=== PATIENT | male | born 1950 | race Caucasian/White ===

== ENCOUNTER → 2018-03-30 | Outpatient (CLI) | payer MEDICARE, OTHER ==
--- NOTE | 2018-03-30 11:38 | US ---
EXAMINATION TYPE: US abdomen complete DATE OF EXAM: 03/30/2018 COMPARISON: NONE CLINICAL HISTORY: K70.31 Alcoholic cirrhosis of liver with ascites. EXAM MEASUREMENTS: Liver Length: 17.1 cm Gallbladder Wall: 0.2 cm CBD: obscured by overlying bowel Spleen: 11.7 cm Right Kidney: 11.0 x 4.8 x 5.4 cm Left Kidney: 12.5 x 5.3 x 55. cm Patient of large body habitus with very large abdomen, extensive overlying bowel gas obscuring all mi dline structures. Patient had trouble holding his breath. Technically difficult and limited study. Unable to see hepatic artery to assess flow in portal v and hepatic artery. Pancreas: Obscured by bowel gas Liver: left lobe obscured by bowel gas, hyperechoic focus seen in right lobe measuring 0.7 x 0.6 x 0. 9cm, there is heterogeneous, enlarged Gallbladder: wnl Evidence for sonographic Raymundo's sign: no CBD: Obscured by overlying bowel gas Spleen: wnl Right Kidney: cyst measuring 1.4 x 1.3 x 1.0cm Left Kidney: lobular surface, hyperechoic focus within the cortex of the midpole is indeterminate roby suring only 3 mm Upper IVC: wnl Abd Aorta: Obscured by overlying bowel gas There is no ascites IMPRESSION: Exam is limited technically. Suspect underlying hepatocellular disease. Hepatomegaly. Pro bable calcification within the liver. Additional findings above.
== END | disposition home or self-care (01) ==
LOC: RADUSWWP 08:49 → EEVIPCON 09:00
DX: R16.0 Hepatomegaly, not elsewhere classified (principal); N28.1 Cyst of kidney, acquired
CPT/HCPCS: 76700

== ENCOUNTER 2018-04-26 08:56 | Day surgery (SDC) | payer MEDICARE, OTHER ==
[2018-04-26 09:43] VITALS: BP 123/61; PULSE 108; RESP 18; TEMP 98.1
--- NOTE | 2018-04-26 10:12 | US ---
Therapeutic paracentesis. DATE OF EXAM: 04/26/2018 CLINICAL HISTORY: Ascites Preliminary imaging demonstrated no evidence of ascites. IMPRESSION: Discontinued paracentesis due to lack of ascites.
== END 2018-04-26 09:40 ==
LOC: RADPROMAIN 08:56
DX: Z53.8 Procedure and treatment not carried out for other reasons (principal)
CPT/HCPCS: 76705

== ENCOUNTER → 2019-04-03 | Outpatient (CLI) | payer MEDICARE, OTHER ==
--- NOTE | 2019-04-03 10:22 | US ---
EXAMINATION TYPE: US liver DATE OF EXAM: 04/03/2019 COMPARISON: CLINICAL HISTORY: K70.31 alcoholic cirrhosis of liver with ascites. No pain, no previous surgeries EXAM MEASUREMENTS: Liver Length: 19.0 cm Gallbladder Wall: 0.2 cm CBD: 0.7 cm CHD: 0.7 cm Right Kidney: 10.8 x 5.1 x 5.4 cm Suboptimal visualization due to overlying bowel gas due and patient body habitus Pancreas: Obscured by bowel gas Liver: Appears enlarged and heterogenous. Scanned through ribs due to overlying bowel gas. Left lob e not visualized due to bowel gas. Gallbladder: wnl Evidence for sonographic Raymundo's sign: neg CBD: wnl for patient age CHD: wnl for patient age Right Kidney: Medial cystic appearing lesion - 1.3 x 1.2 x 1.2 cm. This was seen on the prior exam o f 03/30/2018 and measured 1.4 cm at the time in greatest dimension. IMPRESSION: 1. Partial obscuration of the liver due to overlying bowel gas. Within the visualized portions there is a coarsened heterogenous echotexture relating to the patient's known hepatocellular disease. Withi n the visualized portions no focal hepatic lesion is seen. 2. Right renal cyst measuring 1.3 cm is incidentally noted.
== END | disposition home or self-care (01) ==
LOC: RADUSWWP 09:34
DX: K70.31 Alcoholic cirrhosis of liver with ascites (principal); N28.1 Cyst of kidney, acquired
CPT/HCPCS: 76705

== ENCOUNTER → 2020-04-28 | Outpatient (CLI) | payer MEDICARE, OTHER ==
--- NOTE | 2020-04-28 12:33 | US ---
EXAMINATION TYPE: US liver DATE OF EXAM: 04/28/2020 COMPARISON: NONE CLINICAL HISTORY: K70.31 Alchoholic Cirrosis. EXAM MEASUREMENTS: Liver Length: 14.9 cm Gallbladder Wall: 0.3 cm CBD: 0.6 cm Right Kidney: 10.3 x 5.4 x 5.2 cm Patient of large body habitus, limited mobility with extensive overlying bowel gas, technically diffi cult study. Pancreas: Obscured by bowel gas Liver: wnl as seen, limited views Gallbladder: wnl as seen, limited views Evidence for sonographic Raymundo's sign: no CBD: wnl Right Kidney: wnl IMPRESSION: No distinct abnormality seen.
== END | disposition home or self-care (01) ==
LOC: RADUSWWP 10:30
PROVIDERS: ATTEND Internal Medicine Gastroenterology
DX: K70.31 Alcoholic cirrhosis of liver with ascites (principal)
CPT/HCPCS: 76705

== ENCOUNTER 2021-03-10 13:31 | Inpatient (IN) | payer MEDICARE, OTHER ==
[2021-03-10] MEDS ORDERED: SODIUM CHLORIDE 0.9% 1,000 ML IV STA (14:55)
--- NOTE | 2021-03-10 15:00 | ED ---
General Adult HPI - General Chief complaint: Abdominal Pain Stated complaint: Bowel Obstruction Time Seen by Provider: 03/10/21 13:50 Source: patient, RN notes reviewed Mode of arrival: ambulatory Limitations: no limitations - History of Present Illness Initial comments: Patient is a pleasant 71-year-old male presenting to the emergency Department with complaints of abdominal distention. Patient is a poor historian. Patient has had some intermittent constipation over the past few days. Patient did have a small bowel movement today. No nausea vomiting. No change in appetite. Patient states his abdomen feels larger than normal. Patient did have outpatient x-ray with concern for intestinal dilation. - Related Data Home Medications Medication Instructions Recorded Confirmed Acetaminophen Tab [Tylenol Tab] 1,000 mg PO Q8H PRN 04/20/18 03/10/21 Lactulose 20 gm PO TID@0700,1300,1900 04/20/18 03/10/21 Multivitamins, Thera [Multivitamin 1 tab PO HS 04/20/18 03/10/21 (formulary)] Spironolactone 100 mg PO DAILY 04/20/18 03/10/21 Acetaminophen [Tylenol Extra 500 mg PO Q6H PRN 03/10/21 03/10/21 Strength] Furosemide [Lasix] 80 mg PO DAILY 03/10/21 03/10/21 Melatonin 3 mg PO HS 03/10/21 03/10/21 Omeprazole 20 mg PO HS 03/10/21 03/10/21 Phenyleph/Mineral Oil/Petrolat 1 applic RECTAL Q12H PRN 03/10/21 03/10/21 [Preparation H Ointment] Sennosides [Senna] 17.2 mg PO HS 03/10/21 03/10/21 Spironolactone 50 mg PO DAILY 03/10/21 03/10/21 Allergies Allergy/AdvReac Type Severity Reaction Status Date / Time No Known Allergies Allergy Verified 03/10/21 15:16 Review of Systems ROS Statement: Those systems with pertinent positive or pertinent negative responses have been documented in the HPI. ROS Other: All systems not noted in ROS Statement are negative. Constitutional: Denies: fever Eyes: Denies: eye pain ENT: Denies: ear pain Respiratory: Denies: cough Cardiovascular: Denies: chest pain Endocrine: Denies: fatigue Gastrointestinal: Reports: as per HPI Genitourinary: Denies: dysuria Musculoskeletal: Denies: back pain Skin: Denies: rash Neurological: Denies: weakness Past Medical History Past Medical History: Liver Disease Additional Past Medical History / Comment(s): hepatic encephalopathy, dysphasia, anasarca, ascites due to liver cirrhosis History of Any Multi-Drug Resistant Organisms: Unobtainable Past Surgical History: Orthopedic Surgery Additional Past Surgical History / Comment(s): previous paracentesis at [facility] 2017, broken hip with rods placed Past Psychological History: Depression Smoking Status: Current every day smoker Past Alcohol Use History: Occasional Past Drug Use History: None Reported - Past Family History Mother Family Medical History: Dementia General Exam Limitations: no limitations General appearance: alert, in no apparent distress Head exam: Present: normocephalic Eye exam: Present: normal appearance Neck exam: Present: normal inspection Respiratory exam: Present: normal lung sounds bilaterally Cardiovascular Exam: Present: regular rate, normal rhythm Expanded Peripheral pulses: 2+: Dorsalis Pedis (R), Dorsalis Pedis (L) GI/Abdominal exam: Present: soft, distended. Absent: tenderness, guarding, rebound, rigid Extremities exam: Present: normal inspection Neurological exam: Present: alert Psychiatric exam: Present: normal affect, normal mood Skin exam: Present: normal color Course Vital Signs 03/10/21 03/10/21 13:58 16:38 Temperature 98.6 F 97.9 F Pulse Rate 81 80 Respiratory 18 18 Rate Blood Pressure 113/72 119/71 O2 Sat by Pulse 98 98 Oximetry Medical Decision Making - Medical Decision Making Patient reevaluated and updated. Case discussed with Dr. Hester, covering for Dr. Reddy, who will admit. Case also discussed with Dr. Rome who will consult. She agrees with NG tube and recommends nothing by mouth except for ice chips. - Lab Data Result diagrams: 03/10/21 15:01 03/10/21 15:01 Lab Results 03/10/21 03/10/21 03/10/21 Range/Units 15:01 15:01 15:01 WBC 9.2 (3.8-10.6) k/uL RBC 4.73 (4.30-5.90) m/uL Hgb 13.6 (13.0-17.5) gm/dL Hct 41.1 (39.0-53.0) % MCV 87.0 (80.0-100.0) fL MCH 28.8 (25.0-35.0) pg MCHC 33.1 (31.0-37.0) g/dL RDW 14.0 (11.5-15.5) % Plt Count 278 (150-450) k/uL MPV 7.2 Neutrophils % 48 % Lymphocytes % 39 % Monocytes % 7 % Eosinophils % 5 % Basophils % 1 % Neutrophils # 4.4 (1.3-7.7) k/uL Lymphocytes # 3.6 (1.0-4.8) k/uL Monocytes # 0.6 (0-1.0) k/uL Eosinophils # 0.4 (0-0.7) k/uL Basophils # 0.1 (0-0.2) k/uL PT 10.6 (9.0-12.0) sec INR 1.0 (<1.2) APTT 27.0 (22.0-30.0) sec Sodium 137 (137-145) mmol/L Potassium 4.3 (3.5-5.1) mmol/L Chloride 103 (98-107) mmol/L Carbon Dioxide 21 L (22-30) mmol/L Anion Gap 13 mmol/L BUN 18 (9-20) mg/dL Creatinine 0.76 (0.66-1.25) mg/dL Est GFR (CKD-EPI)AfAm >90 (>60 ml/min/1.73 sqM) Est GFR (CKD-EPI)NonAf >90 (>60 ml/min/1.73 sqM) Glucose 73 L (74-99) mg/dL Calcium 9.9 (8.4-10.2) mg/dL Total Bilirubin 0.4 (0.2-1.3) mg/dL AST 36 (17-59) U/L ALT 18 (4-49) U/L Alkaline Phosphatase 91 (38-126) U/L Total Protein 8.1 (6.3-8.2) g/dL Albumin 4.7 (3.5-5.0) g/dL Amylase 66 (30-110) U/L Lipase 137 (23-300) U/L - Radiology Data Radiology results: image reviewed (Computed tomography scan concerning for bowel obstruction with possible sigmoid volvulus.) Disposition Clinical Impression: Bowel obstruction, Sigmoid volvulus Disposition: ADMITTED IP TO THIS [facility] Condition: Serious Is patient prescribed a controlled substance at d/c from ED?: No Referrals: Ed Reddy MD [Primary Care Provider] - 1-2 days Decision Time: 16:46
[2021-03-10 15:15] LABS: Basophils # (A) 0.1 k/uL (0-0.2); Basophils % (A) 1 %; Eosinophils # (A) 0.4 k/uL (0-0.7); Eosinophils % (A) 5 %; HCT 41.1 % (39.0-53.0); HGB 13.6 gm/dL (13.0-17.5); Lymphocytes # (A) 3.6 k/uL (1.0-4.8); Lymphocytes % (A) 39 %; MCH 28.8 pg (25.0-35.0); MCHC 33.1 g/dL (31.0-37.0); Mean Platelet Volume 7.2; Monocytes # (A) 0.6 k/uL (0-1.0); Monocytes % (A) 7 %; Neutrophils # (A) 4.4 k/uL (1.3-7.7); Neutrophils % (A) 48 %; Platelet Count 278 k/uL (150-450); RBC 4.73 m/uL (4.30-5.90); WBC 9.2 k/uL (3.8-10.6)
[2021-03-10 15:18] LABS: ALT 18 U/L (4-49); AST 36 U/L (17-59); African American GFR (CKD) >90 (>60 ml/min/1.73 sqM); Albumin 4.7 g/dL (3.5-5.0); Alkaline Phosphatase 91 U/L (38-126); Amylase 66 U/L (30-110); Anion Gap 13 mmol/L; Blood Urea Nitrogen 18 mg/dL (9-20); Calcium 9.9 mg/dL (8.4-10.2); Carbon Dioxide 21 mmol/L (22-30); Chloride 103 mmol/L (98-107); Glucose 73 mg/dL (74-99); Lipase 137 U/L (23-300); Non-African American GFR(CKD) >90 (>60 ml/min/1.73 sqM); Potassium 4.3 mmol/L (3.5-5.1); Sodium 137 mmol/L (137-145); Total Bilirubin 0.4 mg/dL (0.2-1.3); Total Protein 8.1 g/dL (6.3-8.2)
[2021-03-10 15:41] LABS: Prothrombin Time 10.6 sec (9.0-12.0)
--- NOTE | 2021-03-10 16:25 | CT ---
EXAMINATION TYPE: CT abdomen pelvis w con DATE OF EXAM: 03/10/2021 COMPARISON: None. HISTORY: generalized abdominal pain, bloating CT DLP: 1677.4 mGycm, Automated Exposure Control for Dose Reduction was Utilized. CONTRAST: CT scan of the abdomen and pelvis is performed with oral and with IV Contrast, patient injected with 100 mL of Isovue 300. FINDINGS: LUNG BASES: Mild to moderate bibasilar linear scarring and/or atelectasis.. LIVER/GB: Single 6 mm calcification in the liver axial image 18. Contracted gallbladder. PANCREAS: No significant abnormality is seen. SPLEEN: No significant abnormality is seen. ADRENALS: No significant abnormality is seen. KIDNEYS: No significant abnormality is seen. BOWEL: Local mass effect due to fluid and gas filled prominent and dilated colonic loops. There is ab normal twisting in the sigmoid colon mid to distal aspect where there is transition into nondistended colon having moderate concentric wall thickening. Distal to this there is fluid distended and dilate d rectum. Multiple air-fluid levels identified. Dilated cecum. Dependent density is noted. Terminal i leum is fluid-filled and prominent axial image 43. There are some additional nondistended small bowel loops in the left abdomen. Twisting mesenteric vessels right lower quadrant seen best on coronal tawanda ges 67 through 95. No definitive free air. No definitive air within bowel wall loops. No mesenteric a ir clearly seen. Prominent and dilated bowel loops have significant mass effect occupying majority of peritoneal cavity on other structures in the abdomen and pelvis. Nondistended stomach and duodenal s weep noted. PROSTATE/SEMINAL VESICLES: Central calcifications normal size prostate. Adjacent anterior pelvic phle boliths. LYMPH NODES: No greater than 1cm abdominal or pelvic lymph nodes are appreciated. OSSEOUS STRUCTURES: Surgical change right acetabulum noted. There is marked deformity to the right pr oximal femur. Moderate to advanced narrowing and spurring in the left hip joint. S-shaped scoliosis i n the spine. Spine is straightened on sagittal images. Moderate disc space narrowing L2-L3 and L4-L5 levels. Moderate disc space with vacuum disc phenomenon L5-S1 level. OTHER: [id number] calcified plaque of the aorta extends into branch vessels. IMPRESSION: Abnormal bowel findings as detailed above with Whirl sign consistent with sigmoid volvul us causing distal bowel obstruction. Case discussed with ordering ER physician via telephone at time of dictation.
[2021-03-10] MEDS ORDERED: NALOXONE 0.4 MG/ML 1 ML VIAL IV PRN (16:48)
[2021-03-10] MEDS ORDERED: LORazepam 2 MG/ML INJ IV PRN (16:49)
[2021-03-10 18:06] LABS: Appearance,Urine Clear (Clear); Bilirubin,Urine Negative (Negative); Blood,Urine Negative (Negative); Color,Urine Light Yellow; Glucose,Urine (UA) Negative (Negative); Ketones,Urine Negative (Negative); Leukocyte Esterase,Urine Small (Negative); Mucus,Urine Rare /hpf; Nitrite,Urine Negative (Negative); Protein,Urine Negative (Negative); RBC,Urine 1 /hpf (0-5); Specific Gravity,Urine 1.023 (1.001-1.035); Urobilinogen,Urine <2.0 mg/dL (<2.0); WBC,Urine 7 /hpf (0-5)
[2021-03-10] MEDS: HYDROmorphone 1 MG/ML 1 ML SYRINGE IVP PRN (20:17)
--- NOTE | 2021-03-10 22:17 | P.HPIM ---
History of Present Illness H&P Date: 03/10/21 Chief Complaint: Abdominal distention. Patient is a 71-year-old female with a known history of liver cirrhosis, alcohol abuse, frequent ascites and paracentesis and history of hepatic encephalopathy currently living at [facility] was brought to the hospital due to abdominal d istention. Patient did have intermittent constipation over the past few days. He did have a bowel movement today. Staff noticed that patient's abdominal is distended than his normal girth. He was sent to ER for evaluation. Arrival patient does not have any nausea vomiting. Mild abdominal discomfort. CT abdomen pelvis was done which showed abnormal bowel findings with the vital sign consistent with sigmoid volvulus causing distal bowel obstruction. Lab data showed WBC 9.2 hemoglobin 13.6 and platelets 278 Sodium 137 potassium 4.3 bicarb is 21 BUN 18 and creatinine 0.76 blood sugar is 73 Liver enzymes are not elevated amylase lipase within normal limits. UA negative for infection. COVID-19 PCR not detected. Review of Systems Complete review of systems could not be obtained from the patient Past Medical History Past Medical History: Liver Disease Additional Past Medical History / Comment(s): hepatic encephalopathy, dysphasia, anasarca, ascites due to liver cirrhosis History of Any Multi-Drug Resistant Organisms: Unobtainable Past Surgical History: Orthopedic Surgery Additional Past Surgical History / Comment(s): previous paracentesis at [facility] 2016, broken hip with rods placed Past Psychological History: Depression Additional Psychological History / Comment(s): Mentioned to daughter at [facility] Smoking Status: Unknown if ever smoked Past Alcohol Use History: Occasional Additional Past Alcohol Use History / Comment(s): currently at [facility] smokes 4 cigarettes per day, currently does not drink Past Drug Use History: None Reported - Past Family History Mother Family Medical History: Dementia Medications and Allergies Home Medications Medication Instructions Recorded Confirmed Type Acetaminophen Tab [Tylenol Tab] 1,000 mg PO Q8H PRN 04/20/18 03/10/21 History Lactulose 20 gm PO TID@0700,1300,1900 04/20/18 03/10/21 History Multivitamins, Thera [Multivitamin 1 tab PO HS 04/20/18 03/10/21 History (formulary)] Spironolactone 100 mg PO DAILY 04/20/18 03/10/21 History Acetaminophen [Tylenol Extra 500 mg PO Q6H PRN 03/10/21 03/10/21 History Strength] Furosemide [Lasix] 80 mg PO DAILY 03/10/21 03/10/21 History Melatonin 3 mg PO HS 03/10/21 03/10/21 History Omeprazole 20 mg PO HS 03/10/21 03/10/21 History Phenyleph/Mineral Oil/Petrolat 1 applic RECTAL Q12H PRN 03/10/21 03/10/21 History [Preparation H Ointment] Sennosides [Senna] 17.2 mg PO HS 03/10/21 03/10/21 History Spironolactone 50 mg PO DAILY 03/10/21 03/10/21 History Allergies Allergy/AdvReac Type Severity Reaction Status Date / Time No Known Allergies Allergy Verified 03/10/21 15:16 Physical Exam Vitals: Vital Signs Temp Pulse Pulse Resp BP BP Pulse Ox 03/10/21 19:53 97.4 F L 88 18 125/76 98 03/10/21 19:18 98.0 F 78 18 134/90 97 03/10/21 16:38 97.9 F 80 18 119/71 98 03/10/21 13:58 98.6 F 81 18 113/72 98 Intake and Output 03/10/21 03/10/21 03/10/21 06:59 14:59 22:59 Other: Weight 115.666 kg 115.666 kg PHYSICAL EXAMINATION: Patient is lying in the bed comfortably, no acute distress, awake alert and oriented.. HEENT: Normocephalic. Neck is supple. Pupils reactive. Nostrils clear. Oral cavity is moist. Neck reveals no JVD, carotid bruits, or thyromegaly. CHEST EXAMINATION: Trachea is central. Symmetrical expansion. Bibasilar diminished sounds.Lung aguilera clear to auscultation and percussion. CARDIAC: Normal S1, S2 with no gallops. No murmurs ABDOMEN: Soft. Patient does have significant abdominal distention with hyperactive bowel sounds. No abdominal bruits. Extremities: trace edema. No clubbing or cyanosis Neurologically awake, alert, oriented x1-2 with well-coordinated movements. No focal deficits noted Skin: No rash or skin lesions. Psychiatric: Coperative. Nonsuicidal Musculoskeletal: No joint swelling or deformity. Normal range of motion. Results CBC & Chem 7: 03/10/21 15:01 03/10/21 15:01 Labs: Abnormal Lab Results - Last 24 Hours (Table) 03/10/21 03/10/21 Range/Units 15:01 17:35 Carbon Dioxide 21 L (22-30) mmol/L Glucose 73 L (74-99) mg/dL Ur Leukocyte Esterase Small H (Negative) Urine WBC 7 H (0-5) /hpf Urine Mucus Rare H (None) /hpf Thrombosis Risk Factor Assmnt - DVT/VTE Prophylaxis DVT/VTE Prophylaxis: Pharmacologic Prophylaxis ordered Assessment and Plan Assessment: Significant abdominal distention due to sigmoid volvulus with a distal bowel obstruction Alcoholic liver cirrhosis with frequent paracentesis History of alcohol use Cognitive impairment and mild dementia DVT prophylaxis with heparin subcu Plan: Patient will be continued on IV hydration and nothing by mouth. Continue with pain management and general surgery was consulted for possible surgical intervention. Continue with conservative management at this time. T. Monitor electrolytes and follow-up closely.
[2021-03-10] MEDS: SODIUM CHLORIDE 0.9% 1,000 ML IV SCH (23:21)
[2021-03-11] MEDS: HYDROmorphone 1 MG/ML 1 ML SYRINGE IVP PRN (02:56)
[2021-03-11] MEDS: PANTOPRAZOLE 40 MG/10 ML VIAL IV SCH (06:59)
[2021-03-11] MEDS: HEPARIN SODIUM,PORCINE/PF 5,000 UNIT/0.5 ML SYRINGE SQ SCH ×2 (07:01→21:21)
--- NOTE | 2021-03-11 12:13 | P.HPADDEND ---
H&P Addendum H&P Addendum Date: 03/11/21 Options were described including surgery versus attempted colon decompression for sigmoid volvulus. Patient selected colon decompression. Surgical intervention may be of benefit should colonoscopic decompression fail.
[2021-03-11] MEDS ORDERED: IV FLUID CONTINUATION 1,000 ML IV ONE (12:14)
--- NOTE | 2021-03-11 12:31 | P.PCN ---
Date of Procedure: 03/11/21 Description of Procedure: PREOPERATIVE DIAGNOSIS: Sigmoid volvulus for large bowel obstruction Chronic constipation Liver cirrhosis History of hepatic encephalopathy Morbid obesity due to excess calories, BMI 35.6 Hypertensive heart disease with congestive heart failure POSTOPERATIVE DIAGNOSIS: Sigmoid volvulus for large bowel obstruction Chronic constipation Liver cirrhosis History of hepatic encephalopathy Morbid obesity due to excess calories, BMI 35.6 Hypertensive heart disease with congestive heart failure OPERATION: Colonoscopy to the cecum for colonic decompression SURGEON: Holly Toro MD. ANESTHESIA: MAC. INDICATIONS: The patient is a 71-year-old male who presents with sigmoid volvulus large bowel obstruction. Lower endoscopy was offered for diagnostic and therapeutic approach. Benefits and risks were described and informed consent was obtained. DESCRIPTION OF PROCEDURE: The bowel was unprepped. The patient had been brought into the operating room and laid in the left lateral decubitus position. After adequate intravenous sedation, the rectum was examined with 2% lidocaine jelly. External hemorrhoids were encountered. The rectal tone was within normal limits. No lesions were palpated in the rectal vault. An Olympus colonoscope was gently advanced with minimal insufflation advanced until the cecum was viewed. The entire colon was decompressed with the abdomen left soft. The mucosa of the colon was viable without ischemia. No large colonic polyps were found. The colon was desufflated. The patient had tolerated the procedure well. Withdrawal time was over 6 minutes. FINDINGS: Aronchick preparation quality scale 3 (1-5) Internal hemorrhoids, grade 3 External prolapsed hemorrhoids, grade 3 No arteriovenous malformations. No adenomatous polyps. No focal colitis. Successful decompression of sigmoid volvulus and large bowel No evidence of bowel ischemia RECOMMENDATIONS: 1. May resume heart healthy diet 2. Will need cardiac risk assessment 3. Recommend colectomy for symptomatic sigmoid volvulus in the future
--- NOTE | 2021-03-11 14:15 | P.CRDCN ---
History of Present Illness Consult date: 03/11/21 History of present illness: HISTORY OF PRESENT ILLNESS: This is a 71-year-old male with a past medical history significant for alcohol abuse, liver cirrhosis, ascites with previous paracentesis, and nicotine dependence. 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 We have been asked to see the patient in consultation for cardiac clearance. Patient presented to the hospital from [facility] secondary to increasing abdominal distention. Patient was found to have a sigmoid volvulus. He underwent decompressive colonoscopy today with Dr. Toro. Recommendations from general surgery are for colectomy in the future. Patient examined at the bedside. She appears mildly confused during evaluation. He denies chest pain or pressure. He denies shortness of breath. Patient states he is able to lay flat in bed without any dyspnea. He denies dizziness or lightheadedness. Denies nausea or vomiting. Patient denies any previous history of cardiac disease. He denies history of congestive heart failure. He denies history of hypertension. He denies history of myocardial infarction or stenting. Laboratory data: WBC 9.2. Hemoglobin 13.6. Platelet count 278. Sodium 137. Potassium 4.3. BUN 18. Creatinine 0.76. Current home cardiac medications include Lasix 80 mg daily and spironolactone 150 mg daily REVIEW OF SYSTEMS: At the time of my exam: CONSTITUTIONAL: Denies fever or chills. HEENT: Denies blurred vision, vision changes, or eye pain. Denies hemoptysis CARDIOVASCULAR: Denies chest pain. Denies orthopnea. Denies PND. Denies palpitations RESPIRATORY: Denies shortness of breath. GASTROINTESTINAL: Denies abdominal pain. Denies nausea or vomiting. HEMATOLOGIC: Denies bleeding disorders. GENITOURINARY: Denies any blood in urine. SKIN: Denies pruitis. Denies rash. PHYSICAL EXAM: VITAL SIGNS: Reviewed. GENERAL: Well-developed in no acute distress. HEENT: Head is normocephalic. Pupils are equal, round. Sclerae anicteric. Mucous membranes of the mouth are moist. Neck supple. No JVD or thyromegaly LUNGS: Respirations even and unlabored. Lungs diminished bilaterally. HEART: Regular rate and rhythm. S1 and S2 heard. ABDOMEN: Soft. Distended. EXTREMITIES: Normal range of motion. No clubbing or cyanosis. Peripheral pulses intact. No lower extremity edema NEUROLOGIC: Awake and alert. Oriented x 2. ASSESSMENT: Sigmoid volvulus, status post decompressive colonoscopy History of alcohol abuse Liver cirrhosis Ascites, secondary to above Nicotine dependence PLAN: Obtain EKG Obtain 2D echo to assess cardiac structure and function Patient is prescribed diuretics on an outpatient basis secondary to ascites and liver cirrhosis, not secondary to congestive heart failure The patient is currently without symptoms of angina and there are no signs of acute CHF If surgical intervention is recommend, there are no absolute contraindications to undergo surgery from a cardiac standpoint Nurse practitioner note has been reviewed by physician. Signing provider agrees with the documented findings, assessment, and plan of care. Past Medical History Past Medical History: Liver Disease Additional Past Medical History / Comment(s): hepatic encephalopathy, dysphasia, anasarca, ascites due to liver cirrhosis History of Any Multi-Drug Resistant Organisms: Unobtainable Past Surgical History: Orthopedic Surgery Additional Past Surgical History / Comment(s): previous paracentesis at [facility] 2016, broken hip with rods placed Past Psychological History: Depression Additional Psychological History / Comment(s): Mentioned to daughter at [facility] Smoking Status: Unknown if ever smoked Past Alcohol Use History: Occasional Additional Past Alcohol Use History / Comment(s): currently at [facility] smokes 4 cigarettes per day, currently does not drink Past Drug Use History: None Reported - Past Family History Mother Family Medical History: Dementia Medications and Allergies Home Medications Medication Instructions Recorded Confirmed Type Acetaminophen Tab [Tylenol Tab] 1,000 mg PO Q8H PRN 04/20/18 03/10/21 History Lactulose 20 gm PO TID@0700,1300,1900 04/20/18 03/10/21 History Multivitamins, Thera [Multivitamin 1 tab PO HS 04/20/18 03/10/21 History (formulary)] Spironolactone 100 mg PO DAILY 04/20/18 03/10/21 History Acetaminophen [Tylenol Extra 500 mg PO Q6H PRN 03/10/21 03/10/21 History Strength] Furosemide [Lasix] 80 mg PO DAILY 03/10/21 03/10/21 History Melatonin 3 mg PO HS 03/10/21 03/10/21 History Omeprazole 20 mg PO HS 03/10/21 03/10/21 History Phenyleph/Mineral Oil/Petrolat 1 applic RECTAL Q12H PRN 03/10/21 03/10/21 History [Preparation H Ointment] Sennosides [Senna] 17.2 mg PO HS 03/10/21 03/10/21 History Spironolactone 50 mg PO DAILY 03/10/21 03/10/21 History Allergies Allergy/AdvReac Type Severity Reaction Status Date / Time No Known Allergies Allergy Verified 03/10/21 15:16 Physical Exam Vitals: Vital Signs Temp Pulse Pulse Resp BP BP Pulse Ox 03/11/21 12:45 97.7 F 90 16 115/68 97 03/11/21 07:31 97.7 F 76 18 116/67 93 L 03/11/21 07:00 18 03/11/21 01:54 97.8 F 75 22 104/66 97 03/10/21 19:53 97.4 F L 88 18 125/76 98 03/10/21 19:18 98.0 F 78 18 134/90 97 03/10/21 16:38 97.9 F 80 18 119/71 98 03/10/21 13:58 98.6 F 81 18 113/72 98 Intake and Output 03/10/21 03/11/21 03/11/21 22:59 06:59 14:59 Intake Total 300 Balance 300 Intake: IV 300 Other: Weight 115.666 kg Results 03/10/21 15:01 03/10/21 15:01 Cardiac Enzymes 03/10/21 Range/Units 15:01 AST 36 (17-59) U/L Coagulation 03/10/21 Range/Units 15:01 PT 10.6 (9.0-12.0) sec APTT 27.0 (22.0-30.0) sec CBC 03/10/21 Range/Units 15:01 WBC 9.2 (3.8-10.6) k/uL RBC 4.73 (4.30-5.90) m/uL Hgb 13.6 (13.0-17.5) gm/dL Hct 41.1 (39.0-53.0) % Plt Count 278 (150-450) k/uL Comprehensive Metabolic Panel 03/10/21 Range/Units 15:01 Sodium 137 (137-145) mmol/L Potassium 4.3 (3.5-5.1) mmol/L Chloride 103 (98-107) mmol/L Carbon Dioxide 21 L (22-30) mmol/L BUN 18 (9-20) mg/dL Creatinine 0.76 (0.66-1.25) mg/dL Glucose 73 L (74-99) mg/dL Calcium 9.9 (8.4-10.2) mg/dL AST 36 (17-59) U/L ALT 18 (4-49) U/L Alkaline Phosphatase 91 (38-126) U/L Total Protein 8.1 (6.3-8.2) g/dL Albumin 4.7 (3.5-5.0) g/dL Current Medications Generic Name Dose Route Start Last Admin Trade Name Freq PRN Reason Stop Dose Admin Heparin Sodium (Porcine) 5,000 unit 03/11/21 09:00 03/11/21 07:01 Heparin Sodium,Porcine/Pf 5,000 Unit/0.5 Ml Syringe SQ Not Given Q12HR XOCHITL Hydromorphone HCl 1 mg 03/10/21 16:49 03/11/21 02:56 Hydromorphone 1 Mg/Ml 1 Ml Syringe IVP 1 mg Q3HR PRN Administration Severe Pain Hydromorphone HCl 0.5 mg 03/10/21 16:49 Hydromorphone 0.5 Mg/0.5 Ml Syringe IVP Q3HR PRN Moderate Pain Sodium Chloride 1,000 mls @ 50 mls/hr 03/10/21 22:15 03/10/21 23:21 Saline 0.9% IV Not Given .Q20H XOCHITL Lorazepam 0.5 mg 03/10/21 16:49 Lorazepam 2 Mg/Ml Inj IV Q6HR PRN Anxiety Naloxone HCl 0.2 mg 03/10/21 16:48 Naloxone 0.4 Mg/Ml 1 Ml Vial IV Q2M PRN Opioid Reversal Pantoprazole Sodium 40 mg 03/11/21 09:00 03/11/21 06:59 Pantoprazole 40 Mg/10 Ml Vial IV 40 mg DAILY XOCHITL Administration Intake and Output 03/10/21 03/11/21 03/11/21 22:59 06:59 14:59 Intake Total 300 Balance 300 Intake: IV 300 Other: Weight 115.666 kg 03/10/21 15:01 03/10/21 15:01
[2021-03-11] MEDS: SODIUM CHLORIDE 0.9% 1,000 ML IV SCH (16:57)
--- NOTE | 2021-03-11 18:21 | ECHOF ---
Referral Reason:Congestive heart failure MEASUREMENTS -------- HEIGHT: 162.6 cm WEIGHT: 115.7 kg BP: RVIDd: 3.1 cm (< 3.3) IVSd: 1.2 cm (0.6 - 1.1) LVIDd: 3.0 cm (3.9 - 5.3) LVPWd: 1.2 cm (0.6 - 1.1) IVSs: 1.8 cm LVIDs: 2.8 cm LVPWs: 1.1 cm LA Diam: 3.4 cm (2.7 - 3.8) Ao Diam: 3.7 cm (2.0 - 3.7) AV Cusp: 2.7 cm (1.5 - 2.6) MV EXCURSION: 19.523 mm (> 18.000) MV EF SLOPE: 78 mm/s (70 - 150) EPSS: 0.8 cm MV E Nba: 0.60 m/s MV DecT: 239 ms MV A Nba: 0.76 m/s MV E/A Ratio: 0.79 RAP: 5.00 mmHg RVSP: 14.84 mmHg FINDINGS -------- Sinus rhythm. This was a technically adequate study. The left ventricular size is normal. There is borderline concentric left ventricular hypertrophy. Overall left ventricular systolic function is normal with, an EF between 55 - 60 %. The right ventricle is normal in size. The left atrial size is normal. The right atrial size is normal. The aortic valve is trileaflet, and appears structurally normal. No aortic stenosis or regurgitation. The mitral valve is normal. Mild mitral regurgitation is present. The tricuspid valve appears structurally normal. Mild tricuspid regurgitation present. Right vent ricular systolic pressure is normal at < 35 mmHg. The pulmonic valve was not well visualized. The aortic root size is normal. Echo free space represents a pericardial fat pad. CONCLUSIONS -------- 1. There is borderline concentric left ventricular hypertrophy. 2. Overall left ventricular systolic function is normal with, an EF between 55 - 60 %. 3. The left atrial size is normal. 4. The aortic valve is trileaflet, and appears structurally normal. No aortic stenosis or regurgitati on. 5. Mild mitral regurgitation is present. 6. Mild tricuspid regurgitation present. 7. Echo free space represents a pericardial fat pad. BOLTER HELPER: Karina Tucker RDCS
[2021-03-12] MEDS: HEPARIN SODIUM,PORCINE/PF 5,000 UNIT/0.5 ML SYRINGE SQ SCH ×2 (07:04→21:04)
[2021-03-12] MEDS: PANTOPRAZOLE 40 MG/10 ML VIAL IV SCH (07:04)
--- NOTE | 2021-03-12 09:50 | P.PN ---
Progress Note - Text Progress Note Date: 03/12/21 Patient seen and evaluated following colonoscopy. Denies abdominal pain. He is passing flatus and had moderate bowel movements. He does report mild abdominal distention. Failure of decompression May require surgical intervention. Recommend cardiac risk assessment prior to surgery.
--- NOTE | 2021-03-12 11:32 | P.PN ---
Subjective Progress Note Date: 03/12/21 HISTORY OF PRESENT ILLNESS: This is a 71-year-old male with a past medical history significant for alcohol abuse, liver cirrhosis, ascites with previous paracentesis, and nicotine de pendence. 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 We have been asked to see the patient in consultation for cardiac clearance. Patient presented to the hospital from [facility] secondary to increasing abdominal distention. Patient was found to have a sigmoid volvulus. He underwent decompressive colonoscopy today with Dr. Toro. Recommendations from general surgery are for colectomy in the future. Patient examined at the bedside. She appears mildly confused during evaluation. He denies chest pain or pressure. He denies shortness of breath. Patient states he is able to lay flat in bed without any dyspnea. He denies dizziness or lightheadedness. Denies nausea or vomiting. Patient denies any previous history of cardiac disease. He denies history of congestive heart failure. He denies history of hypertension. He denies history of myocardial infarction or stenting. Laboratory data: WBC 9.2. Hemoglobin 13.6. Platelet count 278. Sodium 137. Potassium 4.3. BUN 18. Creatinine 0.76. Current home cardiac medications include Lasix 80 mg daily and spironolactone 150 mg daily 03/12/2021 Patient examined at the bedside. Patient denies chest pain or pressure. Denies shortness of breath. Echocardiogram completed revealed ejection fraction 55- 60%, mild mitral regurgitation, and mild tricuspid regurgitation PHYSICAL EXAM: VITAL SIGNS: Reviewed. GENERAL: Well-developed in no acute distress. HEENT: Head is normocephalic. Pupils are equal, round. Sclerae anicteric. Mucous membranes of the mouth are moist. Neck supple. No JVD or thyromegaly LUNGS: Respirations even and unlabored. Lungs diminished bilaterally. HEART: Regular rate and rhythm. S1 and S2 heard. ABDOMEN: Soft. Distended. EXTREMITIES: Normal range of motion. No clubbing or cyanosis. Peripheral pulses intact. No lower extremity edema NEUROLOGIC: Awake and alert. Oriented x 2. ASSESSMENT: Sigmoid volvulus, status post decompressive colonoscopy History of alcohol abuse Liver cirrhosis Ascites, secondary to above Nicotine dependence PLAN: Patient is prescribed diuretics on an outpatient basis secondary to ascites and liver cirrhosis, not secondary to congestive heart failure The patient is currently without symptoms of angina and there are no signs of acute CHF If surgical intervention is recommend, there are no absolute contraindications to undergo surgery from a cardiac standpoint We will sign off. Please reconsult if needed. Nurse practitioner note has been reviewed by physician. Signing provider agrees with the documented findings, assessment, and plan of care. Objective - Vital Signs Vital signs: Vital Signs Temp 98.3 F 03/12/21 07:30 Pulse 77 03/12/21 07:30 Resp 20 03/12/21 07:30 BP 115/68 03/12/21 07:30 Pulse Ox 96 03/12/21 07:30 Intake & Output 03/11/21 03/12/21 03/12/21 18:59 06:59 18:59 Intake Total 300 200 Output Total 150 Balance 300 -150 200 Intake: IV 300 Oral 200 Output: Urine 150 Other: # Voids 2 2 # Bowel Movements 1 - Labs CBC & Chem 7: 03/10/21 15:01 03/10/21 15:01
--- NOTE | 2021-03-12 13:17 | P.PN ---
Subjective Progress Note Date: 03/12/21 CHIEF COMPLAINT: Sigmoid volvulus HISTORY OF PRESENT ILLNESS: The patient is a 71-year-old male admitted for abdominal distention. He has history of chronic constipation. He reports passing flatus and had bowel movements. He had colonoscopy yesterday for acute decompression. Patient denies abdominal pain. He is passing flatus. Tolerating diet. He reports having bowel movements. ROS: No reports of nausea and vomiting. No fevers or chills. No new chest pain. PHYSICAL EXAM: VITAL SIGNS: Reviewed CONSTITUTIONAL: Well developed and in no acute distress. EYES: Conjuctivae without sclera icterus. Extraocular movements grossly intact. HEAD, EARS, NOSE, THROAT: Moist buccal mucosa. Head is atraumatic, normocephalic. Hears conversational speech. No nasal drainage. NECK: Supple. No thyroidomegaly. RESPIRATORY: Non-labored respirations and equal bilateral excursions. CARDIOVASCULAR: Palpable 2+ radial pulses. ABDOMEN: No peritonitis. Present abdominal distention, mild MUSCULOSKELETAL: No gross deformity of the lower extremities noted. No clubbing. No cyanosis. SKIN: Good skin turgor. Well perfused. NEUROLOGIC: Cranial nerves II through XII grossly intact. No focal or lateralizing signs. PSYCH: Appropriate affect. CLINICAL LABS: White blood cell count normal 9.2 admission ASSESSMENT: 1. Sigmoid volvulus PLAN: 1. Surgical options including sigmoid colectomy described. 2. At this time pending cardiac clearance. Objective - Vital Signs Vital signs: Vital Signs Temp 98.3 F 03/12/21 07:30 Pulse 77 03/12/21 07:30 Resp 20 03/12/21 07:30 BP 115/68 03/12/21 07:30 Pulse Ox 96 03/12/21 07:30 Intake & Output 03/11/21 03/12/21 03/12/21 18:59 06:59 18:59 Intake Total 300 200 Output Total 150 Balance 300 -150 200 Intake: IV 300 Oral 200 Output: Urine 150 Other: # Voids 2 2 # Bowel Movements 1 - Labs CBC & Chem 7: 03/10/21 15:01 03/10/21 15:01 Assessment and Plan (1) Chronic constipation Current Visit: Yes Status: Acute Code(s): K59.09 - OTHER CONSTIPATION SNOMED Code(s): 876619229 (2) Bowel obstruction Current Visit: Yes Status: Acute Code(s): K56.609 - UNSP INTESTNL OBST, UNSP TO PARTIAL VERSUS COMPLETE OBST SNOMED Code(s): 88911692 (3) Sigmoid volvulus Current Visit: Yes Status: Acute Code(s): K56.2 - VOLVULUS SNOMED Code(s): 766410909
[2021-03-12] MEDS: SODIUM CHLORIDE 0.9% 1,000 ML IV SCH (14:53)
--- NOTE | 2021-03-13 00:57 | P.PN ---
Subjective Progress Note Date: 03/11/21 Principal diagnosis: Sigmoid volvulus. Patient is a 71-year-old female with a known history of liver cirrhosis, alcohol abuse, frequent ascites and paracentesis and history of hepatic encephalopathy currently living at [facility] was brought to the hospital due to abdominal distention. Patient did have intermittent constipation over the past few days. He did have a bowel movement today. Staff noticed that patient's abdominal is distended than his normal girth. He was sent to ER for evaluation. Arrival patient does not have any nausea vomiting. Mild abdominal discomfort. CT abdomen pelvis was done which showed abnormal bowel findings with the vital sign consistent with sigmoid volvulus causing distal bowel obstruction. Lab data showed WBC 9.2 hemoglobin 13.6 and platelets 278 Sodium 137 potassium 4.3 bicarb is 21 BUN 18 and creatinine 0.76 blood sugar is 73 Liver enzymes are not elevated amylase lipase within normal limits. UA negative for infection. COVID-19 PCR not detected. 03/11/2021 Patient is still having significant distended abdomen. No complaints of any abdominal pain. No nausea vomiting or diarrhea. Patient was seen by general surgery and is planning for colonoscopy for decompression. Patient may need sigmoid colectomy if volvulus recurs. Cardiology was consulted for risk stratification and clearance. No absolute contraindication for surgery at this time. Patient denies any fever or chills. No chest pain or shortness of. No cough or sputum production. Current medications reviewed. Objective - Vital Signs Vital signs: Vital Signs Temp 98.0 F 03/11/21 19:24 Pulse 83 03/11/21 19:24 Resp 18 03/11/21 19:24 BP 123/68 03/11/21 19:24 Pulse Ox 98 03/11/21 19:24 Intake & Output 03/11/21 03/11/21 03/12/21 06:59 18:59 06:59 Intake Total 300 Balance 300 Weight 115.666 kg Intake: IV 300 Other: # Voids 2 - Exam PHYSICAL EXAMINATION: Patient is lying in the bed comfortably, no acute distress, awake alert and oriented.. HEENT: Normocephalic. Neck is supple. Pupils reactive. Nostrils clear. Oral cavity is moist. Neck reveals no JVD, carotid bruits, or thyromegaly. CHEST EXAMINATION: Trachea is central. Symmetrical expansion. Bibasilar diminish ed sounds.Lung aguilera clear to auscultation and percussion. CARDIAC: Normal S1, S2 with no gallops. No murmurs ABDOMEN: Soft. Patient does have significant abdominal distention with hyperactive bowel sounds. No abdominal bruits. Extremities: trace edema. No clubbing or cyanosis Neurologically awake, alert, oriented x2-3 with well-coordinated movements. No focal deficits noted Skin: No rash or skin lesions. Psychiatric: Coperative. Nonsuicidal Musculoskeletal: No joint swelling or deformity. Normal range of motion. - Labs CBC & Chem 7: 03/10/21 15:01 03/10/21 15:01 Assessment and Plan Assessment: Significant abdominal distention due to sigmoid volvulus with a distal bowel obstruction. Alcoholic liver cirrhosis with frequent paracentesis History of alcohol use Cognitive impairment and mild dementia DVT prophylaxis with heparin subcu Plan: Patient will be continued on IV hydration and nothing by mouth. General surgery is planning for colonoscopy and decompression. Continue with pain management and general surgery was consulted for possible surgical intervention. Continue with conservative management at this time. T. Monitor electrolytes and follow-up closely.
--- NOTE | 2021-03-13 01:01 | P.PN ---
Subjective Progress Note Date: 03/12/21 Principal diagnosis: Sigmoid volvulus. Patient is a 71-year-old female with a known history of liver cirrhosis, alcohol abuse, frequent ascites and paracentesis and history of hepatic encephalopathy currently living at [facility] was brought to the hospital due to abdominal distention. Patient did have intermittent constipation over the past few days. He did have a bowel movement today. Staff noticed that patient's abdominal is distended than his normal girth. He was sent to ER for evaluation. Arrival patient does not have any nausea vomiting. Mild abdominal discomfort. CT abdomen pelvis was done which showed abnormal bowel findings with the vital sign consistent with sigmoid volvulus causing distal bowel obstruction. Lab data showed WBC 9.2 hemoglobin 13.6 and platelets 278 Sodium 137 potassium 4.3 bicarb is 21 BUN 18 and creatinine 0.76 blood sugar is 73 Liver enzymes are not elevated amylase lipase within normal limits. UA negative for infection. COVID-19 PCR not detected. 03/11/2021 Patient is still having significant distended abdomen. No complaints of any abdominal pain. No nausea vomiting or diarrhea. Patient was seen by general surgery and is planning for colonoscopy for decompression. Patient may need sigmoid colectomy if volvulus recurs. Cardiology was consulted for risk stratification and clearance. No absolute contraindication for surgery at this time. Patient denies any fever or chills. No chest pain or shortness of. No cough or sputum production. 03/12/2021 Patient is currently sitting on the side of the bed comfortably. Able to tolerate diet. Abdominal pain. No nausea vomiting or diarrhea. Patient on had colonoscopy to the cecum for chronic decompression. General surgery recommends colectomy for symptomatic sigmoid polyps. Cardiology has seen the patient for risk stratification.. Patient does not have absolute contraindications at this time. Final recommendations as per general surgery. Patient is on heart healthy diet currently. Current medications reviewed. Objective - Vital Signs Vital signs: Vital Signs Temp 97.8 F 03/12/21 18:59 Pulse 82 03/12/21 18:59 Resp 15 03/12/21 18:59 BP 98/61 03/12/21 18:59 Pulse Ox 95 03/12/21 18:59 Intake & Output 03/12/21 03/12/21 03/13/21 06:59 18:59 06:59 Intake Total 440 Output Total 150 400 Balance -150 40 Intake: Oral 440 Output: Urine 150 400 Other: # Voids 2 500 # Bowel Movements 1 - Exam PHYSICAL EXAMINATION: Patient is lying in the bed comfortably, no acute distress, awake alert and oriented.. HEENT: Normocephalic. Neck is supple. Pupils reactive. Nostrils clear. Oral cavity is moist. Neck reveals no JVD, carotid bruits, or thyromegaly. CHEST EXAMINATION: Trachea is central. Symmetrical expansion. Bibasilar diminished sounds.Lung aguilera clear to auscultation and percussion. CARDIAC: Normal S1, S2 with no gallops. No murmurs ABDOMEN: Soft. improved abdominal distention with hyperactive bowel sounds. No abdominal bruits. Extremities: trace edema. No clubbing or cyanosis Neurologically awake, alert, oriented x2-3 with well-coordinated movements. No focal deficits noted Skin: No rash or skin lesions. Psychiatric: Coperative. Nonsuicidal Musculoskeletal: No joint swelling or deformity. Normal range of motion. - Labs CBC & Chem 7: 03/10/21 15:01 03/10/21 15:01 Assessment and Plan Assessment: Significant abdominal distention due to sigmoid volvulus with a distal bowel obstruction. Alcoholic liver cirrhosis with frequent paracentesis History of alcohol use Cognitive impairment and mild dementia DVT prophylaxis with heparin subcu Plan: Patient will be continued on IV hydration and nothing by mouth. s/p colonoscopy and decompression.General surgery is planning for colectomy due to symptomatic Volvulus. Continue with pain management . Continue with conservative management at this time. Monitor electrolytes and follow-up closely.
[2021-03-13] MEDS: PANTOPRAZOLE 40 MG/10 ML VIAL IV SCH (07:28)
[2021-03-13] MEDS: HEPARIN SODIUM,PORCINE/PF 5,000 UNIT/0.5 ML SYRINGE SQ SCH ×2 (07:28→20:51)
[2021-03-13 12:14] LABS: Basophils # (A) 0.04 X 10*3/uL (0.00-0.10); Basophils % (A) 0.6 %; Eosinophils # (A) 0.27 X 10*3/uL (0.04-0.35); HCT 38.9 % (39.6-50.0); HGB 12.1 g/dL (13.0-17.0); Lymphocytes # (A) 2.63 X 10*3/uL (0.90-5.00); MCH 28.1 pg (27.0-32.0); MCHC 31.1 g/dL (32.0-37.0); MCV 90.3 fL (80.0-97.0); Mean Platelet Volume 9.6 fL (9.5-12.2); Monocytes # (A) 0.41 X 10*3/uL (0.20-1.00); Monocytes % (A) 6.1 %; Neutrophils # (A) 3.37 X 10*3/uL (1.80-7.70); Neutrophils % (A) 49.9 %; Platelet Count 283 X 10*3/uL (140-440); RBC 4.31 X 10*6/uL (4.40-5.60); RDW 14.7 % (11.5-14.5); WBC 6.75 X 10*3/uL (4.50-10.00)
[2021-03-13] MEDS: SODIUM CHLORIDE 0.9% 1,000 ML IV SCH (12:55)
[2021-03-13 13:15] LABS: African American GFR (CKD) 103.4 (60.0-200.0); Anion Gap 8.5 mmol/L (4.00-12.00); BUN/Creat Ratio 13.75 Ratio (12.00-20.00); Calcium 8.7 mg/dL (8.7-10.3); Carbon Dioxide 20.5 mmol/L (21.6-31.8); Non-African American GFR(CKD) 89.2 (60.0-200.0); Potassium 3.5 mmol/L (3.5-5.5)
--- NOTE | 2021-03-13 13:57 | P.PN ---
Subjective Progress Note Date: 03/13/21 CHIEF COMPLAINT: Sigmoid volvulus HISTORY OF PRESENT ILLNESS: The patient is a 71-year-old male admitted for abdominal distention and sigmoid volvulus. He reports feeling much better. He is passing moderate flatus and having bowel movements. He reports decreased abdominal distention. He is tolerating diet. ROS: No reports of nausea and vomiting. No fevers or chills. No new chest pain. PHYSICAL EXAM: VITAL SIGNS: Reviewed CONSTITUTIONAL: Well developed and in no acute distress. EYES: Conjuctivae without sclera icterus. Extraocular movements grossly intact. HEAD, EARS, NOSE, THROAT: Moist buccal mucosa. Head is atraumatic, normocephalic. Hears conversational speech. No nasal drainage. NECK: Supple. No thyroidomegaly. RESPIRATORY: Non-labored respirations and equal bilateral excursions. CARDIOVASCULAR: Palpable 2+ radial pulses. ABDOMEN: Less distention than yesterday. Non-tender. MUSCULOSKELETAL: No gross deformity of the lower extremities noted. No clubbing. No cyanosis. SKIN: Good skin turgor. Well perfused. NEUROLOGIC: Cranial nerves II through XII grossly intact. No focal or lateralizing signs. PSYCH: Appropriate affect. CLINICAL LABS: White blood cell count normal 9.2 admission ECHO: Report reviewed demonstrating ejection fraction over 55%. No global hypokinesis. ASSESSMENT: 1. Sigmoid volvulus PLAN: 1. Diet as tolerated. 2. He is clinically improving and may discharge home when medically stable. 3. Spoke to oliver Avendano. Objective - Vital Signs Vital signs: Vital Signs Temp 97.6 F 03/13/21 07:29 Pulse 84 03/13/21 07:29 Resp 20 03/13/21 07:29 BP 95/61 03/13/21 07:29 Pulse Ox 97 03/13/21 07:29 Intake & Output 03/12/21 03/13/21 03/13/21 18:59 06:59 18:59 Intake Total 440 200 Output Total 400 900 Balance 40 -900 200 Intake: Oral 440 200 Output: Urine 400 900 Other: Voiding Method Toilet # Voids 500 - Labs CBC & Chem 7: 03/13/21 07:27 03/13/21 07:27 Assessment and Plan (1) Chronic constipation Current Visit: Yes Status: Acute Code(s): K59.09 - OTHER CONSTIPATION SNOMED Code(s): 946029446 (2) Bowel obstruction Current Visit: Yes Status: Acute Code(s): K56.609 - UNSP INTESTNL OBST, UNSP TO PARTIAL VERSUS COMPLETE OBST SNOMED Code(s): 60797252 (3) Sigmoid volvulus Current Visit: Yes Status: Acute Code(s): K56.2 - VOLVULUS SNOMED Code(s): 407183780
[2021-03-13] MEDS: HYDROmorphone 0.5 MG/0.5 ML SYRINGE IVP PRN (20:57)
--- NOTE | 2021-03-14 03:42 | PN ---
PROGRESS NOTE DATE OF SERVICE: 03/13/2021 This 71-year-old gentleman who was admitted with abdominal distention, sigmoid volvulus with distal small-bowel obstruction is scheduled to have surgery. The patient is clinically improving at this time. No chest pain. No palpitations. No fever. EXAM: The patient's sensorium is unchanged. Pulse is 84, blood pressure 103/50, respiration 16, temperature 98.2, pulse ox 94% on room air. HEENT: Conjunctivae normal. Oral mucosa moist. NECK: No jugular venous distention. No lymph node enlargement. CARDIOVASCULAR: S1, S2, muffled. No S3, no S4, RESPIRATORY: Diminished breath sounds at the bases. No rhonchi, no crackles. ABDOMEN: Soft, distended, nontender. LEGS: No edema, no swelling. NERVOUS SYSTEM: No focal deficits. LABS: Hemoglobin 12.1. UA noted. ASSESSMENT: 1. Acute sigmoid volvulus and distal small-bowel obstructions and abdominal distention, present on admission. 2. Alcoholic liver cirrhosis. 3. History of alcohol abuse. 4. Cognitive impairment with possible dementia. 5. Anemia, normocytic anemia of chronic disease. 6. Acute urinary tract infection, present on admission. RECOMMENDATION: In this 71-year-old gentleman who presented with multiple complex medical issues, we will monitor the patient closely, continue the current management, continue symptomatic treatment. I recommend repeat labs. Closely follow with Surgery. Seems like Surgery is adopting a conservative line of management at this time. Further recommendations to follow. Prognosis guarded. MMODL / IJN: [id number] /
[2021-03-14] MEDS: PANTOPRAZOLE 40 MG/10 ML VIAL IV SCH (07:46)
[2021-03-14] MEDS: HEPARIN SODIUM,PORCINE/PF 5,000 UNIT/0.5 ML SYRINGE SQ SCH ×2 (07:47→13:16)
[2021-03-14] MEDS: SODIUM CHLORIDE 0.9% 1,000 ML IV SCH (07:52)
[2021-03-14 11:28] LABS: Basophils # (A) 0.05 X 10*3/uL (0.00-0.10); Basophils % (A) 0.9 %; Eosinophils % (A) 5.2 %; HCT 35.2 % (39.6-50.0); HGB 11.3 g/dL (13.0-17.0); Lymphocytes # (A) 2.23 X 10*3/uL (0.90-5.00); Lymphocytes % (A) 38.9 %; MCH 28.5 pg (27.0-32.0); MCHC 32.1 g/dL (32.0-37.0); MCV 88.9 fL (80.0-97.0); Mean Platelet Volume 9.9 fL (9.5-12.2); Monocytes # (A) 0.37 X 10*3/uL (0.20-1.00); Monocytes % (A) 6.4 %; Neutrophils # (A) 2.77 X 10*3/uL (1.80-7.70); Neutrophils % (A) 48.3 %; Platelet Count 225 X 10*3/uL (140-440); RBC 3.96 X 10*6/uL (4.40-5.60); RDW 14.7 % (11.5-14.5); WBC 5.74 X 10*3/uL (4.50-10.00)
[2021-03-14 11:46] LABS: African American GFR (CKD) 109.3 (60.0-200.0); Albumin 3.6 g/dL (3.80-4.90); Albumin/Globulin Ratio 1.44 (1.60-3.17); BUN/Creat Ratio 15.71 Ratio (12.00-20.00); Calcium 8.2 mg/dL (8.7-10.3); Globulin 2.5 g/dL (1.6-3.3); Non-African American GFR(CKD) 94.3 (60.0-200.0); Potassium 3.5 mmol/L (3.5-5.5); Total Bilirubin 0.3 mg/dL (0.2-1.2); Total Protein 6.1 g/dL (6.2-8.2)
--- NOTE | 2021-03-14 12:13 | P.PN ---
Subjective Progress Note Date: 03/14/21 CHIEF COMPLAINT: Sigmoid volvulus HISTORY OF PRESENT ILLNESS: The patient is a 71-year-old male admitted for abdominal distention and sigmoid volvulus. He had emergent decompression colonoscopy. Now he has recurrence. He has not passed flatus or had bowel movements today. No moderate abdominal pain. No nausea or vomiting. No signs of bleeding. ROS: No reports of nausea and vomiting. No fevers or chills. No new chest pain. PHYSICAL EXAM: VITAL SIGNS: Reviewed CONSTITUTIONAL: Well developed and in no acute distress. EYES: Conjuctivae without sclera icterus. Extraocular movements grossly intact. HEAD, EARS, NOSE, THROAT: Moist buccal mucosa. Head is atraumatic, normocephalic. Hears conversational speech. No nasal drainage. NECK: Supple. No thyroidomegaly. RESPIRATORY: Non-labored respirations and equal bilateral excursions. CARDIOVASCULAR: Palpable 2+ radial pulses. ABDOMEN: Tense distention. No peritonitis. MUSCULOSKELETAL: No gross deformity of the lower extremities noted. No clubbing. No cyanosis. SKIN: Good skin turgor. Well perfused. NEUROLOGIC: Cranial nerves II through XII grossly intact. No focal or lateralizing signs. PSYCH: Appropriate affect. CLINICAL LABS: White blood cell count normal at 5.6. Hemoglobin decreased from 12.1 to 11.5 today. ASSESSMENT: 1. Sigmoid volvulus 2. Anemia PLAN: 1. Emergent decompression described. 2. Spoke to his daughter, Romana power of collections attorney regarding will proceed with surgery, possible colostomy and urgent colonoscopy decompression. 3. NPO after midnight 4. Popsicles and ice chips for diet. 5. Consent reviewed with nursing staff and daughter including patient. 6. Type and screen 7. Patient elevated risk for complications. Objective - Vital Signs Vital signs: Vital Signs Temp 98.1 F 03/14/21 07:25 Pulse 80 03/14/21 07:25 Resp 18 03/14/21 07:25 BP 112/68 03/14/21 07:25 Pulse Ox 98 03/14/21 07:25 Intake & Output 03/13/21 03/14/21 03/14/21 18:59 06:59 18:59 Intake Total 600 Output Total 950 Balance 600 -950 Intake: Oral 600 Output: Urine 950 Other: Voiding Method Toilet Toilet Urinal # Voids 3 - Labs CBC & Chem 7: 03/14/21 07:14 03/14/21 07:14 Labs: Abnormal Lab Results - Last 24 Hours (Table) 03/13/21 03/13/21 03/14/21 Range/Units 07:27 07:27 07:14 RBC 4.31 L (4.40-5.60) X 10*6/uL Hgb 12.1 L (13.0-17.0) g/dL Hct 38.9 L (39.6-50.0) % MCHC 31.1 L (32.0-37.0) g/dL RDW 14.7 H (11.5-14.5) % Chloride 111 H 113 H (96-109) mmol/L Carbon Dioxide 20.5 L (21.6-31.8) mmol/L Anion Gap 3.00 L (4.00-12.00) mmol/L Calcium 8.2 L (8.7-10.3) mg/dL Total Protein 6.1 L (6.2-8.2) g/dL Albumin 3.60 L (3.80-4.90) g/dL Albumin/Globulin Ratio 1.44 L (1.60-3.17) g/dL 03/14/21 Range/Units 07:14 RBC 3.96 L (4.40-5.60) X 10*6/uL Hgb 11.3 L (13.0-17.0) g/dL Hct 35.2 L (39.6-50.0) % MCHC (32.0-37.0) g/dL RDW 14.7 H (11.5-14.5) % Chloride (96-109) mmol/L Carbon Dioxide (21.6-31.8) mmol/L Anion Gap (4.00-12.00) mmol/L Calcium (8.7-10.3) mg/dL Total Protein (6.2-8.2) g/dL Albumin (3.80-4.90) g/dL Albumin/Globulin Ratio (1.60-3.17) g/dL Assessment and Plan (1) Chronic constipation Current Visit: Yes Status: Acute Code(s): K59.09 - OTHER CONSTIPATION SNOMED Code(s): 937042731 (2) Bowel obstruction Current Visit: Yes Status: Acute Code(s): K56.609 - UNSP INTESTNL OBST, UNSP TO PARTIAL VERSUS COMPLETE OBST SNOMED Code(s): 35119616 (3) Sigmoid volvulus Current Visit: Yes Status: Acute Code(s): K56.2 - VOLVULUS SNOMED Code(s): 384860842
[2021-03-14] MEDS ORDERED: SODIUM CHLORIDE 0.9% 500 ML 500 ML IV ONE (13:41)
[2021-03-14] MEDS ORDERED: PROPOFOL 10 MG/ML 20 ML VIAL IV ONE (13:41)
--- NOTE | 2021-03-14 14:10 | P.PCN ---
Date of Procedure: 03/14/21 Description of Procedure: PREOPERATIVE DIAGNOSIS: Sigmoid volvulus for large bowel obstruction, recurrent Chronic constipation Liver cirrhosis History of hepatic encephalopathy Morbid obesity due to excess calories, BMI 35.6 Hypertensive heart disease with congestive heart failure POSTOPERATIVE DIAGNOSIS: Sigmoid volvulus for large bowel obstruction, recurrent Chronic constipation Liver cirrhosis History of hepatic encephalopathy Morbid obesity due to excess calories, BMI 35.6 Hypertensive heart disease with congestive heart failure OPERATION: Colonoscopy to the cecum for colonic decompression SURGEON: Holly Toro MD. ANESTHESIA: MAC. INDICATIONS: The patient is a 71-year-old male who presents with recurrent sigmoid volvulus for large bowel obstruction. Lower endoscopy was offered for therapeutic approach. Benefits and risks were described and informed consent was obtained. DESCRIPTION OF PROCEDURE: The bowel was unprepped. The patient had been brought into the operating room and laid in the left lateral decubitus position. After adequate intravenous sedation, the rectum was examined with 2% lidocaine jelly. External hemorrhoids were encountered. The rectal tone was within normal limits. No lesions were palpated in the rectal vault. An Olympus colonoscope was gently advanced with minimal insufflation advanced until the cecum was viewed. The colon was decompressed and the abdomen was soft. The mucosa of the colon was viable without ischemia. No large colonic polyps were found. The colon was desufflated. The patient had tolerated the procedure well. Withdrawal time was over 6 minutes. FINDINGS: Aronchick preparation quality scale 3 (1-5) Internal hemorrhoids, grade 3 External prolapsed hemorrhoids, grade 3 No arteriovenous malformations. No adenomatous polyps. No focal colitis. Decompression of sigmoid volvulus and colon completed No evidence of bowel ischemia RECOMMENDATIONS: 1. He had recurrence will proceed with sigmoid colectomy, possible ostomy 2. May have ice chips and popsicles
[2021-03-14] MEDS ORDERED: SIMETHICONE 40 MG/0.6 ML DROPS 2,000 MG/30 ML BOTTLE PO SCH (15:47)
[2021-03-14 17:02] LABS: % Iron Saturation 6.74 (15.00-50.00)
[2021-03-14 17:08] LABS: Ferritin 29.8 ng/mL (22.0-322.0)
[2021-03-14] MEDS: SODIUM FERRIC GLUCONAT-SUCROSE 125 MG in SODIUM CHLORIDE 0.9% 100 ML IVPB SCH (17:53)
--- NOTE | 2021-03-14 19:28 | PN ---
PROGRESS NOTE DATE OF SERVICE: 03/14/2021 This 71-year-old gentleman with sigmoid volvulus had increasing abdominal distention. Patient underwent colonoscopy to the cecum for colonic decompression. The patient recommended sigmoid colectomy and possible ostomy. No chest pain. No palpitations. No fever. PHYSICAL EXAMINATION: Alert and oriented x2. Pulse 77, blood pressure 108/62, respirations 16, temperature 97.2, pulse ox 98% on room air. HEENT: Conjunctivae normal. Oral mucosa moist. NECK: No jugular venous distention. No lymph node enlargement. CARDIOVASCULAR: S1, S2, muffled. No S3, no S4, RESPIRATORY: Diminished breath sounds at the bases. A few scattered rhonchi. ABDOMEN: Soft. Mild diffuse distention noted. Nontender. No mass palpable. LEGS: No edema, no swelling. NERVOUS SYSTEM: No focal deficits. LABS: WBC 5.2, hemoglobin 7.3. Other labs are noted. ASSESSMENT: 1. Acute sigmoid volvulus and distal small-bowel obstruction with abdominal distention present on admission, status post colonoscopy. 2. Alcoholic liver cirrhosis. 3. History of alcohol abuse. 4. Cognitive impairment with possible dementia. 5. Anemia, normocytic anemia of chronic disease. 6. Acute urinary tract infection present on admission. RECOMMENDATIONS AND DISCUSSION: I recommend to continue current management and symptomatic treatment. Closely follow with Surgery. Otherwise, empiric antibiotics for the possible UTI. Cultures are negative so far. Guarded prognosis. Further recommendations to follow. MMODL / IJN: [id number] /
[2021-03-14] MEDS: SIMETHICONE 40 MG/0.6 ML DROPS 2,000 MG/30 ML BOTTLE PO SCH (21:09)
[2021-03-15] MEDS: SODIUM CHLORIDE 0.9% 1,000 ML IV SCH ×2 (06:02→20:32)
[2021-03-15] MEDS: HEPARIN SODIUM,PORCINE/PF 5,000 UNIT/0.5 ML SYRINGE SQ SCH ×2 (06:48→20:31)
[2021-03-15] MEDS ORDERED: ceFAZolin 3 GM in SODIUM CHLORIDE 0.9% 100 ML IVPB PRN (07:00)
[2021-03-15] MEDS ORDERED: metroNIDAZOLE-NS PMX 500 MG in SALINE 100 100ML.BAG IVPB PRN (07:00)
[2021-03-15] MEDS: SIMETHICONE 40 MG/0.6 ML DROPS 2,000 MG/30 ML BOTTLE PO SCH ×4 (07:03→20:34)
[2021-03-15] MEDS: PANTOPRAZOLE 40 MG/10 ML VIAL IV SCH (07:04)
[2021-03-15] MEDS: SODIUM FERRIC GLUCONAT-SUCROSE 125 MG in SODIUM CHLORIDE 0.9% 100 ML IVPB SCH (08:24)
--- NOTE | 2021-03-15 15:31 | P.PN ---
Subjective Progress Note Date: 03/15/21 This is a 71-year-old male recently admitted with abdominal distention, sigmoid volvulus with distal small bowel obstruction and being scheduled for sigmoid colectomy with Dr. Toro this afternoon. Patient continues to have abdominal distention noted and no reports of gas or bowel movements at this time. Patient is nothing by mouth and per nursing will have the procedure sometime after 3 PM. Patient is afebrile. Patient denies any chest pain or palpitations. No reports of shortness of breath noted. Review of systems: Constitutional: No reports of fatigue, fever, or chills Cardiovascular: No reports of chest pain or palpitations Respiratory: No reports of shortness of breath or cough GI: No reports of nausea, vomiting, or diarrhea, reports continued abdominal distention : No reports of dysuria or retention Neurovascular: No reports of weakness or numbness All medications have been reviewed Objective - Vital Signs Vital signs: Vital Signs Temp 97.6 F 03/15/21 13:35 Pulse 74 03/15/21 13:35 Resp 16 03/15/21 13:35 BP 113/59 03/15/21 13:35 Pulse Ox 97 03/15/21 13:35 Intake & Output 03/14/21 03/15/21 03/15/21 18:59 06:59 18:59 Intake Total 200 Output Total 500 Balance 200 -500 Intake: IV 200 Output: Urine 500 Other: Voiding Method Toilet Toilet Urinal Urinal # Voids 6 - Exam Gen: This is a 71-year-old male awake, alert and oriented 2, well-developed, well-nourished, obese. Temp is 97.5F, pulse is 76, respirations are 18, blood pressures 101/66, oxygen saturation is 95% on room air. HEENT: Head is atraumatic, normocephalic. Pupils equal, round. Sclerae is anicteric. NECK: Supple. No JVD. No lymphadenopathy. No thyromegaly. LUNGS: Diminished breath sounds bilaterally with no wheezing or rhonchi noted. No intercostal retractions. HEART: S1, S2 are muffled ABDOMEN: Soft. Obese. Distended. Absent bowel sounds noted. No masses. No tenderness. EXTREMITIES: No pedal edema. No calf tenderness. NEUROLOGICAL: Patient is awake, alert and oriented x3. Cranial nerves 2 through 12 are grossly intact. - Labs CBC & Chem 7: 03/14/21 07:14 03/14/21 07:14 Labs: Abnormal Lab Results - Last 24 Hours (Table) 03/14/21 Range/Units 12:24 Iron 23 L (65-175) ug/dL % Saturation 6.74 L (15.00-50.00) Assessment and Plan Assessment: Acute sigmoid volvulus and distal small bowel obstruction and abdominal distention, present on admission Alcoholic liver cirrhosis History of alcohol abuse Cognitive impairment with possible dementia Anemia, normocytic anemia of chronic disease Acute urinary tract infection, present on admission Recommendations and discussion: Recommend continue with current medications and current management. Surgery is following with attempts of conservative treatment although patient will be scheduled for surgery today for sigmoid colectomy with Dr. Caruso this afternoon. Patient continues to be nothing by mouth and we'll continue to monitor closely. Patient continues on IV ceftriaxone and will continue at this time. Will await surgical report. Will repeat a.m. labs and continue to monitor closely. Guarded prognosis.
[2021-03-15] MEDS ORDERED: IV FLUID CONTINUATION 1,000 ML IV ONE ×2 (15:55→18:13)
[2021-03-15] MEDS ORDERED: ONDANSETRON 4 MG/2 ML VIAL ONE (16:12)
[2021-03-15] MEDS ORDERED: ONDANSETRON 4 MG/2 ML VIAL IVP ONE (16:18)
[2021-03-15] MEDS ORDERED: DEXAMETHASONE SOD PHOSPHATE 4 MG/ML 1 ML VIAL IVP ONE (16:18)
[2021-03-15] MEDS ORDERED: MIDAZOLAM 2 MG/2 ML VIAL IVP ONE (16:41)
--- NOTE | 2021-03-15 17:38 | P.PN ---
Progress Note - Text Progress Note Date: 03/15/21 Patient's power of finance attorney, Romana at bedside. Due to late start of the case after 6 PM, case reduced to likely exploratory laparotomy colostomy creation. Surgical options including decompression with deferred robotic colectomy described. Patient's extremely high risk of wound infections with open surgery including colostomy. Patient and family agreed with colonoscopy decompression today. Robotic colectomy rescheduled.
[2021-03-15] MEDS ORDERED: PROPOFOL 10 MG/ML 20 ML VIAL IV ONE (18:09)
[2021-03-15] MEDS ORDERED: LIDOCAINE 1% INJ 10MG/ML (20 ML MDV) ONE (18:09)
--- NOTE | 2021-03-15 18:38 | P.PCN ---
Date of Procedure: 03/15/21 Description of Procedure: PREOPERATIVE DIAGNOSIS: Sigmoid volvulus for large bowel obstruction, recurrent Chronic constipation Liver cirrhosis History of hepatic encephalopathy Morbid obesity due to excess calories, BMI 35.6 Hypertensive heart disease with congestive heart failure POSTOPERATIVE DIAGNOSIS: Sigmoid volvulus for large bowel obstruction, recurrent Chronic constipation Liver cirrhosis History of hepatic encephalopathy Morbid obesity due to excess calories, BMI 35.6 Hypertensive heart disease with congestive heart failure OPERATION: Colonoscopy to the cecum for colonic decompression SURGEON: Holly Toro MD. ANESTHESIA: MAC. INDICATIONS: The patient is a 71-year-old male who presents with recurrent sigmoid volvulus for large bowel obstruction. Lower endoscopy was offered for therapeutic approach. Benefits and risks were described and informed consent was obtained. DESCRIPTION OF PROCEDURE: The bowel was unprepped. The patient had been brought into the operating room and laid in the left lateral decubitus position. After adequate intravenous sedation, the rectum was examined with 2% lidocaine jelly. External hemorrhoids were encountered. The rectal tone was within normal limits. No lesions were palpated in the rectal vault. An Olympus colonoscope was gently advanced with minimal insufflation advanced to the ascending colon. The colon was decompressed and the abdomen was soft. The mucosa of the colon was viable without ischemia. No large colonic polyps were found. The colon was desufflated. The patient had tolerated the procedure well. Withdrawal time was over 6 minutes. FINDINGS: Aronchick preparation quality scale 3 (1-5) Internal hemorrhoids, grade 3 External prolapsed hemorrhoids, grade 3 No arteriovenous malformations. No adenomatous polyps. No focal colitis. Decompression of sigmoid volvulus and colon completed No evidence of bowel ischemia RECOMMENDATIONS: 1. Colectomy while inpatient.
[2021-03-16 06:52] LABS: Basophils % (A) 0 %; Eosinophils % (A) 0 %; HCT 36.6 % (39.0-53.0); HGB 11.7 gm/dL (13.0-17.5); Hypochromasia Slight; Lymphocytes # (A) 1.9 k/uL (1.0-4.8); Lymphocytes % (A) 32 %; MCH 29.1 pg (25.0-35.0); MCHC 32.1 g/dL (31.0-37.0); MCV 90.6 fL (80.0-100.0); Mean Platelet Volume 6.9; Monocytes # (A) 0.3 k/uL (0-1.0); Monocytes % (A) 4 %; Neutrophils # (A) 3.6 k/uL (1.3-7.7); Neutrophils % (A) 61 %; Platelet Count 255 k/uL (150-450); RBC 4.04 m/uL (4.30-5.90); RDW 14.5 % (11.5-15.5); WBC 5.9 k/uL (3.8-10.6)
[2021-03-16 07:00] LABS: African American GFR (CKD) >90 (>60 ml/min/1.73 sqM); Anion Gap 8 mmol/L; Blood Urea Nitrogen 13 mg/dL (9-20); Calcium 8.6 mg/dL (8.4-10.2); Carbon Dioxide 16 mmol/L (22-30); Chloride 115 mmol/L (98-107); Glucose 99 mg/dL (74-99); Non-African American GFR(CKD) >90 (>60 ml/min/1.73 sqM); Potassium 4.5 mmol/L (3.5-5.1); Sodium 139 mmol/L (137-145)
[2021-03-16] MEDS: PANTOPRAZOLE 40 MG/10 ML VIAL IV SCH (08:37)
[2021-03-16] MEDS: SIMETHICONE 40 MG/0.6 ML DROPS 2,000 MG/30 ML BOTTLE PO SCH ×4 (08:37→21:42)
[2021-03-16] MEDS: HEPARIN SODIUM,PORCINE/PF 5,000 UNIT/0.5 ML SYRINGE SQ SCH ×2 (08:38→23:31)
[2021-03-16] MEDS: SODIUM FERRIC GLUCONAT-SUCROSE 125 MG in SODIUM CHLORIDE 0.9% 100 ML IVPB SCH (09:19)
--- NOTE | 2021-03-16 10:38 | P.PN ---
Subjective Progress Note Date: 03/16/21 This is a 71-year-old male recently admitted with abdominal distention, sigmoid volvulus with distal small bowel obstruction and being scheduled for sigmoid colectomy with Dr. Toro this afternoon. Patient continues to have abdominal distention noted and no reports of gas or bowel movements at this time. Patient is nothing by mouth and per nursing will have the procedure sometime after 3 PM. Patient is afebrile. Patient denies any chest pain or palpitations. No reports of shortness of breath noted. 03/16/2021 Patient is seen and evaluated this morning and follow-up and apparently underwe nt colonoscopy with decompression and is scheduled for colectomy tomorrow Dr. Toro. Patient has been started on diet and tolerating with no reports of abdominal discomfort. Denies any passing gas or bowel movements. Positive bowel sounds noted on exam. Blood count remains stable at 5.9 with a hemoglobin of 11.7. Sodium is 139 with a potassium of 4.5 and current creatinine is 0.63. Iron on the low side and receiving IV iron transfusions. Patient remains afebrile. Denies shortness of breath or chest pain at this time. Review of systems: Constitutional: No reports of fatigue, fever, or chills Cardiovascular: No reports of chest pain or palpitations Respiratory: No reports of shortness of breath or cough GI: No reports of nausea, vomiting, or diarrhea, reports continued abdominal distention but denies pain or discomfort of the abdomen : No reports of dysuria or retention Neurovascular: No reports of weakness or numbness All medications have been reviewed Objective - Vital Signs Vital signs: Vital Signs Temp 97.8 F 03/16/21 07:54 Pulse 65 03/16/21 07:54 Resp 16 03/16/21 07:54 BP 97/57 03/16/21 07:54 Pulse Ox 98 03/16/21 07:54 Intake & Output 03/15/21 03/16/21 03/16/21 18:59 06:59 18:59 Intake Total 200 600 Output Total 850 Balance 200 -250 Intake: IV 200 Intake, IV Titration 600 Amount Sodium Chloride 0.9% 1, 600 000 ml @ 50 mls/hr IV . Q20H [facility] Rx#:[id number] Output: Urine 850 Other: Voiding Method Toilet Urinal - Exam Gen: This is a 71-year-old male awake, alert and oriented 2, well-developed, well-nourished, obese. Temp is 97.8F, pulse is 65, respirations are 16, blood pressures 97/57, oxygen saturation is 98% on room air. HEENT: Head is atraumatic, normocephalic. Pupils equal, round. Sclerae is anicteric. NECK: Supple. No JVD. No lymphadenopathy. No thyromegaly. LUNGS: Diminished breath sounds bilaterally with no wheezing or rhonchi noted. No intercostal retractions. HEART: S1, S2 are muffled ABDOMEN: Soft. Obese. Distended. Positive bowel sounds noted on exam. No masses. No tenderness. EXTREMITIES: No pedal edema. No calf tenderness. NEUROLOGICAL: Patient is awake, alert and oriented x3. Cranial nerves 2 through 12 are grossly intact. - Labs CBC & Chem 7: 03/16/21 06:23 03/16/21 06:23 Labs: Abnormal Lab Results - Last 24 Hours (Table) 03/16/21 03/16/21 Range/Units 06:23 06:23 RBC 4.04 L (4.30-5.90) m/uL Hgb 11.7 L (13.0-17.5) gm/dL Hct 36.6 L (39.0-53.0) % Chloride 115 H (98-107) mmol/L Carbon Dioxide 16 L (22-30) mmol/L Creatinine 0.63 L (0.66-1.25) mg/dL Assessment and Plan Assessment: Acute sigmoid volvulus and distal small bowel obstruction and abdominal distention, present on admission Alcoholic liver cirrhosis History of alcohol abuse Cognitive impairment with possible dementia Anemia, normocytic anemia of chronic disease Acute urinary tract infection, present on admission Recommendations and discussion: Recommend continue with current medications and current management. Surgery is following and patient underwent is colonoscopy decompression and plans are for surgery tomorrow for sigmoid colectomy with Dr. Caruso. Patient was started on diet and tolerating with no reports of abdominal pain noted and will be nothing by mouth at midnight. Patient continues on IV ceftriaxone and will continue at this time. Repeat labs within normal limits this morning and will repeat in the a.m. and continue to monitor closely. Guarded prognosis.
--- NOTE | 2021-03-16 15:15 | P.PN ---
Subjective Progress Note Date: 03/16/21 CHIEF COMPLAINT: Abdominal distention HISTORY OF PRESENT ILLNESS: The patient is a 71-year-old male who presents with recurrent sigmoid volvulus for large bowel obstruction. Patient status post colonoscopy to cecum with colonic decompression. Patient's abdomen does remain distended. He denies any abdominal pain. He is tolerating diet. He denies any bowel movements. Afebrile . WBC 5.9 hemoglobin 11.7 creatinine 0.63 PHYSICAL EXAM: VITAL SIGNS: Reviewed GENERAL: Well-developed in no acute distress. HEENT: No sclera icterus. Extraocular movements grossly intact. Moist buccal mucosa. Head is atraumatic, normocephalic. Hears conversational speech. No nasal drainage. NECK: Supple without lymphadenopathy. CHEST: Non-labored respirations and equal bilateral excursions. CARDIOVASCULAR: Palpable 2+ radial pulses. ABDOMEN: Soft. Distended nontender MUSCULOSKELETAL: No clubbing or cyanosis. NEUROLOGIC: No focal or lateralizing signs. Cranial nerves II through XII grossly intact. PSYCH: Appropriate affect. Alert and oriented to person, place and time. SKIN: Well perfused. Good skin turgor. ASSESSMENT: Sigmoid volvulus for large bowel obstruction, recurrent Chronic constipation Liver cirrhosis History of hepatic encephalopathy Morbid obesity due to excess calories, BMI 35.6 Hypertensive heart disease with congestive heart failure PLAN: -Patient scheduled for robotic sigmoid colectomy, possible open for tomorrow 03/17/[address] Toro -Keep patient nothing by mouth after midnight Physician Machine [employer] Intern note has been reviewed by physician. Signing provider agrees with the documented findings, assessment, and plan of care. Objective - Vital Signs Vital signs: Vital Signs Temp 97.8 F 03/16/21 07:54 Pulse 65 03/16/21 08:00 Resp 16 03/16/21 08:00 BP 97/57 03/16/21 07:54 Pulse Ox 98 03/16/21 07:54 Intake & Output 03/15/21 03/16/21 03/16/21 18:59 06:59 18:59 Intake Total 200 600 Output Total 850 Balance 200 -250 Intake: IV 200 Intake, IV Titration 600 Amount Sodium Chloride 0.9% 1, 600 000 ml @ 50 mls/hr IV . Q20H [facility] Rx#:[id number] Output: Urine 850 Other: Voiding Method Toilet Toilet Urinal Urinal - Labs CBC & Chem 7: 03/16/21 06:23 03/16/21 06:23 Labs: Abnormal Lab Results - Last 24 Hours (Table) 03/16/21 03/16/21 Range/Units 06:23 06:23 RBC 4.04 L (4.30-5.90) m/uL Hgb 11.7 L (13.0-17.5) gm/dL Hct 36.6 L (39.0-53.0) % Chloride 115 H (98-107) mmol/L Carbon Dioxide 16 L (22-30) mmol/L Creatinine 0.63 L (0.66-1.25) mg/dL
[2021-03-16] MEDS: SODIUM CHLORIDE 0.9% 1,000 ML IV SCH (17:44)
[2021-03-17] MEDS: HEPARIN SODIUM,PORCINE/PF 5,000 UNIT/0.5 ML SYRINGE SQ SCH ×2 (06:36→20:57)
[2021-03-17] MEDS: SIMETHICONE 40 MG/0.6 ML DROPS 2,000 MG/30 ML BOTTLE PO SCH ×4 (06:55→20:58)
[2021-03-17] MEDS: PANTOPRAZOLE 40 MG/10 ML VIAL IV SCH (06:55)
[2021-03-17 06:59] LABS: Basophils # (A) 0.1 k/uL (0-0.2); Basophils % (A) 1 %; Eosinophils # (A) 0.2 k/uL (0-0.7); Eosinophils % (A) 4 %; HCT 34.9 % (39.0-53.0); Lymphocytes # (A) 2.6 k/uL (1.0-4.8); Lymphocytes % (A) 44 %; MCH 28.3 pg (25.0-35.0); MCHC 31.6 g/dL (31.0-37.0); MCV 89.3 fL (80.0-100.0); Mean Platelet Volume 6.8; Monocytes # (A) 0.3 k/uL (0-1.0); Monocytes % (A) 5 %; Neutrophils # (A) 2.6 k/uL (1.3-7.7); Neutrophils % (A) 44 %; Platelet Count 232 k/uL (150-450); RDW 15.1 % (11.5-15.5); WBC 5.8 k/uL (3.8-10.6)
[2021-03-17 07:09] LABS: African American GFR (CKD) >90 (>60 ml/min/1.73 sqM); Anion Gap 5 mmol/L; Blood Urea Nitrogen 13 mg/dL (9-20); Calcium 8.3 mg/dL (8.4-10.2); Carbon Dioxide 23 mmol/L (22-30); Chloride 112 mmol/L (98-107); Glucose 87 mg/dL (74-99); Non-African American GFR(CKD) >90 (>60 ml/min/1.73 sqM); Potassium 3.9 mmol/L (3.5-5.1); Sodium 140 mmol/L (137-145)
[2021-03-17] MEDS ORDERED: IV FLUID CONTINUATION 1,000 ML IV ONE (11:09)
[2021-03-17] MEDS ORDERED: ONDANSETRON 4 MG/2 ML VIAL ONE (11:11)
[2021-03-17] MEDS ORDERED: DEXAMETHASONE SOD PHOSPHATE 4 MG/ML 1 ML VIAL IVP ONE (11:17)
[2021-03-17] MEDS ORDERED: ONDANSETRON 4 MG/2 ML VIAL IVP ONE (11:17)
[2021-03-17] MEDS ORDERED: MIDAZOLAM 2 MG/2 ML VIAL ONE (11:35)
[2021-03-17] MEDS ORDERED: SUCCINYLCHOLINE CHLORIDE 100 MG/5 ML SYR IV ONE (11:35)
[2021-03-17] MEDS ORDERED: GLYCOPYRROLATE 0.2 MG/ML 2 ML VIAL ONE (11:35)
[2021-03-17] MEDS ORDERED: LIDOCAINE 1% INJ 10MG/ML (20 ML MDV) ONE (11:35)
[2021-03-17] MEDS ORDERED: PHENYLEPHRINE-0.9% NACL SYG 1,000 MCG/10 ML SYRINGE ONE (11:35)
[2021-03-17] MEDS ORDERED: PROPOFOL 10 MG/ML 20 ML VIAL IV ONE (11:35)
[2021-03-17] MEDS ORDERED: HYDROmorphone (PF) 1 MG/ML ONE (11:35)
[2021-03-17] MEDS ORDERED: fentaNYL (PF) 50 MCG/ML 2 ML AMP ONE (11:35)
[2021-03-17] MEDS ORDERED: ROCURONIUM 10 MG/ML (5 ML VIAL) IV ONE (11:35)
[2021-03-17] MEDS ORDERED: NEOSTIGMINE 1 MG/ML 10 ML VIAL ONE (11:35)
[2021-03-17] MEDS ORDERED: SODIUM CHLORIDE 0.9% 100 ML with ceFAZolin 2,000 MG IV ONE ×2 (12:43)
[2021-03-17] MEDS ORDERED: LIDOCAINE 1%-EPI 1:100,000 20 ML VIAL SQ ONE (13:21)
[2021-03-17] MEDS: metroNIDAZOLE-NS PMX 500 MG in SALINE 1 100ML.BAG IVPB STA ×2 (13:22→13:23)
--- NOTE | 2021-03-17 14:58 | P.PN ---
Subjective Progress Note Date: 03/17/21 This is a 71-year-old male recently admitted with abdominal distention, sigmoid volvulus with distal small bowel obstruction and being scheduled for sigmoid colectomy with Dr. Toro this afternoon. Patient continues to have abdominal distention noted and no reports of gas or bowel movements at this time. Patient is nothing by mouth and per nursing will have the procedure sometime after 3 PM. Patient is afebrile. Patient denies any chest pain or palpitations. No reports of shortness of breath noted. 03/16/2021 Patient is seen and evaluated this morning and follow-up and apparently underwe nt colonoscopy with decompression and is scheduled for colectomy tomorrow Dr. Toro. Patient has been started on diet and tolerating with no reports of abdominal discomfort. Denies any passing gas or bowel movements. Positive bowel sounds noted on exam. Blood count remains stable at 5.9 with a hemoglobin of 11.7. Sodium is 139 with a potassium of 4.5 and current creatinine is 0.63. Iron on the low side and receiving IV iron transfusions. Patient remains afebrile. Denies shortness of breath or chest pain at this time. 03/17/2021 Patient is seen in follow-up this morning with no acute overnight issues. Patient is now nothing by mouth and scheduled for sigmoid colectomy today and will await surgical report. White blood count normal at 5.8 with a hemoglobin of 11.0. Sodium is 140 with a potassium of 3.9 current creatinine is 0.66. Vital signs are stable and patient is afebrile. Patient continues to have bowel sounds noted on exam with abdominal distention although reports no gas and no bowel movements. Review of systems: Constitutional: No reports of fatigue, fever, or chills Cardiovascular: No reports of chest pain or palpitations Respiratory: No reports of shortness of breath or cough GI: No reports of nausea, vomiting, or diarrhea, reports continued abdominal distention but denies pain or discomfort of the abdomen : No reports of dysuria or retention Neurovascular: No reports of weakness or numbness All medications have been reviewed Objective - Vital Signs Vital signs: Vital Signs Temp 97.7 F 03/17/21 07:44 Pulse 68 03/17/21 07:44 Resp 16 03/17/21 07:44 BP 114/69 03/17/21 07:44 Pulse Ox 98 03/17/21 07:44 Intake & Output 03/16/21 03/17/21 03/17/21 18:59 06:59 18:59 Output Total 600 1950 Balance -600 -1950 Output: Urine 600 1950 Other: Voiding Method Toilet Toilet Urinal Urinal - Exam Gen: This is a 71-year-old male awake, alert and oriented 2, well-developed, well-nourished, obese. HEENT: Head is atraumatic, normocephalic. Pupils equal, round. Sclerae is anicteric. NECK: Supple. No JVD. No lymphadenopathy. No thyromegaly. LUNGS: Diminished breath sounds bilaterally with no wheezing or rhonchi noted. No intercostal retractions. HEART: S1, S2 are muffled ABDOMEN: Soft. Obese. Distended. Positive bowel sounds noted on exam. No masses. No tenderness. EXTREMITIES: No pedal edema. No calf tenderness. NEUROLOGICAL: Patient is awake, alert and oriented x3. Cranial nerves 2 through 12 are grossly intact. - Labs CBC & Chem 7: 03/17/21 06:33 03/17/21 06:33 Labs: Abnormal Lab Results - Last 24 Hours (Table) 03/17/21 03/17/21 Range/Units 06:33 06:33 RBC 3.90 L (4.30-5.90) m/uL Hgb 11.0 L (13.0-17.5) gm/dL Hct 34.9 L (39.0-53.0) % Chloride 112 H (98-107) mmol/L Calcium 8.3 L (8.4-10.2) mg/dL Assessment and Plan Assessment: Acute sigmoid volvulus and distal small bowel obstruction and abdominal distention, present on admission Alcoholic liver cirrhosis History of alcohol abuse Cognitive impairment with possible dementia Anemia, normocytic anemia of chronic disease Acute urinary tract infection, present on admission Full code Recommendations and discussion: Recommend continue with current medications and current management. Surgery is following and patient scheduled to undergo sigmoid colectomy with Dr. Caruso today. Urology is nothing by mouth and labs today within normal limits and will repeat labs and await surgical report. Patient continues on IV ceftriaxone and will continue at this time.
[2021-03-17 15:31] VITALS: BMI 35.5
[2021-03-17] MEDS ORDERED: LACTATED RINGERS 1,000 ML IV ONE ×4 (15:46→17:14)
[2021-03-17] MEDS ORDERED: HYDROmorphone 0.5 MG/0.5 ML SYRINGE IVP ONE (17:51)
--- NOTE | 2021-03-17 17:53 | P.OP ---
Date of Procedure: 03/17/21 Preoperative Diagnosis: Sigmoid volvulus with large bowel obstruction Postoperative Diagnosis: Sigmoid volvulus Procedure(s) Performed: Robotic low anterior resection, sigmoid colectomy, colotomy for decompression, reduction of sigmoid volvulus Anesthesia: GETA, local Surgeon: Holly Toro Estimated Blood Loss (ml): 10 Pathology: other (Sigmoid colon volvulus over 3.5 feet resected) Condition: stable Disposition: floor Operative Findings: 1. Moderate to severe redundancy of sigmoid colon causing chronic volvulus with over 3.5 feet sigmoid colon resection with low anterior resection 2. Colotomy for decompression performed along the sigmoid colon to allow for colectomy 3. Stapled anastomosis EEA 29 mm Ethicon echelon powered stapler performed 4. Negative leak test upon completion of procedure 5. No evidence of ascites 6. Extremely thin subcutaneous tissue
[2021-03-17] MEDS ORDERED: ONDANSETRON 4 MG/2 ML VIAL IVP PRN (18:07)
[2021-03-17] MEDS ORDERED: BENZOCAINE 20% HEMORRHOIDAL OINT 28GM RECTAL PRN (18:09)
[2021-03-17] MEDS: SODIUM CHLORIDE 0.9% 1,000 ML IV SCH ×2 (18:22→21:21)
[2021-03-17] MEDS: MELATONIN 3 MG TABLET PO SCH (20:57)
[2021-03-17] MEDS: MULTIVITAMINS, THERA 1 EACH TAB PO SCH (20:57)
[2021-03-17] MEDS ORDERED: NON FORMULARY DRUG (Omeprazole [Omeprazole] 20 MG Capsule.Dr) PO SCH (21:00)
[2021-03-18] MEDS: ACETAMINOPHEN IV (For NPO) 1,000 MG in EMPTY BAG 1 BAG IVPB SCH ×4 (01:39→17:13)
[2021-03-18] MEDS: metroNIDAZOLE-NS PMX 500 MG in SALINE 1 100ML.BAG IVPB SCH ×5 (01:52→22:03)
[2021-03-18] MEDS: SODIUM CHLORIDE 0.9% 1,000 ML IV SCH ×3 (01:52→17:17)
[2021-03-18] MEDS ORDERED: SODIUM CHLORIDE 0.9% 500 ML 500 ML IV ONE (06:17)
[2021-03-18] MEDS: ALVIMOPAN 12 MG CAPSULE PO SCH ×2 (07:55→22:03)
[2021-03-18] MEDS: HEPARIN SODIUM,PORCINE/PF 5,000 UNIT/0.5 ML SYRINGE SQ SCH ×2 (07:55→22:02)
[2021-03-18] MEDS: PANTOPRAZOLE 40 MG/10 ML VIAL IV SCH (07:55)
[2021-03-18] MEDS: SIMETHICONE 40 MG/0.6 ML DROPS 2,000 MG/30 ML BOTTLE PO SCH ×4 (07:56→22:04)
[2021-03-18] MEDS: FUROSEMIDE 80 MG TAB PO SCH (07:56)
[2021-03-18] MEDS: SPIRONOLACTONE 25 MG TAB PO SCH (07:56)
[2021-03-18] MEDS ORDERED: SPIRONOLACTONE 25 MG TAB PO SCH (09:00)
[2021-03-18] MEDS: HYDROmorphone 0.5 MG/0.5 ML SYRINGE IVP PRN (09:24)
[2021-03-18 09:44] LABS: African American GFR (CKD) 109.3 (60.0-200.0); Anion Gap 7.3 mmol/L (4.00-12.00); BUN/Creat Ratio 11.43 Ratio (12.00-20.00); Calcium 7.8 mg/dL (8.7-10.3); Carbon Dioxide 21.7 mmol/L (21.6-31.8); Non-African American GFR(CKD) 94.3 (60.0-200.0); Potassium 4.9 mmol/L (3.5-5.5)
[2021-03-18 11:50] LABS: Basophils # (A) 0.02 X 10*3/uL (0.00-0.10); Basophils % (A) 0.3 %; Eosinophils # (A) 0.01 X 10*3/uL (0.04-0.35); Eosinophils % (A) 0.2 %; HCT 34.2 % (39.6-50.0); HGB 10.9 g/dL (13.0-17.0); Lymphocytes % (A) 27.2 %; MCH 28.4 pg (27.0-32.0); MCHC 31.9 g/dL (32.0-37.0); MCV 89.1 fL (80.0-97.0); Mean Platelet Volume 9.9 fL (9.5-12.2); Monocytes # (A) 0.27 X 10*3/uL (0.20-1.00); Monocytes % (A) 4.3 %; Neutrophils # (A) 4.22 X 10*3/uL (1.80-7.70); Neutrophils % (A) 67.7 %; Platelet Count 221 X 10*3/uL (140-440); RBC 3.84 X 10*6/uL (4.40-5.60); RDW 15.5 % (11.5-14.5); WBC 6.24 X 10*3/uL (4.50-10.00)
--- NOTE | 2021-03-18 13:35 | P.PN ---
Subjective Progress Note Date: 03/18/21 CHIEF COMPLAINT: Abdominal distention HISTORY OF PRESENT ILLNESS: The patient is a 71-year-old male who presents with recurrent sigmoid volvulus for large bowel obstruction. Patient status post colonoscopy to cecum with colonic decompression on 03/14/21 and is status post robotic lower anterior resection, sigmoid colectomy and colotomy for decompression, reduction of sigmoid volvulus. Patient sitting up in bed. He is complaining of some abdominal pain. Denies any nausea or vomiting. No flatus or BM. He is on antibiotics. Afebrile. Chronically liquid diet. WBC is 6.2 for hemoglobin 10.9 platelets 221 creatinine is 0.7 PHYSICAL EXAM: VITAL SIGNS: Reviewed GENERAL: Well-developed in no acute distress. HEENT: No sclera icterus. Extraocular movements grossly intact. Moist buccal mucosa. Head is atraumatic, normocephalic. Hears conversational speech. No nasal drainage. NECK: Supple without lymphadenopathy. CHEST: Non-labored respirations and equal bilateral excursions. CARDIOVASCULAR: Palpable 2+ radial pulses. ABDOMEN: Soft. Less Distended nontender MUSCULOSKELETAL: No clubbing or cyanosis. NEUROLOGIC: No focal or lateralizing signs. Cranial nerves II through XII grossly intact. PSYCH: Appropriate affect. Alert and oriented to person, place and time. SKIN: Well perfused. Good skin turgor. ASSESSMENT: Sigmoid volvulus for large bowel obstruction, recurrent. Status post robotic lower anterior resection, sigmoid colectomy, colostomy for decompression, reduction of sigmoid volvulus. Postop day #1 Chronic constipation Liver cirrhosis History of hepatic encephalopathy Morbid obesity due to excess calories, BMI 35.6 Hypertensive heart disease with congestive heart failure PLAN: -Continue clear liquid diet -Continue pain medication as needed -Continue antibiotics -Encouraged patient ambulates -Encouraged patient to use incentive spirometer -DVT prophylaxis subcu heparin and GI prophylaxis Protonix Physician Barrel Polisher note has been reviewed by physician. Signing provider agrees with the documented findings, assessment, and plan of care. Objective - Vital Signs Vital signs: Vital Signs Temp 98.3 F 03/18/21 08:19 Pulse 84 03/18/21 08:19 Resp 15 03/18/21 08:19 BP 92/52 03/18/21 08:19 Pulse Ox 98 03/18/21 08:19 Intake & Output 03/17/21 03/18/21 03/18/21 18:59 06:59 18:59 Intake Total 3800 Output Total 410 1775 Balance 3390 -1775 Weight 115.666 kg Intake: IV 3800 Output: Urine 400 1775 Estimated Blood Loss 10 Other: Voiding Method Toilet Toilet Urinal Urinal - Labs CBC & Chem 7: 03/18/21 05:57 03/18/21 05:57 Labs: Abnormal Lab Results - Last 24 Hours (Table) 03/18/21 03/18/21 Range/Units 05:57 05:57 RBC 3.84 L (4.40-5.60) X 10*6/uL Hgb 10.9 L (13.0-17.0) g/dL Hct 34.2 L (39.6-50.0) % MCHC 31.9 L (32.0-37.0) g/dL RDW 15.5 H (11.5-14.5) % Eosinophils # 0.01 L (0.04-0.35) X 10*3/uL Chloride 110 H (96-109) mmol/L BUN 8.0 L (9.0-27.0) mg/dL BUN/Creatinine Ratio 11.43 L (12.00-20.00) Ratio Calcium 7.8 L (8.7-10.3) mg/dL
--- NOTE | 2021-03-18 14:56 | P.PN ---
Subjective Progress Note Date: 03/18/21 This is a 71-year-old male recently admitted with abdominal distention, sigmoid volvulus with distal small bowel obstruction and being scheduled for sigmoid colectomy with Dr. Toro this afternoon. Patient continues to have abdominal distention noted and no reports of gas or bowel movements at this time. Patient is nothing by mouth and per nursing will have the procedure sometime after 3 PM. Patient is afebrile. Patient denies any chest pain or palpitations. No reports of shortness of breath noted. 03/16/2021 Patient is seen and evaluated this morning and follow-up and apparently underwe nt colonoscopy with decompression and is scheduled for colectomy tomorrow Dr. Toro. Patient has been started on diet and tolerating with no reports of abdominal discomfort. Denies any passing gas or bowel movements. Positive bowel sounds noted on exam. Blood count remains stable at 5.9 with a hemoglobin of 11.7. Sodium is 139 with a potassium of 4.5 and current creatinine is 0.63. Iron on the low side and receiving IV iron transfusions. Patient remains afebrile. Denies shortness of breath or chest pain at this time. 03/17/2021 Patient is seen in follow-up this morning with no acute overnight issues. Patient is now nothing by mouth and scheduled for sigmoid colectomy today and will await surgical report. White blood count normal at 5.8 with a hemoglobin of 11.0. Sodium is 140 with a potassium of 3.9 current creatinine is 0.66. Vital signs are stable and patient is afebrile. Patient continues to have bowel sounds noted on exam with abdominal distention although reports no gas and no bowel movements. 03/18/2021 Patient is seen and evaluated in follow-up this morning with no acute overnight issues. Patient is status post lower anterior resection and sigmoid colectomy and colotomy with decompression and is being closely monitored. Patient continues on a liquid diet and tolerating. Bowel sounds although sluggish noted on exam with some slight improvement in distention with no reports of gas or bowel movements as of yet. Patient this morning had some lower blood pressure readings and was given a 500 bolus of normal saline and will continue on gentle IV hydration. White blood count today is 6.24 with a hemoglobin of 10.9, sodium is 139 with a potassium of 4.9 and current creatinine is 0.7. Patient is afebrile. Patient continues on 3 L of oxygen via nasal cannula status post surgery although denies shortness of breath. Discussed with nursing staff about weaning FiO2 as tolerated and instructed the patient to continue with incentive spirometer at least 10 times every hour while awake. Review of systems: Constitutional: No reports of fatigue, fever, or chills Cardiovascular: No reports of chest pain or palpitations Respiratory: No reports of shortness of breath or cough GI: No reports of nausea, vomiting, or diarrhea, reports some mild abdominal discomfort at the surgical sites with dressings that are dry and intact on exam : No reports of dysuria or retention Neurovascular: No reports of weakness or numbness All medications have been reviewed Objective - Vital Signs Vital signs: Vital Signs Temp 98.3 F 03/18/21 08:19 Pulse 84 03/18/21 08:19 Resp 15 03/18/21 08:19 BP 92/52 03/18/21 08:19 Pulse Ox 98 03/18/21 08:19 Intake & Output 03/17/21 03/18/21 03/18/21 18:59 06:59 18:59 Intake Total 3800 Output Total 410 1775 Balance 3390 -1775 Weight 115.666 kg Intake: IV 3800 Output: Urine 400 1775 Estimated Blood Loss 10 Other: Voiding Method Toilet Toilet Urinal Urinal - Exam Gen: This is a 71-year-old male awake, alert and oriented 2, well-developed, well-nourished, obese. HEENT: Head is atraumatic, normocephalic. Pupils equal, round. Sclerae is anicteric. NECK: Supple. No JVD. No lymphadenopathy. No thyromegaly. LUNGS: Diminished breath sounds bilaterally with no wheezing or rhonchi noted. No intercostal retractions. HEART: S1, S2 are muffled ABDOMEN: Soft. Obese. Distended. sluggish bowel sounds noted on exam. No masses. Mild tenderness at the surgical sites. Dressings are dry and intact EXTREMITIES: No pedal edema. No calf tenderness. NEUROLOGICAL: Patient is awake, alert and oriented x3. Cranial nerves 2 through 12 are grossly intact. - Labs CBC & Chem 7: 03/18/21 05:57 03/18/21 05:57 Assessment and Plan Assessment: Acute sigmoid volvulus and distal small bowel obstruction and abdominal distention, present on admission Status post lower anterior resection, sigmoid colectomy, colotomy for decompression, and reduction of sigmoid volvulus postop day #1 Acute post-op hypotension an expected surgical outcome, gave a 500 mL bolus of normal saline and will continue with gentle IV hydration and monitor closely Alcoholic liver cirrhosis History of alcohol abuse Cognitive impairment with possible dementia Anemia, normocytic anemia of chronic disease Acute urinary tract infection, present on admission Full code Recommendations and discussion: Recommend continue with current medications and current management. Surgery is following and patient underwent sigmoid colectomy with anterior resection. Patient has been resumed on clear liquids and tolerating with no reports of gas or bowel movement as of yet. Patient did have some postop hypotension and was given a 500 mL bolus and will continue with normal saline at 130 mL's per hour and closely monitor. Labs within normal limits today and will repeat a.m. labs. Instructed the patient to continue to use incentive spirometer at least 10 times every hour while awake. Patient is on 2-3 L of oxygen via nasal cannula status post surgery and discussed with nursing staff about weaning FiO2 as tolerated. Patient continues on IV ceftriaxone and will continue at this time.
[2021-03-18] MEDS: MELATONIN 3 MG TABLET PO SCH (22:03)
[2021-03-18] MEDS: MULTIVITAMINS, THERA 1 EACH TAB PO SCH (22:03)
--- NOTE | 2021-03-19 00:27 | XR ---
EXAMINATION TYPE: XR Hip Complete RT DATE OF EXAM: 03/18/2021 COMPARISON: NONE HISTORY: Hip pain TECHNIQUE: 2 views FINDINGS: There is significant deformity at the right hip joint. There is a plate fixing the acetabul um. There is significant destruction of the femoral head and acetabular deformity. 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 I see no acute fracture. The sacroiliac dariela int is intact. Intertrochanteric femur appears intact. 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 No acute fracture seen.
[2021-03-19] MEDS: HYDROmorphone 0.5 MG/0.5 ML SYRINGE IVP PRN ×2 (00:33→10:43)
[2021-03-19] MEDS: SODIUM CHLORIDE 0.9% 1,000 ML IV SCH ×2 (03:41→04:46)
[2021-03-19] MEDS: metroNIDAZOLE-NS PMX 500 MG in SALINE 1 100ML.BAG IVPB SCH ×3 (04:48→17:22)
[2021-03-19] MEDS: FUROSEMIDE 80 MG TAB PO SCH (08:05)
[2021-03-19] MEDS: SPIRONOLACTONE 25 MG TAB PO SCH (08:06)
[2021-03-19] MEDS: PANTOPRAZOLE 40 MG/10 ML VIAL IV SCH (08:15)
[2021-03-19] MEDS: ALVIMOPAN 12 MG CAPSULE PO SCH ×2 (08:15→20:21)
[2021-03-19] MEDS: HEPARIN SODIUM,PORCINE/PF 5,000 UNIT/0.5 ML SYRINGE SQ SCH ×2 (08:16→20:21)
[2021-03-19] MEDS: SIMETHICONE 40 MG/0.6 ML DROPS 2,000 MG/30 ML BOTTLE PO SCH ×4 (08:16→20:21)
[2021-03-19 09:27] LABS: Basophils % (A) 0 %; Eosinophils # (A) 0.1 k/uL (0-0.7); Eosinophils % (A) 1 %; HCT 32.8 % (39.0-53.0); HGB 10.8 gm/dL (13.0-17.5); Lymphocytes # (A) 1.1 k/uL (1.0-4.8); Lymphocytes % (A) 15 %; MCH 29.4 pg (25.0-35.0); MCHC 32.9 g/dL (31.0-37.0); MCV 89.2 fL (80.0-100.0); Mean Platelet Volume 7.6; Monocytes # (A) 0.3 k/uL (0-1.0); Monocytes % (A) 4 %; Neutrophils # (A) 5.7 k/uL (1.3-7.7); Neutrophils % (A) 79 %; Platelet Count 184 k/uL (150-450); RBC 3.68 m/uL (4.30-5.90); RDW 15.2 % (11.5-15.5); WBC 7.2 k/uL (3.8-10.6)
[2021-03-19 09:34] LABS: African American GFR (CKD) >90 (>60 ml/min/1.73 sqM); Anion Gap 4 mmol/L; Blood Urea Nitrogen 8 mg/dL (9-20); Calcium 8.2 mg/dL (8.4-10.2); Carbon Dioxide 26 mmol/L (22-30); Chloride 107 mmol/L (98-107); Glucose 124 mg/dL (74-99); Non-African American GFR(CKD) >90 (>60 ml/min/1.73 sqM); Potassium 3.3 mmol/L (3.5-5.1); Sodium 137 mmol/L (137-145)
[2021-03-19] MEDS ORDERED: POTASSIUM CHLORIDE ER 20 MEQ TAB.ER PO STA (11:49)
--- NOTE | 2021-03-19 12:46 | XR ---
EXAMINATION TYPE: XR chest 1V portable DATE OF EXAM: 03/19/2021 COMPARISON: NONE HISTORY: Shortness of breath TECHNIQUE: Single frontal view of the chest is obtained. FINDINGS: Patchy bibasilar density is noted. Heart size may be increased although the exam is expira tory and rotated. No evident pneumothorax. Aorta is dense. IMPRESSION: Expiratory rotated exam. Probable basilar atelectasis.
--- NOTE | 2021-03-19 13:45 | P.PN ---
Subjective Progress Note Date: 03/19/21 Principal diagnosis: Patient sitting up at bedside. He denies any moderate abdominal pain. No fevers or chills. He has not ambulated. His history of previous right hip fracture. Orthopedic surgery has seen the patient with recommendation for right hip replacement. Abdomen is distended however moderately improved from prior to surgery. Recommend physical therapy per recommendations per orthopedic due to pre- existing right hip pain Abdominal binder for comfort Correction of electrolyte dyscrasias CBC reviewed Objective - Vital Signs Vital signs: Vital Signs Temp 98.8 F 03/19/21 07:38 Pulse 90 03/19/21 07:38 Resp 16 03/19/21 07:38 BP 100/62 03/19/21 07:38 Pulse Ox 96 03/19/21 07:38 Intake & Output 03/18/21 03/19/21 03/19/21 18:59 06:59 18:59 Intake Total 320 Output Total 400 400 Balance -400 -400 320 Intake: Oral 320 Output: Urine 400 400 Other: Voiding Method Toilet Urinal - Labs CBC & Chem 7: 03/19/21 09:08 03/19/21 09:08 Labs: Abnormal Lab Results - Last 24 Hours (Table) 03/19/21 03/19/21 Range/Units 09:08 09:08 RBC 3.68 L (4.30-5.90) m/uL Hgb 10.8 L (13.0-17.5) gm/dL Hct 32.8 L (39.0-53.0) % Potassium 3.3 L (3.5-5.1) mmol/L BUN 8 L (9-20) mg/dL Creatinine 0.61 L (0.66-1.25) mg/dL Glucose 124 H (74-99) mg/dL Calcium 8.2 L (8.4-10.2) mg/dL Assessment and Plan (1) Chronic constipation Current Visit: Yes Status: Acute Code(s): K59.09 - OTHER CONSTIPATION SNOMED Code(s): 469841278 (2) Bowel obstruction Current Visit: Yes Status: Acute Code(s): K56.609 - UNSP INTESTNL OBST, UNSP TO PARTIAL VERSUS COMPLETE OBST SNOMED Code(s): 28132970 (3) Sigmoid volvulus Current Visit: Yes Status: Acute Code(s): K56.2 - VOLVULUS SNOMED Code(s): 250358436
[2021-03-19] MEDS: 0.9% NACL WITH KCL 20 MEQ/L 1,000 ML IV SCH (15:18)
--- NOTE | 2021-03-19 15:26 | P.PN ---
Subjective Progress Note Date: 03/19/21 This is a 71-year-old male recently admitted with abdominal distention, sigmoid volvulus with distal small bowel obstruction and being scheduled for sigmoid colectomy with Dr. Toro this afternoon. Patient continues to have abdominal distention noted and no reports of gas or bowel movements at this time. Patient is nothing by mouth and per nursing will have the procedure sometime after 3 PM. Patient is afebrile. Patient denies any chest pain or palpitations. No reports of shortness of breath noted. 03/16/2021 Patient is seen and evaluated this morning and follow-up and apparently underwe nt colonoscopy with decompression and is scheduled for colectomy tomorrow Dr. Toro. Patient has been started on diet and tolerating with no reports of abdominal discomfort. Denies any passing gas or bowel movements. Positive bowel sounds noted on exam. Blood count remains stable at 5.9 with a hemoglobin of 11.7. Sodium is 139 with a potassium of 4.5 and current creatinine is 0.63. Iron on the low side and receiving IV iron transfusions. Patient remains afebrile. Denies shortness of breath or chest pain at this time. 03/17/2021 Patient is seen in follow-up this morning with no acute overnight issues. Patient is now nothing by mouth and scheduled for sigmoid colectomy today and will await surgical report. White blood count normal at 5.8 with a hemoglobin of 11.0. Sodium is 140 with a potassium of 3.9 current creatinine is 0.66. Vital signs are stable and patient is afebrile. Patient continues to have bowel sounds noted on exam with abdominal distention although reports no gas and no bowel movements. 03/18/2021 Patient is seen and evaluated in follow-up this morning with no acute overnight issues. Patient is status post lower anterior resection and sigmoid colectomy and colotomy with decompression and is being closely monitored. Patient continues on a liquid diet and tolerating. Bowel sounds although sluggish noted on exam with some slight improvement in distention with no reports of gas or bowel movements as of yet. Patient this morning had some lower blood pressure readings and was given a 500 bolus of normal saline and will continue on gentle IV hydration. White blood count today is 6.24 with a hemoglobin of 10.9, sodium is 139 with a potassium of 4.9 and current creatinine is 0.7. Patient is afebrile. Patient continues on 3 L of oxygen via nasal cannula status post surgery although denies shortness of breath. Discussed with nursing staff about weaning FiO2 as tolerated and instructed the patient to continue with incentive spirometer at least 10 times every hour while awake. 03/19/2021 Patient is seen in follow-up this morning having some right hip pain and x-ray was done with no acute fractures noted. Patient was continued on 2 L of oxygen via nasal cannula with no reports of shortness of breath and chest x-ray shows no acute process with probable basilar atelectasis. patient has not been walking and doesn't appear to have been walking at baseline for quite some time as he is extremely weak and needs continued PT/OT therapy. PT/OT is following. Patient again encouraged and instructed to continue with incentive spirometer at least 10 times every hour while awake. Patient needs strong encouragement given his possible underlying dementia and forgetfulness. This was discussed with nursing staff. Patient needs increased activity as tolerated and also to get the bowels functioning and moving. Denies any gas is and denies any bowel activity at this time. Is tolerating diet with no nausea or vomiting noted. Patient continues with abdominal discomfort and abdominal binder applied. Review of systems: Constitutional: No reports of fatigue, fever, or chills Cardiovascular: No reports of chest pain or palpitations Respiratory: No reports of shortness of breath or cough GI: No reports of nausea, vomiting, or diarrhea, reports some mild abdominal discomfort at the surgical sites with dressings that are dry and intact on exam : No reports of dysuria or retention Neurovascular: Reports generalized weakness right hip discomfort All medications have been reviewed Objective - Vital Signs Vital signs: Vital Signs Temp 98.2 F 03/19/21 14:58 Pulse 74 03/19/21 14:58 Resp 16 03/19/21 14:58 BP 112/63 03/19/21 14:58 Pulse Ox 98 03/19/21 14:58 Intake & Output 03/18/21 03/19/21 03/19/21 18:59 06:59 18:59 Intake Total 640 Output Total 400 400 Balance -400 -400 640 Weight 115.666 kg Intake: Oral 640 Output: Urine 400 400 Other: Voiding Method Toilet Urinal - Exam Gen: This is a 71-year-old male awake, alert and oriented 2, well-developed, well-nourished, obese. HEENT: Head is atraumatic, normocephalic. Pupils equal, round. Sclerae is anicteric. NECK: Supple. No JVD. No lymphadenopathy. No thyromegaly. LUNGS: Diminished breath sounds bilaterally with with some scattered rhonchi noted. No intercostal retractions. HEART: S1, S2 are muffled ABDOMEN: Soft. Obese. Distended. sluggish bowel sounds noted on exam. No m asses. Mild tenderness at the surgical sites. Dressings are dry and intact, abdominal binder noted EXTREMITIES: No pedal edema. No calf tenderness. NEUROLOGICAL: Patient is awake, alert and oriented x3. Cranial nerves 2 through 12 are grossly intact. Diffusely weak - Labs CBC & Chem 7: 03/19/21 09:08 03/19/21 09:08 Labs: Abnormal Lab Results - Last 24 Hours (Table) 03/19/21 03/19/21 Range/Units 09:08 09:08 RBC 3.68 L (4.30-5.90) m/uL Hgb 10.8 L (13.0-17.5) gm/dL Hct 32.8 L (39.0-53.0) % Potassium 3.3 L (3.5-5.1) mmol/L BUN 8 L (9-20) mg/dL Creatinine 0.61 L (0.66-1.25) mg/dL Glucose 124 H (74-99) mg/dL Calcium 8.2 L (8.4-10.2) mg/dL Assessment and Plan Assessment: Acute sigmoid volvulus and distal small bowel obstruction and abdominal distention, present on admission Status post lower anterior resection, sigmoid colectomy, colotomy for decompression, and reduction of sigmoid volvulus postop day #2 Acute post-op hypotension an expected surgical outcome, gave a 500 mL bolus of normal saline and will continue with gentle IV hydration and monitor closely Alcoholic liver cirrhosis History of alcohol abuse Chronic right hip pain status post surgical intervention Gait dysfunction Cognitive impairment with possible dementia Anemia, normocytic anemia of chronic disease Acute urinary tract infection, present on admission Full code Recommendations and discussion: Recommend continue with current medications and current management. Surgery is following and patient underwent sigmoid colectomy with anterior resection. Patient has been resumed on clear liquids and tolerating with no reports of gas or bowel movement as of yet. Patient did have some postop hypotension and was given a 500 mL bolus and will continue with normal saline at 100 mL's per hour and closely monitor. Labs within normal limits today and will repeat a.m. labs. Instructed the patient to continue to use incentive spirometer at least 10 times every hour while awake. Patient is on 2-3 L of oxygen via nasal cannula status post surgery and discussed with nursing staff about weaning FiO2 as tolerated. Chest x-ray shows probable atelectasis and needs continued encouragement of incentive spirometer use. Patient was on IV ceftriaxone and treated adequately for an acute urinary tract infection and will discontinue. Patient continues on IV Flagyl per surgery recommendations. Will need to discuss with surgery about continuing ceftriaxone as well possibly.
--- NOTE | 2021-03-19 18:59 | P.PN ---
Progress Note - Text Progress Note Date: 03/19/21 He denies any moderate abdominal pain. Discussion with nursing that he has new bowel sounds. Otherwise, he reports his abdomen is better from prior to surgery with regards to distention.
[2021-03-19] MEDS: MULTIVITAMINS, THERA 1 EACH TAB PO SCH (20:21)
[2021-03-19] MEDS: MELATONIN 3 MG TABLET PO SCH (20:21)
[2021-03-20] MEDS: metroNIDAZOLE-NS PMX 500 MG in SALINE 1 100ML.BAG IVPB SCH ×4 (00:27→17:40)
[2021-03-20] MEDS: 0.9% NACL WITH KCL 20 MEQ/L 1,000 ML IV SCH ×3 (00:27→19:40)
[2021-03-20 06:46] LABS: Basophils % (A) 0 %; Eosinophils # (A) 0.2 k/uL (0-0.7); Eosinophils % (A) 3 %; HGB 10.6 gm/dL (13.0-17.5); Lymphocytes # (A) 1.4 k/uL (1.0-4.8); Lymphocytes % (A) 21 %; MCH 29.4 pg (25.0-35.0); MCHC 33.2 g/dL (31.0-37.0); MCV 88.6 fL (80.0-100.0); Mean Platelet Volume 7.4; Monocytes # (A) 0.2 k/uL (0-1.0); Monocytes % (A) 3 %; Neutrophils # (A) 4.8 k/uL (1.3-7.7); Neutrophils % (A) 71 %; Platelet Count 192 k/uL (150-450); RBC 3.61 m/uL (4.30-5.90); RDW 15.2 % (11.5-15.5); WBC 6.8 k/uL (3.8-10.6)
[2021-03-20 07:07] LABS: African American GFR (CKD) >90 (>60 ml/min/1.73 sqM); Anion Gap 8 mmol/L; Blood Urea Nitrogen 7 mg/dL (9-20); Carbon Dioxide 18 mmol/L (22-30); Chloride 112 mmol/L (98-107); Glucose 96 mg/dL (74-99); Magnesium 1.9 mg/dL (1.6-2.3); Non-African American GFR(CKD) >90 (>60 ml/min/1.73 sqM); Potassium 2.8 mmol/L (3.5-5.1); Sodium 138 mmol/L (137-145)
[2021-03-20] MEDS: ALVIMOPAN 12 MG CAPSULE PO SCH ×2 (07:53→19:40)
[2021-03-20] MEDS: SIMETHICONE 40 MG/0.6 ML DROPS 2,000 MG/30 ML BOTTLE PO SCH ×4 (07:53→19:47)
[2021-03-20] MEDS: PANTOPRAZOLE 40 MG/10 ML VIAL IV SCH (07:53)
[2021-03-20] MEDS: HEPARIN SODIUM,PORCINE/PF 5,000 UNIT/0.5 ML SYRINGE SQ SCH ×2 (07:53→19:46)
[2021-03-20] MEDS ORDERED: Potassium Replacement Protocol 1 EACH MISC MISCELLANE PRN ×2 (10:39)
[2021-03-20] MEDS: POTASSIUM CHLORIDE ER 20 MEQ TAB.ER PO SCH ×2 (10:51→12:46)
[2021-03-20] MEDS ORDERED: POTASSIUM CHLORIDE ER 20 MEQ TAB.ER PO SCH (11:00)
--- NOTE | 2021-03-20 12:12 | P.CNOR ---
History of Present Illness - [facility] Consult date: 03/19/21 Requesting physician: Loida Van Consult reason: other (right hip pain, history of right hip fracture) History of present illness: Patient was seen 03/19/2021 at bedside lying in semirecumbent position. Patient has been in hospital for several days doing with ongoing issues related to GI. Patient has been complaining of abdominal pain. Patient has confirmed lorenza have sigmoid volvulus and has been scheduled for sigmoid colectomy. I have been consuled for right hip pain with previous history of right hip arthroplasty. The patient does mention he has some right hip pain and he has limited mobility in the right hip due to the pain. Due to the patient's mental status, he is not able to give me much information about whether he has had a right hip arthroplasty in the past. Patient seemed to think he has never had any surgery on his right hip before. Patient denies any numbness/tingling down the legs. Patient denies any back pain. Patient denies chest pain, fever, shortness breath, nausea, vomiting, change in vision, sella seizure, loss of bowel/bladder control. Past Medical History Past Medical History: Liver Disease Additional Past Medical History / Comment(s): hepatic encephalopathy, dysphasia, anasarca, ascites due to liver cirrhosis History of Any Multi-Drug Resistant Organisms: Unobtainable Past Surgical History: Orthopedic Surgery Additional Past Surgical History / Comment(s): previous paracentesis at [facility] 2016, broken hip with rods placed Past Psychological History: Depression Additional Psychological History / Comment(s): Mentioned to daughter at [facility] Smoking Status: Unknown if ever smoked Past Alcohol Use History: Occasional Additional Past Alcohol Use History / Comment(s): currently at [facility] smokes 4 cigarettes per day, currently does not drink Past Drug Use History: None Reported - Past Family History Mother Family Medical History: Dementia Medications and Allergies Home Medications Medication Instructions Recorded Confirmed Type Acetaminophen Tab [Tylenol Tab] 1,000 mg PO Q8H PRN 04/20/18 03/10/21 History Lactulose 20 gm PO TID@0700,1300,1900 04/20/18 03/10/21 History Multivitamins, Thera [Multivitamin 1 tab PO HS 04/20/18 03/10/21 History (formulary)] Spironolactone 100 mg PO DAILY 04/20/18 03/10/21 History Acetaminophen [Tylenol Extra 500 mg PO Q6H PRN 03/10/21 03/10/21 History Strength] Furosemide [Lasix] 80 mg PO DAILY 03/10/21 03/10/21 History Melatonin 3 mg PO HS 03/10/21 03/10/21 History Omeprazole 20 mg PO HS 03/10/21 03/10/21 History Phenyleph/Mineral Oil/Petrolat 1 applic RECTAL Q12H PRN 03/10/21 03/10/21 History [Preparation H Ointment] Sennosides [Senna] 17.2 mg PO HS 03/10/21 03/10/21 History Spironolactone 50 mg PO DAILY 03/10/21 03/10/21 History Allergies Allergy/AdvReac Type Severity Reaction Status Date / Time No Known Allergies Allergy Verified 03/15/21 16:00 Physical Examination Inspection: scar along the anterior aspect of the upper right leg, consistent with previous history of right hip surgery. Negative for any ecchymosis. No evidence of open fractures. Negative for any significant discoloration other than as noted. Negative for nodules, erythema. Sensation: Sensation is intact in bilateral upper extremities symmetric, equal in distribution. Sensation is intact in bilateral lower extremities symmetric, equal in distribution Palpation: mild tenderness to palpation over the proximal right femur. Nontender to palpation throughout rest of exam Range of motion: Limited range of motion in the right leg due to patient pain status. Bilateral upper extremities full range of motion in elbow extension/flexion as well as shoulder internal and external rotation abduction and forward elevation. Left lower extremity full range of motion and knee flexion extension and hip flexion extension. Plantar and dorsiflexion full range of motion bilaterally Motor: Strength 5 out of 5 in upper extremities as well as senior information systems architect strength. Left lower extremity 5/5 in resisted flexion extension and hip flexion extension. Right leg exam limited due to patient being in pain Neurovascular status/tensioning signs: Refill under 3 seconds bilaterally in lower and upper extremities. Skin mildly warm to touch in hands bilaterally as well as bilaterally in the lower extremities. Dorsalis pedis pulses intact, 2+ bilaterally. Radial pulses intact, 2+ bilaterally. Negative Homans bilaterally. Negative Smiley's bilaterally. Negative clonus upon dorsiflexing feet bilaterally. Results - Labs Labs: Abnormal Lab Results - Last 24 Hours (Table) 03/19/21 03/19/21 Range/Units 09:08 09:08 RBC 3.68 L (4.30-5.90) m/uL Hgb 10.8 L (13.0-17.5) gm/dL Hct 32.8 L (39.0-53.0) % Potassium 3.3 L (3.5-5.1) mmol/L BUN 8 L (9-20) mg/dL Creatinine 0.61 L (0.66-1.25) mg/dL Glucose 124 H (74-99) mg/dL Calcium 8.2 L (8.4-10.2) mg/dL H & H 03/10/21 03/13/21 03/14/21 Range/Units 15:01 07:27 07:14 Hgb 13.6 12.1 L 11.3 L (13.0-17.5) gm/dL Hct 41.1 38.9 L 35.2 L (39.0-53.0) % 03/16/21 03/17/21 03/18/21 Range/Units 06:23 06:33 05:57 Hgb 11.7 L 11.0 L 10.9 L (13.0-17.5) gm/dL Hct 36.6 L 34.9 L 34.2 L (39.0-53.0) % 03/19/21 Range/Units 09:08 Hgb 10.8 L (13.0-17.5) gm/dL Hct 32.8 L (39.0-53.0) % Coagulation 03/10/21 Range/Units 15:01 INR 1.0 (<1.2) Result Diagrams: 03/20/21 06:17 03/20/21 06:17 Assessment and Plan Assessment: 1. Right hip pain Plan: 1. Right hip pain - x-rays have been ordered on the right hip and have been reviewed. 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 Negative for any evident fractures in the right hip. We will continue to follow patient while in the hospital. Patient can follow-up in the outpatient setting for further discussion about potential intervention for worsening right hip pain. 2. Appreciate medical management 3. Pain management - stable at this time 4. Appreciate consult Time with Patient: Less than 30
--- NOTE | 2021-03-20 12:16 | P.PN ---
Subjective Progress Note Date: 03/20/21 Principal diagnosis: Right hip pain Patient was seen at bedside this morning sitting up in bed playing solitaire on his own and drinking soda. When asked about right hip pain, the patient says he does not have much right hip pain at the moment. Patient seems comfortable this morning patient denies chest pain, fever, nausea, vomiting, shortness breath, loss of bowel/bladder control, saddle anesthesia, change in vision. Objective - Vital Signs Vital signs: Vital Signs Temp 98.3 F 03/20/21 08:00 Pulse 74 03/20/21 08:00 Resp 16 03/20/21 08:00 BP 110/67 03/20/21 08:00 Pulse Ox 92 L 03/20/21 08:00 Intake & Output 03/19/21 03/20/21 03/20/21 18:59 06:59 18:59 Intake Total 960 Output Total 800 700 Balance 160 -700 Weight 115.666 kg Intake: Oral 960 Output: Urine 800 700 Other: Voiding Method Indwelling Catheter Indwelling Catheter # Bowel Movements 0 - Exam Inspection: scar along the anterior aspect of the upper right leg, consistent with previous history of right hip surgery. Negative for any ecchymosis. No evidence of open fractures. Negative for any significant discoloration other than as noted. Negative for nodules, erythema. Sensation: Sensation is intact in bilateral upper extremities symmetric, equal in distribution. Sensation is intact in bilateral lower extremities symmetric, equal in distribution Palpation: mild tenderness to palpation over the proximal right femur. Nontender to palpation throughout rest of exam Range of motion: Limited range of motion in the right leg due to patient pain status. Bilateral upper extremities full range of motion in elbow extension/flexion as well as shoulder internal and external rotation abduction and forward elevation. Left lower extremity full range of motion and knee flexion extension and hip flexion extension. Plantar and dorsiflexion full range of motion bilaterally Motor: Strength 5 out of 5 in upper extremities as well as compensation manager strength. Left lower extremity 5/5 in resisted flexion extension and hip flexion extension. Right leg exam limited due to patient being in pain Neurovascular status/tensioning signs: Refill under 3 seconds bilaterally in lower and upper extremities. Skin mildly warm to touch in hands bilaterally as well as bilaterally in the lower extremities. Dorsalis pedis pulses intact, 2+ bilaterally. Radial pulses intact, 2+ bilaterally. Negative Homans bilaterally. Negative Smiley's bilaterally. Negative clonus upon dorsiflexing feet bilaterally. - Labs CBC & Chem 7: 03/20/21 06:17 03/20/21 06:17 Labs: Abnormal Lab Results - Last 24 Hours (Table) 03/20/21 03/20/21 Range/Units 06:17 06:17 RBC 3.61 L (4.30-5.90) m/uL Hgb 10.6 L (13.0-17.5) gm/dL Hct 32.0 L (39.0-53.0) % Potassium 2.8 L (3.5-5.1) mmol/L Chloride 112 H (98-107) mmol/L Carbon Dioxide 18 L (22-30) mmol/L BUN 7 L (9-20) mg/dL Creatinine 0.53 L (0.66-1.25) mg/dL Calcium 8.0 L (8.4-10.2) mg/dL Assessment and Plan Assessment: 1. Right hip pain Plan: 1. Right hip pain - x-rays have been ordered on the right hip and have been re viewed. 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 Negative for any evident fractures in the right hip. We will continue to follow patient while in the hospital. Patient can follow-up in the outpatient setting for further discussion about potential intervention for worsening right hip pain. Patient is stable orthopedically. Patient does not need any urgent surgical intervention at this moment orthopedically. Patient is orthopedically stable for discharge. Please feel free to contact us about any changes. 2. Appreciate medical management 3. Pain management - stable at this time 4. Appreciate consult Time with Patient: Less than 30
--- NOTE | 2021-03-20 15:33 | P.PN ---
Subjective Progress Note Date: 03/20/21 Principal diagnosis: He is not moving around. No flatus. Still has ramirez. Abdomen is distended but soft. Recommend entereg. Discontinue ramirez. Has ileus with hypokalemia. Objective - Vital Signs Vital signs: Vital Signs Temp 98.5 F 03/20/21 14:00 Pulse 67 03/20/21 14:00 Resp 16 03/20/21 14:00 BP 106/62 03/20/21 14:00 Pulse Ox 94 L 03/20/21 14:00 Intake & Output 03/19/21 03/20/21 03/20/21 18:59 06:59 18:59 Intake Total 960 Output Total 800 700 Balance 160 -700 Weight 115.666 kg Intake: Oral 960 Output: Urine 800 700 Other: Voiding Method Indwelling Catheter Indwelling Catheter # Bowel Movements 0 - Labs CBC & Chem 7: 03/20/21 06:17 03/20/21 06:17 Labs: Abnormal Lab Results - Last 24 Hours (Table) 03/20/21 03/20/21 Range/Units 06:17 06:17 RBC 3.61 L (4.30-5.90) m/uL Hgb 10.6 L (13.0-17.5) gm/dL Hct 32.0 L (39.0-53.0) % Potassium 2.8 L (3.5-5.1) mmol/L Chloride 112 H (98-107) mmol/L Carbon Dioxide 18 L (22-30) mmol/L BUN 7 L (9-20) mg/dL Creatinine 0.53 L (0.66-1.25) mg/dL Calcium 8.0 L (8.4-10.2) mg/dL Assessment and Plan (1) Chronic constipation Current Visit: Yes Status: Acute Code(s): K59.09 - OTHER CONSTIPATION SNOMED Code(s): 839996755 (2) Bowel obstruction Current Visit: Yes Status: Acute Code(s): K56.609 - UNSP INTESTNL OBST, UNSP TO PARTIAL VERSUS COMPLETE OBST SNOMED Code(s): 27904652 (3) Sigmoid volvulus Current Visit: Yes Status: Acute Code(s): K56.2 - VOLVULUS SNOMED Code(s): 294482124
[2021-03-20] MEDS: MULTIVITAMINS, THERA 1 EACH TAB PO SCH (19:46)
[2021-03-20] MEDS: MELATONIN 3 MG TABLET PO SCH (19:46)
[2021-03-20] MEDS: POTASSIUM CHLORIDE 10 MEQ in WATER FOR INJECTION 1 100ML.BAG IVPB SCH ×3 (19:46→22:27)
[2021-03-21] MEDS: POTASSIUM CHLORIDE 10 MEQ in WATER FOR INJECTION 1 100ML.BAG IVPB SCH ×3 (00:03→05:05)
[2021-03-21] MEDS: metroNIDAZOLE-NS PMX 500 MG in SALINE 1 100ML.BAG IVPB SCH ×5 (01:21→23:44)
[2021-03-21] MEDS: 0.9% NACL WITH KCL 20 MEQ/L 1,000 ML IV SCH ×3 (02:43→23:44)
[2021-03-21] MEDS: HEPARIN SODIUM,PORCINE/PF 5,000 UNIT/0.5 ML SYRINGE SQ SCH ×2 (07:20→19:51)
[2021-03-21] MEDS: ALVIMOPAN 12 MG CAPSULE PO SCH ×3 (07:20→23:44)
[2021-03-21] MEDS: SIMETHICONE 40 MG/0.6 ML DROPS 2,000 MG/30 ML BOTTLE PO SCH ×4 (07:20→19:51)
[2021-03-21] MEDS: PANTOPRAZOLE 40 MG/10 ML VIAL IV SCH (07:20)
[2021-03-21] MEDS: POTASSIUM CHLORIDE ER 20 MEQ TAB.ER PO SCH ×2 (08:37→11:25)
--- NOTE | 2021-03-21 12:11 | P.PN ---
Subjective Progress Note Date: 03/20/21 Principal diagnosis: Acute sigmoid volvulus and distal small bowel obstruction Status post lower anterior resection, sigmoid colectomy, colotomy for decompression, and reduction of sigmoid volvulus 71-year-old male recently admitted with abdominal distention, sigmoid volvulus with distal small bowel obstruction and being scheduled for sigmoid colectomy with Dr. Toro this afternoon. Patient continues to have abdominal distention noted and no reports of gas or bowel movements at this time. Patient is nothing by mouth and per nursing will have the procedure sometime after 3 PM. Patient is afebrile. Patient denies any chest pain or palpitations. No reports of shortness of breath noted. Objective - Vital Signs Vital signs: Vital Signs Temp 98.3 F 03/20/21 08:00 Pulse 74 03/20/21 08:00 Resp 16 03/20/21 08:00 BP 110/67 03/20/21 08:00 Pulse Ox 92 L 03/20/21 08:00 Intake & Output 03/19/21 03/20/21 03/20/21 18:59 06:59 18:59 Intake Total 960 Output Total 800 700 Balance 160 -700 Weight 115.666 kg Intake: Oral 960 Output: Urine 800 700 Other: Voiding Method Indwelling Catheter Indwelling Catheter # Bowel Movements 0 - Exam Gen: This is a 71-year-old male awake, alert and oriented 2, well-developed, well-nourished, obese. HEENT: Head is atraumatic, normocephalic. Pupils equal, round. Sclerae is anicteric. NECK: Supple. No JVD. No lymphadenopathy. No thyromegaly. LUNGS: Diminished breath sounds bilaterally with with some scattered rhonchi noted. No intercostal retractions. HEART: S1, S2 are muffled ABDOMEN: Soft. Obese. Distended. sluggish bowel sounds noted on exam. No masses. Mild tenderness at the surgical sites. Dressings are dry and intact, abdominal binder noted EXTREMITIES: No pedal edema. No calf tenderness. NEUROLOGICAL: Patient is awake, alert and oriented x3. Cranial nerves 2 through 12 are grossly intact. Diffusely weak - Labs CBC & Chem 7: 03/20/21 06:17 03/21/21 10:46 Labs: Abnormal Lab Results - Last 24 Hours (Table) 03/20/21 03/20/21 Range/Units 06:17 06:17 RBC 3.61 L (4.30-5.90) m/uL Hgb 10.6 L (13.0-17.5) gm/dL Hct 32.0 L (39.0-53.0) % Potassium 2.8 L (3.5-5.1) mmol/L Chloride 112 H (98-107) mmol/L Carbon Dioxide 18 L (22-30) mmol/L BUN 7 L (9-20) mg/dL Creatinine 0.53 L (0.66-1.25) mg/dL Calcium 8.0 L (8.4-10.2) mg/dL Assessment and Plan Assessment: 1. Acute sigmoid volvulus and distal small bowel obstruction and abdominal distention, present on admission - Status post lower anterior resection, sigmoid colectomy, colotomy for decompression, and reduction of sigmoid volvulus postop day #2; remains on IV Flagyl per surgery recommendations 2. Acute post-op hypotension an expected surgical outcome, gave a 500 mL bolus of normal saline and will continue with gentle IV hydration and monitor closely; resolved 3. Alcoholic liver cirrhosis - History of alcohol abuse; we will monitor liver enzymes periodically 4. Chronic right hip pain status post surgical intervention - Gait dysfunction; at baseline; may consider PT/OT evaluation pending clinical course 5. Cognitive impairment with possible dementia 6. Anemia, normocytic anemia of chronic disease; at baseline 7. Acute urinary tract infection, present on admission; patient has been treated adequately with IV Rocephin DVT prophylaxis; subcu heparin CODE STATUS; full code
[2021-03-21] MEDS: MAGNESIUM SULFATE-D5W PMX 1 GM in DEXTROSE/WATER 1 100ML.BAG IVPB SCH ×2 (13:27→14:37)
--- NOTE | 2021-03-21 15:00 | P.PN ---
Subjective Progress Note Date: 03/21/21 Principal diagnosis: Patient resting comfortably. Per discussion with nurse, he is passing flatus and having diarrhea for the last 2 days. He refuses to walk. Will need physical therapy. Correction of hypokalemia. Potassium replacement protocol Magnesium replacement for refractory hypokalemia. Objective - Vital Signs Vital signs: Vital Signs Temp 97.9 F 03/21/21 13:37 Pulse 95 03/21/21 13:37 Resp 16 03/21/21 13:37 BP 145/77 03/21/21 13:37 Pulse Ox 96 03/21/21 13:37 Intake & Output 03/20/21 03/21/21 03/21/21 18:59 06:59 18:59 Intake Total 1080 Output Total 900 875 Balance 180 -875 Intake: Oral 1080 Output: Urine 900 875 Other: Voiding Method Indwelling Catheter - Labs CBC & Chem 7: 03/20/21 06:17 03/21/21 12:23 Labs: Abnormal Lab Results - Last 24 Hours (Table) 03/20/21 03/21/21 03/21/21 Range/Units 16:12 05:21 10:46 Potassium 3.1 L 3.1 L 3.3 L (3.5-5.1) mmol/L 03/21/21 Range/Units 12:23 Potassium 3.3 L (3.5-5.1) mmol/L Assessment and Plan (1) Chronic constipation Current Visit: Yes Status: Acute Code(s): K59.09 - OTHER CONSTIPATION SNOMED Code(s): 992210761 (2) Bowel obstruction Current Visit: Yes Status: Acute Code(s): K56.609 - UNSP INTESTNL OBST, UNSP TO PARTIAL VERSUS COMPLETE OBST SNOMED Code(s): 04506936 (3) Sigmoid volvulus Current Visit: Yes Status: Acute Code(s): K56.2 - VOLVULUS SNOMED Code(s): 531667602
--- NOTE | 2021-03-21 18:49 | P.PN ---
Subjective Progress Note Date: 03/21/21 Principal diagnosis: Acute sigmoid volvulus and distal small bowel obstruction Status post lower anterior resection, sigmoid colectomy, colotomy for decompression, and reduction of sigmoid volvulus 71-year-old male recently admitted with abdominal distention, sigmoid volvulus with distal small bowel obstruction and being scheduled for sigmoid colectomy with Dr. Toro this afternoon. Patient continues to have abdominal distention noted and no reports of gas or bowel movements at this time. Patient is nothing by mouth and per nursing will have the procedure sometime after 3 PM. Patient is afebrile. Patient denies any chest pain or palpitations. No reports of shortness of breath noted. 03/21/2021 Patient is seen and evaluated resting in bed; per nursing staff patient is having diarrhea and is passing flatus; denies any chest pain or shortness of breath Vital signs are reviewed and stable with a temperature of 97.9, pulse 75, wrist patient 16 and blood pressure of 145/77 Lab review reveals low potassium level which is supplemented with potassium replacement protocol; magnesium levels checked and replaced Surgery on board and encouraging patient to increase activity; patient continues to refuse to walk; PT and OT consulted Objective - Vital Signs Vital signs: Vital Signs Temp 97.9 F 03/21/21 13:37 Pulse 95 03/21/21 13:37 Resp 16 03/21/21 13:37 BP 145/77 03/21/21 13:37 Pulse Ox 96 03/21/21 13:37 Intake & Output 03/20/21 03/21/21 03/21/21 18:59 06:59 18:59 Intake Total 1080 Output Total 900 875 Balance 180 -875 Intake: Oral 1080 Output: Urine 900 875 Other: Voiding Method Indwelling Catheter - Exam Gen: This is a 71-year-old male awake, alert and oriented 2, well-developed, well-nourished, obese. HEENT: Head is atraumatic, normocephalic. Pupils equal, round. Sclerae is anicteric. NECK: Supple. No JVD. No lymphadenopathy. No thyromegaly. LUNGS: Diminished breath sounds bilaterally with with some scattered rhonchi noted. No intercostal retractions. HEART: S1, S2 are muffled ABDOMEN: Soft. Obese. Distended. sluggish bowel sounds noted on exam. No masses. Mild tenderness at the surgical sites. Dressings are dry and intact, abdominal binder noted EXTREMITIES: No pedal edema. No calf tenderness. NEUROLOGICAL: Patient is awake, alert and oriented x3. Cranial nerves 2 through 12 are grossly intact. Diffusely weak - Labs CBC & Chem 7: 03/20/21 06:17 03/21/21 12:23 Labs: Abnormal Lab Results - Last 24 Hours (Table) 03/21/21 03/21/21 03/21/21 Range/Units 05:21 10:46 12:23 Potassium 3.1 L 3.3 L 3.3 L (3.5-5.1) mmol/L Assessment and Plan Assessment: 1. Acute sigmoid volvulus and distal small bowel obstruction and abdominal distention, present on admission - Status post lower anterior resection, sigmoid colectomy, colotomy for decompression, and reduction of sigmoid volvulus postop day #2; remains on IV Flagyl per surgery recommendations 2. Acute post-op hypotension an expected surgical outcome, gave a 500 mL bolus of normal saline and will continue with gentle IV hydration and monitor closely; resolved 3. Alcoholic liver cirrhosis - History of alcohol abuse; we will monitor liver enzymes periodically 4. Chronic right hip pain status post surgical intervention - Gait dysfunction; at baseline; may consider PT/OT evaluation pending clinical course 5. Cognitive impairment with possible dementia 6. Anemia, normocytic anemia of chronic disease; at baseline 7. Acute urinary tract infection, present on admission; patient has been treated adequately with IV Rocephin DVT prophylaxis; subcu heparin CODE STATUS; full code
[2021-03-21] MEDS: MULTIVITAMINS, THERA 1 EACH TAB PO SCH (19:51)
[2021-03-21] MEDS: MELATONIN 3 MG TABLET PO SCH (19:51)
[2021-03-22] MEDS: metroNIDAZOLE-NS PMX 500 MG in SALINE 1 100ML.BAG IVPB SCH ×4 (05:36→23:41)
[2021-03-22 06:29] LABS: Basophils % (A) 1 %; Eosinophils # (A) 0.3 k/uL (0-0.7); Eosinophils % (A) 5 %; HCT 34.4 % (39.0-53.0); HGB 11.2 gm/dL (13.0-17.5); Lymphocytes # (A) 1.5 k/uL (1.0-4.8); Lymphocytes % (A) 28 %; MCH 28.7 pg (25.0-35.0); MCHC 32.6 g/dL (31.0-37.0); MCV 88.1 fL (80.0-100.0); Mean Platelet Volume 7.3; Monocytes # (A) 0.3 k/uL (0-1.0); Monocytes % (A) 5 %; Neutrophils # (A) 3.2 k/uL (1.3-7.7); Neutrophils % (A) 60 %; Platelet Count 292 k/uL (150-450); RDW 15.2 % (11.5-15.5); WBC 5.4 k/uL (3.8-10.6)
[2021-03-22 06:36] LABS: African American GFR (CKD) >90 (>60 ml/min/1.73 sqM); Anion Gap 8 mmol/L; Blood Urea Nitrogen 6 mg/dL (9-20); Carbon Dioxide 17 mmol/L (22-30); Chloride 114 mmol/L (98-107); Glucose 107 mg/dL (74-99); Non-African American GFR(CKD) >90 (>60 ml/min/1.73 sqM); Potassium 3.3 mmol/L (3.5-5.1); Sodium 139 mmol/L (137-145)
[2021-03-22 06:39] LABS: Glucose,Whole Blood 109 mg/dL (75-99)
[2021-03-22] MEDS: PANTOPRAZOLE 40 MG/10 ML VIAL IV SCH (07:47)
[2021-03-22] MEDS: HEPARIN SODIUM,PORCINE/PF 5,000 UNIT/0.5 ML SYRINGE SQ SCH ×2 (07:47→21:30)
[2021-03-22] MEDS: SIMETHICONE 40 MG/0.6 ML DROPS 2,000 MG/30 ML BOTTLE PO SCH ×4 (07:48→21:30)
[2021-03-22] MEDS ORDERED: POTASSIUM CHLORIDE ER 20 MEQ TAB.ER PO STA (08:20)
--- NOTE | 2021-03-22 11:29 | P.PN ---
Subjective Progress Note Date: 03/22/21 CHIEF COMPLAINT: Abdominal distention HISTORY OF PRESENT ILLNESS: The patient is a 71-year-old male who presents with recurrent sigmoid volvulus for large bowel obstruction. Patient status post colonoscopy to cecum with colonic decompression on 03/14/21 and is status post robotic lower anterior resection, sigmoid colectomy and colotomy for decompression, reduction of sigmoid volvulus on 03/17/21. Patient sitting up at edge of bed. He denies any abdominal pain. Denies any nausea or vomiting. He is having bowel movements. He is tolerating diet. Afebrile. WBC 5.4 hemoglobin 11.2 calcium is 3.3 PHYSICAL EXAM: VITAL SIGNS: Reviewed GENERAL: Well-developed in no acute distress. HEENT: No sclera icterus. Extraocular movements grossly intact. Moist buccal mucosa. Head is atraumatic, normocephalic. Hears conversational speech. No nasal drainage. NECK: Supple without lymphadenopathy. CHEST: Non-labored respirations and equal bilateral excursions. CARDIOVASCULAR: Palpable 2+ radial pulses. ABDOMEN: Soft. Less Distended mild tenderness incisional dressing clean dry and intact MUSCULOSKELETAL: No clubbing or cyanosis. NEUROLOGIC: No focal or lateralizing signs. Cranial nerves II through XII grossly intact. PSYCH: Appropriate affect. Alert and oriented to person, place and time. SKIN: Well perfused. Good skin turgor. ASSESSMENT: Sigmoid volvulus for large bowel obstruction, recurrent. Status post robotic lower anterior resection, sigmoid colectomy, colostomy for decompression, reduction of sigmoid volvulus. Chronic constipation Liver cirrhosis History of hepatic encephalopathy Morbid obesity due to excess calories, BMI 35.6 Hypertensive heart disease with congestive heart failure PLAN: -Advance diet to regular -Continue pain medication as needed -Continue antibiotics -Encouraged patient ambulate -Encouraged patient to use incentive spirometer -DVT prophylaxis subcu heparin and GI prophylaxis Protonix Physician Field Hauler note has been reviewed by physician. Signing provider agrees with the documented findings, assessment, and plan of care. Objective - Vital Signs Vital signs: Vital Signs Temp 98.0 F 03/22/21 07:43 Pulse 76 03/22/21 07:43 Resp 18 03/22/21 07:43 BP 146/81 03/22/21 07:43 Pulse Ox 97 03/22/21 07:43 Intake & Output 03/21/21 03/22/21 03/22/21 18:59 06:59 18:59 Output Total 700 Balance -700 Output: Urine 700 Other: Voiding Method Urinal # Bowel Movements 1 - Labs CBC & Chem 7: 03/22/21 06:00 03/22/21 06:00 Labs: Abnormal Lab Results - Last 24 Hours (Table) 03/21/21 03/22/21 03/22/21 Range/Units 12:23 06:00 06:00 RBC 3.90 L (4.30-5.90) m/uL Hgb 11.2 L (13.0-17.5) gm/dL Hct 34.4 L (39.0-53.0) % Potassium 3.3 L 3.3 L (3.5-5.1) mmol/L Chloride 114 H (98-107) mmol/L Carbon Dioxide 17 L (22-30) mmol/L BUN 6 L (9-20) mg/dL Creatinine 0.55 L (0.66-1.25) mg/dL Glucose 107 H (74-99) mg/dL POC Glucose (mg/dL) (75-99) mg/dL Calcium 8.0 L (8.4-10.2) mg/dL 03/22/21 Range/Units 06:38 RBC (4.30-5.90) m/uL Hgb (13.0-17.5) gm/dL Hct (39.0-53.0) % Potassium (3.5-5.1) mmol/L Chloride (98-107) mmol/L Carbon Dioxide (22-30) mmol/L BUN (9-20) mg/dL Creatinine (0.66-1.25) mg/dL Glucose (74-99) mg/dL POC Glucose (mg/dL) 109 H (75-99) mg/dL Calcium (8.4-10.2) mg/dL
[2021-03-22] MEDS: 0.9% NACL WITH KCL 20 MEQ/L 1,000 ML IV SCH ×2 (12:12→23:41)
[2021-03-22] MEDS: HYDROmorphone 0.5 MG/0.5 ML SYRINGE IVP PRN (21:30)
[2021-03-22] MEDS: MELATONIN 3 MG TABLET PO SCH (21:30)
[2021-03-22] MEDS: MULTIVITAMINS, THERA 1 EACH TAB PO SCH (21:30)
[2021-03-23] MEDS: metroNIDAZOLE-NS PMX 500 MG in SALINE 1 100ML.BAG IVPB SCH ×4 (05:37→23:18)
[2021-03-23] MEDS: 0.9% NACL WITH KCL 20 MEQ/L 1,000 ML IV SCH ×3 (05:49→23:17)
[2021-03-23] MEDS: PANTOPRAZOLE 40 MG/10 ML VIAL IV SCH (08:07)
[2021-03-23] MEDS: HEPARIN SODIUM,PORCINE/PF 5,000 UNIT/0.5 ML SYRINGE SQ SCH ×2 (08:07→19:31)
[2021-03-23] MEDS: SIMETHICONE 40 MG/0.6 ML DROPS 2,000 MG/30 ML BOTTLE PO SCH ×5 (08:07→20:01)
[2021-03-23] MEDS: HYDROmorphone 0.5 MG/0.5 ML SYRINGE IVP PRN (08:15)
[2021-03-23 09:42] LABS: African American GFR (CKD) >90 (>60 ml/min/1.73 sqM); Anion Gap 9 mmol/L; Blood Urea Nitrogen 5 mg/dL (9-20); Calcium 8.5 mg/dL (8.4-10.2); Carbon Dioxide 17 mmol/L (22-30); Chloride 116 mmol/L (98-107); Glucose 131 mg/dL (74-99); Non-African American GFR(CKD) >90 (>60 ml/min/1.73 sqM); Sodium 142 mmol/L (137-145)
[2021-03-23 10:01] LABS: Potassium 3.4 mmol/L (3.5-5.1)
--- NOTE | 2021-03-23 10:21 | P.PN ---
Subjective Progress Note Date: 03/22/21 This is a 71-year-old male recently admitted with abdominal distention, sigmoid volvulus with distal small bowel obstruction and being scheduled for sigmoid colectomy with Dr. Toro this afternoon. Patient continues to have abdominal distention noted and no reports of gas or bowel movements at this time. Patient is nothing by mouth and per nursing will have the procedure sometime after 3 PM. Patient is afebrile. Patient denies any chest pain or palpitations. No reports of shortness of breath noted. 03/16/2021 Patient is seen and evaluated this morning and follow-up and apparently underwe nt colonoscopy with decompression and is scheduled for colectomy tomorrow Dr. Toro. Patient has been started on diet and tolerating with no reports of abdominal discomfort. Denies any passing gas or bowel movements. Positive bowel sounds noted on exam. Blood count remains stable at 5.9 with a hemoglobin of 11.7. Sodium is 139 with a potassium of 4.5 and current creatinine is 0.63. Iron on the low side and receiving IV iron transfusions. Patient remains afebrile. Denies shortness of breath or chest pain at this time. 03/17/2021 Patient is seen in follow-up this morning with no acute overnight issues. Patient is now nothing by mouth and scheduled for sigmoid colectomy today and will await surgical report. White blood count normal at 5.8 with a hemoglobin of 11.0. Sodium is 140 with a potassium of 3.9 current creatinine is 0.66. Vital signs are stable and patient is afebrile. Patient continues to have bowel sounds noted on exam with abdominal distention although reports no gas and no bowel movements. 03/18/2021 Patient is seen and evaluated in follow-up this morning with no acute overnight issues. Patient is status post lower anterior resection and sigmoid colectomy and colotomy with decompression and is being closely monitored. Patient continues on a liquid diet and tolerating. Bowel sounds although sluggish noted on exam with some slight improvement in distention with no reports of gas or bowel movements as of yet. Patient this morning had some lower blood pressure readings and was given a 500 bolus of normal saline and will continue on gentle IV hydration. White blood count today is 6.24 with a hemoglobin of 10.9, sodium is 139 with a potassium of 4.9 and current creatinine is 0.7. Patient is afebrile. Patient continues on 3 L of oxygen via nasal cannula status post surgery although denies shortness of breath. Discussed with nursing staff about weaning FiO2 as tolerated and instructed the patient to continue with incentive spirometer at least 10 times every hour while awake. 03/19/2021 Patient is seen in follow-up this morning having some right hip pain and x-ray was done with no acute fractures noted. Patient was continued on 2 L of oxygen via nasal cannula with no reports of shortness of breath and chest x-ray shows no acute process with probable basilar atelectasis. patient has not been walking and doesn't appear to have been walking at baseline for quite some time as he is extremely weak and needs continued PT/OT therapy. PT/OT is following. Patient again encouraged and instructed to continue with incentive spirometer at least 10 times every hour while awake. Patient needs strong encouragement given his possible underlying dementia and forgetfulness. This was discussed with nursing staff. Patient needs increased activity as tolerated and also to get the bowels functioning and moving. Denies any gas is and denies any bowel activity at this time. Is tolerating diet with no nausea or vomiting noted. Patient continues with abdominal discomfort and abdominal binder applied. 03/21/2021 Patient is seen and evaluated resting in bed; per nursing staff patient is having diarrhea and is passing flatus; denies any chest pain or shortness of breath Vital signs are reviewed and stable with a temperature of 97.9, pulse 75, wrist patient 16 and blood pressure of 145/77 Lab review reveals low potassium level which is supplemented with potassium replacement protocol; magnesium levels checked and replaced Surgery on board and encouraging patient to increase activity; patient continues to refuse to walk; PT and OT consulted 03/22/2021 Patient is seen this morning currently in bed has been having stools that are loose and passing gas. Patient continues to be weak with PT/OT following. Patient is a long-time resident at [facility] and will be returning there on discharge. Surgery following closely. Patient continues on clear liquids and diet is being advanced per surgery recommendations. White blood count currently 5.4 with a hemoglobin of 11.2, sodium is 139 with a potassium of 3.3, and curre nt creatinine is 0.55. Potassium being replaced per protocol and will repeat labs. Encourage the patient increase activity as tolerated and continue with the use of incentive spirometer and needs continued encouragement to do so. Review of systems: Constitutional: No reports of fatigue, fever, or chills Cardiovascular: No reports of chest pain or palpitations Respiratory: No reports of shortness of breath or cough GI: No reports of nausea, vomiting, or diarrhea, abdominal binder noted : No reports of dysuria or retention Neurovascular: Reports generalized weakness right hip discomfort All medications have been reviewed Objective - Vital Signs Vital signs: Vital Signs Temp 98.0 F 03/23/21 07:15 Pulse 79 03/23/21 07:15 Resp 16 03/23/21 07:15 BP 117/70 03/23/21 07:15 Pulse Ox 96 03/23/21 09:32 Intake & Output 03/22/21 03/23/21 03/23/21 18:59 06:59 18:59 Output Total 700 Balance -700 Weight 115.666 kg Output: Urine 700 Other: Voiding Method Urinal - Exam Gen: This is a 71-year-old male awake, alert and oriented 2, well-developed, well-nourished, obese. HEENT: Head is atraumatic, normocephalic. Pupils equal, round. Sclerae is anicteric. NECK: Supple. No JVD. No lymphadenopathy. No thyromegaly. LUNGS: Diminished breath sounds bilaterally with with some scattered rhonchi noted. No intercostal retractions. HEART: S1, S2 are muffled ABDOMEN: Soft. Obese. Distended. bowel sounds noted on exam. No masses. Mild tenderness at the surgical sites. Dressings are dry and intact, abdominal binder noted EXTREMITIES: No pedal edema. No calf tenderness. NEUROLOGICAL: Patient is awake, alert and oriented x3. Cranial nerves 2 through 12 are grossly intact. Diffusely weak - Labs CBC & Chem 7: 03/22/21 06:00 03/23/21 08:39 Labs: Abnormal Lab Results - Last 24 Hours (Table) 03/23/21 Range/Units 08:39 Potassium 3.4 L (3.5-5.1) mmol/L Chloride 116 H (98-107) mmol/L Carbon Dioxide 17 L (22-30) mmol/L BUN 5 L (9-20) mg/dL Creatinine 0.58 L (0.66-1.25) mg/dL Glucose 131 H (74-99) mg/dL Assessment and Plan Assessment: Acute sigmoid volvulus and distal small bowel obstruction and abdominal distention, present on admission Status post lower anterior resection, sigmoid colectomy, colotomy for decompression, and reduction of sigmoid volvulus Acute post-op hypotension an expected surgical outcome, gave a 500 mL bolus of normal saline and will continue with gentle IV hydration and monitor closely Alcoholic liver cirrhosis History of alcohol abuse Chronic right hip pain status post surgical intervention Gait dysfunction Cognitive impairment with possible dementia Anemia, normocytic anemia of chronic disease Acute urinary tract infection, present on admission Full code Recommendations and discussion: Recommend continue with current medications and current management. Surgery is following and patient underwent sigmoid colectomy with anterior resection. Patient has been resumed on clear liquids and tolerating with loose stool and passing gas and diet is being advanced per surgery recommendations. Instructed the patient to continue to use incentive spirometer at least 10 times every hour while awake. Patient continues on IV antibiotics in the form of Flagyl per surgery recommendations. Potassium on the lower side and will replace per protocol and repeat a.m. labs.
--- NOTE | 2021-03-23 13:59 | P.PN ---
Subjective Progress Note Date: 03/23/21 CHIEF COMPLAINT: Abdominal distention HISTORY OF PRESENT ILLNESS: The patient is a 71-year-old male who presents with recurrent sigmoid volvulus for large bowel obstruction. Patient status post colonoscopy to cecum with colonic decompression on 03/14/21 and is status post robotic lower anterior resection, sigmoid colectomy and colotomy for decompression, reduction of sigmoid volvulus on 03/17/21. Patient sitting up at edge of bed. He denies any abdominal pain. Denies any nausea or vomiting. He is having bowel movements. He is tolerating diet. Afebrile. Sodium 142 potassium 3.4 creatinine 0.58 PHYSICAL EXAM: VITAL SIGNS: Reviewed GENERAL: Well-developed in no acute distress. HEENT: No sclera icterus. Extraocular movements grossly intact. Moist buccal mucosa. Head is atraumatic, normocephalic. Hears conversational speech. No nasal drainage. NECK: Supple without lymphadenopathy. CHEST: Non-labored respirations and equal bilateral excursions. CARDIOVASCULAR: Palpable 2+ radial pulses. ABDOMEN: Soft. Less Distended mild tenderness incisional dressing clean dry and intact MUSCULOSKELETAL: No clubbing or cyanosis. NEUROLOGIC: No focal or lateralizing signs. Cranial nerves II through XII grossly intact. PSYCH: Appropriate affect. Alert and oriented to person, place and time. SKIN: Well perfused. Good skin turgor. ASSESSMENT: Sigmoid volvulus for large bowel obstruction, recurrent. Status post robotic lower anterior resection, sigmoid colectomy, colostomy for decompression, reduction of sigmoid volvulus. Chronic constipation Liver cirrhosis History of hepatic encephalopathy Morbid obesity due to excess calories, BMI 35.6 Hypertensive heart disease with congestive heart failure Hypokalemia PLAN: -Patient can be discharged from surgical standpoint -Continue regular -Continue Tylenol as needed for pain -Encouraged patient ambulate -Encouraged patient to use incentive spirometer -DVT prophylaxis subcu heparin and GI prophylaxis Protonix Physician Saxophone Assembler note has been reviewed by physician. Signing provider agrees with the documented findings, assessment, and plan of care. Objective - Vital Signs Vital signs: Vital Signs Temp 97.5 F L 03/23/21 13:34 Pulse 90 03/23/21 13:34 Resp 18 03/23/21 13:34 BP 94/64 03/23/21 13:34 Pulse Ox 96 03/23/21 13:34 Intake & Output 03/22/21 03/23/21 03/23/21 18:59 06:59 18:59 Output Total 700 Balance -700 Weight 115.666 kg Output: Urine 700 Other: Voiding Method Urinal - Labs CBC & Chem 7: 03/22/21 06:00 03/23/21 08:39 Labs: Abnormal Lab Results - Last 24 Hours (Table) 03/23/21 Range/Units 08:39 Potassium 3.4 L (3.5-5.1) mmol/L Chloride 116 H (98-107) mmol/L Carbon Dioxide 17 L (22-30) mmol/L BUN 5 L (9-20) mg/dL Creatinine 0.58 L (0.66-1.25) mg/dL Glucose 131 H (74-99) mg/dL
[2021-03-23] MEDS: POTASSIUM CHLORIDE ER 20 MEQ TAB.ER PO SCH ×2 (17:52→19:32)
[2021-03-23] MEDS: MULTIVITAMINS, THERA 1 EACH TAB PO SCH (19:32)
[2021-03-23] MEDS: MELATONIN 3 MG TABLET PO SCH (19:32)
--- NOTE | 2021-03-24 02:45 | P.PN ---
Subjective Progress Note Date: 03/23/21 This is a 71-year-old male recently admitted with abdominal distention, sigmoid volvulus with distal small bowel obstruction and being scheduled for sigmoid colectomy with Dr. Toro this afternoon. Patient continues to have abdominal distention noted and no reports of gas or bowel movements at this time. Patient is nothing by mouth and per nursing will have the procedure sometime after 3 PM. Patient is afebrile. Patient denies any chest pain or palpitations. No reports of shortness of breath noted. 03/16/2021 Patient is seen and evaluated this morning and follow-up and apparently underwe nt colonoscopy with decompression and is scheduled for colectomy tomorrow Dr. Toro. Patient has been started on diet and tolerating with no reports of abdominal discomfort. Denies any passing gas or bowel movements. Positive bowel sounds noted on exam. Blood count remains stable at 5.9 with a hemoglobin of 11.7. Sodium is 139 with a potassium of 4.5 and current creatinine is 0.63. Iron on the low side and receiving IV iron transfusions. Patient remains afebrile. Denies shortness of breath or chest pain at this time. 03/17/2021 Patient is seen in follow-up this morning with no acute overnight issues. Patient is now nothing by mouth and scheduled for sigmoid colectomy today and will await surgical report. White blood count normal at 5.8 with a hemoglobin of 11.0. Sodium is 140 with a potassium of 3.9 current creatinine is 0.66. Vital signs are stable and patient is afebrile. Patient continues to have bowel sounds noted on exam with abdominal distention although reports no gas and no bowel movements. 03/18/2021 Patient is seen and evaluated in follow-up this morning with no acute overnight issues. Patient is status post lower anterior resection and sigmoid colectomy and colotomy with decompression and is being closely monitored. Patient continues on a liquid diet and tolerating. Bowel sounds although sluggish noted on exam with some slight improvement in distention with no reports of gas or bowel movements as of yet. Patient this morning had some lower blood pressure readings and was given a 500 bolus of normal saline and will continue on gentle IV hydration. White blood count today is 6.24 with a hemoglobin of 10.9, sodium is 139 with a potassium of 4.9 and current creatinine is 0.7. Patient is afebrile. Patient continues on 3 L of oxygen via nasal cannula status post surgery although denies shortness of breath. Discussed with nursing staff about weaning FiO2 as tolerated and instructed the patient to continue with incentive spirometer at least 10 times every hour while awake. 03/19/2021 Patient is seen in follow-up this morning having some right hip pain and x-ray was done with no acute fractures noted. Patient was continued on 2 L of oxygen via nasal cannula with no reports of shortness of breath and chest x-ray shows no acute process with probable basilar atelectasis. patient has not been walking and doesn't appear to have been walking at baseline for quite some time as he is extremely weak and needs continued PT/OT therapy. PT/OT is following. Patient again encouraged and instructed to continue with incentive spirometer at least 10 times every hour while awake. Patient needs strong encouragement given his possible underlying dementia and forgetfulness. This was discussed with nursing staff. Patient needs increased activity as tolerated and also to get the bowels functioning and moving. Denies any gas is and denies any bowel activity at this time. Is tolerating diet with no nausea or vomiting noted. Patient continues with abdominal discomfort and abdominal binder applied. 03/21/2021 Patient is seen and evaluated resting in bed; per nursing staff patient is having diarrhea and is passing flatus; denies any chest pain or shortness of breath Vital signs are reviewed and stable with a temperature of 97.9, pulse 75, wrist patient 16 and blood pressure of 145/77 Lab review reveals low potassium level which is supplemented with potassium replacement protocol; magnesium levels checked and replaced Surgery on board and encouraging patient to increase activity; patient continues to refuse to walk; PT and OT consulted 03/22/2021 Patient is seen this morning currently in bed has been having stools that are loose and passing gas. Patient continues to be weak with PT/OT following. Patient is a long-time resident at [facility] and will be returning there on discharge. Surgery following closely. Patient continues on clear liquids and diet is being advanced per surgery recommendations. White blood count currently 5.4 with a hemoglobin of 11.2, sodium is 139 with a potassium of 3.3, and curre nt creatinine is 0.55. Potassium being replaced per protocol and will repeat labs. Encourage the patient increase activity as tolerated and continue with the use of incentive spirometer and needs continued encouragement to do so. 03/23/2021 Patient is seen in follow up today with no acute overnight issues. Patient potassium found to be 3.4 and will replace and monitor closely. Patient tolerating diet and being advanced as tolerated. Anticipate discharge to [facility]CF in 24 hours. Review of systems: Constitutional: No reports of fatigue, fever, or chills Cardiovascular: No reports of chest pain or palpitations Respiratory: No reports of shortness of breath or cough GI: No reports of nausea, vomiting, or diarrhea, abdominal binder noted : No reports of dysuria or retention Neurovascular: Reports generalized weakness right hip discomfort which is chronic All medications have been reviewed Objective - Vital Signs Vital signs: Vital Signs Temp 98.0 F 03/23/21 07:15 Pulse 79 03/23/21 07:15 Resp 16 03/23/21 07:15 BP 117/70 03/23/21 07:15 Pulse Ox 96 03/23/21 09:32 Intake & Output 03/22/21 03/23/21 03/23/21 18:59 06:59 18:59 Output Total 700 Balance -700 Weight 115.666 kg Output: Urine 700 Other: Voiding Method Urinal - Exam Gen: This is a 71-year-old male awake, alert and oriented 2, well-developed, well-nourished, obese. HEENT: Head is atraumatic, normocephalic. Pupils equal, round. Sclerae is anicteric. NECK: Supple. No JVD. No lymphadenopathy. No thyromegaly. LUNGS: Diminished breath sounds bilaterally with with some scattered rhonchi noted. No intercostal retractions. HEART: S1, S2 are muffled ABDOMEN: Soft. Obese. less Distended. bowel sounds noted on exam. No masses. non tender. Dressings are dry and intact, abdominal binder noted EXTREMITIES: No pedal edema. No calf tenderness. NEUROLOGICAL: Patient is awake, alert and oriented x3. Cranial nerves 2 through 12 are grossly intact. Diffusely weak - Labs CBC & Chem 7: 03/22/21 06:00 03/23/21 08:39 Labs: Abnormal Lab Results - Last 24 Hours (Table) 03/23/21 Range/Units 08:39 Potassium 3.4 L (3.5-5.1) mmol/L Chloride 116 H (98-107) mmol/L Carbon Dioxide 17 L (22-30) mmol/L BUN 5 L (9-20) mg/dL Creatinine 0.58 L (0.66-1.25) mg/dL Glucose 131 H (74-99) mg/dL Assessment and Plan Assessment: Acute sigmoid volvulus and distal small bowel obstruction and abdominal distention, present on admission Status post lower anterior resection, sigmoid colectomy, colotomy for decompression, and reduction of sigmoid volvulus Acute post-op hypotension an expected surgical outcome, resolved Alcoholic liver cirrhosis History of alcohol abuse Chronic right hip pain status post surgical intervention Gait dysfunction Cognitive impairment with possible dementia Anemia, normocytic anemia of chronic disease Acute urinary tract infection, present on admission Full code Recommendations and discussion: Recommend continue with current medications and current management. Surgery is following and patient underwent sigmoid colectomy with anterior resection. Patient diet advanced to regular per surgery recommendations. Instructed the patient to continue to use incentive spirometer at least 10 times every hour while awake. Patient continues on IV antibiotics in the form of Flagyl per surgery recommendations. Potassium 3.4 will replace per protocol and repeat a.m. labs. Anticipate discharge in 24 hours.
[2021-03-24] MEDS: metroNIDAZOLE-NS PMX 500 MG in SALINE 1 100ML.BAG IVPB SCH ×2 (05:13→13:17)
[2021-03-24 07:50] VITALS: BP 129/75; PULSE 72; RESP 18; TEMP 97.9
[2021-03-24] MEDS: HEPARIN SODIUM,PORCINE/PF 5,000 UNIT/0.5 ML SYRINGE SQ SCH (08:11)
[2021-03-24] MEDS: PANTOPRAZOLE 40 MG/10 ML VIAL IV SCH (08:11)
[2021-03-24] MEDS: SIMETHICONE 40 MG/0.6 ML DROPS 2,000 MG/30 ML BOTTLE PO SCH (08:12)
--- NOTE | 2021-03-24 10:12 | P.DS ---
Providers Date of admission: 03/10/21 16:48 Expected date of discharge: 03/24/21 Attending physician: Tavares Hester Consults: 03/10/21 16:48 Consult Physician Stat Consulting Provider: Holly Toro Consult Reason/Comments: Bowel obstruction with sigmoid volvulus Do you want consulting provider notified?: Already Contacted 03/14/21 12:16 Consult Physician Routine Consulting Provider: [facility] Consult Reason/Comments: Regional block, epidural Do you want consulting provider notified?: Yes 03/18/21 15:22 Consult Physician Routine Consulting Provider: [facility] Consult Reason/Comments: right hip pain, history of right hip fracture Do you want consulting provider notified?: Yes Primary care physician: Ed Reddy Hospital Course: Final diagnosis Acute sigmoid volvulus and distal small bowel obstruction and abdominal distention, present on admission Status post lower anterior resection, sigmoid colectomy, colotomy for decompression, and reduction of sigmoid volvulus Acute post-op hypotension an expected surgical outcome, resolved Alcoholic liver cirrhosis Mild hypokalemia History of alcohol abuse Chronic right hip pain status post surgical intervention Gait dysfunction Cognitive impairment with possible dementia Anemia, normocytic anemia of chronic disease Acute urinary tract infection, present on admission Full code Discharge disposition Patient is being discharged in a stable condition with guarded prognosis to [facility] as he is a resident there. Patient will follow-up with Dr. Reddy in the outpatient setting upon discharge. Patient is to continue with oral antibiotics in the form of Flagyl 3 times daily for the next 7 days and then may discontinue. Patient will need outpatient follow-up with surgery in one week. Total time taken is greater than 35 minutes. Hospital course This is a 71-year-old male who was recently admitted abdominal distention found to have sigmoid volvulus with distal small bowel obstruction and underwent sigmoid colectomy with lower anterior resection and was being closely monitored. Surgery following closely and patient's diet was advanced as tolerated and currently at regular diet. Recommend repeat labs in 2-3 days to monitor electrolytes as patient was having episodes of low potassium with most recent potassium being 3.4 and replaced. Patient is tolerating diet with no reports of nausea or vomiting noted. Patient continues to be weak and recommend physical therapy outpatient and outpatient follow-up with orthopedics regarding right hip pain which is chronic. Continue with abdominal binder while out of bed. Patient strongly encouraged to continue with incentive spirometer at least 10 times every hour while awake and needs encouragement to do so. Currently no reports of chest pain, shortness of breath, or palpitations. Patient is afebrile. No reports of nausea or vomiting and patient is tolerating diet. Patient will be going to [facility] today. On exam vital signs are stable. Cardio S1, S2 are muffled. Respiratory system shows diminished breath sounds at the bases with no wheezing or rhonchi noted. Abdomen is soft and obese, and nontender. Nervous system shows diffuse weakness. Please refer to medication reconciliation sheet for a list of medications. Patient Condition at Discharge: Stable Plan - Discharge Summary Discharge Rx Participant: Yes New Discharge Prescriptions: New metroNIDAZOLE [Flagyl] 500 mg PO TID 7 Days #21 tab Simethicone 40 mg/0.6 ml Drops [Mylicon Drops] 80 mg PO [facility] ml Pantoprazole Sodium [Protonix] 40 mg PO DAILY #30 tablet.dr Continue Spironolactone 100 mg PO DAILY Acetaminophen Tab [Tylenol] 1,000 mg PO Q8H PRN PRN Reason: Pain Multivitamins, Thera [Multivitamin (formulary)] 1 tab PO HS Phenyleph/Mineral Oil/Petrolat [Preparation H Ointment] 1 applic RECTAL Q12H PRN PRN Reason: Hemorrhoids Acetaminophen [Tylenol Extra Strength] 500 mg PO Q6H PRN PRN Reason: Pain Spironolactone 50 mg PO DAILY Melatonin 3 mg PO HS Furosemide [Lasix] 80 mg PO DAILY Sennosides [Senna] 17.2 mg PO HS Omeprazole 20 mg PO HS Discontinued Lactulose 20 gm PO TID@0700,1300,1900 Discharge Medication List Acetaminophen Tab [Tylenol] 1,000 mg PO Q8H PRN 04/20/18 [History] Multivitamins, Thera [Multivitamin (formulary)] 1 tab PO HS 04/20/18 [History] Spironolactone 100 mg PO DAILY 04/20/18 [History] Acetaminophen [Tylenol Extra Strength] 500 mg PO Q6H PRN 03/10/21 [History] Furosemide [Lasix] 80 mg PO DAILY 03/10/21 [History] Melatonin 3 mg PO HS 03/10/21 [History] Omeprazole 20 mg PO HS 03/10/21 [History] Phenyleph/Mineral Oil/Petrolat [Preparation H Ointment] 1 applic RECTAL Q12H PRN 03/10/21 [History] Sennosides [Senna] 17.2 mg PO HS 03/10/21 [History] Spironolactone 50 mg PO DAILY 03/10/21 [History] Pantoprazole Sodium [Protonix] 40 mg PO DAILY #30 tablet.dr 03/24/21 [Rx] Simethicone 40 mg/0.6 ml Drops [Mylicon Drops] 80 mg PO P[facility]S ml 03/24/21 [Rx] metroNIDAZOLE [Flagyl] 500 mg PO TID 7 Days #21 tab 03/24/21 [Rx] Follow up Appointment(s)/Referral(s): Ed Reddy MD [Primary Care Provider] - 1-2 days Holly Toro MD [STAFF PHYSICIAN] - 04/06/21 Ambulatory/Diagnostic Orders: Complete Blood Count w/diff [LAB.AMB] Time Frame: 3 Days, Location: None Selected Activity/Diet/Wound Care/Special Instructions: Patient is going to [facility] Activity as tolerated Continue regular diet Follow-up with surgery outpatient Follow-up primary care provider upon discharge Continue with incentive spirometer use at least 10 times every hour while awake Continue with abdominal binder while out of bed Discharge Disposition: TRANSFER TO SNF/ECF
--- NOTE | 2021-03-24 11:20 | P.PN ---
Subjective Progress Note Date: 03/24/21 CHIEF COMPLAINT: Abdominal distention HISTORY OF PRESENT ILLNESS: The patient is a 71-year-old male who presents with recurrent sigmoid volvulus for large bowel obstruction. Patient status post colonoscopy to cecum with colonic decompression on 03/14/21 and is status post robotic lower anterior resection, sigmoid colectomy and colotomy for decompression, reduction of sigmoid volvulus on 03/17/21. Patient's abdominal pain is controlled. Denies any nausea or vomiting. He is tolerating diet. He is having bowel movements. He did ambulate with physical therapy. He is scheduled to be discharged back to [facility] today. Afebrile. PHYSICAL EXAM: VITAL SIGNS: Reviewed GENERAL: Well-developed in no acute distress. HEENT: No sclera icterus. Extraocular movements grossly intact. Moist buccal mucosa. Head is atraumatic, normocephalic. Hears conversational speech. No nasal drainage. NECK: Supple without lymphadenopathy. CHEST: Non-labored respirations and equal bilateral excursions. CARDIOVASCULAR: Palpable 2+ radial pulses. ABDOMEN: Soft. Less Distended mild tenderness incisional dressing clean dry and intact MUSCULOSKELETAL: No clubbing or cyanosis. NEUROLOGIC: No focal or lateralizing signs. Cranial nerves II through XII grossly intact. PSYCH: Appropriate affect. Alert and oriented to person, place and time. SKIN: Well perfused. Good skin turgor. ASSESSMENT: Sigmoid volvulus for large bowel obstruction, recurrent. Status post robotic lower anterior resection, sigmoid colectomy, colostomy for decompression, reduction of sigmoid volvulus. Chronic constipation Liver cirrhosis History of hepatic encephalopathy Morbid obesity due to excess calories, BMI 35.6 Hypertensive heart disease with congestive heart failure Hypokalemia PLAN: -Patient can be discharged from surgical standpoint -Continue regular -Continue Tylenol as needed for pain -Encouraged patient ambulate -Encouraged patient to use incentive spirometer -DVT prophylaxis subcu heparin and GI prophylaxis Protonix Physician Medical Office Technician note has been reviewed by physician. Signing provider agrees with the documented findings, assessment, and plan of care. Objective - Vital Signs Vital signs: Vital Signs Temp 97.9 F 03/24/21 07:00 Pulse 72 03/24/21 08:11 Resp 18 03/24/21 08:11 BP 129/75 03/24/21 07:00 Pulse Ox 97 03/24/21 09:16 Intake & Output 03/23/21 03/24/21 03/24/21 18:59 06:59 18:59 Output Total 250 Balance -250 Output: Urine 250 Other: Voiding Method Urinal - Labs CBC & Chem 7: 03/22/21 06:00 03/23/21 08:39
[2021-03-24 11:41] LABS: Basophils # (A) 0.06 X 10*3/uL (0.00-0.10); Basophils % (A) 1.1 %; Eosinophils # (A) 0.31 X 10*3/uL (0.04-0.35); Eosinophils % (A) 5.6 %; HCT 35.4 % (39.6-50.0); Lymphocytes # (A) 1.78 X 10*3/uL (0.90-5.00); Lymphocytes % (A) 32.2 %; MCH 28.1 pg (27.0-32.0); MCHC 31.1 g/dL (32.0-37.0); MCV 90.5 fL (80.0-97.0); Mean Platelet Volume 10.1 fL (9.5-12.2); Monocytes # (A) 0.41 X 10*3/uL (0.20-1.00); Monocytes % (A) 7.4 %; Neutrophils # (A) 2.87 X 10*3/uL (1.80-7.70); Neutrophils % (A) 51.9 %; Platelet Count 314 X 10*3/uL (140-440); RBC 3.91 X 10*6/uL (4.40-5.60); RDW 16.9 % (11.5-14.5); WBC 5.53 X 10*3/uL (4.50-10.00)
[2021-03-24 13:28] LABS: African American GFR (CKD) 125.5 (60.0-200.0); Anion Gap 7.7 mmol/L (4.00-12.00); Calcium 7.7 mg/dL (8.7-10.3); Carbon Dioxide 17.3 mmol/L (21.6-31.8); Non-African American GFR(CKD) 108.3 (60.0-200.0); Potassium 3.3 mmol/L (3.5-5.5)
[2021-04-13] MEDS ORDERED: PROPOFOL 10 MG/ML 20 ML VIAL IV ONE (13:41)
[2021-04-14] MEDS ORDERED: PROPOFOL 10 MG/ML 20 ML VIAL IV ONE (18:09)
[2021-04-14] MEDS ORDERED: LIDOCAINE 1% INJ 10MG/ML (20 ML MDV) ONE (18:09)
== END 2021-03-24 14:00 | DRG 330 ==
LOC: EC 13:31 → 4SSUR 16:48
PROVIDERS: ADMIT Internal Medicine; ATTEND Internal Medicine
PROC: 0D9E8ZZ Drainage of Large Intestine, Via Natural or Artificial Opening Endoscopic (ICD-10-PCS; 2021-03-11)
PROC: 0D9E8ZZ Drainage of Large Intestine, Via Natural or Artificial Opening Endoscopic (ICD-10-PCS; 2021-03-14)
PROC: 0D9E8ZZ Drainage of Large Intestine, Via Natural or Artificial Opening Endoscopic (ICD-10-PCS; 2021-03-15)
PROC: 0DBN4ZZ Excision of Sigmoid Colon, Percutaneous Endoscopic Approach (ICD-10-PCS; principal; 2021-03-17 14:15)
PROC: 8E0W4CZ Robotic Assisted Procedure of Trunk Region, Percutaneous Endoscopic Approach (ICD-10-PCS; principal; 2021-03-17 14:15)
DX: K56.2 Volvulus (principal); J98.11 Atelectasis; N39.0 Urinary tract infection, site not specified; I95.89 Other hypotension; I11.0 Hypertensive heart disease with heart failure; D63.8 Anemia in other chronic diseases classified elsewhere; E66.01 Morbid (severe) obesity due to excess calories; E87.6 Hypokalemia; F03.90 Unspecified dementia, unspecified severity, without behavioral disturbance, psychotic disturbance, mood disturbance, and anxiety; F17.210 Nicotine dependence, cigarettes, uncomplicated; F32.9 Major depressive disorder, single episode, unspecified; G89.29 Other chronic pain; M25.551 Pain in right hip; I50.9 Heart failure, unspecified; K56.7 Ileus, unspecified; K64.2 Third degree hemorrhoids; Z68.35 Body mass index [BMI] 35.0-35.9, adult; Z20.822 Contact with and (suspected) exposure to COVID-19; F10.11 Alcohol abuse, in remission; K56.609 Unspecified intestinal obstruction, unspecified as to partial versus complete obstruction; Z79.899 Other long term (current) drug therapy; Z96.641 Presence of right artificial hip joint; Z82.0 Family history of epilepsy and other diseases of the nervous system
CPT/HCPCS: 36415; 45378; 45380; 45393; 71045; 73502; 74177; 80048; 80053; 81001; 82150; 82728; 83540; 83550; 83690; 83735; 84132; 85025; 85610; 85730; 86850; 86900; 86901; 87635; 88307; 93005; 93306; 94760; 99285

== ENCOUNTER 2021-06-22 13:26 | Inpatient (IN) | payer MEDICARE, OTHER ==
[2021-06-22] MEDS ORDERED: SODIUM CHLORIDE 0.9% 500 ML 500 ML IV STA (13:45)
--- NOTE | 2021-06-22 13:54 | ED ---
General Adult HPI - General Source: patient, EMS, RN notes reviewed, old records reviewed Mode of arrival: EMS Limitations: altered mental status <Vernell Clark - Last Filed: 06/22/21 17:00> <Christy Boyle - Last Filed: 06/30/21 08:28> - General Chief complaint: Recheck/Abnormal Lab/Rx Stated complaint: Abd distention Time Seen by Provider: 06/22/21 13:42 - History of Present Illness Initial comments: Patient is a 71-year-old male with history of dementia, liver cirrhosis with ascites, history of bowel obstruction, presenting to the emergency Department from [facility] for abdominal distention, pain and dark colored urine. EMS was concerned that he is slightly hypotensive as well. According to the patient he does believe his abdomen is more distended than usual, he denies any pain at this time, no chest pain or shortness of breath, no fevers or chills. He does have a history of dementia though. He has had history of paracentesis according to his medical chart. Patient denies any nausea or vomiting, he has had soft stools, he states he goes daily. His last stool was yesterday. Gina angela denies any other complaints at this time. Upon arrival to the ER, his vital signs are stable, blood pressure 90/63. He did receive 450 mL of saline bolus and EMS prior to arrival. (Vernell Clark) - Related Data Home Medications Medication Instructions Recorded Confirmed Acetaminophen Tab [Tylenol] 1,000 mg PO Q8H PRN 04/20/18 06/22/21 Spironolactone 100 mg PO DAILY 04/20/18 06/22/21 Acetaminophen [Tylenol Extra 500 mg PO Q6H PRN 03/10/21 06/22/21 Strength] Furosemide [Lasix] 80 mg PO DAILY 03/10/21 06/22/21 Melatonin 3 mg PO HS 03/10/21 06/22/21 Phenyleph/Mineral Oil/Petrolat 1 applic RECTAL Q12H PRN 03/10/21 06/22/21 [Preparation H Ointment] Sennosides [Senna] 17.2 mg PO HS 03/10/21 06/22/21 Spironolactone 50 mg PO DAILY 03/10/21 06/22/21 Lactulose 10 gm PO TID@0700,1300,1900 06/22/21 06/22/21 Magnesium Hydroxide [Milk of 2,400 mg PO ONCE 06/22/21 06/22/21 Magnesia] Multivit-Min/FA/Lycopen/Lutein 1 tab PO HS 06/22/21 06/22/21 [Centrum Silver Tablet] Previous Rx's Medication Instructions Recorded Pantoprazole Sodium [Protonix] 40 mg PO DAILY #30 tablet. 03/24/21 Allergies Allergy/AdvReac Type Severity Reaction Status Date / Time naproxen Allergy Unknown Verified 06/22/21 13:46 tramadol [From Ultram] Allergy Unknown Verified 06/22/21 13:46 Review of Systems ROS Other: All systems not noted in ROS Statement are negative. <Vernell Clark - Last Filed: 06/22/21 17:00> ROS Other: All systems not noted in ROS Statement are negative. <Christy Boyle - Last Filed: 06/30/21 08:28> ROS Statement: Those systems with pertinent positive or pertinent negative responses have been documented in the HPI. Past Medical History Past Medical History: Liver Disease Additional Past Medical History / Comment(s): hepatic encephalopathy, dysphasia, anasarca, ascites due to liver cirrhosis History of Any Multi-Drug Resistant Organisms: Unobtainable Past Surgical History: Orthopedic Surgery Additional Past Surgical History / Comment(s): previous paracentesis at [facility] 2016, broken hip with rods placed, abdominal surgery in 03/15 Past Psychological History: Depression Smoking Status: Current every day smoker Past Alcohol Use History: Occasional Past Drug Use History: None Reported - Past Family History Mother Family Medical History: Dementia <Vernell lCark - Last Filed: 06/22/21 17:00> General Exam Limitations: altered mental status <Vernell Clark - Last Filed: 06/22/21 17:00> - General Exam Comments Initial Comments: GENERAL: Patient is well-developed and well-nourished. Patient is nontoxic and in no acute distress. HEAD: Atraumatic, normocephalic. EYES: Pupils equal round and reactive to light, extraocular movements intact, sclera anicteric, conjunctiva are normal. Eyelids were unremarkable. ENT: Nares patent, oropharynx clear without exudates. Moist mucous membranes. NECK: Normal range of motion, supple without lymphadenopathy or JVD. LUNGS: Unlabored respirations. Breath sounds clear to auscultation bilaterally and equal. No wheezes rales or rhonchi. HEART: Regular rate and rhythm without murmurs, rubs or gallops. ABDOMEN: Patient's abdomen is distended, hard, hypoactive bowel sounds. No guarding, no rebound. No masses appreciated. : Deferred MUSCULOSKELETAL: Normal extremities with adequate strength and normal range of motion, no pitting or edema. No clubbing or cyanosis. NEUROLOGICAL: Patient is alert and oriented x 2, at baseline with history of dementia. Motor and sensory are also intact. Cranial nerves II through XII grossly intact. Symmetrical smile. Normal speech, normal gait. PSYCH: Normal mood, normal affect. SKIN: Warm, Dry, normal turgor, no rashes or lesions noted. (Vernell Clark) Course Vital Signs 06/22/21 06/22/21 06/22/21 13:31 15:37 16:33 Temperature 97.6 F Pulse Rate 98 97 95 Pulse Rate [ Pulse Oximetery ] Respiratory 16 18 18 Rate Blood Pressure 98/63 107/72 112/70 Blood Pressure [Left Arm Sitting] O2 Sat by Pulse 96 96 94 L Oximetry 06/22/21 06/23/21 06/23/21 18:55 00:21 05:43 Temperature Pulse Rate 82 87 Pulse Rate [ Pulse Oximetery ] Respiratory 18 19 18 Rate Blood Pressure 105/66 100/57 90/51 Blood Pressure [Left Arm Sitting] O2 Sat by Pulse 94 L 97 94 L Oximetry 06/23/21 07:00 Temperature 97.6 F Pulse Rate Pulse Rate [ 105 H Pulse Oximetery ] Respiratory 15 Rate Blood Pressure Blood Pressure 101/64 [Left Arm Sitting] O2 Sat by Pulse 97 Oximetry EKG Findings - EKG Comments: EKG Findings:: Sinus rhythm with premature atrial complexes, low-voltage QRS, nonspecific T-wave abnormality is, no signs of acute ST segment elevation. This is similar to his previous on 03/11/2021. Ventricular rate 90, NC interval 156, QT 324. <Vernell Clark - Last Filed: 06/22/21 17:00> Medical Decision Making - Lab Data Result diagrams: 06/22/21 14:18 09/28/21 14:18 <Vernell Clark - Last Filed: 06/22/21 17:00> - Lab Data Result diagrams: 06/29/21 05:16 06/30/21 06:28 <MontanaChristy Tray - Last Filed: 06/30/21 08:28> - Medical Decision Making Patient is a 71-year-old male with history of dementia, liver cirrhosis with ascites, bowel obstructions, presenting from [facility] from [place] for abdominal distention, pain, low appetite and strong urine odor. No fevers, he was slightly hypotensive upon arrival, 98/63. Patient denies any pain upon arrival, his abdomen is very distended. He had recent history of volvulus, obstruction in February of this year. Labs show a normal white count, stable hemoglobin, sodium potassium is slightly low at 133, 3.3. Creatinine is elevated at baseline from 0.5 in February to 1.33 today. BUN is 40, GFR is 53. Lactic acid is 3.1. Patient given fluids here in the ER. CT of abdomen and pelvis revealed large amount of stool in the rectosigmoid colon which may be his fecal impaction, there is a lot of dilation of small bowel and large bowel without transition zone noted. Patient's vital signs remained stable, he is comparable here in the ER. Patient will be admitted for abdominal distention, possible obstruction, RICHARD. Patient accepted by Dr. Spence, with consult to Dr. Toro. Case discussed with Dr. Boyle. (Vernell Clark) - Lab Data Lab Results 06/22/21 06/22/21 06/22/21 Range/Units 14:18 14:18 14:18 WBC 8.8 (3.8-10.6) k/uL RBC 4.96 (4.30-5.90) m/uL Hgb 14.8 (13.0-17.5) gm/dL Hct 43.3 (39.0-53.0) % MCV 87.3 (80.0-100.0) fL MCH 29.8 (25.0-35.0) pg MCHC 34.2 (31.0-37.0) g/dL RDW 15.1 (11.5-15.5) % Plt Count 339 (150-450) k/uL MPV 7.0 Neutrophils % (Manual) 69 % Band Neuts % (Manual) 12 % Lymphocytes % 16 % Lymphocytes % (Manual) 17 % Monocytes % 4 % Monocytes % (Manual) 2 % Eosinophils % 0 % Basophils % 0 % Neutrophils # 6.9 (1.3-7.7) k/uL Lymphocytes # 1.4 (1.0-4.8) k/uL Monocytes # 0.3 (0-1.0) k/uL Eosinophils # 0.0 (0-0.7) k/uL Basophils # 0.0 (0-0.2) k/uL Nucleated RBCs 0 (0-0) /100 WBC Polychromasia Present PT 11.7 (9.0-12.0) sec INR 1.1 (<1.2) APTT 22.8 (22.0-30.0) sec Sodium 133 L (137-145) mmol/L Potassium 3.3 L (3.5-5.1) mmol/L Chloride 99 (98-107) mmol/L Carbon Dioxide 18 L (22-30) mmol/L Anion Gap 16 mmol/L BUN 40 H (9-20) mg/dL Creatinine 1.33 H (0.66-1.25) mg/dL Est GFR (CKD-EPI)AfAm 62 (>60 ml/min/1.73 sqM) Est GFR (CKD-EPI)NonAf 53 (>60 ml/min/1.73 sqM) Glucose 123 H (74-99) mg/dL Lactic Ac Sepsis Rflx Plasma Lactic Acid Jose (0.7-2.0) mmol/L Calcium 10.4 H (8.4-10.2) mg/dL Magnesium (1.6-2.3) mg/dL Total Bilirubin 0.7 (0.2-1.3) mg/dL AST 35 (17-59) U/L ALT 22 (4-49) U/L Alkaline Phosphatase 111 (38-126) U/L Creatine Kinase 44 L (55-170) U/L Total Protein 7.2 (6.3-8.2) g/dL Albumin 4.0 (3.5-5.0) g/dL Amylase 50 (30-110) U/L Lipase 44 (23-300) U/L Urine Color Urine Appearance (Clear) Urine pH (5.0-8.0) Ur Specific [place] (1.001-1.035) Urine Protein (Negative) Urine Glucose (UA) (Negative) Urine Ketones (Negative) Urine Blood (Negative) Urine Nitrite (Negative) Urine Bilirubin (Negative) Urine Urobilinogen (<2.0) mg/dL Ur Leukocyte Esterase (Negative) Urine RBC (0-5) /hpf Urine WBC (0-5) /hpf Ur Squamous Epith Cells (0-4) /hpf Hyaline Casts (0-2) /lpf Urine Mucus (None) /hpf Coronavirus (PCR) (Not Detectd) 06/22/21 06/22/21 06/22/21 Range/Units 14:18 14:50 16:40 WBC (3.8-10.6) k/uL RBC (4.30-5.90) m/uL Hgb (13.0-17.5) gm/dL Hct (39.0-53.0) % MCV (80.0-100.0) fL MCH (25.0-35.0) pg MCHC (31.0-37.0) g/dL RDW (11.5-15.5) % Plt Count (150-450) k/uL MPV Neutrophils % (Manual) % Band Neuts % (Manual) % Lymphocytes % % Lymphocytes % (Manual) % Monocytes % % Monocytes % (Manual) % Eosinophils % % Basophils % % Neutrophils # (1.3-7.7) k/uL Lymphocytes # (1.0-4.8) k/uL Monocytes # (0-1.0) k/uL Eosinophils # (0-0.7) k/uL Basophils # (0-0.2) k/uL Nucleated RBCs (0-0) /100 WBC Polychromasia PT (9.0-12.0) sec INR (<1.2) APTT (22.0-30.0) sec Sodium (137-145) mmol/L Potassium (3.5-5.1) mmol/L Chloride (98-107) mmol/L Carbon Dioxide (22-30) mmol/L Anion Gap mmol/L BUN (9-20) mg/dL Creatinine (0.66-1.25) mg/dL Est GFR (CKD-EPI)AfAm (>60 ml/min/1.73 sqM) Est GFR (CKD-EPI)NonAf (>60 ml/min/1.73 sqM) Glucose (74-99) mg/dL Lactic Ac Sepsis Rflx Y Plasma Lactic Acid Jose 3.1 H* (0.7-2.0) mmol/L Calcium (8.4-10.2) mg/dL Magnesium (1.6-2.3) mg/dL Total Bilirubin (0.2-1.3) mg/dL AST (17-59) U/L ALT (4-49) U/L Alkaline Phosphatase (38-126) U/L Creatine Kinase (55-170) U/L Total Protein (6.3-8.2) g/dL Albumin (3.5-5.0) g/dL Amylase (30-110) U/L Lipase (23-300) U/L Urine Color Yellow Urine Appearance Clear (Clear) Urine pH 5.0 (5.0-8.0) Ur Specific [place] 1.019 (1.001-1.035) Urine Protein Negative (Negative) Urine Glucose (UA) Negative (Negative) Urine Ketones Negative (Negative) Urine Blood Negative (Negative) Urine Nitrite Negative (Negative) Urine Bilirubin Negative (Negative) Urine Urobilinogen <2.0 (<2.0) mg/dL Ur Leukocyte Esterase Moderate H (Negative) Urine RBC 2 (0-5) /hpf Urine WBC 10 H (0-5) /hpf Ur Squamous Epith Cells <1 (0-4) /hpf Hyaline Casts 36 H (0-2) /lpf Urine Mucus Rare H (None) /hpf Coronavirus (PCR) (Not Detectd) 06/22/21 06/22/21 06/22/21 Range/Units 17:53 18:27 19:00 WBC (3.8-10.6) k/uL RBC (4.30-5.90) m/uL Hgb (13.0-17.5) gm/dL Hct (39.0-53.0) % MCV (80.0-100.0) fL MCH (25.0-35.0) pg MCHC (31.0-37.0) g/dL RDW (11.5-15.5) % Plt Count (150-450) k/uL MPV Neutrophils % (Manual) % Band Neuts % (Manual) % Lymphocytes % % Lymphocytes % (Manual) % Monocytes % % Monocytes % (Manual) % Eosinophils % % Basophils % % Neutrophils # (1.3-7.7) k/uL Lymphocytes # (1.0-4.8) k/uL Monocytes # (0-1.0) k/uL Eosinophils # (0-0.7) k/uL Basophils # (0-0.2) k/uL Nucleated RBCs (0-0) /100 WBC Polychromasia PT (9.0-12.0) sec INR (<1.2) APTT (22.0-30.0) sec Sodium (137-145) mmol/L Potassium (3.5-5.1) mmol/L Chloride (98-107) mmol/L Carbon Dioxide (22-30) mmol/L Anion Gap mmol/L BUN (9-20) mg/dL Creatinine (0.66-1.25) mg/dL Est GFR (CKD-EPI)AfAm (>60 ml/min/1.73 sqM) Est GFR (CKD-EPI)NonAf (>60 ml/min/1.73 sqM) Glucose (74-99) mg/dL Lactic Ac Sepsis Rflx Y Plasma Lactic Acid Jose 3.1 H* (0.7-2.0) mmol/L Calcium (8.4-10.2) mg/dL Magnesium (1.6-2.3) mg/dL Total Bilirubin (0.2-1.3) mg/dL AST (17-59) U/L ALT (4-49) U/L Alkaline Phosphatase (38-126) U/L Creatine Kinase (55-170) U/L Total Protein (6.3-8.2) g/dL Albumin (3.5-5.0) g/dL Amylase (30-110) U/L Lipase (23-300) U/L Urine Color Urine Appearance (Clear) Urine pH (5.0-8.0) Ur Specific [place] (1.001-1.035) Urine Protein (Negative) Urine Glucose (UA) (Negative) Urine Ketones (Negative) Urine Blood (Negative) Urine Nitrite (Negative) Urine Bilirubin (Negative) Urine Urobilinogen (<2.0) mg/dL Ur Leukocyte Esterase (Negative) Urine RBC (0-5) /hpf Urine WBC (0-5) /hpf Ur Squamous Epith Cells (0-4) /hpf Hyaline Casts (0-2) /lpf Urine Mucus (None) /hpf Coronavirus (PCR) Not Detected (Not Detectd) 06/22/21 06/22/21 06/23/21 Range/Units 21:18 21:48 02:59 WBC (3.8-10.6) k/uL RBC (4.30-5.90) m/uL Hgb (13.0-17.5) gm/dL Hct (39.0-53.0) % MCV (80.0-100.0) fL MCH (25.0-35.0) pg MCHC (31.0-37.0) g/dL RDW (11.5-15.5) % Plt Count (150-450) k/uL MPV Neutrophils % (Manual) % Band Neuts % (Manual) % Lymphocytes % % Lymphocytes % (Manual) % Monocytes % % Monocytes % (Manual) % Eosinophils % % Basophils % % Neutrophils # (1.3-7.7) k/uL Lymphocytes # (1.0-4.8) k/uL Monocytes # (0-1.0) k/uL Eosinophils # (0-0.7) k/uL Basophils # (0-0.2) k/uL Nucleated RBCs (0-0) /100 WBC Polychromasia PT (9.0-12.0) sec INR (<1.2) APTT (22.0-30.0) sec Sodium 137 (137-145) mmol/L Potassium 2.8 L (3.5-5.1) mmol/L Chloride 106 (98-107) mmol/L Carbon Dioxide 19 L (22-30) mmol/L Anion Gap 12 mmol/L BUN 39 H (9-20) mg/dL Creatinine 1.00 (0.66-1.25) mg/dL Est GFR (CKD-EPI)AfAm 87 (>60 ml/min/1.73 sqM) Est GFR (CKD-EPI)NonAf 75 (>60 ml/min/1.73 sqM) Glucose 104 H (74-99) mg/dL Lactic Ac Sepsis Rflx Y Plasma Lactic Acid Jose 3.3 H* (0.7-2.0) mmol/L Calcium 9.0 (8.4-10.2) mg/dL Magnesium 2.1 (1.6-2.3) mg/dL Total Bilirubin (0.2-1.3) mg/dL AST (17-59) U/L ALT (4-49) U/L Alkaline Phosphatase (38-126) U/L Creatine Kinase (55-170) U/L Total Protein (6.3-8.2) g/dL Albumin (3.5-5.0) g/dL Amylase (30-110) U/L Lipase (23-300) U/L Urine Color Urine Appearance (Clear) Urine pH (5.0-8.0) Ur Specific [place] (1.001-1.035) Urine Protein (Negative) Urine Glucose (UA) (Negative) Urine Ketones (Negative) Urine Blood (Negative) Urine Nitrite (Negative) Urine Bilirubin (Negative) Urine Urobilinogen (<2.0) mg/dL Ur Leukocyte Esterase (Negative) Urine RBC (0-5) /hpf Urine WBC (0-5) /hpf Ur Squamous Epith Cells (0-4) /hpf Hyaline Casts (0-2) /lpf Urine Mucus (None) /hpf Coronavirus (PCR) (Not Detectd) 06/23/21 Range/Units 05:42 WBC (3.8-10.6) k/uL RBC (4.30-5.90) m/uL Hgb (13.0-17.5) gm/dL Hct (39.0-53.0) % MCV (80.0-100.0) fL MCH (25.0-35.0) pg MCHC (31.0-37.0) g/dL RDW (11.5-15.5) % Plt Count (150-450) k/uL MPV Neutrophils % (Manual) % Band Neuts % (Manual) % Lymphocytes % % Lymphocytes % (Manual) % Monocytes % % Monocytes % (Manual) % Eosinophils % % Basophils % % Neutrophils # (1.3-7.7) k/uL Lymphocytes # (1.0-4.8) k/uL Monocytes # (0-1.0) k/uL Eosinophils # (0-0.7) k/uL Basophils # (0-0.2) k/uL Nucleated RBCs (0-0) /100 WBC Polychromasia PT (9.0-12.0) sec INR (<1.2) APTT (22.0-30.0) sec Sodium (137-145) mmol/L Potassium (3.5-5.1) mmol/L Chloride (98-107) mmol/L Carbon Dioxide (22-30) mmol/L Anion Gap mmol/L BUN (9-20) mg/dL Creatinine (0.66-1.25) mg/dL Est GFR (CKD-EPI)AfAm (>60 ml/min/1.73 sqM) Est GFR (CKD-EPI)NonAf (>60 ml/min/1.73 sqM) Glucose (74-99) mg/dL Lactic Ac Sepsis Rflx Plasma Lactic Acid Jose 0.6 L (0.7-2.0) mmol/L Calcium (8.4-10.2) mg/dL Magnesium (1.6-2.3) mg/dL Total Bilirubin (0.2-1.3) mg/dL AST (17-59) U/L ALT (4-49) U/L Alkaline Phosphatase (38-126) U/L Creatine Kinase (55-170) U/L Total Protein (6.3-8.2) g/dL Albumin (3.5-5.0) g/dL Amylase (30-110) U/L Lipase (23-300) U/L Urine Color Urine Appearance (Clear) Urine pH (5.0-8.0) Ur Specific [place] (1.001-1.035) Urine Protein (Negative) Urine Glucose (UA) (Negative) Urine Ketones (Negative) Urine Blood (Negative) Urine Nitrite (Negative) Urine Bilirubin (Negative) Urine Urobilinogen (<2.0) mg/dL Ur Leukocyte Esterase (Negative) Urine RBC (0-5) /hpf Urine WBC (0-5) /hpf Ur Squamous Epith Cells (0-4) /hpf Hyaline Casts (0-2) /lpf Urine Mucus (None) /hpf Coronavirus (PCR) (Not Detectd) Disposition Decision Date: 06/22/21 Decision Time: 17:03 <Vernell Clark - Last Filed: 06/22/21 17:00> <Christy Boyle - Last Filed: 06/30/21 08:28> Clinical Impression: Abdominal distention, RICHARD (acute kidney injury) Disposition: ADMITTED IP TO THIS HOSP Condition: Stable
[2021-06-22 14:45] LABS: INR 1.1 (<1.2); Partial Thromboplastin Time 22.8 sec (22.0-30.0); Prothrombin Time 11.7 sec (9.0-12.0)
[2021-06-22 14:46] LABS: Calcium 10.4 mg/dL (8.4-10.2); Potassium 3.3 mmol/L (3.5-5.1); Total Bilirubin 0.7 mg/dL (0.2-1.3); Total Protein 7.2 g/dL (6.3-8.2)
[2021-06-22 14:50] LABS: Basophils % (A) 0 %; Eosinophils % (A) 0 %; HCT 43.3 % (39.0-53.0); HGB 14.8 gm/dL (13.0-17.5); Lymphocytes # (A) 1.4 k/uL (1.0-4.8); Lymphocytes % (A) 16 %; MCH 29.8 pg (25.0-35.0); MCHC 34.2 g/dL (31.0-37.0); MCV 87.3 fL (80.0-100.0); Monocytes # (A) 0.3 k/uL (0-1.0); Monocytes % (A) 4 %; Neutrophils # (A) 6.9 k/uL (1.3-7.7); Platelet Count 339 k/uL (150-450); RBC 4.96 m/uL (4.30-5.90); RDW 15.1 % (11.5-15.5); WBC 8.8 k/uL (3.8-10.6)
[2021-06-22 15:26] LABS: Band Neutrophils % 12 %; Neutrophils % (M) 69 %; Nucleated Red Blood Cells 0 /100 WBC (0-0); Polychromasia Present; Total Cells Counted 100
--- NOTE | 2021-06-22 16:34 | CT ---
EXAMINATION TYPE: CT abdomen pelvis w con DATE OF EXAM: 06/22/2021 COMPARISON: 03/10/2021 HISTORY: abdominal distention CT DLP: 1353.8 mGycm CONTRAST: CT scan of the abdomen and pelvis is performed without Oral Contrast and with IV Contrast, patient in jected with 100 mL of Isovue 300. FINDINGS: LUNG BASES-: No visible nodule. Right basilar atelectasis and/or infiltrate. LIVER/GB: No calcified gallstones. No space occupying hepatic lesion. Biliary tree is of normal ca liber. PANCREAS: No inflammation. No distinct mass. SPLEEN: No splenic enlargement. No lesion seen. ADRENALS: No nodule. No thickening. KIDNEYS/BLADDER: No hydronephrosis. Nonobstructing nephrolithiasis noted. No distinct renal mass. U rinary bladder grossly unremarkable. BOWEL: There appears to have been interval surgery about the sigmoid colon as prior examination demon strated volvulus. There is now a large amount of fecal debris within the sigmoid colon extending into the rectum. There is persistent dilatation of small and large bowel without transition zone. GENITAL ORGANS: No gross abnormality. LYMPH NODES: No greater than 1cm abdominal or pelvic lymph nodes are appreciated. AORTA: No significant abnormality. OSSEOUS STRUCTURES: No significant abnormality is seen. OTHER: No significant additional abnormality is seen. IMPRESSION: 1. Large amount of stool rectosigmoid colon which may be resulting in fecal impaction. There is dilat ation of small and large bowel without transition zone. 2. Right basilar atelectasis or infiltrate.
[2021-06-22 16:57] LABS: Appearance,Urine Clear (Clear); Bilirubin,Urine Negative (Negative); Blood,Urine Negative (Negative); Color,Urine Yellow; Glucose,Urine (UA) Negative (Negative); Hyaline Casts,Urine 36 /lpf (0-2); Ketones,Urine Negative (Negative); Leukocyte Esterase,Urine Moderate (Negative); Mucus,Urine Rare /hpf; Nitrite,Urine Negative (Negative); Protein,Urine Negative (Negative); RBC,Urine 2 /hpf (0-5); Specific Gravity,Urine 1.019 (1.001-1.035); Squamous Epithelial Cell,Urine <1 /hpf (0-4); Urobilinogen,Urine <2.0 mg/dL (<2.0); WBC,Urine 10 /hpf (0-5)
[2021-06-22] MEDS ORDERED: NALOXONE 0.4 MG/ML 1 ML VIAL IV PRN (16:58)
[2021-06-22] MEDS ORDERED: ONDANSETRON 4 MG/2 ML VIAL IVP PRN (16:58)
[2021-06-22] MEDS ORDERED: KETOROLAC 15 MG/ML 1 ML VIAL IVP PRN (16:58)
[2021-06-22] MEDS: SODIUM CHLORIDE 0.9% 1,000 ML IV SCH (19:06)
--- NOTE | 2021-06-22 20:13 | P.HPIM ---
History of Present Illness This is a pleasant 71 years old male from [facility]ent[facility] with past medical history of hepatic encephalopathy, dysphasia, anasarca, ascites due to liver cirrhosis Patient is fully awake and oriented and appropriate. He knows he is in the hospital but he thought it is a [place]. He thought his 2020 and could not remember the name of the president. His abdomen is significantly distended. No abdominal pain or tenderness. No nausea vomiting. Bowel movement was yesterday 10:00 AM. Did not pass bowel movement or gas since then. Vitals are stable. Blood pressure borderline 98/63, repeated 170/72 CBC is unremarkable, INR is 1.1. Sodium 133, potassium 3.3, creatinine 1.3. Lactic acid is elevated at 3.1. Liver enzymes are normal with AST 35 and ALT 22 and total bilirubin 0.7 CT of the abdomen and pelvis with contrast showing large amount of stool in the rectosigmoid colon which may be resulting in fecal impaction. Rotation of the small and large bowel without transition zone. Right basilar atelectasis or infiltrate Review of Systems CONSTITUTIONAL: No fever, no malaise, no fatigue. HEENT: No recent visual problems or hearing problems. Denied any sore throat. CARDIOVASCULAR: No orthopnea, PND, no palpitations, no syncope. PULMONARY: No shortness of breath, no cough, no hemoptysis. GASTROINTESTINAL: No diarrhea, no nausea, no vomiting, no abdominal pain. Normoactive bowel sounds. NEUROLOGICAL: No headaches, no weakness, no numbness. HEMATOLOGICAL: Denies any bleeding or petechiae. GENITOURINARY: Denies any burning micturition, frequency, or urgency. MUSCULOSKELETAL/RHEUMATOLOGICAL: Denies any joint pain, swelling, or any muscle pain. ENDOCRINE: Denies any polyuria or polydipsia. Past Medical History Past Medical History: Liver Disease Additional Past Medical History / Comment(s): hepatic encephalopathy, dysphasia, anasarca, ascites due to liver cirrhosis History of Any Multi-Drug Resistant Organisms: Unobtainable Past Surgical History: Orthopedic Surgery Additional Past Surgical History / Comment(s): previous paracentesis at [facility] 2016, broken hip with rods placed, abdominal surgery in 03/15 Past Psychological History: Depression Smoking Status: Current every day smoker Past Alcohol Use History: Occasional Past Drug Use History: None Reported - Past Family History Mother Family Medical History: Dementia Medications and Allergies Home Medications Medication Instructions Recorded Confirmed Type Acetaminophen Tab [Tylenol] 1,000 mg PO Q8H PRN 04/20/18 06/22/21 History Spironolactone 100 mg PO DAILY 04/20/18 06/22/21 History Acetaminophen [Tylenol Extra 500 mg PO Q6H PRN 03/10/21 06/22/21 History Strength] Furosemide [Lasix] 80 mg PO DAILY 03/10/21 06/22/21 History Melatonin 3 mg PO HS 03/10/21 06/22/21 History Phenyleph/Mineral Oil/Petrolat 1 applic RECTAL Q12H PRN 03/10/21 06/22/21 History [Preparation H Ointment] Sennosides [Senna] 17.2 mg PO HS 03/10/21 06/22/21 History Spironolactone 50 mg PO DAILY 03/10/21 06/22/21 History Pantoprazole Sodium [Protonix] 40 mg PO DAILY #30 tablet. 03/24/21 06/22/21 Rx Lactulose 10 gm PO TID@0700,1300,1900 06/22/21 06/22/21 History Magnesium Hydroxide [Milk of 2,400 mg PO ONCE 06/22/21 06/22/21 History Magnesia] Multivit-Min/FA/Lycopen/Lutein 1 tab PO HS 06/22/21 06/22/21 History [Centrum Silver Tablet] Allergies Allergy/AdvReac Type Severity Reaction Status Date / Time naproxen Allergy Unknown Verified 06/22/21 13:46 tramadol [From Ultram] Allergy Unknown Verified 06/22/21 13:46 Physical Exam Vitals: Vital Signs Pulse Resp BP Pulse Ox 06/22/21 15:37 97 18 107/72 96 06/22/21 13:31 98 16 98/63 96 Intake and Output 06/22/21 06/22/21 06/22/21 06:59 14:59 22:59 Other: Weight 88.5 kg GENERAL: The patient is alert and oriented x3, not in any acute distress. Well developed, well nourished. HEENT: Pupils are round and equally reacting to light. EOMI. No scleral icterus. No conjunctival pallor. Normocephalic, atraumatic. No pharyngeal erythema. No thyromegaly. CARDIOVASCULAR: S1 and S2 present. No murmurs, rubs, or gallops. PULMONARY: Chest is clear to auscultation, no wheezing or crackles. -ABDOMEN: Soft, nontender, distended, normoactive bowel sounds. No palpable organomegaly. MUSCULOSKELETAL: No joint swelling or deformity. EXTREMITIES: No cyanosis, clubbing, or pedal edema. NEUROLOGICAL: Gross neurological examination did not reveal any focal deficits. SKIN: No rashes. No petechiae Results CBC & Chem 7: 06/22/21 14:18 06/22/21 14:18 Labs: Abnormal Lab Results - Last 24 Hours (Table) 06/22/21 06/22/21 Range/Units 14:18 14:18 Sodium 133 L (137-145) mmol/L Potassium 3.3 L (3.5-5.1) mmol/L Carbon Dioxide 18 L (22-30) mmol/L BUN 40 H (9-20) mg/dL Creatinine 1.33 H (0.66-1.25) mg/dL Glucose 123 H (74-99) mg/dL Plasma Lactic Acid Jose 3.1 H* (0.7-2.0) mmol/L Calcium 10.4 H (8.4-10.2) mg/dL Creatine Kinase 44 L (55-170) U/L Assessment and Plan Assessment: Abdominal distention suspicious for bowel obstruction secondary to fecal impaction. With previous history of sigmoid volvulus Acute kidney injury History of alcoholic liver cirrhosis with frequent paracentesis History of hepatic encephalopathy History of anasarca and ascites History of alcohol use Cognitive impairment and mild dementia Plan: This is a pleasant 71 years old male who presents with abdominal distention suspicious for bowel obstruction Keep The patient nothing by mouth, with IV fluids and pain management Surgical team consult. We will hold on laxative till Cleared by surgical team for entry indication using such medication Consider NG tube for decompression OR if patient started vomiting Labs and medication were reviewed.. Continue same treatment. Continue with symptomatic treatment. Resume home medication. Monitor lytes and vitals. DVT and GI prophylaxis. Further recommendations depends on the clinical course of the patient DVT prophylaxis: Subcutaneous heparin GI Prophylaxis: Pepcid PT/OT: Pending Prognosis is guarded
[2021-06-22] MEDS ORDERED: SODIUM CHLORIDE 0.9% 500 ML 500 ML IV ONE (23:50)
[2021-06-23 03:40] LABS: African American GFR (CKD) 87 (>60 ml/min/1.73 sqM); Anion Gap 12 mmol/L; Blood Urea Nitrogen 39 mg/dL (9-20); Carbon Dioxide 19 mmol/L (22-30); Chloride 106 mmol/L (98-107); Glucose 104 mg/dL (74-99); Magnesium 2.1 mg/dL (1.6-2.3); Non-African American GFR(CKD) 75 (>60 ml/min/1.73 sqM); Potassium 2.8 mmol/L (3.5-5.1); Sodium 137 mmol/L (137-145)
[2021-06-23] MEDS ORDERED: Magnesium Replacement Protocol 1 EACH MISC MISCELLANE PRN (08:02)
[2021-06-23] MEDS ORDERED: Potassium Replacement Protocol 1 EACH MISC MISCELLANE PRN ×2 (08:02→08:16)
[2021-06-23] MEDS: POTASSIUM CHLORIDE 20 MEQ in WATER FOR INJECTION 1 100ML.BAG IVPB SCH ×3 (11:04→15:57)
[2021-06-23] MEDS: POTASSIUM CHLORIDE ER 20 MEQ TAB.ER PO SCH ×2 (11:05→11:10)
[2021-06-23] MEDS: FAMOTIDINE 20 MG/2 ML VIAL IV SCH ×2 (11:05→20:02)
[2021-06-23] MEDS: HEPARIN SODIUM,PORCINE/PF 5,000 UNIT/0.5 ML SYRINGE SQ SCH ×2 (11:06→20:03)
--- NOTE | 2021-06-23 11:35 | P.PN ---
Subjective This is a pleasant 71 years old male from care home/rehab with past medical history of hepatic encephalopathy, dysphasia, anasarca, ascites due to liver cirrhosis Patient is fully awake and oriented and appropriate. He knows he is in the hospital but he thought it is a [place]. He thought his 2020 and could not rememb er the name of the president. His abdomen is significantly distended. No abdominal pain or tenderness. No nausea vomiting. Bowel movement was yesterday 10:00 AM. Did not pass bowel movement or gas since then. Vitals are stable. Blood pressure borderline 98/63, repeated 170/72 CBC is unremarkable, INR is 1.1. Sodium 133, potassium 3.3, creatinine 1.3. Lactic acid is elevated at 3.1. Liver enzymes are normal with AST 35 and ALT 22 and total bilirubin 0.7 CT of the abdomen and pelvis with contrast showing large amount of stool in the rectosigmoid colon which may be resulting in fecal impaction. Rotation of the small and large bowel without transition zone. Right basilar atelectasis or infiltrate 06/23/2021 Patient with no abdominal pain. He had one episode of small amount of loose stool yesterday and 3 episodes prior to hospitalization NG tube was placed today, Follow-up chest x-ray is pending His creatinine improved to 1.0 and lactic acid down to normal at 0.6. Low potassium of 2.8 but replaced per protocol and will change to D5 normal saline with potassium at 50 mL per hour Objective - Vital Signs Vital signs: Vital Signs Temp 97.6 F 06/23/21 07:00 Pulse 105 H 06/23/21 07:00 Resp 15 06/23/21 07:00 BP 101/64 06/23/21 07:00 Pulse Ox 97 06/23/21 07:00 Intake & Output 06/22/21 06/23/21 06/23/21 18:59 06:59 18:59 Weight 88.5 kg Other: # Voids 0 - Exam GENERAL: The patient is alert and oriented x3, not in any acute distress. Well developed, well nourished. HEENT: Pupils are round and equally reacting to light. EOMI. No scleral icterus. No conjunctival pallor. Normocephalic, atraumatic. No pharyngeal erythema. No thyromegaly. CARDIOVASCULAR: S1 and S2 present. No murmurs, rubs, or gallops. PULMONARY: Chest is clear to auscultation, no wheezing or crackles. -ABDOMEN: Soft, nontender, distended, normoactive bowel sounds. No palpable organomegaly. NG tube is placed MUSCULOSKELETAL: No joint swelling or deformity. EXTREMITIES: No cyanosis, clubbing, or pedal edema. NEUROLOGICAL: Gross neurological examination did not reveal any focal deficits. SKIN: No rashes. no petechiae. - Labs CBC & Chem 7: 06/22/21 14:18 06/23/21 02:59 Labs: Abnormal Lab Results - Last 24 Hours (Table) 06/22/21 06/22/21 06/22/21 Range/Units 14:18 14:18 16:40 Sodium 133 L (137-145) mmol/L Potassium 3.3 L (3.5-5.1) mmol/L Carbon Dioxide 18 L (22-30) mmol/L BUN 40 H (9-20) mg/dL Creatinine 1.33 H (0.66-1.25) mg/dL Glucose 123 H (74-99) mg/dL Plasma Lactic Acid Jose 3.1 H* (0.7-2.0) mmol/L Calcium 10.4 H (8.4-10.2) mg/dL Creatine Kinase 44 L (55-170) U/L Ur Leukocyte Esterase Moderate H (Negative) Urine WBC 10 H (0-5) /hpf Hyaline Casts 36 H (0-2) /lpf Urine Mucus Rare H (None) /hpf 06/22/21 06/22/21 06/23/21 Range/Units 17:53 21:18 02:59 Sodium (137-145) mmol/L Potassium 2.8 L (3.5-5.1) mmol/L Carbon Dioxide 19 L (22-30) mmol/L BUN 39 H (9-20) mg/dL Creatinine (0.66-1.25) mg/dL Glucose 104 H (74-99) mg/dL Plasma Lactic Acid Jose 3.1 H* 3.3 H* (0.7-2.0) mmol/L Calcium (8.4-10.2) mg/dL Creatine Kinase (55-170) U/L Ur Leukocyte Esterase (Negative) Urine WBC (0-5) /hpf Hyaline Casts (0-2) /lpf Urine Mucus (None) /hpf 06/23/21 Range/Units 05:42 Sodium (137-145) mmol/L Potassium (3.5-5.1) mmol/L Carbon Dioxide (22-30) mmol/L BUN (9-20) mg/dL Creatinine (0.66-1.25) mg/dL Glucose (74-99) mg/dL Plasma Lactic Acid Jose 0.6 L (0.7-2.0) mmol/L Calcium (8.4-10.2) mg/dL Creatine Kinase (55-170) U/L Ur Leukocyte Esterase (Negative) Urine WBC (0-5) /hpf Hyaline Casts (0-2) /lpf Urine Mucus (None) /hpf Assessment and Plan Assessment: Abdominal distention suspicious for bowel obstruction secondary to fecal impaction. With previous history of sigmoid volvulus Hypokalemia Acute kidney injury, improved History of alcoholic liver cirrhosis with frequent paracentesis History of hepatic encephalopathy History of anasarca and ascites History of alcohol use Cognitive impairment and mild dementia Plan: This is a pleasant 71 years old male who presents with abdominal distention suspicious for bowel obstruction Keep The patient nothing by mouth, with IV fluids and pain management Surgical team consult. We will hold on laxative till Cleared by surgical team for entry indication using such medication Continue with NG tube Labs and medication were reviewed.. Continue same treatment. Continue with symptomatic treatment. Resume home medication. Monitor lytes and vitals. DVT and GI prophylaxis. Further recommendations depends on the clinical course of the patient DVT prophylaxis: Subcutaneous heparin GI Prophylaxis: Pepcid Prognosis is guarded
--- NOTE | 2021-06-23 12:25 | XR ---
EXAMINATION TYPE: XR chest 1V confirm line [facility] DATE OF EXAM: 06/23/2021 COMPARISON: Chest x-ray dated 03/19/2021 HISTORY: NG tube placement TECHNIQUE: Single frontal view of the chest is obtained. FINDINGS: Technique is somewhat apical lordotic. There is an NG tube present along the midline, dista l tip is present in the left upper quadrant, side port distal to be in close proximity to the GE junc tion level. Distended loops of bowel are present within the abdomen. Strand-like densities are presen t at the lung bases. No evident pneumothorax or pleural effusion. Cardiac mediastinal silhouette is s table, and aortic stents. There is a spinal curvature, bone mineralization is reduced. IMPRESSION: NG tube as described, basilar atelectasis
--- NOTE | 2021-06-23 12:46 | P.GSCN ---
<Loida Van - Last Filed: 06/23/21 12:36> History of Present Illness Consult date: 06/23/21 History of present illness: CHIEF COMPLAINT: Abdominal distention HISTORY OF PRESENT ILLNESS: This is a 71-year-old male with prior history of sigmoid volvulus with large bowel obstruction and status post robotic-assisted laparoscopic sigmoid colectomy and lower anterior resection and reduction of sigmoid volvulus with colotomy for decompression in 03/17/[address] Rome. Patient presents back to the hospital with increasing abdominal distention. He had a computed tomography scan of the abdomen and pelvis showing large amount of stool in the rectosigmoid sigmoid colon which may be resulting in fecal impaction. There is dilation of small and large bowel without transition zone. Patient does report having a small bowel movement. He denies any abdominal pain. Denies any nausea or vomiting. PAST MEDICAL HISTORY: Dementia, alcohol liver cirrhosis with prior paracentesis PAST SURGICAL HISTORY: See list. MEDICATIONS: See list. ALLERGIES: See list. SOCIAL HISTORY: No illicit drug use. REVIEW OF SYSTEMS: CONSTITUTIONAL: Denies fever or chills. HEENT: Denies blurred vision, vision changes, or eye pain. Denies hemoptysis ENDOCRINE: Denies heat or cold intolerance. CARDIOVASCULAR: Denies chest pain or pressure. RESPIRATORY: No shortness of breath. GASTROINTESTINAL: Denies abdominal pain. Denies nausea or vomiting. NEURO: Denies history of seizures. PSYCH: No depression or suicidal ideation HEMATOLOGIC: Denies bleeding disorders. LYMPHATIC: The patient denies any lumps and bumps around the neck. GENITOURINARY: Denies any blood in urine or increased urinary frequency. MUSCULOSKELETAL: Denies myalgias. Denies joint swelling. Denies decreased range of motion beyond patients baseline. SKIN: Denies pruitis. Denies rash. PHYSICAL EXAM: VITAL SIGNS: Reviewed GENERAL: Well-developed in no acute distress. HEENT: No sclera icterus. Extraocular movements grossly intact. Moist buccal mucosa. Head is atraumatic, normocephalic. Hears conversational speech. No nasal drainage. NECK: Supple without lymphadenopathy. CHEST: Non-labored respirations and equal bilateral excursions. CARDIOVASCULAR: Palpable 2+ radial pulses. ABDOMEN: Soft. Distended nontender MUSCULOSKELETAL: No clubbing or cyanosis. NEUROLOGIC: No focal or lateralizing signs. Cranial nerves II through XII grossly intact. PSYCH: Appropriate affect. Confused SKIN: Well perfused. Good skin turgor. LABORATORY DATA: WBC is 8.8 hemoglobin is 14.8 platelets 339 INR 1.1 sodium 137 potassium 2.8 creatinine down from 1.33-1.00 Lactic acid 3.3 down to 0.6 LFTs normal Lipase normal Urinalysis with moderate leukocyte Estrace, 10 WBCs COVID-19 not detected IMAGING: Computed tomography scan findings as stated above ASSESSMENT: 1. Ileus likely secondary to hypokalemia 2. Hypokalemia 3. history of sigmoid volvulus with large bowel obstruction and status post robotic-assisted laparoscopic sigmoid colectomy and lower anterior resection and reduction of sigmoid volvulus with colotomy for decompression in 03/17/2021 4. Acute kidney injury 5. Dementia 6. History of alcohol liver cirrhosis PLAN: -Patient is scheduled for colonoscopy decompression with Dr. Toro tomorrow, 06/24/2021 -Keep patient nothing by mouth except for ice chips and popsicles -Continue NG tube for decompression -Continue to replace potassium Thank you for this consultation Physician American Sign Language Interpreter note has been reviewed by physician. Signing provider agrees with the documented findings, assessment, and plan of care. Past Medical History Past Medical History: Liver Disease Additional Past Medical History / Comment(s): hepatic encephalopathy, dysphasia, anasarca, ascites due to liver cirrhosis History of Any Multi-Drug Resistant Organisms: Unobtainable Past Surgical History: Orthopedic Surgery Additional Past Surgical History / Comment(s): previous paracentesis at [facility] 2016, broken hip with rods placed, abdominal surgery in 03/15 Past Psychological History: Depression Smoking Status: Current every day smoker Past Alcohol Use History: Occasional Past Drug Use History: None Reported - Past Family History Mother Family Medical History: Dementia Medications and Allergies Home Medications Medication Instructions Recorded Confirmed Type Acetaminophen Tab [Tylenol] 1,000 mg PO Q8H PRN 04/20/18 06/22/21 History Spironolactone 100 mg PO DAILY 04/20/18 06/22/21 History Acetaminophen [Tylenol Extra 500 mg PO Q6H PRN 03/10/21 06/22/21 History Strength] Furosemide [Lasix] 80 mg PO DAILY 03/10/21 06/22/21 History Melatonin 3 mg PO HS 03/10/21 06/22/21 History Phenyleph/Mineral Oil/Petrolat 1 applic RECTAL Q12H PRN 03/10/21 06/22/21 History [Preparation H Ointment] Sennosides [Senna] 17.2 mg PO HS 03/10/21 06/22/21 History Spironolactone 50 mg PO DAILY 03/10/21 06/22/21 History Pantoprazole Sodium [Protonix] 40 mg PO DAILY #30 tablet. 03/24/21 06/22/21 Rx Lactulose 10 gm PO TID@0700,1300,1900 06/22/21 06/22/21 History Magnesium Hydroxide [Milk of 2,400 mg PO ONCE 06/22/21 06/22/21 History Magnesia] Multivit-Min/FA/Lycopen/Lutein 1 tab PO HS 06/22/21 06/22/21 History [Centrum Silver Tablet] Allergies Allergy/AdvReac Type Severity Reaction Status Date / Time naproxen Allergy Unknown Verified 06/22/21 13:46 tramadol [From Ultram] Allergy Unknown Verified 06/22/21 13:46 Surgical - Exam Vital Signs Pulse Resp BP Pulse Ox 98 16 98/63 96 06/22/21 13:31 06/22/21 13:31 06/22/21 13:31 06/22/21 13:31 Results - Labs 06/22/21 14:18 06/23/21 02:59 Abnormal Lab Results - Last 24 Hours (Table) 06/22/21 06/22/21 06/22/21 Range/Units 14:18 14:18 16:40 Sodium 133 L (137-145) mmol/L Potassium 3.3 L (3.5-5.1) mmol/L Carbon Dioxide 18 L (22-30) mmol/L BUN 40 H (9-20) mg/dL Creatinine 1.33 H (0.66-1.25) mg/dL Glucose 123 H (74-99) mg/dL Plasma Lactic Acid Jose 3.1 H* (0.7-2.0) mmol/L Calcium 10.4 H (8.4-10.2) mg/dL Creatine Kinase 44 L (55-170) U/L Ur Leukocyte Esterase Moderate H (Negative) Urine WBC 10 H (0-5) /hpf Hyaline Casts 36 H (0-2) /lpf Urine Mucus Rare H (None) /hpf 06/22/21 06/22/21 06/23/21 Range/Units 17:53 21:18 02:59 Sodium (137-145) mmol/L Potassium 2.8 L (3.5-5.1) mmol/L Carbon Dioxide 19 L (22-30) mmol/L BUN 39 H (9-20) mg/dL Creatinine (0.66-1.25) mg/dL Glucose 104 H (74-99) mg/dL Plasma Lactic Acid Jose 3.1 H* 3.3 H* (0.7-2.0) mmol/L Calcium (8.4-10.2) mg/dL Creatine Kinase (55-170) U/L Ur Leukocyte Esterase (Negative) Urine WBC (0-5) /hpf Hyaline Casts (0-2) /lpf Urine Mucus (None) /hpf 06/23/21 Range/Units 05:42 Sodium (137-145) mmol/L Potassium (3.5-5.1) mmol/L Carbon Dioxide (22-30) mmol/L BUN (9-20) mg/dL Creatinine (0.66-1.25) mg/dL Glucose (74-99) mg/dL Plasma Lactic Acid Jose 0.6 L (0.7-2.0) mmol/L Calcium (8.4-10.2) mg/dL Creatine Kinase (55-170) U/L Ur Leukocyte Esterase (Negative) Urine WBC (0-5) /hpf Hyaline Casts (0-2) /lpf Urine Mucus (None) /hpf Diabetes panel 06/22/21 06/23/21 Range/Units 14:18 02:59 Sodium 133 L 137 (137-145) mmol/L Potassium 3.3 L 2.8 L (3.5-5.1) mmol/L Chloride 99 106 (98-107) mmol/L Carbon Dioxide 18 L 19 L (22-30) mmol/L BUN 40 H 39 H (9-20) mg/dL Creatinine 1.33 H 1.00 (0.66-1.25) mg/dL Glucose 123 H 104 H (74-99) mg/dL Calcium 10.4 H 9.0 (8.4-10.2) mg/dL AST 35 (17-59) U/L ALT 22 (4-49) U/L Alkaline Phosphatase 111 (38-126) U/L Total Protein 7.2 (6.3-8.2) g/dL Albumin 4.0 (3.5-5.0) g/dL Calcium panel 06/22/21 06/23/21 Range/Units 14:18 02:59 Calcium 10.4 H 9.0 (8.4-10.2) mg/dL Albumin 4.0 (3.5-5.0) g/dL Pituitary panel 06/22/21 06/23/21 Range/Units 14:18 02:59 Sodium 133 L 137 (137-145) mmol/L Potassium 3.3 L 2.8 L (3.5-5.1) mmol/L Chloride 99 106 (98-107) mmol/L Carbon Dioxide 18 L 19 L (22-30) mmol/L BUN 40 H 39 H (9-20) mg/dL Creatinine 1.33 H 1.00 (0.66-1.25) mg/dL Glucose 123 H 104 H (74-99) mg/dL Calcium 10.4 H 9.0 (8.4-10.2) mg/dL Adrenal panel 06/22/21 06/23/21 Range/Units 14:18 02:59 Sodium 133 L 137 (137-145) mmol/L Potassium 3.3 L 2.8 L (3.5-5.1) mmol/L Chloride 99 106 (98-107) mmol/L Carbon Dioxide 18 L 19 L (22-30) mmol/L BUN 40 H 39 H (9-20) mg/dL Creatinine 1.33 H 1.00 (0.66-1.25) mg/dL Glucose 123 H 104 H (74-99) mg/dL Calcium 10.4 H 9.0 (8.4-10.2) mg/dL Total Bilirubin 0.7 (0.2-1.3) mg/dL AST 35 (17-59) U/L ALT 22 (4-49) U/L Alkaline Phosphatase 111 (38-126) U/L Total Protein 7.2 (6.3-8.2) g/dL Albumin 4.0 (3.5-5.0) g/dL <Holly Toro N - Last Filed: 10/02/21 20:12> History of Present Illness History of present illness: CHIEF COMPLAINT: Abdominal distention HISTORY OF PRESENT ILLNESS: The patient is a 71 year old male who comes in with abdominal distention for more than 2 days. Patient has past history of abdominal distention 3 months ago requiring colonoscopy decompression including colectomy due to sigmoid volvulus. Patient reports that his abdominal distention acutely occurred in the past week. He presented with severe hyp okalemia, potassium less than 3.0. Denies any moderate abdominal pain. No recent bowel movements. No fevers or chills. General surgery is consulted for management of ileus. PAST MEDICAL HISTORY: See list and reviewed PAST SURGICAL HISTORY: See list and reviewed MEDICATIONS: See list and reviewed ALLERGIES: See list and reviewed SOCIAL HISTORY: See list and reviewed FAMILY HISTORY: See list and reviewed REVIEW OF ORGAN SYSTEMS: CONSTITUTIONAL: No fevers or chills. EYES: Denies any trouble with vision. Wears glasses. HEENT: No difficulties with hearing. No nosebleeds. No difficulty swallowing. RESPIRATORY: Denies pneumonia. Denies any troubles with breathing or dyspnea on exertion. CARDIOVASCULAR: Hypertensive heart disease with congestive heart failure. GASTROINTESTINAL: Has change in bowel habits and gas bloat. Has history of sigmoid colectomy with sigmoid volvulus. GENITOURINARY: Denies any blood in urine or increased urinary frequency. NEUROLOGICAL: Denies any numbness or tingling along the distal extremities. No seizure disorders or headaches. MUSCULOSKELETAL: Has right hip fracture. SKIN: No current skin cancer. No rash. PSYCHIATRIC: Has dementia. ENDOCRINE: Denies current thyroid disorders. Denies any blood sugar glucose intolerance. HEME/LYMPHATIC: Denies any lumps and bumps around the neck. No recent deep venous thrombosis. ALLERGY/IMMUNOLOGY: No immunoglobulin therapy. No immune deficiencies. BREAST: Denies current breast lumps, pain or nipple discharge. PHYSICAL EXAM: VITALS: Reviewed CONSTITUTIONAL: Well developed and in no acute distress. EYES: Conjuctivae without sclera icterus. Extraocular movements grossly intact. HEAD, EARS, NOSE, THROAT: Moist buccal mucosa. Head is atraumatic, normocephalic. Hears conversational speech. No nasal drainage. NECK: Supple. No JV distention. No thyroidomegaly. RESPIRATORY: Non-labored respirations and equal bilateral excursions. No gross wheezes. CARDIOVASCULAR: Regular rate and rhythm. Palpable 2+ radial pulses. ABDOMEN: No peritonitis. Has moderate abdominal distention. LYMPH: No neck lymphadenopathy. MUSCULOSKELETAL: Nail and fingers with good capillary refill. SKIN: Warm and well perfused with good skin turgor. NEUROLOGIC: Cranial nerves II through XII grossly intact. No focal or lateralizing signs. PSYCH: Appropriate affect. Alert and oriented to person, place and time. Displays appropriate insight. CLINCAL LABS: Reviewed. WBC normal over 8,000. Potassium low at 2.8. IMAGING: Independently reviewed CT of the abdomen pelvis with diffuse ileus and distention of the stomach, small bowel and colon. No signs of obstruction. This is my independent interpretation. RADIOLOGY: Report reviewed. CT of the abdomen and pelvis with stool into sigmoid junction. EKG: Nonspecific ST and T-wave changes. Premature atrial complexes present. ASSESSMENT: 1. Abdominal distention with ileus 2. Hypokalemia PLAN: 1. Recommend placement of NG tube for small bowel large bowel distention and moderate ileus. 2. Correction of hypokalemia. 3. May need colonic decompression pending clinical response Surgical - Exam Vital Signs Pulse Resp BP Pulse Ox 98 16 98/63 96 06/22/21 13:31 06/22/21 13:31 06/22/21 13:31 06/22/21 13:31 Results - Labs 06/22/21 14:18 06/25/21 21:45 Microbiology - Last 24 Hours (Table) 06/26/21 13:05 Urine Culture - Preliminary Urine,Voided Diabetes panel 06/25/21 Range/Units 21:45 Potassium 3.6 (3.5-5.1) mmol/L Pituitary panel 06/25/21 Range/Units 21:45 Potassium 3.6 (3.5-5.1) mmol/L Adrenal panel 06/25/21 Range/Units 21:45 Potassium 3.6 (3.5-5.1) mmol/L Assessment and Plan (1) Ileus Current Visit: Yes Status: Acute Code(s): K56.7 - ILEUS, UNSPECIFIED SNOMED Code(s): 598392903 (2) Dementia Current Visit: Yes Status: Acute Code(s): F03.90 - UNSPECIFIED DEMENTIA WITHOUT BEHAVIORAL DISTURBANCE SNOMED Code(s): 38130046 (3) Closed right hip fracture Current Visit: Yes Status: Acute Code(s): S72.001A - FRACTURE OF UNSP PART OF NECK OF RIGHT FEMUR, INIT SNOMED Code(s): 321961245 (4) Abdominal distention Current Visit: Yes Status: Acute Code(s): R14.0 - ABDOMINAL DISTENSION (GASEOUS) SNOMED Code(s): 64437796 (5) Chronic constipation Current Visit: No Status: Acute Code(s): K59.09 - OTHER CONSTIPATION SNOMED Code(s): 887754494
[2021-06-23] MEDS: SODIUM CHLORIDE 0.9% 1,000 ML IV SCH ×4 (13:47→20:42)
[2021-06-23] MEDS: D5-0.9% NACL WITH KCL 40 MEQ/L 1,000 ML IV SCH (18:31)
[2021-06-24 05:30] LABS: African American GFR (CKD) >90 (>60 ml/min/1.73 sqM); Anion Gap 10 mmol/L; Blood Urea Nitrogen 26 mg/dL (9-20); Calcium 9.4 mg/dL (8.4-10.2); Carbon Dioxide 19 mmol/L (22-30); Chloride 109 mmol/L (98-107); Glucose 90 mg/dL (74-99); Magnesium 2.4 mg/dL (1.6-2.3); Non-African American GFR(CKD) 87 (>60 ml/min/1.73 sqM); Potassium 3.3 mmol/L (3.5-5.1); Sodium 138 mmol/L (137-145)
[2021-06-24] MEDS ORDERED: POTASSIUM CHLORIDE 20 MEQ in WATER FOR INJECTION 1 100ML.BAG IVPB STA (06:00)
[2021-06-24] MEDS: FAMOTIDINE 20 MG/2 ML VIAL IV SCH ×2 (07:07→20:51)
[2021-06-24] MEDS: HEPARIN SODIUM,PORCINE/PF 5,000 UNIT/0.5 ML SYRINGE SQ SCH ×2 (07:08→20:52)
[2021-06-24] MEDS: D5-0.9% NACL WITH KCL 40 MEQ/L 1,000 ML IV SCH (08:40)
[2021-06-24] MEDS ORDERED: SODIUM CHLORIDE 0.9% 500 ML 500 ML IV ONE (08:56)
[2021-06-24] MEDS ORDERED: PROPOFOL 10 MG/ML 20 ML VIAL IV ONE (08:56)
[2021-06-24] MEDS ORDERED: IV FLUID CONTINUATION 1,000 ML IV ONE (08:56)
[2021-06-24] MEDS ORDERED: POTASSIUM CHLORIDE 10 MEQ in WATER FOR INJECTION 1 100ML.BAG IVPB SCH (09:00)
--- NOTE | 2021-06-24 09:11 | P.PN ---
Subjective Progress Note Date: 06/24/21 CHIEF COMPLAINT: Ileus HISTORY OF PRESENT ILLNESS: The patient is a 71-year-old male comes in with severe ileus including severe colonic and small bowel distention. He had severe hyperkalemia and is been treated. Reports his abdominal distention is still present. ROS: No reports of nausea and vomiting. No bowel movements. No fevers or chills. No new chest pain. PHYSICAL EXAM: VITAL SIGNS: Reviewed CONSTITUTIONAL: Well developed and in no acute distress. EYES: Conjuctivae without sclera icterus. Extraocular movements grossly intact. HEAD, EARS, NOSE, THROAT: Moist buccal mucosa. Head is atraumatic, normocephalic. Hears conversational speech. No nasal drainage. NECK: No gross thyroidomegaly. No jugular venous distention. RESPIRATORY: Non-labored respirations and equal bilateral excursions. CARDIOVASCULAR: Palpable 2+ radial pulses. Regular rate. Regular rhythm. ABDOMEN: Tympanic, moderate to severe abdominal distention. MUSCULOSKELETAL: No clubbing. No cyanosis. SKIN: Good skin turgor. Well perfused. NEUROLOGIC: Cranial nerves II through XII grossly intact. No focal or lateralizing signs. PSYCH: Appropriate affect. Alert and oriented to person, place and time. CLINICAL LABS: Reviewed. White blood cell count normal. ASSESSMENT: 1. Severe ileus with severe colonic small bowel distention PLAN: 1. We'll proceed with colonic decompression 2. Patient is elevated risk due to multiple comorbidities Objective - Vital Signs Vital signs: Vital Signs Temp 98 F 06/24/21 07:00 Pulse 70 06/24/21 07:00 Resp 18 06/24/21 07:00 BP 107/59 06/24/21 07:00 Pulse Ox 96 06/24/21 07:00 Intake & Output 06/23/21 06/24/21 06/24/21 18:59 06:59 18:59 Output Total 500 1375 Balance -500 -1375 Output: Gastric Drainage 75 Urine 500 1300 Other: Voiding Method Urinal Urinal Incontinent Incontinent # Voids 1 3 - Labs CBC & Chem 7: 06/22/21 14:18 06/24/21 04:34 Labs: Abnormal Lab Results - Last 24 Hours (Table) 06/23/21 06/24/21 Range/Units 20:32 04:34 Potassium 2.8 L 3.3 L (3.5-5.1) mmol/L Chloride 109 H (98-107) mmol/L Carbon Dioxide 19 L (22-30) mmol/L BUN 26 H (9-20) mg/dL Magnesium 2.4 H (1.6-2.3) mg/dL
--- NOTE | 2021-06-24 09:33 | P.PCN ---
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 ANESTHESIA: MAC. INDICATIONS: The patient is a 71-year-old male who came with severe hypokalemia and clearance of her colonic ileus and distention. Colonoscopy is offered for decompression. Consent was obtained by his legal guardian. Benefits and risks were described and informed consent was obtained. DESCRIPTION OF PROCEDURE: The patient had been brought into the operating room and laid in the left lateral decubitus position. After adequate intravenous sedation, the rectum was examined with 2% lidocaine jelly. External hemorrhoids were encountered. The rectal tone was within normal limits. No lesions were palpated in the rectal vault. An Olympus colonoscope was advanced into an unprepped bowel where colonic decompression over 1000 mL of stool and air was removed from the colon. The colon was desufflated. The patient had tolerated the procedure well. Withdrawal time was over 6 minutes. FINDINGS: Aronchick preparation quality scale 4 (1-5) Internal hemorrhoids, grade 4 External prolapsed hemorrhoids, grade 4 No arteriovenous malformations. No adenomatous polyps. No focal colitis. Colonic decompression over 1000 mL stool and air Abdomen was soft after at the end of the procedure. RECOMMENDATIONS: 1. Continue nasogastric tube for small bowel distention and ileus 2. Findings immediately notified to his legal guardian Romana 3. Correction of hypokalemia for ileus
[2021-06-24] MEDS: POTASSIUM CHLORIDE 10 MEQ in WATER FOR INJECTION 1 100ML.BAG IVPB SCH ×2 (10:20→11:17)
--- NOTE | 2021-06-24 12:58 | P.PN ---
Subjective This is a pleasant 71 years old male from snf/rehab with past medical history of hepatic encephalopathy, dysphasia, anasarca, ascites due to liver cirrhosis Patient is fully awake and oriented and appropriate. He knows he is in the hospital but he thought it is a [place]. He thought his 2020 and could not rememb er the name of the president. His abdomen is significantly distended. No abdominal pain or tenderness. No nausea vomiting. Bowel movement was yesterday 10:00 AM. Did not pass bowel movement or gas since then. Vitals are stable. Blood pressure borderline 98/63, repeated 170/72 CBC is unremarkable, INR is 1.1. Sodium 133, potassium 3.3, creatinine 1.3. Lactic acid is elevated at 3.1. Liver enzymes are normal with AST 35 and ALT 22 and total bilirubin 0.7 CT of the abdomen and pelvis with contrast showing large amount of stool in the rectosigmoid colon which may be resulting in fecal impaction. Rotation of the small and large bowel without transition zone. Right basilar atelectasis or infiltrate 06/23/2021 Patient with no abdominal pain. He had one episode of small amount of loose stool yesterday and 3 episodes prior to hospitalization NG tube was placed today, Follow-up chest x-ray is pending His creatinine improved to 1.0 and lactic acid down to normal at 0.6. Low potassium of 2.8 but replaced per protocol and will change to D5 normal saline with potassium at 50 mL per hour 06/24/2021 Patient abdomen is less distended today but NG tube still in place although there is only a few discharge about 200 mL of pinkish fluid. No abdominal pain but has mild periumbilical tenderness states since admission. Yesterday he underwent decompression colonoscopy with about 1000 L of gas and stool were evacuated. His abdomen is significantly less distended today. His low potassium corrected today up to 3.3, we we are going to recheck it again and replace it. Objective - Vital Signs Vital signs: Vital Signs Temp 98 F 06/24/21 07:00 Pulse 82 06/24/21 10:38 Resp 16 06/24/21 09:38 BP 109/64 06/24/21 10:38 Pulse Ox 95 06/24/21 09:38 Intake & Output 09/29/21 09/30/21 09/30/21 18:59 06:59 18:59 Intake Total 400 Output Total 500 1375 Balance -500 -1375 400 Intake: IV 400 Oral 0 Output: Gastric Drainage 75 Urine 500 1300 Other: Voiding Method Urinal Urinal Incontinent Incontinent # Voids 1 3 - Exam GENERAL: The patient is alert and oriented x3, not in any acute distress. Well developed, well nourished. HEENT: Pupils are round and equally reacting to light. EOMI. No scleral icterus. No conjunctival pallor. Normocephalic, atraumatic. No pharyngeal erythema. No thyromegaly. CARDIOVASCULAR: S1 and S2 present. No murmurs, rubs, or gallops. PULMONARY: Chest is clear to auscultation, no wheezing or crackles. -ABDOMEN: Soft, nontender, distended, normoactive bowel sounds. No palpable organomegaly. NG tube is placed MUSCULOSKELETAL: No joint swelling or deformity. EXTREMITIES: No cyanosis, clubbing, or pedal edema. NEUROLOGICAL: Gross neurological examination did not reveal any focal deficits. SKIN: No rashes. no petechiae. - Labs CBC & Chem 7: 06/22/21 14:18 06/24/21 04:34 Labs: Abnormal Lab Results - Last 24 Hours (Table) 06/23/21 06/24/21 Range/Units 20:32 04:34 Potassium 2.8 L 3.3 L (3.5-5.1) mmol/L Chloride 109 H (98-107) mmol/L Carbon Dioxide 19 L (22-30) mmol/L BUN 26 H (9-20) mg/dL Magnesium 2.4 H (1.6-2.3) mg/dL Assessment and Plan Assessment: Abdominal distention suspicious for bowel obstruction secondary to fecal impaction. Status post decompression colonoscopy on 06/24 Hypokalemia Acute kidney injury, improved History of alcoholic liver cirrhosis with frequent paracentesis History of hepatic encephalopathy History of anasarca and ascites History of alcohol use Cognitive impairment and mild dementia Plan: This is a pleasant 71 years old male who presents with abdominal distention suspicious for bowel obstruction Keep The patient nothing by mouth, with IV fluids and pain management. NG tube still in a Place per surgical team. Surgical team consult R following the patient closely Replaced potassium and monitor potassium and magnesium Per protocol Labs and medication were reviewed.. Continue same treatment. Continue with symptomatic treatment. Resume home medication. Monitor lytes and vitals. DVT and GI prophylaxis. Further recommendations depends on the clinical course of the patient DVT prophylaxis: Subcutaneous heparin GI Prophylaxis: Pepcid Prognosis is guarded
[2021-06-24 14:56] LABS: Appearance,Urine Clear (Clear); Bilirubin,Urine Negative (Negative); Blood,Urine Trace (Negative); Color,Urine Yellow; Glucose,Urine (UA) Negative (Negative); Ketones,Urine Negative (Negative); Leukocyte Esterase,Urine Large (Negative); Mucus,Urine Rare /hpf; Nitrite,Urine Positive (Negative); Protein,Urine Trace (Negative); RBC,Urine 27 /hpf (0-5); Specific Gravity,Urine 1.017 (1.001-1.035); Urobilinogen,Urine <2.0 mg/dL (<2.0); WBC,Urine 26 /hpf (0-5)
[2021-06-24 15:04] LABS: Magnesium 2.5 mg/dL (1.6-2.3); Potassium 3.3 mmol/L (3.5-5.1)
[2021-06-25] MEDS: D5-0.9% NACL WITH KCL 40 MEQ/L 1,000 ML IV SCH (05:22)
[2021-06-25] MEDS: HEPARIN SODIUM,PORCINE/PF 5,000 UNIT/0.5 ML SYRINGE SQ SCH ×2 (09:02→20:13)
[2021-06-25] MEDS: FAMOTIDINE 20 MG/2 ML VIAL IV SCH (09:02)
[2021-06-25 09:59] LABS: African American GFR (CKD) >90 (>60 ml/min/1.73 sqM); Anion Gap 7 mmol/L; Blood Urea Nitrogen 16 mg/dL (9-20); Calcium 9.4 mg/dL (8.4-10.2); Carbon Dioxide 19 mmol/L (22-30); Chloride 116 mmol/L (98-107); Glucose 91 mg/dL (74-99); Non-African American GFR(CKD) 84 (>60 ml/min/1.73 sqM); Potassium 3.1 mmol/L (3.5-5.1); Sodium 142 mmol/L (137-145)
[2021-06-25] MEDS: POTASSIUM CHLORIDE ER 20 MEQ TAB.ER PO SCH ×2 (10:38→12:25)
--- NOTE | 2021-06-25 11:24 | P.PN ---
<EfrenLoida verdin - Last Filed: 06/25/21 11:20> Subjective Progress Note Date: 06/25/21 CHIEF COMPLAINT: Abdominal distention HISTORY OF PRESENT ILLNESS: Surgical service following for colonic ileus and severe distention. He is status post colonoscopy for decompression. Patient denies any abdominal pain. He is still having abdominal distention. Denies any nausea or vomiting. Denies any flatus or BM. Afebrile. Sodium is 142 potassium 3.1 creatinine 0.91 urinalysis positive for UTI. PHYSICAL EXAM: VITAL SIGNS: Reviewed GENERAL: Well-developed in no acute distress. HEENT: No sclera icterus. Extraocular movements grossly intact. Moist buccal mucosa. Head is atraumatic, normocephalic. Hears conversational speech. No nasal drainage. NECK: Supple without lymphadenopathy. CHEST: Non-labored respirations and equal bilateral excursions. CARDIOVASCULAR: Palpable 2+ radial pulses. ABDOMEN: Soft. Distended Nontender. MUSCULOSKELETAL: No clubbing or cyanosis. NEUROLOGIC: No focal or lateralizing signs. Cranial nerves II through XII grossly intact. PSYCH: Appropriate affect. Alert and oriented to person, place and time. SKIN: Well perfused. Good skin turgor. ASSESSMENT: 1. Colonic ileus and severe distention status post colonoscopy for decompression. 2. Lupillo syndrome 3. 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 Signing provider agrees with the documented findings, assessment, and plan of care. Objective - Vital Signs Vital signs: Vital Signs Temp 97.9 F 06/25/21 07:00 Pulse 85 06/25/21 07:00 Resp 18 06/25/21 08:00 BP 107/58 06/25/21 07:00 Pulse Ox 98 06/25/21 07:00 Intake & Output 06/24/21 06/25/21 06/25/21 18:59 06:59 18:59 Intake Total 400 Output Total 201 1200 Balance 199 -1200 Intake: IV 400 Oral 0 Output: Gastric Drainage 950 Urine 100 250 Post Void Residual 100 Stool 1 Other: Voiding Method Urinal Urinal Urinal Incontinent Incontinent Incontinent # Voids 1 2 - Labs CBC & Chem 7: 06/22/21 14:18 06/25/21 08:50 Labs: Abnormal Lab Results - Last 24 Hours (Table) 06/24/21 06/24/21 06/25/21 Range/Units 00:25 12:00 08:50 Potassium 3.3 L 3.1 L (3.5-5.1) mmol/L Chloride 116 H (98-107) mmol/L Carbon Dioxide 19 L (22-30) mmol/L Magnesium 2.5 H (1.6-2.3) mg/dL Urine Protein Trace H (Negative) Urine Blood Trace H (Negative) Ur Leukocyte Esterase Large H (Negative) Urine RBC 27 H (0-5) /hpf Urine WBC 26 H (0-5) /hpf Urine Mucus Rare H (None) /hpf <Holly Toro - Last Filed: 06/26/21 20:16> Subjective CHIEF COMPLAINT: Abdominal distention HISTORY OF PRESENT ILLNESS: The patient is a 71 year old male status post colonic decompression for severe colonic and small bowel ileus. Reports abdomen is less distended. He is passing some flatus. He is having minimal bowel movements. REVIEW OF ORGAN SYSTEMS: No fevers or chills. No nausea and vomiting. PHYSICAL EXAM: VITALS: Reviewed CONSTITUTIONAL: Well developed and in no acute distress. EYES: Conjuctivae without sclera icterus. Extraocular movements grossly intact. HEAD, EARS, NOSE, THROAT: Moist buccal mucosa. Head is atraumatic, normocephalic. RESPIRATORY: Non-labored respirations and equal bilateral excursions. No gross wheezes. CARDIOVASCULAR: Regular rate and rhythm. Palpable 2+ radial pulses. ABDOMEN: No peritonitis. Decreased abdominal distention. MUSCULOSKELETAL: No clubbing cyanosis or edema. SKIN: Warm and well perfused with good skin turgor. NEUROLOGIC: Cranial nerves II through XII grossly intact. No focal or lateralizing signs. PSYCH: Appropriate affect. CLINCAL LABS: Reviewed. Potassium low at 3.1. ASSESSMENT: 1. Abdominal distention with ileus 2. Hypokalemia PLAN: 1. Patient still has chronic hypokalemia aggravating colonic ileus 2. May have clear liquid diet. 3. Discontinue NG tube Objective - Vital Signs Vital signs: Vital Signs Temp 98.3 F 06/26/21 19:52 Pulse 87 06/26/21 19:52 Resp 16 06/26/21 19:52 BP 98/60 06/26/21 19:52 Pulse Ox 96 06/26/21 19:52 Intake & Output 06/26/21 06/26/21 06/27/21 06:59 18:59 06:59 Intake Total 602 Output Total 1300 Balance -1300 602 Intake: Oral 602 Output: Urine 1300 Other: Voiding Method Urinal Incontinent - Labs CBC & Chem 7: 06/22/21 14:18 06/25/21 21:45 Labs: Microbiology - Last 24 Hours (Table) 06/26/21 13:05 Urine Culture - Preliminary Urine,Voided Assessment and Plan (1) Ileus Current Visit: Yes Status: Acute Code(s): K56.7 - ILEUS, UNSPECIFIED SNOMED Code(s): 815227332 (2) Dementia Current Visit: Yes Status: Acute Code(s): F03.90 - UNSPECIFIED DEMENTIA WITHOUT BEHAVIORAL DISTURBANCE SNOMED Code(s): 38696902 (3) Closed right hip fracture Current Visit: Yes Status: Acute Code(s): S72.001A - FRACTURE OF UNSP PART OF NECK OF RIGHT FEMUR, INIT SNOMED Code(s): 361705521 (4) Abdominal distention Current Visit: Yes Status: Acute Code(s): R14.0 - ABDOMINAL DISTENSION (GASEOUS) SNOMED Code(s): 44622036 (5) Chronic constipation Current Visit: No Status: Acute Code(s): K59.09 - OTHER CONSTIPATION SNOMED Code(s): 622266349
[2021-06-25] MEDS: ALVIMOPAN 12 MG CAPSULE PO SCH ×2 (12:25→20:13)
[2021-06-25 13:38] VITALS: BMI 27.2
[2021-06-25] MEDS: POTASSIUM CHLORIDE 10 MEQ in WATER FOR INJECTION 1 100ML.BAG IVPB SCH ×4 (15:49→20:14)
[2021-06-25] MEDS: FAMOTIDINE 20 MG TAB PO SCH (20:14)
[2021-06-26] MEDS: D5-0.9% NACL WITH KCL 40 MEQ/L 1,000 ML IV SCH ×2 (03:05→19:42)
[2021-06-26] MEDS: ALVIMOPAN 12 MG CAPSULE PO SCH (11:23)
[2021-06-26] MEDS: FAMOTIDINE 20 MG TAB PO SCH ×2 (11:23→19:42)
[2021-06-26] MEDS: HEPARIN SODIUM,PORCINE/PF 5,000 UNIT/0.5 ML SYRINGE SQ SCH ×2 (11:23→19:42)
--- NOTE | 2021-06-26 12:11 | P.PN ---
Subjective Progress Note Date: 06/25/21 71 years old male from [facility] with past medical history of hepatic encephalopathy, dysphasia, anasarca, ascites due to liver cirrhosis Patient is fully awake and oriented and appropriate. He knows he is in the hospital but he thought it is a [place]. He thought his 2020 and could not remember the name of the president. His abdomen is significantly distended. No abdominal pain or tenderness. No nausea vomiting. Bowel movement was yesterday 10:00 AM. Did not pass bowel movement or gas since then. Vitals are stable. Blood pressure borderline 98/63, repeated 170/72 CBC is unremarkable, INR is 1.1. Sodium 133, potassium 3.3, creatinine 1.3. Lactic acid is elevated at 3.1. Liver enzymes are normal with AST 35 and ALT 22 and total bilirubin 0.7 CT of the abdomen and pelvis with contrast showing large amount of stool in the rectosigmoid colon which may be resulting in fecal impaction. Rotation of the small and large bowel without transition zone. Right basilar atelectasis or infiltrate Objective - Vital Signs Vital signs: Vital Signs Temp 97.9 F 06/25/21 07:00 Pulse 85 06/25/21 07:00 Resp 18 06/25/21 08:00 BP 107/58 06/25/21 07:00 Pulse Ox 98 06/25/21 07:00 Intake & Output 06/24/21 06/25/21 06/25/21 18:59 06:59 18:59 Intake Total 400 Output Total 201 1200 Balance 199 -1200 Intake: IV 400 Oral 0 Output: Gastric Drainage 950 Urine 100 250 Post Void Residual 100 Stool 1 Other: Voiding Method Urinal Urinal Urinal Incontinent Incontinent Incontinent # Voids 1 2 - Exam GENERAL: The patient is alert and oriented x3, not in any acute distress. Well developed, well nourished. HEENT: Pupils are round and equally reacting to light. EOMI. No scleral icterus. No conjunctival pallor. Normocephalic, atraumatic. No pharyngeal erythema. No thyromegaly. CARDIOVASCULAR: S1 and S2 present. No murmurs, rubs, or gallops. PULMONARY: Chest is clear to auscultation, no wheezing or crackles. -ABDOMEN: Soft, nontender, distended, normoactive bowel sounds. No palpable organomegaly. NG tube is placed MUSCULOSKELETAL: No joint swelling or deformity. EXTREMITIES: No cyanosis, clubbing, or pedal edema. NEUROLOGICAL: Gross neurological examination did not reveal any focal deficits. SKIN: No rashes. no petechiae. - Labs CBC & Chem 7: 06/22/21 14:18 06/25/21 21:45 Labs: Abnormal Lab Results - Last 24 Hours (Table) 06/24/21 06/24/21 06/25/21 Range/Units 00:25 12:00 08:50 Potassium 3.3 L 3.1 L (3.5-5.1) mmol/L Chloride 116 H (98-107) mmol/L Carbon Dioxide 19 L (22-30) mmol/L Magnesium 2.5 H (1.6-2.3) mg/dL Urine Protein Trace H (Negative) Urine Blood Trace H (Negative) Ur Leukocyte Esterase Large H (Negative) Urine RBC 27 H (0-5) /hpf Urine WBC 26 H (0-5) /hpf Urine Mucus Rare H (None) /hpf Assessment and Plan Assessment: Abdominal distention suspicious for bowel obstruction secondary to fecal impaction. Status post decompression colonoscopy on 06/24 Hypokalemia Acute kidney injury, improved History of alcoholic liver cirrhosis with frequent paracentesis History of hepatic encephalopathy History of anasarca and ascites History of alcohol use Cognitive impairment and mild dementia Plan: Keep The patient nothing by mouth, with IV fluids and pain management. NG tube still in a Place per surgical team. Surgical team consult R following the patient closely Replaced potassium and monitor potassium and magnesium Per protocol Labs and medication were reviewed.. Continue same treatment. Continue with symptomatic treatment. Resume home medication. Monitor lytes and vitals. DVT and GI prophylaxis. Further recommendations depends on the clinical course of the patient DVT prophylaxis: Subcutaneous heparin GI Prophylaxis: Pepcid
--- NOTE | 2021-06-26 12:47 | P.PN ---
Progress Note - Text Progress Note Date: 06/26/21 Patient resting comfortably. He denies abdominal pain. He looks grossly distended. On exam vitals are stable. Abdomen is soft distended. Ileus. Patient will be observed closely. If he gets further distended he may need decompressive colonoscopy
[2021-06-26] MEDS ORDERED: ALVIMOPAN 12 MG CAPSULE ONE (23:59)
[2021-06-26] MEDS ORDERED: FAMOTIDINE 20 MG TAB ONE (23:59)
[2021-06-26] MEDS ORDERED: HEPARIN SODIUM,PORCINE/PF 5,000 UNIT/0.5 ML SYRINGE SQ ONE (23:59)
[2021-06-26] MEDS ORDERED: SODIUM CHLORIDE 0.9% 50 ML BAG ONE (23:59)
[2021-06-26] MEDS ORDERED: cefTRIAXone 1 GM VIAL ONE (23:59)
[2021-06-27] MEDS: HEPARIN SODIUM,PORCINE/PF 5,000 UNIT/0.5 ML SYRINGE SQ SCH ×3 (08:31→20:35)
[2021-06-27] MEDS: FAMOTIDINE 20 MG TAB PO SCH ×2 (08:31→20:35)
--- NOTE | 2021-06-27 12:31 | P.PN ---
Progress Note - Text Progress Note Date: 06/27/21 Patient had a large liquid bowel movement this morning and last night. On exam vital signs are stable. Abdomen soft. Abdomen still quite distended. Resolving ileus. Patient will continue receive supportive care.
[2021-06-27 12:56] LABS: African American GFR (CKD) >90 (>60 ml/min/1.73 sqM); Anion Gap 10 mmol/L; Blood Urea Nitrogen 4 mg/dL (9-20); Calcium 8.8 mg/dL (8.4-10.2); Carbon Dioxide 15 mmol/L (22-30); Chloride 115 mmol/L (98-107); Glucose 99 mg/dL (74-99); Non-African American GFR(CKD) >90 (>60 ml/min/1.73 sqM); Potassium 3.3 mmol/L (3.5-5.1); Sodium 140 mmol/L (137-145)
[2021-06-27] MEDS: POTASSIUM CHLORIDE ER 20 MEQ TAB.ER PO SCH ×2 (13:48→14:49)
[2021-06-27] MEDS: D5-0.9% NACL WITH KCL 40 MEQ/L 1,000 ML IV SCH (14:49)
--- NOTE | 2021-06-27 15:13 | P.PN ---
Subjective Progress Note Date: 06/26/21 71 years old male from group home/rehab with past medical history of hepatic encephalopathy, dysphasia, anasarca, ascites due to liver cirrhosis Patient is fully awake and oriented and appropriate. He knows he is in the hospital but he thought it is a [place]. He thought his 2020 and could not remember the name of the president. His abdomen is significantly distended. No abdominal pain or tenderness. No nausea vomiting. Bowel movement was yesterday 10:00 AM. Did not pass bowel movement or gas since then. Vitals are stable. Blood pressure borderline 98/63, repeated 170/72 CBC is unremarkable, INR is 1.1. Sodium 133, potassium 3.3, creatinine 1.3. Lactic acid is elevated at 3.1. Liver enzymes are normal with AST 35 and ALT 22 and total bilirubin 0.7 CT of the abdomen and pelvis with contrast showing large amount of stool in the rectosigmoid colon which may be resulting in fecal impaction. Rotation of the small and large bowel without transition zone. Right basilar atelectasis or infiltrate Objective - Vital Signs Vital signs: Vital Signs Temp 97.7 F 06/26/21 07:48 Pulse 89 06/26/21 07:48 Resp 14 06/26/21 07:48 BP 104/68 06/26/21 07:48 Pulse Ox 97 06/26/21 07:48 Intake & Output 06/25/21 06/26/21 06/26/21 18:59 06:59 18:59 Intake Total 1316 602 Output Total 200 1300 Balance 1116 -1300 602 Weight 88.5 kg Intake: Oral 1316 602 Output: Urine 200 1300 Other: Voiding Method Urinal Urinal Incontinent Incontinent # Voids 1 # Bowel Movements 1 - Exam GENERAL: The patient is alert and oriented x3, not in any acute distress. Well developed, well nourished. HEENT: Pupils are round and equally reacting to light. EOMI. No scleral icterus. No conjunctival pallor. Normocephalic, atraumatic. No pharyngeal erythema. No thyromegaly. CARDIOVASCULAR: S1 and S2 present. No murmurs, rubs, or gallops. PULMONARY: Chest is clear to auscultation, no wheezing or crackles. -ABDOMEN: Soft, nontender, distended, normoactive bowel sounds. No palpable organomegaly. NG tube is placed MUSCULOSKELETAL: No joint swelling or deformity. EXTREMITIES: No cyanosis, clubbing, or pedal edema. NEUROLOGICAL: Gross neurological examination did not reveal any focal deficits. SKIN: No rashes. no petechiae. - Labs CBC & Chem 7: 06/22/21 14:18 06/25/21 21:45 Labs: Abnormal Lab Results - Last 24 Hours (Table) 06/25/21 Range/Units 13:57 Potassium 3.1 L (3.5-5.1) mmol/L Assessment and Plan Assessment: Abdominal distention suspicious for bowel obstruction secondary to fecal impaction. Status post decompression colonoscopy on 06/24 Hypokalemia Acute kidney injury, improved History of alcoholic liver cirrhosis with frequent paracentesis History of hepatic encephalopathy History of anasarca and ascites History of alcohol use Cognitive impairment and mild dementia Plan: Keep The patient nothing by mouth, with IV fluids and pain management. NG tube still in a Place per surgical team. Surgical team consult R following the patient closely Replaced potassium and monitor potassium and magnesium Per protocol Labs and medication were reviewed.. Continue same treatment. Continue with symptomatic treatment. Resume home medication. Monitor lytes and vitals. DVT and GI prophylaxis. Further recommendations depends on the clinical course of the patient DVT prophylaxis: Subcutaneous heparin GI Prophylaxis: Pepcid
--- NOTE | 2021-06-27 15:37 | P.PN ---
Subjective Progress Note Date: 06/27/21 Principal diagnosis: Ileus versus SBO Status post decompression colonoscopy on 06/24 Hypokalemia AK I 71 years old male from [facility]hab with past medical history of hepatic encephalopathy, dysphasia, anasarca, ascites due to liver cirrhosis Patient is fully awake and oriented and appropriate. He knows he is in the hosp ital but he thought it is a [place]. He thought his 2020 and could not remember the name of the president. His abdomen is significantly distended. No abdominal pain or tenderness. No nausea vomiting. Bowel movement was yesterday 10:00 AM. Did not pass bowel movement or gas since then. Vitals are stable. Blood pressure borderline 98/63, repeated 170/72 CBC is unremarkable, INR is 1.1. Sodium 133, potassium 3.3, creatinine 1.3. Lactic acid is elevated at 3.1. Liver enzymes are normal with AST 35 and ALT 22 and total bilirubin 0.7 CT of the abdomen and pelvis with contrast showing large amount of stool in the rectosigmoid colon which may be resulting in fecal impaction. Rotation of the small and large bowel without transition zone. Right basilar atelectasis or infiltrate 06/27/2021 Patient is seen and evaluated dressing comfortably in bed; does report a large bowel movement this morning and last night Abdomen remains distended but soft; vital signs are reviewed and are stable; labs are reviewed and reveal a potassium of 3.3; we will supplement with IV potassium; urine culture is reviewed and is negative; we will plan to discontinue Rocephin after 5 day empiric treatment -- general surgery is following and recommending to continue with the clinic w [facility] diet and supportive care; patient encouraged to increase ambulation Objective - Vital Signs Vital signs: Vital Signs Temp 97.4 F L 06/27/21 07:21 Pulse 80 06/27/21 07:21 Resp 18 06/27/21 08:00 BP 95/58 06/27/21 07:21 Pulse Ox 89 L 06/27/21 07:21 Intake & Output 06/26/21 06/27/21 06/27/21 18:59 06:59 18:59 Intake Total 602 180 Output Total 1 601 Balance 602 -1 -421 Intake: Oral 602 180 Output: Urine 600 Stool 1 1 Other: Voiding Method Urinal Urinal Incontinent Incontinent # Voids 3 0 # Bowel Movements 1 0 - Exam GENERAL: The patient is alert and oriented x3, not in any acute distress. Well developed, well nourished. HEENT: Pupils are round and equally reacting to light. EOMI. No scleral icterus. No conjunctival pallor. Normocephalic, atraumatic. No pharyngeal erythema. No thyromegaly. CARDIOVASCULAR: S1 and S2 present. No murmurs, rubs, or gallops. PULMONARY: Chest is clear to auscultation, no wheezing or crackles. -ABDOMEN: Soft, nontender, distended, normoactive bowel sounds. No palpable organomegaly. NG tube is placed MUSCULOSKELETAL: No joint swelling or deformity. EXTREMITIES: No cyanosis, clubbing, or pedal edema. NEUROLOGICAL: Gross neurological examination did not reveal any focal deficits. SKIN: No rashes. no petechiae. - Labs CBC & Chem 7: 06/22/21 14:18 06/27/21 11:39 Labs: Microbiology - Last 24 Hours (Table) 06/26/21 13:05 Urine Culture - Preliminary Urine,Voided Assessment and Plan Assessment: Abdominal distention suspicious for bowel obstruction secondary to fecal impaction. Status post decompression colonoscopy on 06/24 Hypokalemia Acute kidney injury, improved History of alcoholic liver cirrhosis with frequent paracentesis History of hepatic encephalopathy History of anasarca and ascites History of alcohol use Cognitive impairment and mild dementia Plan: Keep The patient nothing by mouth, with IV fluids and pain management. NG tube still in a Place per surgical team. Surgical team consult R following the patient closely Replaced potassium and monitor potassium and magnesium Per protocol Labs and medication were reviewed.. Continue same treatment. Continue with symptomatic treatment. Resume home medication. Monitor lytes and vitals. DVT and GI prophylaxis. Further recommendations depends on the clinical course of the patient DVT prophylaxis: Subcutaneous heparin GI Prophylaxis: Pepcid
[2021-06-27] MEDS ORDERED: POTASSIUM CHLORIDE 20 MEQ in WATER FOR INJECTION 1 100ML.BAG IVPB STA (15:38)
[2021-06-28] MEDS: HEPARIN SODIUM,PORCINE/PF 5,000 UNIT/0.5 ML SYRINGE SQ SCH ×2 (08:26→20:39)
[2021-06-28] MEDS: FAMOTIDINE 20 MG TAB PO SCH ×2 (08:26→20:39)
[2021-06-28 09:09] LABS: African American GFR (CKD) 100.7 (60.0-200.0); Anion Gap 12.6 mmol/L (4.00-12.00); BUN/Creat Ratio 3.67 Ratio (12.00-20.00); Blood Urea Nitrogen 3.1 mg/dL (9.0-27.0); Calcium 8.7 mg/dL (8.7-10.3); Non-African American GFR(CKD) 86.8 (60.0-200.0); Potassium 3.2 mmol/L (3.5-5.5)
[2021-06-28] MEDS: POTASSIUM CHLORIDE ER 20 MEQ TAB.ER PO SCH ×4 (10:07→20:39)
--- NOTE | 2021-06-28 11:02 | XR ---
KUB HISTORY: Abdominal distention KUB submitted on [address] to CT scan 06/22/2021 The marked colonic distention is again noted. Metallic density in the left upper quadrant could be re lated to retained barium. Postop changes are again noted to the right hip. Resorption of the femoral head noted. There are prostate calcifications present. Exam is somewhat limited technically. There ar e degenerative disc changes in the visualized spine, spinal curvature is noted. Bone mineralization i s reduced. No definite pneumoperitoneum. IMPRESSION: Persistent colonic distention, correlate to exclude obstruction
--- NOTE | 2021-06-28 11:23 | P.PN ---
Subjective This is a pleasant 71 years old male from [facility] with past medical history of hepatic encephalopathy, dysphasia, anasarca, ascites due to liver cirrhosis Patient is fully awake and oriented and appropriate. He knows he is in the hospital but he thought it is a [place]. He thought his 2020 and could not rememb er the name of the president. His abdomen is significantly distended. No abdominal pain or tenderness. No nausea vomiting. Bowel movement was yesterday 10:00 AM. Did not pass bowel movement or gas since then. Vitals are stable. Blood pressure borderline 98/63, repeated 170/72 CBC is unremarkable, INR is 1.1. Sodium 133, potassium 3.3, creatinine 1.3. Lactic acid is elevated at 3.1. Liver enzymes are normal with AST 35 and ALT 22 and total bilirubin 0.7 CT of the abdomen and pelvis with contrast showing large amount of stool in the rectosigmoid colon which may be resulting in fecal impaction. Rotation of the small and large bowel without transition zone. Right basilar atelectasis or infiltrate Patient is status post decompression colonoscopy with about 1000 L of gas and stool were evacuated On 06/23, Yesterday he had big bowel movement and passing gas. However today his abdomen is still significantly distended. UB showing persistent abdominal distention and possible bowel obstruction. The tube and patient is on liquid diet. No abdominal pain. Patient did not pass gas or stool today. He is hemodynamically stable. Low potassium of 3.2 his been replaced, we will at 10 mEq daily from tomorrow. Surgical team on the case Discussed with staff Objective - Vital Signs Vital signs: Vital Signs Temp 97.8 F 06/28/21 08:00 Pulse 83 06/28/21 08:00 Resp 18 06/28/21 08:00 BP 106/68 06/28/21 08:00 Pulse Ox 98 06/28/21 08:00 Intake & Output 06/27/21 06/28/21 06/28/21 18:59 06:59 18:59 Intake Total 750 500 Output Total 1601 1000 200 Balance -851 -1000 300 Intake: IV 450 D5-0.9% NaCl with KCl 40 400 Meq/l 1,000 ml @ 50 mls/ hr IV .Q20H [facility] Rx#: [id number] cefTRIAXone 1 gm In 50 Sodium Chloride 0.9% 50 ml @ 100 mls/hr IVPB Q24HR [facility] Rx#:[id number] Oral 300 500 Output: Urine 1600 1000 200 Stool 1 Other: Voiding Method Urinal Urinal Urinal Incontinent # Voids 0 # Bowel Movements 1 - Exam GENERAL: The patient is alert and oriented x3, not in any acute distress. Well developed, well nourished. HEENT: Pupils are round and equally reacting to light. EOMI. No scleral icterus. No conjunctival pallor. Normocephalic, atraumatic. No pharyngeal erythema. No thyromegaly. CARDIOVASCULAR: S1 and S2 present. No murmurs, rubs, or gallops. PULMONARY: Chest is clear to auscultation, no wheezing or crackles. -ABDOMEN: Soft, nontender, distended, normoactive bowel sounds. No palpable organomegaly. MUSCULOSKELETAL: No joint swelling or deformity. EXTREMITIES: No cyanosis, clubbing, or pedal edema. NEUROLOGICAL: Gross neurological examination did not reveal any focal deficits. SKIN: No rashes. no petechiae. - Labs CBC & Chem 7: 06/22/21 14:18 06/28/21 05:05 Labs: Abnormal Lab Results - Last 24 Hours (Table) 06/27/21 06/28/21 Range/Units 11:39 05:05 Potassium 3.3 L 3.2 L (3.5-5.1) mmol/L Chloride 115 H 117 H (98-107) mmol/L Carbon Dioxide 15 L 11.0 L (22-30) mmol/L Anion Gap 12.60 H (4.00-12.00) mmol/L BUN 4 L 3.1 L (9-20) mg/dL BUN/Creatinine Ratio 3.67 L (12.00-20.00) Ratio Microbiology - Last 24 Hours (Table) 06/26/21 13:05 Urine Culture - Final Urine,Voided Assessment and Plan Assessment: Abdominal distention suspicious for bowel obstruction secondary to fecal impaction. Status post decompression colonoscopy on 06/24 Hypokalemia Acute kidney injury, improved History of alcoholic liver cirrhosis with frequent paracentesis History of hepatic encephalopathy History of anasarca and ascites History of alcohol use Cognitive impairment and mild dementia Plan: This is a pleasant 71 years old male who presents with abdominal distention suspicious for bowel obstruction Keep The patient on liquid diet, with IV fluids and pain management. Surgical team consult R following the patient closely Replaced potassium and monitor potassium and magnesium Per protocol Labs and medication were reviewed.. Continue same treatment. Continue with symptomatic treatment. Resume home medication. Monitor lytes and vitals. DVT and GI prophylaxis. Further recommendations depends on the clinical course of the patient DVT prophylaxis: Subcutaneous heparin GI Prophylaxis: Pepcid Prognosis is guarded
[2021-06-28] MEDS ORDERED: POTASSIUM CHLORIDE ER 20 MEQ TAB.ER PO STA (12:59)
--- NOTE | 2021-06-28 13:00 | P.PN ---
Subjective Progress Note Date: 06/28/21 CHIEF COMPLAINT: Abdominal distention HISTORY OF PRESENT ILLNESS: Surgical service following for colonic ileus and severe distention. He is status post colonoscopy for decompression. Patient denies any abdominal pain. He is still having abdominal distention. Denies any nausea or vomiting. He did have a bowel movement yesterday. His potassium is being replaced again. Afebrile. Sodium 141 potassium 3.2 BUN 3.1 and creatinine 0.9 PHYSICAL EXAM: VITAL SIGNS: Reviewed GENERAL: Well-developed in no acute distress. HEENT: No sclera icterus. Extraocular movements grossly intact. Moist buccal mucosa. Head is atraumatic, normocephalic. Hears conversational speech. No nasal drainage. NECK: Supple without lymphadenopathy. CHEST: Non-labored respirations and equal bilateral excursions. CARDIOVASCULAR: Palpable 2+ radial pulses. ABDOMEN: Soft. Distended Nontender. MUSCULOSKELETAL: No clubbing or cyanosis. NEUROLOGIC: No focal or lateralizing signs. Cranial nerves II through XII g rossly intact. PSYCH: Appropriate affect. Alert and oriented to person, place and time. SKIN: Well perfused. Good skin turgor. ASSESSMENT: 1. Colonic ileus and severe distention status post colonoscopy for decompression. 2. Lupillo syndrome 3. Hypokalemia PLAN: -Continue clear liquid diet -Correction of potassium for ileus -We'll give an additional potassium 20 mEq po 1 -Increase activity level Physician Quarry Supervisor Dimension Stone note has been reviewed by physician. Signing provider agrees with the documented findings, assessment, and plan of care. Objective - Vital Signs Vital signs: Vital Signs Temp 97.8 F 06/28/21 08:00 Pulse 83 06/28/21 08:00 Resp 18 06/28/21 08:00 BP 106/68 06/28/21 08:00 Pulse Ox 98 06/28/21 08:00 Intake & Output 06/27/21 06/28/21 06/28/21 18:59 06:59 18:59 Intake Total 750 500 Output Total 1601 1000 200 Balance -851 -1000 300 Intake: IV 450 D5-0.9% NaCl with KCl 40 400 Meq/l 1,000 ml @ 50 mls/ hr IV .Q20H XOCHITL Rx#: [id number] cefTRIAXone 1 gm In 50 Sodium Chloride 0.9% 50 ml @ 100 mls/hr IVPB Q24HR XOCHITL Rx#:[id number] Oral 300 500 Output: Urine 1600 1000 200 Stool 1 Other: Voiding Method Urinal Urinal Urinal Incontinent # Voids 0 # Bowel Movements 1 - Labs CBC & Chem 7: 06/22/21 14:18 06/28/21 05:05 Labs: Abnormal Lab Results - Last 24 Hours (Table) 06/27/21 06/28/21 Range/Units 11:39 05:05 Potassium 3.3 L 3.2 L (3.5-5.1) mmol/L Chloride 115 H 117 H (98-107) mmol/L Carbon Dioxide 15 L 11.0 L (22-30) mmol/L Anion Gap 12.60 H (4.00-12.00) mmol/L BUN 4 L 3.1 L (9-20) mg/dL BUN/Creatinine Ratio 3.67 L (12.00-20.00) Ratio Microbiology - Last 24 Hours (Table) 06/26/21 13:05 Urine Culture - Final Urine,Voided
[2021-06-28] MEDS: 0.9% NACL WITH KCL 20 MEQ/L 1,000 ML IV SCH (17:51)
[2021-06-28] MEDS: D5-0.9% NACL WITH KCL 40 MEQ/L 1,000 ML IV SCH (21:28)
[2021-06-28 22:22] LABS: HGB 13.5 gm/dL (13.0-17.5); Hypochromasia Moderate; MCH 30.1 pg (25.0-35.0); MCHC 30.8 g/dL (31.0-37.0); Mean Platelet Volume 10.9; Platelet Count 221 k/uL (150-450); RBC 4.49 m/uL (4.30-5.90); RDW 15.2 % (11.5-15.5); WBC 5.7 k/uL (3.8-10.6)
[2021-06-28 22:26] LABS: MCV 97.8 fL (80.0-100.0)
[2021-06-29 00:18] LABS: Band Neutrophils % 6 %; Eosinophils # (M) 0.17 k/uL (0-0.7); Lymphocytes # (M) 2.57 k/uL (1.0-4.8); Monocytes # (M) 0.34 k/uL (0-1.0); Neutrophils % (M) 40 %; Nucleated Red Blood Cells 0 /100 WBC (0-0); Total Cells Counted 100
[2021-06-29 00:20] LABS: Poikilocytosis (M) Present
[2021-06-29 00:21] LABS: Anisocytosis (M) Present
[2021-06-29 01:09] LABS: African American GFR (CKD) >90 (>60 ml/min/1.73 sqM); Anion Gap 7 mmol/L; Blood Urea Nitrogen <2 mg/dL (9-20); Calcium 8.9 mg/dL (8.4-10.2); Carbon Dioxide 14 mmol/L (22-30); Chloride 119 mmol/L (98-107); Glucose 100 mg/dL (74-99); Non-African American GFR(CKD) 87 (>60 ml/min/1.73 sqM); Potassium 3.3 mmol/L (3.5-5.1); Sodium 140 mmol/L (137-145)
[2021-06-29] MEDS: POTASSIUM CHLORIDE ER 20 MEQ TAB.ER PO SCH ×2 (02:01→03:10)
[2021-06-29] MEDS: 0.9% NACL WITH KCL 20 MEQ/L 1,000 ML IV SCH ×2 (05:38→21:26)
[2021-06-29 06:18] LABS: Anion Gap 11 mmol/L; Blood Urea Nitrogen <2 mg/dL (9-20); Chloride 123 mmol/L (98-107); Glucose 95 mg/dL (74-99); Potassium 4.2 mmol/L (3.5-5.1); Sodium 142 mmol/L (137-145)
[2021-06-29 06:19] LABS: African American GFR (CKD) >90 (>60 ml/min/1.73 sqM); Magnesium 2.2 mg/dL (1.6-2.3); Non-African American GFR(CKD) 88 (>60 ml/min/1.73 sqM)
[2021-06-29 06:20] LABS: Carbon Dioxide 8 mmol/L (22-30)
[2021-06-29 07:20] LABS: ABG Base Excess -16.7 mmol/L; ABG Oxygen Saturation 97.7 % (94-97); ABG PCO2 23 mmHg (35-45); ABG PH 7.26 (7.35-7.45); ABG PO2 97 mmHg (83-108); ABG TCO2 11 mmol/L (19-24); Allen Test Performed? Yes
[2021-06-29 07:29] LABS: ABG HCO3 10 mmol/L (21-25)
[2021-06-29] MEDS: FAMOTIDINE 20 MG TAB PO SCH ×2 (08:07→21:26)
[2021-06-29] MEDS: HEPARIN SODIUM,PORCINE/PF 5,000 UNIT/0.5 ML SYRINGE SQ SCH ×2 (08:07→21:26)
[2021-06-29] MEDS: POTASSIUM CHLORIDE ER 10 MEQ TAB.ER.PRT PO SCH (08:07)
[2021-06-29 09:09] LABS: Albumin 2.9 g/dL (3.5-5.0); Albumin/Globulin Ratio 0.9; Bilirubin,Unconjugated 0.1 mg/dL (0.0-1.1); Globulin 3.1 g/dL; Total Bilirubin 0.3 mg/dL (0.2-1.3)
[2021-06-29 10:29] LABS: Basophils # (A) 0.08 X 10*3/uL (0.00-0.10); Basophils % (A) 1.1 %; Eosinophils # (A) 0.25 X 10*3/uL (0.04-0.35); Eosinophils % (A) 3.3 %; HCT 44.5 % (39.6-50.0); HGB 13.8 g/dL (13.0-17.0); Lymphocytes # (A) 2.55 X 10*3/uL (0.90-5.00); Lymphocytes % (A) 33.9 %; MCH 28.6 pg (27.0-32.0); MCV 92.3 fL (80.0-97.0); Mean Platelet Volume 9.7 fL (9.5-12.2); Monocytes # (A) 0.44 X 10*3/uL (0.20-1.00); Monocytes % (A) 5.8 %; Neutrophils # (A) 4.08 X 10*3/uL (1.80-7.70); Neutrophils % (A) 54.2 %; Platelet Count 267 X 10*3/uL (140-440); RBC 4.82 X 10*6/uL (4.40-5.60); RDW 16.9 % (11.5-14.5); WBC 7.53 X 10*3/uL (4.50-10.00)
[2021-06-29] MEDS ORDERED: PROPOFOL 10 MG/ML 20 ML VIAL IV ONE (14:19)
--- NOTE | 2021-06-29 14:21 | P.PN ---
Subjective This is a pleasant 71 years old male from [facility] with past medical history of hepatic encephalopathy, dysphasia, anasarca, ascites due to liver cirrhosis Patient is fully awake and oriented and appropriate. He knows he is in the hospital but he thought it is a [place]. He thought his 2020 and could not rememb er the name of the president. His abdomen is significantly distended. No abdominal pain or tenderness. No nausea vomiting. Bowel movement was yesterday 10:00 AM. Did not pass bowel movement or gas since then. Vitals are stable. Blood pressure borderline 98/63, repeated 170/72 CBC is unremarkable, INR is 1.1. Sodium 133, potassium 3.3, creatinine 1.3. Lactic acid is elevated at 3.1. Liver enzymes are normal with AST 35 and ALT 22 and total bilirubin 0.7 CT of the abdomen and pelvis with contrast showing large amount of stool in the rectosigmoid colon which may be resulting in fecal impaction. Rotation of the small and large bowel without transition zone. Right basilar atelectasis or infiltrate Patient is status post decompression colonoscopy with about 1000 L of gas and stool were evacuated On 06/23, Yesterday he had big bowel movement and passing gas. However today his abdomen is still significantly distended. UB showing persistent abdominal distention and possible bowel obstruction. The tube and patient is on liquid diet. No abdominal pain. Patient did not pass gas or stool today. He is hemodynamically stable. Low potassium of 3.2 his been replaced, we will at 10 mEq daily from tomorrow. Surgical team on the case Discussed with staff 06/29/2021 Abdomen is even more distended today although it is painless, he still on liquid diet, he had small bowel movement today but not passing gas. Other than that he looks awake and alert with no other complaints. Vitals are stable CBC and BMP are unremarkable and potassium 4.2 today. However carbon dioxide to his laws 8, pH is low at 7.2. Nephrology consult is appreciated and patient was started on bicarb drip Surgery team are planning for another colonic decompression today Objective - Vital Signs Vital signs: Vital Signs Temp 97.8 F 06/29/21 07:29 Pulse 80 06/29/21 07:29 Resp 18 06/29/21 08:00 BP 127/86 06/29/21 07:29 Pulse Ox 98 06/29/21 07:29 Intake & Output 06/28/21 06/29/21 06/29/21 18:59 06:59 18:59 Intake Total 680 Output Total 500 700 Balance 180 -700 Weight 88.5 kg Intake: Oral 680 Output: Urine 500 700 Other: Voiding Method Urinal Urinal Urinal - Exam GENERAL: The patient is alert and oriented x3, not in any acute distress. Well developed, well nourished. HEENT: Pupils are round and equally reacting to light. EOMI. No scleral icterus. No conjunctival pallor. Normocephalic, atraumatic. No pharyngeal erythema. No thyromegaly. CARDIOVASCULAR: S1 and S2 present. No murmurs, rubs, or gallops. PULMONARY: Chest is clear to auscultation, no wheezing or crackles. -ABDOMEN: Soft, nontender, distended, normoactive bowel sounds. No palpable organomegaly. MUSCULOSKELETAL: No joint swelling or deformity. EXTREMITIES: No cyanosis, clubbing, or pedal edema. NEUROLOGICAL: Gross neurological examination did not reveal any focal deficits. SKIN: No rashes. no petechiae. - Labs CBC & Chem 7: 06/29/21 05:16 06/29/21 05:16 Labs: Abnormal Lab Results - Last 24 Hours (Table) 06/28/21 06/29/21 06/29/21 Range/Units 13:04 00:46 05:16 MCHC 30.8 L 31.0 L (31.0-37.0) g/dL RDW 16.9 H (11.5-14.5) % Immature Gran # 0.13 H (0.00-0.04) X 10*3/uL ABG pH (7.35-7.45) ABG pCO2 (35-45) mmHg ABG HCO3 (21-25) mmol/L ABG Total CO2 (19-24) mmol/L ABG O2 Saturation (94-97) % Potassium 3.3 L (3.5-5.1) mmol/L Chloride 119 H (98-107) mmol/L Carbon Dioxide 14 L (22-30) mmol/L BUN <2 L (9-20) mg/dL Glucose 100 H (74-99) mg/dL Total Protein (6.3-8.2) g/dL Albumin (3.5-5.0) g/dL 06/29/21 06/29/21 06/29/21 Range/Units 05:16 07:15 08:26 MCHC (31.0-37.0) g/dL RDW (11.5-14.5) % Immature Gran # (0.00-0.04) X 10*3/uL ABG pH 7.26 L (7.35-7.45) ABG pCO2 23 L (35-45) mmHg ABG HCO3 10 L* (21-25) mmol/L ABG Total CO2 11 L (19-24) mmol/L ABG O2 Saturation 97.7 H (94-97) % Potassium (3.5-5.1) mmol/L Chloride 123 H (98-107) mmol/L Carbon Dioxide 8 L* (22-30) mmol/L BUN <2 L (9-20) mg/dL Glucose (74-99) mg/dL Total Protein 6.0 L (6.3-8.2) g/dL Albumin 2.9 L (3.5-5.0) g/dL Assessment and Plan Assessment: Abdominal distention suspicious for bowel obstruction secondary to fecal impaction. Status post decompression colonoscopy on 06/24 Hypokalemia, improving Metabolic acidosis Acute kidney injury, improved History of alcoholic liver cirrhosis with frequent paracentesis History of hepatic encephalopathy History of anasarca and ascites History of alcohol use Cognitive impairment and mild dementia Plan: This is a pleasant 71 years old male who presents with abdominal distention suspicious for bowel obstruction Keep The patient on liquid diet, with IV fluids and pain management. Surgical team consult R following the patient closely Replaced potassium and monitor potassium and magnesium Per protocol Continue with sodium bicarb drip. Bark Fitter. Labs and medication were reviewed.. Continue same treatment. Continue with symptomatic treatment. Resume home medication. Monitor lytes and vitals. DVT and GI prophylaxis. Further recommendations depends on the clinical course of the patient DVT prophylaxis: Subcutaneous heparin GI Prophylaxis: Pepcid Prognosis is guarded
[2021-06-29] MEDS ORDERED: LACTATED RINGERS 1,000 ML IV ONE (14:26)
--- NOTE | 2021-06-29 15:05 | P.PCN ---
Date of Procedure: 06/29/21 Description of Procedure: PREOPERATIVE DIAGNOSIS: Severe colonic distention with abdominal pain Lupillo syndrome POSTOPERATIVE DIAGNOSIS: Severe colonic distention with abdominal pain Lupillo syndrome PERATION: 1. Colonoscopy for decompression 2. Decompression of 3500 mL, 8 pounds fluid removed from colon SURGEON: Holly Toro MD. ANESTHESIA: MAC. INDICATIONS: The patient is a 71-year-old male with severe colonic distention and abdominal pain. Colonoscopy is offered for decompression. Consent was obtained by his legal guardian. Benefits and risks were described and informed consent was obtained. DESCRIPTION OF PROCEDURE: The patient had been brought into the operating room and laid in the left lateral decubitus position. After adequate intravenous sedation, the rectum was examined with 2% lidocaine jelly. External hemorrhoids were encountered. The rectal tone was within normal limits. No lesions were palpated in the rectal vault. An Olympus colonoscope was advanced into an unprepped bowel where colonic decompression over 3500 mL of stool and air was removed from the colon. Bloody effluent was identified. The colon was desufflated. The patient had tolerated the procedure well. Withdrawal time was over 6 minutes. FINDINGS: Aronchick preparation quality scale 2 (1-5) Internal hemorrhoids, grade 4 External prolapsed hemorrhoids, grade 4 No arteriovenous malformations. No adenomatous polyps. No focal colitis. Colonic decompression over 3500mL stool and air Abdomen was soft after at the end of the procedure. RECOMMENDATIONS: 1. After discussion with patient's legal guardian, subtotal colectomy described with possible ostomy. 2. Nasogastric tube placed per anesthesia for ileus 3. May have patient's popsicle
--- NOTE | 2021-06-29 16:06 | XR ---
EXAMINATION TYPE: XR chest 1V confirm line [facility] DATE OF EXAM: 06/29/2021 COMPARISON: Chest x-ray 06/23/2021 HISTORY: NG tube placement TECHNIQUE: Single frontal view of the chest is obtained. FINDINGS: NG tube is present in the midline, distal tip is in the region of the distal thoracic esop hagus, side port is present within the distal esophagus. No other significant interval change. IMPRESSION: NG tube is likely within the thoracic esophagus.
[2021-06-29] MEDS: SIMETHICONE 40 MG/0.6 ML DROPS 2,000 MG/30 ML BOTTLE PO SCH ×2 (17:39→21:25)
[2021-06-29] MEDS: DEXTROSE 5% IN WATER 1,000 ML with SODIUM BICARB (1 MEQ/ML) 150 ML IV SCH (17:41)
--- NOTE | 2021-06-29 18:29 | CONS ---
CONSULTATION REASON FOR CONSULT: Metabolic acidosis. HISTORY OF PRESENT ILLNESS: Patient is a 71-year-old male who was initially admitted to the hospital on 06/22/2021 with complaints of abdominal pain and distention. Patient does have a history of liver cirrhosis with ascites and anasarca with history of hepatic encephalopathy. Patient was found to have fecal impaction. Patient had colonoscopy and decompression on 06/24/2021. Patient was taken back for colonoscopy today and had another colonoscopy for decompression; 3500 mL of fluid was removed from the colon. Patient has developed worsening acidosis with CO2 at 8 on labs from today. Serum creatinine was 0.8. Admission CO2 on labs was about 19 to 18. Patient denies any diarrhea. He is not maintained on Glucophage during this hospitalization. He has had hypokalemia, which was replaced. PAST MEDICAL HISTORY: Significant for chronic liver disease, liver cirrhosis, ascites, hepatic encephalopathy. PAST SURGICAL HISTORY: Previous history of paracentesis, hip surgery. SOCIAL HISTORY: Positive for smoking. MEDICATIONS: Medications prior to admission included Tylenol, spironolactone, Lasix, Senna, Protonix, magnesium, hydroxide. ALLERGIES: ALLERGIES include NAPROSYN and TRAMADOL. REVIEW OF SYSTEMS: As per HPI. Patient has not had a bowel movement again. There is no chest pain or shortness of breath. He has abdominal discomfort. No active bleeding noted. PHYSICAL EXAMINATION: Blood pressure this morning was 127/86, heart rate 80 per minute. Patient is afebrile. EXAMINATION OF THE HEART: S1 and S2. EXAMINATION OF LUNGS: Decreased breath sounds at the bases. Abdomen is soft, distended, very tympanitic. Examination of lower extremities shows 1+ edema bilaterally. NUCLEAR PLANT OPERATOR EXAM: Grossly intact. LABS: Labs on 06/29 show sodium of 142, potassium 4.2, chloride 123. CO2 is 8, BUN less than 2, creatinine 0.8, hemoglobin 13.8 g/dL. ASSESSMENT: 1. Non-gap metabolic acidosis, mostly associated with loss of GI fluid, and patient has not had diarrhea because of colonic obstruction. Currently he is not on any medications to predispose to the metabolic acidosis. I believe this mostly is related to his bowel issues. I will start him on a bicarb drip. We will repeat labs in a.m. 2. Hypokalemia associated with decreased oral intake, status post replacement. 3. Fecal impaction, colonic obstruction, status post colonoscopy and decompression x2, initially on 06/24 and then again today. PLAN: Start bicarb drip. Repeat labs in a.m. Encourage increased oral intake. Thank you for this consultation. Will continue to follow the patient with you during his hospitalization. ALEXANDRE / TRISTIN: [id number] /
[2021-06-30] MEDS: DEXTROSE 5% IN WATER 1,000 ML with SODIUM BICARB (1 MEQ/ML) 150 ML IV SCH ×2 (03:46→09:00)
[2021-06-30] MEDS ORDERED: ONDANSETRON 4 MG/2 ML VIAL IVP ONE (06:35)
[2021-06-30] MEDS ORDERED: HYDROmorphone 0.5 MG/0.5 ML SYRINGE IVP PRN (07:00)
[2021-06-30 07:42] LABS: ALT 11 U/L (4-49); AST 23 U/L (17-59); African American GFR (CKD) >90 (>60 ml/min/1.73 sqM); Albumin 2.7 g/dL (3.5-5.0); Albumin/Globulin Ratio 0.9; Alkaline Phosphatase 83 U/L (38-126); Anion Gap 7 mmol/L; Bilirubin,Unconjugated 0.3 mg/dL (0.0-1.1); Blood Urea Nitrogen 2 mg/dL (9-20); Calcium 8.9 mg/dL (8.4-10.2); Carbon Dioxide 17 mmol/L (22-30); Chloride 119 mmol/L (98-107); Globulin 3.1 g/dL; Glucose 99 mg/dL (74-99); Magnesium 2.2 mg/dL (1.6-2.3); Non-African American GFR(CKD) >90 (>60 ml/min/1.73 sqM); Potassium 3.4 mmol/L (3.5-5.1); Sodium 143 mmol/L (137-145); Total Bilirubin 0.6 mg/dL (0.2-1.3); Total Protein 5.8 g/dL (6.3-8.2)
[2021-06-30] MEDS: POTASSIUM CHLORIDE ER 20 MEQ TAB.ER PO SCH ×2 (08:57→09:07)
[2021-06-30] MEDS: SIMETHICONE 40 MG/0.6 ML DROPS 2,000 MG/30 ML BOTTLE PO SCH (08:57)
[2021-06-30] MEDS: PANTOPRAZOLE 40 MG/10 ML VIAL IVP SCH ×2 (08:59→23:17)
[2021-06-30] MEDS: POTASSIUM CHLORIDE ER 10 MEQ TAB.ER.PRT PO SCH (09:00)
[2021-06-30] MEDS: 0.9% NACL WITH KCL 20 MEQ/L 1,000 ML IV SCH (09:05)
[2021-06-30] MEDS: HEPARIN SODIUM,PORCINE/PF 5,000 UNIT/0.5 ML SYRINGE SQ SCH ×2 (09:07→23:17)
[2021-06-30 10:17] LABS: INR 1.2 (<1.2); Prothrombin Time 12.2 sec (9.0-12.0)
[2021-06-30] MEDS ORDERED: LIDOCAINE 1% INJ 10MG/ML (20 ML MDV) ONE ×2 (11:11→16:03)
[2021-06-30] MEDS ORDERED: LIDOCAINE 1% INJ 10MG/ML (20 ML MDV) SQ ONE (11:25)
--- NOTE | 2021-06-30 12:46 | P.PN ---
Subjective This is a pleasant 71 years old male from [facility] with past medical history of hepatic encephalopathy, dysphasia, anasarca, ascites due to liver cirrhosis Patient is fully awake and oriented and appropriate. He knows he is in the hospital but he thought it is a [place]. He thought his 2020 and could not rememb er the name of the president. His abdomen is significantly distended. No abdominal pain or tenderness. No nausea vomiting. Bowel movement was yesterday 10:00 AM. Did not pass bowel movement or gas since then. Vitals are stable. Blood pressure borderline 98/63, repeated 170/72 CBC is unremarkable, INR is 1.1. Sodium 133, potassium 3.3, creatinine 1.3. Lactic acid is elevated at 3.1. Liver enzymes are normal with AST 35 and ALT 22 and total bilirubin 0.7 CT of the abdomen and pelvis with contrast showing large amount of stool in the rectosigmoid colon which may be resulting in fecal impaction. Rotation of the small and large bowel without transition zone. Right basilar atelectasis or infiltrate Patient is status post decompression colonoscopy with about 1000 L of gas and stool were evacuated On 06/23, Yesterday he had big bowel movement and passing gas. However today his abdomen is still significantly distended. UB showing persistent abdominal distention and possible bowel obstruction. The tube and patient is on liquid diet. No abdominal pain. Patient did not pass gas or stool today. He is hemodynamically stable. Low potassium of 3.2 his been replaced, we will at 10 mEq daily from tomorrow. Surgical team on the case Discussed with staff 06/29/2021 Abdomen is even more distended today although it is painless, he still on liquid diet, he had small bowel movement today but not passing gas. Other than that he looks awake and alert with no other complaints. Vitals are stable CBC and BMP are unremarkable and potassium 4.2 today. However carbon dioxide to his laws 8, pH is low at 7.2. Nephrology consult is appreciated and patient was started on bicarb drip Surgery team are planning for another colonic decompression today 06/30/2021February awake and alert, not in distress. NG tube is in place with few millimeter of dark aspirate the tubercle to the back. Is a status post anoscopy with control on decompression with 3500 mL of fluid has been aspirated out. Surgical team are considering now subtotal colectomy with colostomy. Other than that he is hemodynamically stable. Labs from today pending. He remains on bicarbonate drip for his acidosis. And abdomen looks soft on examination He is kept nothing by mouth for surgery team recommendation Objective - Vital Signs Vital signs: Vital Signs Temp 97.5 F L 06/30/21 09:28 Pulse 85 06/30/21 09:28 Resp 18 06/30/21 09:28 BP 101/61 06/30/21 09:28 Pulse Ox 99 06/30/21 09:28 Intake & Output 06/29/21 06/30/21 06/30/21 18:59 06:59 18:59 Intake Total 240 Output Total 100 2300 700 Balance -100 -2059 -700 Intake: Oral 240 Output: Gastric Drainage 1900 700 Urine 100 400 Other: Voiding Method Urinal Urinal Urinal # Voids 0 - Exam GENERAL: The patient is alert and oriented x3, not in any acute distress. Well developed, well nourished. HEENT: Pupils are round and equally reacting to light. EOMI. No scleral icterus. No conjunctival pallor. Normocephalic, atraumatic. No pharyngeal erythema. No thyromegaly. CARDIOVASCULAR: S1 and S2 present. No murmurs, rubs, or gallops. PULMONARY: Chest is clear to auscultation, no wheezing or crackles. -ABDOMEN: Soft, nontender, distended, normoactive bowel sounds. No palpable organomegaly. MUSCULOSKELETAL: No joint swelling or deformity. EXTREMITIES: No cyanosis, clubbing, or pedal edema. NEUROLOGICAL: Gross neurological examination did not reveal any focal deficits. SKIN: No rashes. no petechiae. - Labs CBC & Chem 7: 06/29/21 05:16 06/30/21 06:28 Labs: Abnormal Lab Results - Last 24 Hours (Table) 06/30/21 06/30/21 Range/Units 06:28 09:44 PT 12.2 H (9.0-12.0) sec INR 1.2 H (<1.2) Potassium 3.4 L (3.5-5.1) mmol/L Chloride 119 H (98-107) mmol/L Carbon Dioxide 17 L (22-30) mmol/L BUN 2 L (9-20) mg/dL Total Protein 5.8 L (6.3-8.2) g/dL Albumin 2.7 L (3.5-5.0) g/dL Assessment and Plan Assessment: Abdominal distention suspicious for bowel obstruction secondary to fecal impaction. Status post decompression colonoscopy on 06/24 (1000 mL removed), and on 06/29 ( 3500 mL removed ) Hypokalemia, improving Metabolic acidosis Acute kidney injury, improved History of alcoholic liver cirrhosis with frequent paracentesis History of hepatic encephalopathy History of anasarca and ascites History of alcohol use Cognitive impairment and mild dementia Plan: This is a pleasant 71 years old male who presents with abdominal distention suspicious for bowel obstruction Keep The patient on liquid diet, with IV fluids and pain management. Surgical team consult R following the patient closely Replaced potassium and monitor potassium and magnesium Per protocol Continue with sodium bicarb drip. Icer Machine. Labs and medication were reviewed.. Continue same treatment. Continue with symptomatic treatment. Resume home medication. Monitor lytes and vitals. DVT and GI prophylaxis. Further recommendations depends on the clinical course of the patient DVT prophylaxis: Subcutaneous heparin GI Prophylaxis: Pepcid Prognosis is guarded
[2021-06-30 15:30] LABS: Phosphorus 3.2 mg/dL (2.5-4.5)
[2021-06-30] MEDS ORDERED: IV FLUID CONTINUATION 1,000 ML IV ONE (15:37)
--- NOTE | 2021-06-30 15:42 | IR ---
PICC LINE PLACEMENT: HISTORY: Infection requiring long-term antibiotic therapy PROCEDURE: Ultrasound and fluoroscopic guidance of PICC line placement. COMPLICATIONS: None ANESTHESIA: 1. 1% Lidocaine locally. FINDINGS/TECHNIQUE: The procedure was explained to the patient. The risks, complications, benefits and alternatives were discussed and any questions were answered. Informed consent was obtained. The patient was placed supine on the fluoroscopic table and prepped and draped in the usual sterile fash ion. Utilizing a 21 gauge needle and sonographic and fluoroscopic guidance, access in the left basi lic vein was achieved and there is placement of a 0.018 guidewire. The vein is patent. A 4-F sheath was placed over the guidewire. The guidewire and dilator were removed and a 4-F. PICC line was plac ed through the sheath with the tip at the level of the SVC. The sheath was removed, the catheter was flushed and sutured into position. The patient was stable throughout the procedure and remained sta ble upon discharge from the Department of Radiology. The vein puncture was patent under ultrasound. A beckham scale image was obtained to document patency of the vein punctured. All elements of the maximal barrier technique were utilized. FLUOROSCOPY TIME: 0.6 minutes of fluoroscopy and one image submitted IMPRESSION: Successful PICC line placement under ultrasound and fluoroscopic guidance.
[2021-06-30] MEDS ORDERED: ROCURONIUM 10 MG/ML (5 ML VIAL) IV ONE (16:03)
[2021-06-30] MEDS ORDERED: NEOSTIGMINE 1 MG/ML 10 ML VIAL ONE (16:03)
[2021-06-30] MEDS ORDERED: PHENYLEPHRINE-0.9% NACL SYG 1,000 MCG/10 ML SYRINGE ONE (16:03)
[2021-06-30] MEDS ORDERED: ONDANSETRON 4 MG/2 ML VIAL ONE (16:03)
[2021-06-30] MEDS ORDERED: fentaNYL (PF) 50 MCG/ML 2 ML AMP ONE (16:03)
[2021-06-30] MEDS ORDERED: ALBUMIN HUMAN 5% (25gm) 500 ML VIAL IVPB ONE (16:03)
[2021-06-30] MEDS ORDERED: SUCCINYLCHOLINE CHLORIDE 100 MG/5 ML SYR IV ONE (16:03)
[2021-06-30] MEDS ORDERED: DEXAMETHASONE SOD PHOSPHATE 10 MG/ML 1 ML VIAL ONE (16:03)
[2021-06-30] MEDS ORDERED: ETOMIDATE 2 MG/ML 10 ML VIAL ONE (16:03)
[2021-06-30] MEDS ORDERED: GLYCOPYRROLATE 0.2 MG/ML 2 ML VIAL ONE (16:03)
[2021-06-30] MEDS ORDERED: HEPARIN SODIUM,PORCINE/PF 5,000 UNIT/0.5 ML SYRINGE SQ STA (16:03)
[2021-06-30] MEDS ORDERED: ALBUMIN HUMAN 5% (12.5gm) 250 ML BOTTLE IVPB ONE (16:03)
[2021-06-30] MEDS ORDERED: LACTATED RINGERS 1,000 ML IV ONE ×5 (16:08→20:17)
[2021-06-30] MEDS ORDERED: [UNRECOGNIZED DRUG - REMARK] IV SCH ×8 (18:00)
[2021-06-30] MEDS ORDERED: FAT EMULSION 20% 250 ML in EMPTY BAG 1 BAG IV SCH (18:00)
--- NOTE | 2021-06-30 21:11 | P.OP ---
Date of Procedure: 06/30/21 Preoperative Diagnosis: Large bowel obstruction with GI bleed Postoperative Diagnosis: Large bowel obstruction with GI bleed Procedure(s) Performed: Total abdominal colectomy with end ileostomy Anesthesia: KEISHA Surgeon: Holly Toro Estimated Blood Loss (ml): 100 Pathology: other (Total abdominal colectomy) Condition: critical Operative Findings: 1. Diffuse colonic distention 2. Cirrhosis of the liver 3. Colon more than 8+ feet resected with previous sigmoid colectomy of 3.5 ft, total over 10 to 11 ft colon (normal shoud be 5 ft) 4. Legal guardian notified and updated on the findings
[2021-06-30] MEDS ORDERED: SODIUM CHLORIDE 0.9% 1,000 ML IV ONE ×3 (21:14→21:15)
[2021-06-30] MEDS: LACTATED RINGERS 1,000 ML IV SCH (23:16)
[2021-07-01] MEDS: SIMETHICONE 40 MG/0.6 ML DROPS 2,000 MG/30 ML BOTTLE PO SCH ×3 (00:37→22:32)
[2021-07-01] MEDS: DEXTROSE 5% IN WATER 1,000 ML with SODIUM BICARB (1 MEQ/ML) 150 ML IV SCH (03:54)
[2021-07-01] MEDS: LACTATED RINGERS 1,000 ML IV SCH (06:39)
[2021-07-01 07:32] LABS: African American GFR (CKD) >90 (>60 ml/min/1.73 sqM); Anion Gap 8 mmol/L; Blood Urea Nitrogen 6 mg/dL (9-20); Calcium 8.3 mg/dL (8.4-10.2); Carbon Dioxide 20 mmol/L (22-30); Chloride 114 mmol/L (98-107); Glucose 184 mg/dL (74-99); Magnesium 1.8 mg/dL (1.6-2.3); Non-African American GFR(CKD) >90 (>60 ml/min/1.73 sqM); Phosphorus 2.6 mg/dL (2.5-4.5); Sodium 142 mmol/L (137-145)
[2021-07-01] MEDS: HEPARIN SODIUM,PORCINE/PF 5,000 UNIT/0.5 ML SYRINGE SQ SCH ×2 (07:34→22:31)
[2021-07-01] MEDS: PANTOPRAZOLE 40 MG/10 ML VIAL IVP SCH ×2 (07:34→22:31)
[2021-07-01] MEDS: POTASSIUM CHLORIDE ER 10 MEQ TAB.ER.PRT PO SCH (07:35)
[2021-07-01 07:43] LABS: Potassium 2.7 mmol/L (3.5-5.1)
[2021-07-01] MEDS: MAGNESIUM SULFATE-D5W PMX 1 GM in DEXTROSE/WATER 1 100ML.BAG IVPB SCH ×2 (09:15→10:43)
--- NOTE | 2021-07-01 09:26 | XR ---
EXAMINATION TYPE: XR chest 1V portable DATE OF EXAM: 07/01/2021 COMPARISON: 06/29/2021 HISTORY: Shortness of breath TECHNIQUE: Single frontal view of the chest is obtained. FINDINGS: Left-sided PICC line noted and there is a large amount of free intraperitoneal air. NG tub e and surgical sam noted. Bibasilar infiltrate. Heart prominent. Atherosclerotic change aorta. Ar thropathy shoulders. Calcific tendinosis of the right shoulder. IMPRESSION: 1. Large amount of free intraperitoneal air. Report called to the patient's nurse 9:22 AM 07/01/2021. 2. Bibasilar infiltrate.
[2021-07-01] MEDS: POTASSIUM CHLORIDE 20 MEQ in WATER FOR INJECTION 1 100ML.BAG IVPB SCH ×3 (09:30→13:51)
[2021-07-01 09:52] LABS: Basophils # (A) 0.03 X 10*3/uL (0.00-0.10); Basophils % (A) 0.3 %; Eosinophils # (A) 0 X 10*3/uL (0.04-0.35); Eosinophils % (A) 0 %; HGB 11.6 g/dL (13.0-17.0); Lymphocytes % (A) 13.2 %; MCH 28.6 pg (27.0-32.0); MCHC 33.1 g/dL (32.0-37.0); MCV 86.2 fL (80.0-97.0); Mean Platelet Volume 9.6 fL (9.5-12.2); Monocytes # (A) 0.38 X 10*3/uL (0.20-1.00); Monocytes % (A) 3.6 %; Neutrophils # (A) 8.76 X 10*3/uL (1.80-7.70); Neutrophils % (A) 82.2 %; Platelet Count 334 X 10*3/uL (140-440); RBC 4.06 X 10*6/uL (4.40-5.60); RDW 16.3 % (11.5-14.5); WBC 10.64 X 10*3/uL (4.50-10.00)
--- NOTE | 2021-07-01 12:20 | P.PN ---
Subjective Progress Note Date: 07/01/21 CHIEF COMPLAINT: Abdominal distention HISTORY OF PRESENT ILLNESS: Patient is postop day #1 status post total abdominal colectomy with end ileostomy. Patient is lying in bed comfortably. He has NG tube in place. No function per ostomy. Patient denies any nausea. Afebrile. WBC is 10.64 hemoglobin 11.6 platelets 334 sodium 142 potassium 2.7 chloride 114 CO2 improving up to 20 and creatinine 0.67, Mg 1.8. Nursing staff had reported a reddish color from NG tube. Patient has been eating red liquids. Chest x-ray shows large amount of free intraperitoneal air. By basilar infiltrate PHYSICAL EXAM: VITAL SIGNS: Reviewed GENERAL: Well-developed in no acute distress. HEENT: No sclera icterus. Extraocular movements grossly intact. Moist buccal mucosa. Head is atraumatic, normocephalic. Hears conversational speech. No nasal drainage. NECK: Supple without lymphadenopathy. CHEST: Non-labored respirations and equal bilateral excursions. CARDIOVASCULAR: Palpable 2+ radial pulses. ABDOMEN: Soft. Nondistended. Incision site clean dry and intact. Ostomy is on the right of abdomen with serosanguinous output noted in the bag MUSCULOSKELETAL: No clubbing or cyanosis. NEUROLOGIC: No focal or lateralizing signs. Cranial nerves II through XII grossly intact. PSYCH: Appropriate affect. Alert and oriented to person, place and time. SKIN: Well perfused. Good skin turgor. ASSESSMENT: 1. Large bowel obstruction status post total abdominal colectomy with end ileostomy. Postop day #1 2. Colonic ileus and severe distention status post colonoscopy for decompression on 06/29/2021 3. Novi syndrome 4. Hypokalemia 5. Hypomagnesemia PLAN: -Discontinue NG tube -Continue clear liquid diet -Continue TPN for nutrition support -Continue to correct potassium and magnesium -Free air noted on chest x-ray expected and secondary to patient's recent surgery -Consult placed for ostomy nurse Physician Office Services Clerk note has been reviewed by physician. Signing provider agrees with the documented findings, assessment, and plan of care. Objective - Vital Signs Vital signs: Vital Signs Temp 98.2 F 07/01/21 08:00 Pulse 63 07/01/21 08:00 Resp 20 07/01/21 08:00 BP 97/61 07/01/21 08:00 Pulse Ox 99 07/01/21 08:00 Intake & Output 06/30/21 07/01/21 07/01/21 18:59 06:59 18:59 Intake Total 1550 850 840 Output Total 850 1450 Balance 700 -600 840 Weight 88.5 kg Intake: IV 1550 850 Intake, IV Titration 840 Amount Mvi, Adult No.4 with Vit 240 K 10 ml Trace (Conc-1Ml/ Dose) 1 ml Potassium Acetate 40 meq Sodium Acetate 10 meq Sodium Phosphate 10 mmol Calcium Gluconate 1 gm Magnesium Sulfate gm 0.5 gm In Amino Acid 5%-D15w 1,000 ml @ 50 mls/hr IV .BY DURATION [facility] Rx#: [id number] Mvi, Adult No.4 with Vit 600 K 10 ml Trace (Conc-1Ml/ Dose) 1 ml Potassium Acetate 50 meq Sodium Phosphate 15 mmol Calcium Gluconate 1 gm Magnesium Sulfate gm 1 gm In Amino Acid 5%-D15w 1,000 ml @ 50 mls/hr IV .BY DURATION [facility] Rx#:[id number] Output: Gastric Drainage 850 Urine 1350 Estimated Blood Loss 100 Other: Voiding Method Urinal Indwelling Catheter - Labs CBC & Chem 7: 07/01/21 05:51 07/01/21 05:51 Labs: Abnormal Lab Results - Last 24 Hours (Table) 06/30/21 07/01/21 07/01/21 Range/Units 06:28 05:51 05:51 WBC 10.64 H (4.50-10.00) X 10*3/uL RBC 4.06 L (4.40-5.60) X 10*6/uL Hgb 11.6 L (13.0-17.0) g/dL Hct 35.0 L (39.6-50.0) % RDW 16.3 H (11.5-14.5) % Immature Gran # 0.07 H (0.00-0.04) X 10*3/uL Neutrophils # 8.76 H (1.80-7.70) X 10*3/uL Eosinophils # 0 L (0.04-0.35) X 10*3/uL Potassium 2.7 L* (3.5-5.1) mmol/L Chloride 114 H (98-107) mmol/L Carbon Dioxide 20 L (22-30) mmol/L BUN 6 L (9-20) mg/dL Glucose 184 H (74-99) mg/dL Calcium 8.3 L (8.4-10.2) mg/dL Triglycerides 158.00 H (0.00-149.00) mg/dL
--- NOTE | 2021-07-01 12:21 | PN ---
PROGRESS NOTE Patient is seen for followup for metabolic acidosis. He was initially evaluated when he had a CO2 of about 8 and has been maintained on bicarb drip since then. Patient had fecal impaction, colonic distention, and had colonoscopy twice. He was taken to OR last night and is status post colectomy for diffuse colonic distention, and he had end ileostomy performed. Currently patient is awake, comfortable, not in any acute distress. He has an indwelling Leung catheter with good urine output. Potassium was low at 2.7; it has been replaced. On examination today, blood pressure is 97/61, heart rate 63 per minute. Patient is afebrile. EXAMINATION OF THE HEART: S1 and S2. EXAMINATION OF LUNGS: Bilateral breath sounds are heard. Abdomen is soft, non-tender. Abdominal binder is noted. Incision is covered. Examination of lower extremities shows no evidence of edema. JAPANESE PROFESSOR EXAM: Grossly intact. Labs show sodium of 142, potassium 2.7, chloride 114. CO2 is 20, BUN 6, creatinine 0.67, hemoglobin 11.6 g/dL. ASSESSMENT: 1. Metabolic acidosis, non-gap, mostly associated with GI fluid losses associated with severe colonic distention, status post colectomy and end ileostomy, maintained on bicarb drip. 2. Hypokalemia associated with GI fluid losses, decreased oral intake, status post replacement. Magnesium is not low. 3. Colonic distention, fecal impaction, status post colectomy and end ileostomy. PLAN: Continue with the bicarb drip for now. I will decrease the rate, as patient has been started on TPN, and once his acidosis is completely corrected, I will discontinue the bicarb drip. The acetate can be increased in the TPN to adjust for the metabolic acidosis. MMODL / IJN: [id number] /
[2021-07-01] MEDS: PIPERACILLIN-TAZOBACTAM 3.375 GM in SODIUM CHLORIDE 0.9% 100 ML IVPB SCH ×2 (13:00→22:32)
[2021-07-01] MEDS: HYDROmorphone 1 MG/ML 1 ML SYRINGE IVP PRN ×2 (14:29→22:57)
--- NOTE | 2021-07-01 14:37 | P.PN ---
Subjective This is a pleasant 71 years old male from group home/rehab with past medical history of hepatic encephalopathy, dysphasia, anasarca, ascites due to liver cirrhosis Patient is fully awake and oriented and appropriate. He knows he is in the hospital but he thought it is a [facility]. He thought his 2020 and could not rememb er the name of the president. His abdomen is significantly distended. No abdominal pain or tenderness. No nausea vomiting. Bowel movement was yesterday 10:00 AM. Did not pass bowel movement or gas since then. Vitals are stable. Blood pressure borderline 98/63, repeated 170/72 CBC is unremarkable, INR is 1.1. Sodium 133, potassium 3.3, creatinine 1.3. Lactic acid is elevated at 3.1. Liver enzymes are normal with AST 35 and ALT 22 and total bilirubin 0.7 CT of the abdomen and pelvis with contrast showing large amount of stool in the rectosigmoid colon which may be resulting in fecal impaction. Rotation of the small and large bowel without transition zone. Right basilar atelectasis or infiltrate Patient is status post decompression colonoscopy with about 1000 L of gas and stool were evacuated On 06/23, Yesterday he had big bowel movement and passing gas. However today his abdomen is still significantly distended. UB showing persistent abdominal distention and possible bowel obstruction. The tube and patient is on liquid diet. No abdominal pain. Patient did not pass gas or stool today. He is hemodynamically stable. Low potassium of 3.2 his been replaced, we will at 10 mEq daily from tomorrow. Surgical team on the case Discussed with staff 06/29/2021 Abdomen is even more distended today although it is painless, he still on liquid diet, he had small bowel movement today but not passing gas. Other than that he looks awake and alert with no other complaints. Vitals are stable CBC and BMP are unremarkable and potassium 4.2 today. However carbon dioxide to his laws 8, pH is low at 7.2. Nephrology consult is appreciated and patient was started on bicarb drip Surgery team are planning for another colonic decompression today 06/30/2021February awake and alert, not in distress. NG tube is in place with few millimeter of dark aspirate the tubercle to the back. Is a status post anoscopy with control on decompression with 3500 mL of fluid has been aspirated out. Surgical team are considering now subtotal colectomy with colostomy. Other than that he is hemodynamically stable. Labs from today pending. He remains on bicarbonate drip for his acidosis. And abdomen looks soft on examination He is kept nothing by mouth for surgery team recommendation 07/01/2021 Patient is a status post total abdominal colectomy with end ileostomy in the right lower abdomen. Patient tolerated the procedure well. This morning his awake and alert, no distress. NG tube is in place and also was started on TPN. Also patient was started on Zosyn this is to be continued on bicarbonate drip Vitals are stable. He has mild leukocytosis and anemia from surgery which is expected. No kidney injury. Low potassium and magnesium are replaced per protocol. Carbon dioxide is improved to 20 L which is still on the low side, remains on bicarb drip per nephrology team Objective - Vital Signs Vital signs: Vital Signs Temp 98.2 F 07/01/21 08:00 Pulse 63 07/01/21 08:00 Resp 20 07/01/21 08:00 BP 97/61 07/01/21 08:00 Pulse Ox 99 07/01/21 08:00 Intake & Output 06/30/21 07/01/21 07/01/21 18:59 06:59 18:59 Intake Total 1550 850 840 Output Total 850 1450 Balance 700 -600 840 Weight 88.5 kg Intake: IV 1550 850 Intake, IV Titration 840 Amount Mvi, Adult No.4 with Vit 240 K 10 ml Trace (Conc-1Ml/ Dose) 1 ml Potassium Acetate 40 meq Sodium Acetate 10 meq Sodium Phosphate 10 mmol Calcium Gluconate 1 gm Magnesium Sulfate gm 0.5 gm In Amino Acid 5%-D15w 1,000 ml @ 50 mls/hr IV .BY DURATION [facility] Rx#: [id number] Mvi, Adult No.4 with Vit 600 K 10 ml Trace (Conc-1Ml/ Dose) 1 ml Potassium Acetate 50 meq Sodium Phosphate 15 mmol Calcium Gluconate 1 gm Magnesium Sulfate gm 1 gm In Amino Acid 5%-D15w 1,000 ml @ 50 mls/hr IV .BY DURATION [facility] Rx#:[id number] Output: Gastric Drainage 850 Urine 1350 Estimated Blood Loss 100 Other: Voiding Method Urinal Indwelling Catheter - Exam GENERAL: The patient is alert and oriented x3, not in any acute distress. Well developed, well nourished. HEENT: Pupils are round and equally reacting to light. EOMI. No scleral icterus. No conjunctival pallor. Normocephalic, atraumatic. No pharyngeal erythema. No thyromegaly. CARDIOVASCULAR: S1 and S2 present. No murmurs, rubs, or gallops. PULMONARY: Chest is clear to auscultation, no wheezing or crackles. -ABDOMEN: Soft, nontender, distended, normoactive bowel sounds. No palpable organomegaly. MUSCULOSKELETAL: No joint swelling or deformity. EXTREMITIES: No cyanosis, clubbing, or pedal edema. NEUROLOGICAL: Gross neurological examination did not reveal any focal deficits. SKIN: No rashes. no petechiae. - Labs CBC & Chem 7: 07/01/21 05:51 07/01/21 05:51 Labs: Abnormal Lab Results - Last 24 Hours (Table) 06/30/21 07/01/21 07/01/21 Range/Units 06:28 05:51 05:51 WBC 10.64 H (4.50-10.00) X 10*3/uL RBC 4.06 L (4.40-5.60) X 10*6/uL Hgb 11.6 L (13.0-17.0) g/dL Hct 35.0 L (39.6-50.0) % RDW 16.3 H (11.5-14.5) % Immature Gran # 0.07 H (0.00-0.04) X 10*3/uL Neutrophils # 8.76 H (1.80-7.70) X 10*3/uL Eosinophils # 0 L (0.04-0.35) X 10*3/uL Potassium 2.7 L* (3.5-5.1) mmol/L Chloride 114 H (98-107) mmol/L Carbon Dioxide 20 L (22-30) mmol/L BUN 6 L (9-20) mg/dL Glucose 184 H (74-99) mg/dL Calcium 8.3 L (8.4-10.2) mg/dL Triglycerides 158.00 H (0.00-149.00) mg/dL Assessment and Plan Assessment: Bowel obstruction status post total colectomy with end ileostomy Hypokalemia, improving Metabolic acidosis Acute kidney injury, improved History of alcoholic liver cirrhosis with frequent paracentesis History of hepatic encephalopathy History of anasarca and ascites History of alcohol use Cognitive impairment and mild dementia Plan: This is a pleasant 71 years old male who presents with abdominal distention suspicious for bowel obstruction Continue with NG tube, continue with TPN Continue with Zosyn for surgery team Continue with bicarbonate drip Surgery and nephrology team on the case Replaced electrolytes per protocol Labs and medication were reviewed.. Continue same treatment. Continue with symptomatic treatment. Resume home medication. Monitor lytes and vitals. DVT and GI prophylaxis. Further recommendations depends on the clinical course of the patient DVT prophylaxis: Subcutaneous heparin GI Prophylaxis: Pepcid Prognosis is guarded
[2021-07-01] MEDS ORDERED: 1: MVI, ADULT NO.4 WITH VIT K 10 ML, TRACE (CONC-1ML/DOSE) 1 ML, POTASSIUM ACETATE 40 ME IV SCH ×8 (18:00)
[2021-07-02] MEDS ORDERED: [UNRECOGNIZED DRUG - REMARK] IV SCH ×7
[2021-07-02] MEDS: DEXTROSE 5% IN WATER 1,000 ML with SODIUM BICARB (1 MEQ/ML) 150 ML IV SCH (02:35)
[2021-07-02] MEDS: [UNRECOGNIZED DRUG - REMARK] IV SCH ×14 (02:46→02:47)
[2021-07-02] MEDS: PIPERACILLIN-TAZOBACTAM 3.375 GM in SODIUM CHLORIDE 0.9% 100 ML IVPB SCH ×3 (04:07→20:40)
[2021-07-02] MEDS: HYDROmorphone 1 MG/ML 1 ML SYRINGE IVP PRN (04:53)
[2021-07-02 06:41] LABS: Magnesium 2.1 mg/dL (1.6-2.3)
[2021-07-02] MEDS: PANTOPRAZOLE 40 MG/10 ML VIAL IVP SCH ×2 (07:28→20:41)
[2021-07-02] MEDS: HEPARIN SODIUM,PORCINE/PF 5,000 UNIT/0.5 ML SYRINGE SQ SCH ×2 (07:28→20:43)
[2021-07-02] MEDS: POTASSIUM CHLORIDE ER 10 MEQ TAB.ER.PRT PO SCH (07:28)
[2021-07-02 07:32] LABS: Phosphorus 2.5 mg/dL (2.5-4.5)
[2021-07-02] MEDS: SIMETHICONE 40 MG/0.6 ML DROPS 2,000 MG/30 ML BOTTLE PO SCH ×2 (07:47→20:43)
[2021-07-02 09:13] LABS: HCT 28.9 % (39.6-50.0); HGB 9.5 g/dL (13.0-17.0); MCH 28.5 pg (27.0-32.0); MCHC 32.9 g/dL (32.0-37.0); MCV 86.8 fL (80.0-97.0); Mean Platelet Volume 9.9 fL (9.5-12.2); Platelet Count 237 X 10*3/uL (140-440); RBC 3.33 X 10*6/uL (4.40-5.60); RDW 16.4 % (11.5-14.5); WBC 9.34 X 10*3/uL (4.50-10.00)
[2021-07-02 10:08] LABS: Basophils # (A) 0.03 X 10*3/uL (0.00-0.10); Basophils % (A) 0.3 %; Eosinophils # (A) 0.09 X 10*3/uL (0.04-0.35); Lymphocytes # (A) 1.89 X 10*3/uL (0.90-5.00); Lymphocytes % (A) 20.2 %; Monocytes # (A) 0.36 X 10*3/uL (0.20-1.00); Monocytes % (A) 3.9 %; Neutrophils # (A) 6.94 X 10*3/uL (1.80-7.70); Neutrophils % (A) 74.3 %
[2021-07-02] MEDS ORDERED: FUROSEMIDE 10 MG/ML 4 ML VIAL IV STA (10:29)
--- NOTE | 2021-07-02 11:10 | P.PN ---
Subjective Progress Note Date: 07/02/21 CHIEF COMPLAINT: Large bowel obstruction HISTORY OF PRESENT ILLNESS: The patient is a 71 year old male status post total colectomy with end ileostomy, 06/30/21. He is POD 2. I entered in the room with moderate stool in his ileostomy and air with leakage. His pain is controlled. He is coughing. He no longer has his NG tube. No new issues overnight. He was given lasix by nephrology for pulmonary congestion following multiple magnesium and potassium replacements yesterday. Hgb down 2 g. No active bleeding. REVIEW OF ORGAN SYSTEMS: No fevers or chills. No nausea and vomiting. PHYSICAL EXAM: VITALS: Reviewed CONSTITUTIONAL: Well developed and in no acute distress. EYES: Conjuctivae without sclera icterus. Extraocular movements grossly intact. HEAD, EARS, NOSE, THROAT: Moist buccal mucosa. Head is atraumatic, normocephalic. RESPIRATORY: Has course breath sounds. CARDIOVASCULAR: Regular rate and rhythm. Palpable 2+ radial pulses. ABDOMEN: PREVENA dressing intact. Ileostomy with green stool, no blood and full distention of ostomy appliance. MUSCULOSKELETAL: No clubbing cyanosis or edema. : Ramirez clear. SKIN: Warm and well perfused with good skin turgor. NEUROLOGIC: Cranial nerves II through XII grossly intact. No focal or lateralizing signs. PSYCH: Appropriate affect. CLINCAL LABS: Reviewed. Potassium low less than 3.4. Hgb down over 11 to over 9 g/dL ASSESSMENT: 1. Large bowel obstruction 2. Status post colectomy with end ileostomy 3. Pulmonary congestion. 4. Hypokalemia PLAN: 1. Agree with lasix for pulmonary congestion. Hgb drop with dilution due to increased IV volume 2. Increase diet to ground diet. Patient is edentulous. 3. Discharge planning for return to Facility. 4. Discontinue ramirez tomorrow 5. Ostomy teaching. 6. Anticipated disposition, next week pending resolution of pulmonary congestion and eletrolyte abnormalities Objective - Vital Signs Vital signs: Vital Signs Temp 98.4 F 07/02/21 08:00 Pulse 100 07/02/21 08:00 Resp 20 07/02/21 08:00 BP 95/57 07/02/21 08:00 Pulse Ox 97 07/02/21 08:00 Intake & Output 1007/02/21 07/02/21 18:59 06:59 18:59 Intake Total 840 420 Output Total 650 Balance 840 -650 420 Intake: Intake, IV Titration 840 420 Amount Mvi, Adult No.4 with Vit 320 K 10 ml Trace (Conc-1Ml/ Dose) 1 ml Potassium Acetate 40 meq Sodium Acetate 10 meq Sodium Phosphate 10 mmol Calcium Gluconate 1 gm Magnesium Sulfate gm 0.5 gm In Amino Acid 5%-D15w 1,000 ml @ 30 mls/hr IV .[facility] Rx#:[id number] Mvi, Adult No.4 with Vit 240 K 10 ml Trace (Conc-1Ml/ Dose) 1 ml Potassium Acetate 40 meq Sodium Acetate 10 meq Sodium Phosphate 10 mmol Calcium Gluconate 1 gm Magnesium Sulfate gm 0.5 gm In Amino Acid 5%-D15w 1,000 ml @ 50 mls/hr IV .BY [facility] Rx#: [id number] Mvi, Adult No.4 with Vit 600 K 10 ml Trace (Conc-1Ml/ Dose) 1 ml Potassium Acetate 50 meq Sodium Phosphate 15 mmol Calcium Gluconate 1 gm Magnesium Sulfate gm 1 gm In Amino Acid 5%-D15w 1,000 ml @ 50 mls/hr IV .[facility] Rx#:[id number] Piperacillin-Tazobactam 3 100 .375 gm In Sodium Chloride 0.9% 100 ml @ 25 mls/hr IVPB Q8H [facility] Rx#: [id number] Output: Urine 650 Other: Voiding Method Indwelling Catheter Indwelling Catheter - Labs CBC & Chem 7: 07/02/21 06:07 07/01/21 17:08 Labs: Abnormal Lab Results - Last 24 Hours (Table) 07/01/21 07/01/21 07/02/21 Range/Units 17:08 17:08 06:07 RBC 3.33 L (4.40-5.60) X 10*6/uL Hgb 9.5 L (13.0-17.0) g/dL Hct 28.9 L (39.6-50.0) % RDW 16.4 H (11.5-14.5) % Potassium 3.1 L (3.5-5.1) mmol/L Magnesium 2.4 H (1.6-2.3) mg/dL Assessment and Plan (1) Ileus Current Visit: Yes Status: Acute Code(s): K56.7 - ILEUS, UNSPECIFIED SNOMED Code(s): 984535628 (2) Dementia Current Visit: Yes Status: Acute Code(s): F03.90 - UNSPECIFIED DEMENTIA WITHOUT BEHAVIORAL DISTURBANCE SNOMED Code(s): 73756040 (3) Closed right hip fracture Current Visit: Yes Status: Acute Code(s): S72.001A - FRACTURE OF UNSP PART OF NECK OF RIGHT FEMUR, INIT SNOMED Code(s): 288206800 (4) Abdominal distention Current Visit: Yes Status: Acute Code(s): R14.0 - ABDOMINAL DISTENSION (GASEOUS) SNOMED Code(s): 28791780 (5) Chronic constipation Current Visit: No Status: Acute Code(s): K59.09 - OTHER CONSTIPATION SNOMED Code(s): 399173689 (6) Large bowel obstruction Current Visit: Yes Status: Acute Code(s): K56.609 - UNSP INTESTNL OBST, UNSP TO PARTIAL VERSUS COMPLETE OBST SNOMED Code(s): 939501150 (7) Ileostomy in place Current Visit: Yes Status: Acute Code(s): Z93.2 - ILEOSTOMY STATUS SNOMED Code(s): 191305440 (8) S/P colectomy Current Visit: Yes Status: Acute Code(s): Z90.49 - ACQUIRED ABSENCE OF OTHER SPECIFIED PARTS OF DIGESTIVE TRACT SNOMED Code(s): 153672750
[2021-07-02] MEDS ORDERED: POTASSIUM CHLORIDE ER 20 MEQ TAB.ER PO STA (11:11)
--- NOTE | 2021-07-02 12:15 | PN ---
PROGRESS NOTE HISTORY: Patient is seen for followup for severe metabolic acidosis associated with GI fluid loss, severe colonic distention. The patient is status post explorative laparotomy, colectomy and ileostomy. The patient is currently maintained on TPN. Overall, he is doing fairly well. He denies any significant chest pains or shortness of breath. PHYSICAL EXAMINATION: On examination today, blood pressure 95/57, heart rate 100 per minute he is afebrile examination of the heart S1, S2. Examination of the lungs, decreased breath sounds at the bases. Upper airway breath sounds are heard. No wheezing is heard. Abdomen is soft. Abdominal binder present. Incision is dressed. Examination of lower extremities shows no significant edema. STRIKE ON MACHINE OPERATOR exam shows patient is confused. He is moving all 4 extremities. LABS: Pending from today. Labs on 07/01/2021 showed sodium 142, potassium 3.1, chloride 114, CO2 is 20, BUN 6, serum creatinine 0.67. ASSESSMENT: 1. Severe metabolic acidosis non gap secondary to gastrointestinal fluid losses with severe colonic distention, status post colectomy and ileostomy now. The patient's bicarb drip was decreased and he is currently maintained on TPN. Repeat labs are pending from today. I will discontinue the bicarb drip for now. 2. Hypokalemia associated with GI fluid losses, decreased oral intake status post replacement. 3. Colonic distention, fecal impaction, status post colectomy and end ileostomy on 06/30/2021. PLAN: DC bicarb drip. Lasix x1. May discontinue the TPN when patient is tolerating oral intake. MMODL / IJN: [id number] /
[2021-07-02 12:20] LABS: African American GFR (CKD) >90 (>60 ml/min/1.73 sqM); Anion Gap 5 mmol/L; Blood Urea Nitrogen 10 mg/dL (9-20); Calcium 7.7 mg/dL (8.4-10.2); Carbon Dioxide 26 mmol/L (22-30); Chloride 104 mmol/L (98-107); Glucose 127 mg/dL (74-99); Non-African American GFR(CKD) >90 (>60 ml/min/1.73 sqM); Potassium 2.8 mmol/L (3.5-5.1); Sodium 135 mmol/L (137-145)
--- NOTE | 2021-07-02 13:07 | P.PN ---
Subjective This is a pleasant 71 years old male from [facility] with past medical history of hepatic encephalopathy, dysphasia, anasarca, ascites due to liver cirrhosis Patient is fully awake and oriented and appropriate. He knows he is in the hospital but he thought it is a [place]. He thought his 2020 and could not rememb er the name of the president. His abdomen is significantly distended. No abdominal pain or tenderness. No nausea vomiting. Bowel movement was yesterday 10:00 AM. Did not pass bowel movement or gas since then. Vitals are stable. Blood pressure borderline 98/63, repeated 170/72 CBC is unremarkable, INR is 1.1. Sodium 133, potassium 3.3, creatinine 1.3. Lactic acid is elevated at 3.1. Liver enzymes are normal with AST 35 and ALT 22 and total bilirubin 0.7 CT of the abdomen and pelvis with contrast showing large amount of stool in the rectosigmoid colon which may be resulting in fecal impaction. Rotation of the small and large bowel without transition zone. Right basilar atelectasis or infiltrate Patient is status post decompression colonoscopy with about 1000 L of gas and stool were evacuated On 06/23, Yesterday he had big bowel movement and passing gas. However today his abdomen is still significantly distended. UB showing persistent abdominal distention and possible bowel obstruction. The tube and patient is on liquid diet. No abdominal pain. Patient did not pass gas or stool today. He is hemodynamically stable. Low potassium of 3.2 his been replaced, we will at 10 mEq daily from tomorrow. Surgical team on the case Discussed with staff 06/29/2021 Abdomen is even more distended today although it is painless, he still on liquid diet, he had small bowel movement today but not passing gas. Other than that he looks awake and alert with no other complaints. Vitals are stable CBC and BMP are unremarkable and potassium 4.2 today. However carbon dioxide to his laws 8, pH is low at 7.2. Nephrology consult is appreciated and patient was started on bicarb drip Surgery team are planning for another colonic decompression today 06/30/2021February awake and alert, not in distress. NG tube is in place with few millimeter of dark aspirate the tubercle to the back. Is a status post anoscopy with control on decompression with 3500 mL of fluid has been aspirated out. Surgical team are considering now subtotal colectomy with colostomy. Other than that he is hemodynamically stable. Labs from today pending. He remains on bicarbonate drip for his acidosis. And abdomen looks soft on examination He is kept nothing by mouth for surgery team recommendation 07/01/2021 Patient is a status post total abdominal colectomy with end ileostomy in the right lower abdomen. Patient tolerated the procedure well. This morning his awake and alert, no distress. NG tube is in place and also was started on TPN. Also patient was started on Zosyn this is to be continued on bicarbonate drip Vitals are stable. He has mild leukocytosis and anemia from surgery which is expected. No kidney injury. Low potassium and magnesium are replaced per protocol. Carbon dioxide is improved to 20 L which is still on the low side, remains on bicarb drip per nephrology team 07/02/2021 Patient is awake and alert, NG tube still in place with few bowel discharge around 100 mL in the bag. Right ileostomy is working and brown stone was evacuated this morning. No abdominal pain with some tenderness expected from surgery. Patient looks Satisfied he is hemodynamically stable. WBC is back to normal however hemoglobin down to 9.5 probably from surgery Bicarbonate drip stopped, 1 dose of Lasix. He is on TPN with the plan to discontinue it upon discharge Possible discharge in 24-48 hours once medically stable and cleared by surgical team Objective - Vital Signs Vital signs: Vital Signs Temp 98.4 F 07/02/21 08:00 Pulse 100 07/02/21 08:00 Resp 20 07/02/21 08:00 BP 95/57 07/02/21 08:00 Pulse Ox 97 07/02/21 08:00 Intake & Output 07/01/21 07/02/21 07/02/21 18:59 06:59 18:59 Intake Total 840 420 Output Total 650 Balance 840 -650 420 Intake: Intake, IV Titration 840 420 Amount Mvi, Adult No.4 with Vit 320 K 10 ml Trace (Conc-1Ml/ Dose) 1 ml Potassium Acetate 40 meq Sodium Acetate 10 meq Sodium Phosphate 10 mmol Calcium Gluconate 1 gm Magnesium Sulfate gm 0.5 gm In Amino Acid 5%-D15w 1,000 ml @ 30 mls/hr IV .Q24H [facility] Rx#:[id number] Mvi, Adult No.4 with Vit 240 K 10 ml Trace (Conc-1Ml/ Dose) 1 ml Potassium Acetate 40 meq Sodium Acetate 10 meq Sodium Phosphate 10 mmol Calcium Gluconate 1 gm Magnesium Sulfate gm 0.5 gm In Amino Acid 5%-D15w 1,000 ml @ 50 mls/hr IV .BY DURATION [facility] Rx#: [id number] Mvi, Adult No.4 with Vit 600 K 10 ml Trace (Conc-1Ml/ Dose) 1 ml Potassium Acetate 50 meq Sodium Phosphate 15 mmol Calcium Gluconate 1 gm Magnesium Sulfate gm 1 gm In Amino Acid 5%-D15w 1,000 ml @ 50 mls/hr IV .BY DURATION [facility] Rx#:[id number] Piperacillin-Tazobactam 3 100 .375 gm In Sodium Chloride 0.9% 100 ml @ 25 mls/hr IVPB Q8H [facility] Rx#: [id number] Output: Urine 650 Other: Voiding Method Indwelling Catheter Indwelling Catheter - Exam GENERAL: The patient is alert and oriented x3, not in any acute distress. Well developed, well nourished. HEENT: Pupils are round and equally reacting to light. EOMI. No scleral icterus. No conjunctival pallor. Normocephalic, atraumatic. No pharyngeal erythema. No thyromegaly. CARDIOVASCULAR: S1 and S2 present. No murmurs, rubs, or gallops. PULMONARY: Chest is clear to auscultation, no wheezing or crackles. -ABDOMEN: Soft, nontender, distended, normoactive bowel sounds. No palpable organomegaly. MUSCULOSKELETAL: No joint swelling or deformity. EXTREMITIES: No cyanosis, clubbing, or pedal edema. NEUROLOGICAL: Gross neurological examination did not reveal any focal deficits. SKIN: No rashes. no petechiae. - Labs CBC & Chem 7: 07/02/21 06:07 07/02/21 06:07 Labs: Abnormal Lab Results - Last 24 Hours (Table) 07/01/21 07/01/21 07/02/21 Range/Units 17:08 17:08 06:07 RBC 3.33 L (4.40-5.60) X 10*6/uL Hgb 9.5 L (13.0-17.0) g/dL Hct 28.9 L (39.6-50.0) % RDW 16.4 H (11.5-14.5) % Sodium (137-145) mmol/L Potassium 3.1 L (3.5-5.1) mmol/L Glucose (74-99) mg/dL Calcium (8.4-10.2) mg/dL Magnesium 2.4 H (1.6-2.3) mg/dL 07/02/21 Range/Units 06:07 RBC (4.40-5.60) X 10*6/uL Hgb (13.0-17.0) g/dL Hct (39.6-50.0) % RDW (11.5-14.5) % Sodium 135 L (137-145) mmol/L Potassium 2.8 L (3.5-5.1) mmol/L Glucose 127 H (74-99) mg/dL Calcium 7.7 L (8.4-10.2) mg/dL Magnesium (1.6-2.3) mg/dL Assessment and Plan Assessment: Bowel obstruction status post total colectomy with end ileostomy Hypokalemia, improving Metabolic acidosis Acute kidney injury, improved History of alcoholic liver cirrhosis with frequent paracentesis History of hepatic encephalopathy History of anasarca and ascites History of alcohol use Cognitive impairment and mild dementia Plan: This is a pleasant 71 years old male who presents with abdominal distention suspicious for bowel obstruction Continue with NG tube, continue with TPN Continue with Zosyn for surgery team Continue with bicarbonate drip Surgery and nephrology team on the case Replaced electrolytes per protocol Labs and medication were reviewed.. Continue same treatment. Continue with symptomatic treatment. Resume home medication. Monitor lytes and vitals. DVT and GI prophylaxis. Further recommendations depends on the clinical course of t he patient DVT prophylaxis: Subcutaneous heparin GI Prophylaxis: Pepcid Prognosis is guarded
[2021-07-02] MEDS ORDERED: PROPOFOL 10 MG/ML 20 ML VIAL IV ONE (14:19)
[2021-07-02 18:09] LABS: Magnesium 1.8 mg/dL (1.6-2.3); Potassium 2.8 mmol/L (3.5-5.1)
[2021-07-02] MEDS ORDERED: 1: MVI, ADULT NO.4 WITH VIT K 10 ML, TRACE (CONC-1ML/DOSE) 1 ML in AMINO ACID 5%-D15W+LY IV SCH ×3 (23:30)
[2021-07-03] MEDS: PIPERACILLIN-TAZOBACTAM 3.375 GM in SODIUM CHLORIDE 0.9% 100 ML IVPB SCH ×3 (05:30→20:18)
[2021-07-03 08:05] LABS: African American GFR (CKD) >90 (>60 ml/min/1.73 sqM); Anion Gap 5 mmol/L; Blood Urea Nitrogen 11 mg/dL (9-20); Calcium 7.8 mg/dL (8.4-10.2); Carbon Dioxide 30 mmol/L (22-30); Chloride 99 mmol/L (98-107); Glucose 165 mg/dL (74-99); Non-African American GFR(CKD) >90 (>60 ml/min/1.73 sqM); Sodium 134 mmol/L (137-145)
[2021-07-03 08:09] LABS: Basophils % (A) 0 %; Eosinophils # (A) 0.1 k/uL (0-0.7); Eosinophils % (A) 2 %; HCT 29.7 % (39.0-53.0); Lymphocytes # (A) 1.8 k/uL (1.0-4.8); Lymphocytes % (A) 23 %; MCH 30.2 pg (25.0-35.0); Mean Platelet Volume 7.6; Monocytes # (A) 0.2 k/uL (0-1.0); Monocytes % (A) 2 %; Neutrophils # (A) 5.5 k/uL (1.3-7.7); Neutrophils % (A) 72 %; Platelet Count 220 k/uL (150-450); Potassium 2.7 mmol/L (3.5-5.1); RBC 3.25 m/uL (4.30-5.90); WBC 7.6 k/uL (3.8-10.6)
[2021-07-03] MEDS ORDERED: Potassium Replacement Protocol 1 EACH MISC MISCELLANE PRN (08:10)
[2021-07-03 08:16] LABS: HGB 9.8 gm/dL (13.0-17.5); MCV 91.5 fL (80.0-100.0)
[2021-07-03] MEDS: PANTOPRAZOLE 40 MG/10 ML VIAL IVP SCH ×2 (08:45→20:18)
[2021-07-03] MEDS: SIMETHICONE 40 MG/0.6 ML DROPS 2,000 MG/30 ML BOTTLE PO SCH ×2 (08:46→20:19)
[2021-07-03] MEDS: POTASSIUM CHLORIDE ER 10 MEQ TAB.ER.PRT PO SCH (08:46)
[2021-07-03] MEDS: HEPARIN SODIUM,PORCINE/PF 5,000 UNIT/0.5 ML SYRINGE SQ SCH ×2 (08:46→20:18)
[2021-07-03] MEDS: MORPHINE SULFATE 4 MG/ML SYRINGE IV PRN ×3 (08:55→17:53)
[2021-07-03] MEDS ORDERED: POTASSIUM CHLORIDE 20 MEQ in WATER FOR INJECTION 1 100ML.BAG IVPB SCH (09:00)
[2021-07-03] MEDS: POTASSIUM CHLORIDE ER 20 MEQ TAB.ER PO SCH ×3 (09:42→13:52)
--- NOTE | 2021-07-03 09:45 | P.PN ---
Subjective Patient is seen in follow-up for metabolic acidosis which is now resolved. He is tolerating oral diet. TPN discontinued July 02. Potassium is low and is being replaced. No vomiting or diarrhea. Vital signs are stable. General: The patient appeared well nourished and normally developed. HEENT: Head exam is unremarkable. LUNGS: Breath sounds decreased. HEART: Rate and Rhythm are regular. ABDOMEN: Soft, no distention. EXTREMITITES: No edema. Objective - Vital Signs Vital signs: Vital Signs Temp 98.8 F 07/03/21 08:00 Pulse 82 07/03/21 08:00 Resp 18 07/03/21 08:00 BP 97/55 07/03/21 08:00 Pulse Ox 96 07/03/21 08:00 Intake & Output 07/02/21 07/03/21 07/03/21 18:59 06:59 18:59 Intake Total 420 700 Output Total 3100 Balance -2680 700 Weight 88.5 kg Intake: Intake, IV Titration 420 700 Amount Mvi, Adult No.4 with Vit 320 K 10 ml Trace (Conc-1Ml/ Dose) 1 ml Potassium Acetate 40 meq Sodium Acetate 10 meq Sodium Phosphate 10 mmol Calcium Gluconate 1 gm Magnesium Sulfate gm 0.5 gm In Amino Acid 5%-D15w 1,000 ml @ 30 mls/hr IV .Q24H [facility] Rx#:[id number] Mvi, Adult No.4 with Vit 500 K 10 ml Trace (Conc-1Ml/ Dose) 1 ml Potassium Acetate 42 meq Sodium Phosphate 15 mmol Calcium Gluconate 1 gm Magnesium Sulfate gm 1 gm In Amino Acid 5%-D15w 1,000 ml @ 50 mls/hr IV .BY DURATION [facility] Rx#:[id number] Piperacillin-Tazobactam 3 100 200 .375 gm In Sodium Chloride 0.9% 100 ml @ 25 mls/hr IVPB Q8H [facility] Rx#: [id number] Output: Urine 2700 Stool 400 Other: Voiding Method Indwelling Catheter Indwelling Catheter # Voids 650 # Bowel Movements 1 150 - Labs CBC & Chem 7: 07/03/21 07:24 07/03/21 07:24 Labs: Abnormal Lab Results - Last 24 Hours (Table) 07/02/21 07/02/21 07/03/21 Range/Units 06:07 17:43 07:24 RBC 3.25 L (4.30-5.90) m/uL Hgb 9.8 L D (13.0-17.5) gm/dL Hct 29.7 L (39.0-53.0) % Sodium 135 L (137-145) mmol/L Potassium 2.8 L 2.8 L (3.5-5.1) mmol/L Glucose 127 H (74-99) mg/dL Calcium 7.7 L (8.4-10.2) mg/dL 07/03/21 Range/Units 07:24 RBC (4.30-5.90) m/uL Hgb (13.0-17.5) gm/dL Hct (39.0-53.0) % Sodium 134 L (137-145) mmol/L Potassium 2.7 L* (3.5-5.1) mmol/L Glucose 165 H (74-99) mg/dL Calcium 7.8 L (8.4-10.2) mg/dL Assessment and Plan Plan: Assessment: 1. Metabolic acidosis secondary to GI losses. status post bicarb drip. Resolved. 2. Hypokalemia from poor intake and diuretics. Magnesium normal. Being replaced. 3. Severe colonic distention status post colectomy and ileostomy. Plan: Encourage oral intake. Potassium being replaced.
--- NOTE | 2021-07-03 10:25 | P.PN ---
Subjective Progress Note Date: 07/03/21 Principal diagnosis: Status post subtotal colectomy Patient doing well. Slightly confused. Tolerating dysphagia diet. Denies abdominal pain. T-max 99.6. Potassium is low at 2.7. Objective - Vital Signs Vital signs: Vital Signs Temp 98.8 F 07/03/21 08:00 Pulse 82 07/03/21 08:47 Resp 18 07/03/21 08:47 BP 97/55 07/03/21 08:00 Pulse Ox 96 07/03/21 08:00 Intake & Output 07/02/21 07/03/21 07/03/21 18:59 06:59 18:59 Intake Total 420 700 Output Total 3100 Balance -2680 700 Weight 88.5 kg Intake: Intake, IV Titration 420 700 Amount Mvi, Adult No.4 with Vit 320 K 10 ml Trace (Conc-1Ml/ Dose) 1 ml Potassium Acetate 40 meq Sodium Acetate 10 meq Sodium Phosphate 10 mmol Calcium Gluconate 1 gm Magnesium Sulfate gm 0.5 gm In Amino Acid 5%-D15w 1,000 ml @ 30 mls/hr IV .Q24H [facility] Rx#:[id number] Mvi, Adult No.4 with Vit 500 K 10 ml Trace (Conc-1Ml/ Dose) 1 ml Potassium Acetate 42 meq Sodium Phosphate 15 mmol Calcium Gluconate 1 gm Magnesium Sulfate gm 1 gm In Amino Acid 5%-D15w 1,000 ml @ 50 mls/hr IV .BY DURATION [facility] Rx#:[id number] Piperacillin-Tazobactam 3 100 200 .375 gm In Sodium Chloride 0.9% 100 ml @ 25 mls/hr IVPB Q8H [facility] Rx#: [id number] Output: Urine 2700 Stool 400 Other: Voiding Method Indwelling Catheter Indwelling Catheter Indwelling Catheter # Voids 650 # Bowel Movements 1 150 - Exam Abdomen: Soft, nondistended, nontender, dressing intact, ostomy pink and functioning - Labs CBC & Chem 7: 07/03/21 07:24 07/03/21 07:24 Labs: Abnormal Lab Results - Last 24 Hours (Table) 07/02/21 07/02/21 07/03/21 Range/Units 06:07 17:43 07:24 RBC 3.25 L (4.30-5.90) m/uL Hgb 9.8 L D (13.0-17.5) gm/dL Hct 29.7 L (39.0-53.0) % Sodium 135 L (137-145) mmol/L Potassium 2.8 L 2.8 L (3.5-5.1) mmol/L Glucose 127 H (74-99) mg/dL Calcium 7.7 L (8.4-10.2) mg/dL 07/03/21 Range/Units 07:24 RBC (4.30-5.90) m/uL Hgb (13.0-17.5) gm/dL Hct (39.0-53.0) % Sodium 134 L (137-145) mmol/L Potassium 2.7 L* (3.5-5.1) mmol/L Glucose 165 H (74-99) mg/dL Calcium 7.8 L (8.4-10.2) mg/dL Assessment and Plan (1) Ileostomy in place Narrative/Plan: Patient seems to be doing well today. Continue regular diet. Supplement electrolytes imbalance. Increase activity. Current Visit: Yes Status: Acute Code(s): Z93.2 - ILEOSTOMY STATUS SNOMED Code(s): 703805382
[2021-07-03] MEDS ORDERED: MAGNESIUM SULFATE-D5W PMX 1 GM in DEXTROSE/WATER 1 100ML.BAG IVPB ONE (15:03)
--- NOTE | 2021-07-03 15:16 | P.PN ---
Subjective This is a pleasant 71 years old male from skilled [facility]rehab with past medical history of hepatic encephalopathy, dysphasia, anasarca, ascites due to liver cirrhosis Patient is fully awake and oriented and appropriate. He knows he is in the hospital but he thought it is a [place]. He thought his 2020 and could not rememb er the name of the president. His abdomen is significantly distended. No abdominal pain or tenderness. No nausea vomiting. Bowel movement was yesterday 10:00 AM. Did not pass bowel movement or gas since then. Vitals are stable. Blood pressure borderline 98/63, repeated 170/72 CBC is unremarkable, INR is 1.1. Sodium 133, potassium 3.3, creatinine 1.3. Lactic acid is elevated at 3.1. Liver enzymes are normal with AST 35 and ALT 22 and total bilirubin 0.7 CT of the abdomen and pelvis with contrast showing large amount of stool in the rectosigmoid colon which may be resulting in fecal impaction. Rotation of the small and large bowel without transition zone. Right basilar atelectasis or infiltrate Patient is status post decompression colonoscopy with about 1000 L of gas and stool were evacuated On 06/23, Yesterday he had big bowel movement and passing gas. However today his abdomen is still significantly distended. UB showing persistent abdominal distention and possible bowel obstruction. The tube and patient is on liquid diet. No abdominal pain. Patient did not pass gas or stool today. He is hemodynamically stable. Low potassium of 3.2 his been replaced, we will at 10 mEq daily from tomorrow. Surgical team on the case Discussed with staff 06/29/2021 Abdomen is even more distended today although it is painless, he still on liquid diet, he had small bowel movement today but not passing gas. Other than that he looks awake and alert with no other complaints. Vitals are stable CBC and BMP are unremarkable and potassium 4.2 today. However carbon dioxide to his laws 8, pH is low at 7.2. Nephrology consult is appreciated and patient was started on bicarb drip Surgery team are planning for another colonic decompression today 06/30/2021February awake and alert, not in distress. NG tube is in place with few millimeter of dark aspirate the tubercle to the back. Is a status post anoscopy with control on decompression with 3500 mL of fluid has been aspirated out. Surgical team are considering now subtotal colectomy with colostomy. Other than that he is hemodynamically stable. Labs from today pending. He remains on bicarbonate drip for his acidosis. And abdomen looks soft on examination He is kept nothing by mouth for surgery team recommendation 07/01/2021 Patient is a status post total abdominal colectomy with end ileostomy in the right lower abdomen. Patient tolerated the procedure well. This morning his awake and alert, no distress. NG tube is in place and also was started on TPN. Also patient was started on Zosyn this is to be continued on bicarbonate drip Vitals are stable. He has mild leukocytosis and anemia from surgery which is expected. No kidney injury. Low potassium and magnesium are replaced per protocol. Carbon dioxide is improved to 20 L which is still on the low side, remains on bicarb drip per nephrology team 07/02/2021 Patient is awake and alert, NG tube still in place with few bowel discharge around 100 mL in the bag. Right ileostomy is working and brown stone was evacuated this morning. No abdominal pain with some tenderness expected from surgery. Patient looks Satisfied he is hemodynamically stable. WBC is back to normal however hemoglobin down to 9.5 probably from surgery Bicarbonate drip stopped, 1 dose of Lasix. He is on TPN with the plan to discontinue it upon discharge Possible discharge in 24-48 hours once medically stable and cleared by surgical team 07/03/2021 Patient comfortable lying in bed. NG tube was removed and started on regular diet. No abdominal pain and his right lower abdomen ileostomy back still empty with no stool. TPN was stopped. Low potassium this morning 2.7 and magnesium 1.8 last night. It are being replaced per protocol. Monitor potassium and magnesium. Objective - Vital Signs Vital signs: Vital Signs Temp 98.7 F 07/03/21 14:00 Pulse 93 07/03/21 14:00 Resp 17 07/03/21 14:00 BP 94/53 07/03/21 14:00 Pulse Ox 96 07/03/21 14:00 Intake & Output 07/02/21 07/03/21 07/03/21 18:59 06:59 18:59 Intake Total 420 700 Output Total 3100 250 Balance -2680 700 -250 Weight 88.5 kg Intake: Intake, IV Titration 420 700 Amount Mvi, Adult No.4 with Vit 320 K 10 ml Trace (Conc-1Ml/ Dose) 1 ml Potassium Acetate 40 meq Sodium Acetate 10 meq Sodium Phosphate 10 mmol Calcium Gluconate 1 gm Magnesium Sulfate gm 0.5 gm In Amino Acid 5%-D15w 1,000 ml @ 30 mls/hr IV .Q24H [facility] Rx#:[id number] Mvi, Adult No.4 with Vit 500 K 10 ml Trace (Conc-1Ml/ Dose) 1 ml Potassium Acetate 42 meq Sodium Phosphate 15 mmol Calcium Gluconate 1 gm Magnesium Sulfate gm 1 gm In Amino Acid 5%-D15w 1,000 ml @ 50 mls/hr IV .BY DURATION [facility] Rx#:[id number] Piperacillin-Tazobactam 3 100 200 .375 gm In Sodium Chloride 0.9% 100 ml @ 25 mls/hr IVPB Q8H [facility] Rx#: [id number] Output: Urine 2700 250 Stool 400 Other: Voiding Method Indwelling Catheter Indwelling Catheter Indwelling Catheter # Voids 650 # Bowel Movements 1 150 - Exam GENERAL: The patient is alert and oriented x3, not in any acute distress. Well developed, well nourished. HEENT: Pupils are round and equally reacting to light. EOMI. No scleral icterus. No conjunctival pallor. Normocephalic, atraumatic. No pharyngeal erythema. No thyromegaly. CARDIOVASCULAR: S1 and S2 present. No murmurs, rubs, or gallops. PULMONARY: Chest is clear to auscultation, no wheezing or crackles. -ABDOMEN: Soft, nontender, distended, normoactive bowel sounds. No palpable organomegaly. MUSCULOSKELETAL: No joint swelling or deformity. EXTREMITIES: No cyanosis, clubbing, or pedal edema. NEUROLOGICAL: Gross neurological examination did not reveal any focal deficits. SKIN: No rashes. no petechiae. - Labs CBC & Chem 7: 07/03/21 07:24 07/03/21 07:24 Labs: Abnormal Lab Results - Last 24 Hours (Table) 07/02/21 07/03/21 07/03/21 Range/Units 17:43 07:24 07:24 RBC 3.25 L (4.30-5.90) m/uL Hgb 9.8 L D (13.0-17.5) gm/dL Hct 29.7 L (39.0-53.0) % Sodium 134 L (137-145) mmol/L Potassium 2.8 L 2.7 L* (3.5-5.1) mmol/L Glucose 165 H (74-99) mg/dL Calcium 7.8 L (8.4-10.2) mg/dL Assessment and Plan Assessment: Bowel obstruction status post total colectomy with end ileostomy Hypokalemia, improving Metabolic acidosis Acute kidney injury, improved History of alcoholic liver cirrhosis with frequent paracentesis History of hepatic encephalopathy History of anasarca and ascites History of alcohol use Cognitive impairment and mild dementia Plan: This is a pleasant 71 years old male who presents with abdominal distention suspicious for bowel obstruction Continue with NG tube, continue with TPN Continue with Zosyn for surgery team Continue with bicarbonate drip Surgery and nephrology team on the case Replaced electrolytes per protocol Labs and medication were reviewed.. Continue same treatment. Continue with symptomatic treatment. Resume home medication. Monitor lytes and vitals. DVT and GI prophylaxis. Further recommendations depends on the clinical course of the patient DVT prophylaxis: Subcutaneous heparin GI Prophylaxis: Pepcid Prognosis is guarded
[2021-07-04] MEDS: PIPERACILLIN-TAZOBACTAM 3.375 GM in SODIUM CHLORIDE 0.9% 100 ML IVPB SCH ×3 (04:41→21:59)
[2021-07-04 07:44] LABS: African American GFR (CKD) >90 (>60 ml/min/1.73 sqM); Anion Gap 4 mmol/L; Blood Urea Nitrogen 7 mg/dL (9-20); Carbon Dioxide 28 mmol/L (22-30); Chloride 102 mmol/L (98-107); Glucose 103 mg/dL (74-99); Magnesium 2.1 mg/dL (1.6-2.3); Non-African American GFR(CKD) >90 (>60 ml/min/1.73 sqM); Potassium 3.6 mmol/L (3.5-5.1); Sodium 134 mmol/L (137-145)
[2021-07-04] MEDS: MORPHINE SULFATE 4 MG/ML SYRINGE IV PRN ×3 (07:50→22:07)
[2021-07-04] MEDS: POTASSIUM CHLORIDE ER 10 MEQ TAB.ER.PRT PO SCH (07:50)
[2021-07-04] MEDS: PANTOPRAZOLE 40 MG/10 ML VIAL IVP SCH ×2 (07:50→21:59)
[2021-07-04] MEDS: HEPARIN SODIUM,PORCINE/PF 5,000 UNIT/0.5 ML SYRINGE SQ SCH ×2 (07:50→21:59)
[2021-07-04] MEDS: SIMETHICONE 40 MG/0.6 ML DROPS 2,000 MG/30 ML BOTTLE PO SCH ×2 (07:51→21:59)
--- NOTE | 2021-07-04 09:04 | XR ---
EXAMINATION TYPE: XR chest 1V DATE OF EXAM: 07/04/2021 COMPARISON: Chest x-ray 07/01/2021 HISTORY: Shortness of breath TECHNIQUE: Single frontal view of the chest is obtained. FINDINGS: Left-sided PICC line shows the distal tip over the superior vena cava. No evident pneumoth orax or pleural effusion. Bibasilar increased attenuation is present. Cardiac mediastinal silhouette is stable. Pneumoperitoneum no longer seen. IMPRESSION: Correlate for pneumonia versus atelectasis.
[2021-07-04] MEDS ORDERED: POTASSIUM CHLORIDE ER 20 MEQ TAB.ER PO STA ×2 (10:19→12:45)
--- NOTE | 2021-07-04 10:20 | P.PN ---
Subjective Patient is seen in follow-up for metabolic acidosis which is now resolved. He is tolerating oral diet. TPN discontinued July 02. Potassium is low and was replaced. No vomiting or diarrhea. Vital signs are stable. General: The patient appeared well nourished and normally developed. HEENT: Head exam is unremarkable. LUNGS: Breath sounds decreased. HEART: Rate and Rhythm are regular. ABDOMEN: Soft, no distention. EXTREMITITES: No edema. Objective - Vital Signs Vital signs: Vital Signs Temp 98.0 F 07/04/21 08:00 Pulse 76 07/04/21 08:00 Resp 17 07/04/21 08:00 BP 93/59 07/04/21 08:00 Pulse Ox 98 07/04/21 08:00 Intake & Output 07/03/21 07/04/21 07/04/21 18:59 06:59 18:59 Output Total 250 710 Balance -250 -710 Output: Urine 250 610 Stool 100 Other: Voiding Method Indwelling Catheter Indwelling Catheter Indwelling Catheter # Bowel Movements 150 - Labs CBC & Chem 7: 07/03/21 07:24 07/04/21 07:01 Labs: Abnormal Lab Results - Last 24 Hours (Table) 07/03/21 07/04/21 Range/Units 22:04 07:01 Sodium 134 L (137-145) mmol/L Potassium 3.4 L (3.5-5.1) mmol/L BUN 7 L (9-20) mg/dL Creatinine 0.59 L (0.66-1.25) mg/dL Glucose 103 H (74-99) mg/dL Calcium 8.0 L (8.4-10.2) mg/dL Assessment and Plan Plan: Assessment: 1. Metabolic acidosis secondary to GI losses. status post bicarb drip. Resolved. 2. Hypokalemia from poor intake and diuretics. Magnesium normal. Replaced. 3. Severe colonic distention status post colectomy and ileostomy. Plan: Encourage oral intake. Replace potassium. 20 mEq today.
[2021-07-04] MEDS ORDERED: FUROSEMIDE 10 MG/ML 4 ML VIAL IV STA (10:56)
--- NOTE | 2021-07-04 12:02 | P.PN ---
Subjective Progress Note Date: 07/04/21 Principal diagnosis: Status post subtotal colectomy Patient doing well today. He remains slightly confused. Denies pain. Tolerating diet. Good ostomy function. Objective - Vital Signs Vital signs: Vital Signs Temp 98.0 F 07/04/21 08:00 Pulse 76 07/04/21 08:00 Resp 17 07/04/21 08:00 BP 93/59 07/04/21 08:00 Pulse Ox 98 07/04/21 08:00 Intake & Output 07/03/21 07/04/21 07/04/21 18:59 06:59 18:59 Output Total 250 710 Balance -250 -710 Output: Urine 250 610 Stool 100 Other: Voiding Method Indwelling Catheter Indwelling Catheter Indwelling Catheter # Bowel Movements 150 - Exam abdomen: Soft, nondistended, dressing clean and dry, ostomy functioning - Labs CBC & Chem 7: 07/03/21 07:24 07/04/21 07:01 Labs: Abnormal Lab Results - Last 24 Hours (Table) 07/03/21 07/04/21 Range/Units 22:04 07:01 Sodium 134 L (137-145) mmol/L Potassium 3.4 L (3.5-5.1) mmol/L BUN 7 L (9-20) mg/dL Creatinine 0.59 L (0.66-1.25) mg/dL Glucose 103 H (74-99) mg/dL Calcium 8.0 L (8.4-10.2) mg/dL Assessment and Plan (1) Ileostomy in place Narrative/Plan: Patient is doing well today. Continue diet as tolerated. Continue increasing activity levels. Possible ECF this week. Current Visit: Yes Status: Acute Code(s): Z93.2 - ILEOSTOMY STATUS SNOMED Code(s): 762881487
--- NOTE | 2021-07-04 12:48 | P.PN ---
Subjective This is a pleasant 71 years old male from long-term/rehab with past medical history of hepatic encephalopathy, dysphasia, anasarca, ascites due to liver cirrhosis Patient is fully awake and oriented and appropriate. He knows he is in the hospital but he thought it is a English. He thought his 2020 and could not rememb er the name of the president. His abdomen is significantly distended. No abdominal pain or tenderness. No nausea vomiting. Bowel movement was yesterday 10:00 AM. Did not pass bowel movement or gas since then. Vitals are stable. Blood pressure borderline 98/63, repeated 170/72 CBC is unremarkable, INR is 1.1. Sodium 133, potassium 3.3, creatinine 1.3. Lactic acid is elevated at 3.1. Liver enzymes are normal with AST 35 and ALT 22 and total bilirubin 0.7 CT of the abdomen and pelvis with contrast showing large amount of stool in the rectosigmoid colon which may be resulting in fecal impaction. Rotation of the small and large bowel without transition zone. Right basilar atelectasis or infiltrate Patient is status post decompression colonoscopy with about 1000 L of gas and stool were evacuated On 06/23, Yesterday he had big bowel movement and passing gas. However today his abdomen is still significantly distended. UB showing persistent abdominal distention and possible bowel obstruction. The tube and patient is on liquid diet. No abdominal pain. Patient did not pass gas or stool today. He is hemodynamically stable. Low potassium of 3.2 his been replaced, we will at 10 mEq daily from tomorrow. Surgical team on the case Discussed with staff 06/29/2021 Abdomen is even more distended today although it is painless, he still on liquid diet, he had small bowel movement today but not passing gas. Other than that he looks awake and alert with no other complaints. Vitals are stable CBC and BMP are unremarkable and potassium 4.2 today. However carbon dioxide to his laws 8, pH is low at 7.2. Nephrology consult is appreciated and patient was started on bicarb drip Surgery team are planning for another colonic decompression today 06/30/2021February awake and alert, not in distress. NG tube is in place with few millimeter of dark aspirate the tubercle to the back. Is a status post anoscopy with control on decompression with 3500 mL of fluid has been aspirated out. Surgical team are considering now subtotal colectomy with colostomy. Other than that he is hemodynamically stable. Labs from today pending. He remains on bicarbonate drip for his acidosis. And abdomen looks soft on examination He is kept nothing by mouth for surgery team recommendation 07/01/2021 Patient is a status post total abdominal colectomy with end ileostomy in the right lower abdomen. Patient tolerated the procedure well. This morning his awake and alert, no distress. NG tube is in place and also was started on TPN. Also patient was started on Zosyn this is to be continued on bicarbonate drip Vitals are stable. He has mild leukocytosis and anemia from surgery which is expected. No kidney injury. Low potassium and magnesium are replaced per protocol. Carbon dioxide is improved to 20 L which is still on the low side, remains on bicarb drip per nephrology team 07/02/2021 Patient is awake and alert, NG tube still in place with few bowel discharge around 100 mL in the bag. Right ileostomy is working and brown stone was evacuated this morning. No abdominal pain with some tenderness expected from surgery. Patient looks Satisfied he is hemodynamically stable. WBC is back to normal however hemoglobin down to 9.5 probably from surgery Bicarbonate drip stopped, 1 dose of Lasix. He is on TPN with the plan to discontinue it upon discharge Possible discharge in 24-48 hours once medically stable and cleared by surgical team 07/03/2021 Patient comfortable lying in bed. NG tube was removed and started on regular diet. No abdominal pain and his right lower abdomen ileostomy back still empty with no stool. TPN was stopped. Low potassium this morning 2.7 and magnesium 1.8 last night. It are being replaced per protocol. Monitor potassium and magnesium. 07/04/2021 Patient tolerates diet well, his ileus him into is filled with gas but no bowel movement yet. Patient is very comfortable and smiling. He had some crepitation on both sides of the lung with chest x-ray showing possible bilateral infiltrate versus edema. He is already on Zosyn for several days. We are going to give him 1 dose of Lasix and repeat chest x-ray tomorrow. Patient is improving steadily and expected to be discharged back to [facility] when his more stable Objective - Vital Signs Vital signs: Vital Signs Temp 98.0 F 07/04/21 08:00 Pulse 76 07/04/21 08:00 Resp 17 07/04/21 08:00 BP 93/59 07/04/21 08:00 Pulse Ox 98 07/04/21 08:00 Intake & Output 07/03/21 07/04/21 07/04/21 18:59 06:59 18:59 Output Total 250 710 Balance -250 -710 Output: Urine 250 610 Stool 100 Other: Voiding Method Indwelling Catheter Indwelling Catheter Indwelling Catheter # Bowel Movements 150 - Exam GENERAL: The patient is alert and oriented x3, not in any acute distress. Well developed, well nourished. HEENT: Pupils are round and equally reacting to light. EOMI. No scleral icterus. No conjunctival pallor. Normocephalic, atraumatic. No pharyngeal erythema. No thyromegaly. CARDIOVASCULAR: S1 and S2 present. No murmurs, rubs, or gallops. PULMONARY: Chest is clear to auscultation, no wheezing or crackles. -ABDOMEN: Soft, nontender, distended, normoactive bowel sounds. No palpable organomegaly. MUSCULOSKELETAL: No joint swelling or deformity. EXTREMITIES: No cyanosis, clubbing, or pedal edema. NEUROLOGICAL: Gross neurological examination did not reveal any focal deficits. SKIN: No rashes. no petechiae. - Labs CBC & Chem 7: 07/03/21 07:24 07/04/21 07:01 Labs: Abnormal Lab Results - Last 24 Hours (Table) 07/03/21 07/04/21 Range/Units 22:04 07:01 Sodium 134 L (137-145) mmol/L Potassium 3.4 L (3.5-5.1) mmol/L BUN 7 L (9-20) mg/dL Creatinine 0.59 L (0.66-1.25) mg/dL Glucose 103 H (74-99) mg/dL Calcium 8.0 L (8.4-10.2) mg/dL Assessment and Plan Assessment: Bowel obstruction status post total colectomy with end ileostomy Hypokalemia, improving Bilateral infiltrates on the chest x-ray, most likely fluid overload rather than infiltrate. Acute kidney injury, improved History of alcoholic liver cirrhosis with frequent paracentesis History of hepatic encephalopathy History of anasarca and ascites History of alcohol use Cognitive impairment and mild dementia Plan: This is a pleasant 71 years old male who presents with abdominal distention suspicious for bowel obstruction Continue with oral diet Continue with Zosyn by surgery team Lasix 1 Surgery and nephrology team on the case Replaced electrolytes per protocol Labs and medication were reviewed.. Continue same treatment. Continue with symptomatic treatment. Resume home medication. Monitor lytes and vitals. DVT and GI prophylaxis. Further recommendations depends on the clinical course of the patient DVT prophylaxis: Subcutaneous heparin GI Prophylaxis: Pepcid Prognosis is guarded
[2021-07-05] MEDS: PIPERACILLIN-TAZOBACTAM 3.375 GM in SODIUM CHLORIDE 0.9% 100 ML IVPB SCH ×3 (05:20→19:56)
[2021-07-05] MEDS: SIMETHICONE 40 MG/0.6 ML DROPS 2,000 MG/30 ML BOTTLE PO SCH ×2 (07:50→19:57)
[2021-07-05] MEDS: POTASSIUM CHLORIDE ER 10 MEQ TAB.ER.PRT PO SCH (07:50)
[2021-07-05] MEDS: PANTOPRAZOLE 40 MG/10 ML VIAL IVP SCH ×2 (07:50→19:56)
[2021-07-05] MEDS: HEPARIN SODIUM,PORCINE/PF 5,000 UNIT/0.5 ML SYRINGE SQ SCH ×2 (07:50→19:56)
[2021-07-05] MEDS: MORPHINE SULFATE 4 MG/ML SYRINGE IV PRN ×2 (07:56→12:36)
--- NOTE | 2021-07-05 08:56 | XR ---
EXAMINATION TYPE: XR chest 1V portable DATE OF EXAM: 07/05/2021 COMPARISON: 07/04/2021 HISTORY: Shortness of breath TECHNIQUE: Single frontal view of the chest is obtained. FINDINGS: There is bilateral lower lobe infiltrate. A PICC line is seen. Underlying COPD noted. Hear t is enlarged. Could not exclude free intraperitoneal air. IMPRESSION: 1. Bilateral lower lobe infiltrate with superimposed COPD and cardiomegaly. 2. Findings are suggestive of free intraperitoneal air. Report called to patient's nurse 8:52 AM 06/25.
[2021-07-05] MEDS ORDERED: POTASSIUM CHLORIDE ER 20 MEQ TAB.ER PO STA (09:18)
--- NOTE | 2021-07-05 09:19 | P.PN ---
Subjective Patient is seen in follow-up for metabolic acidosis which is now resolved. He is tolerating oral diet. TPN discontinued July 02. Potassium is low and was replaced. No vomiting or diarrhea. Vital signs are stable. General: The patient appeared well nourished and normally developed. HEENT: Head exam is unremarkable. LUNGS: Breath sounds decreased. HEART: Rate and Rhythm are regular. ABDOMEN: Soft, no distention. EXTREMITITES: No edema. Objective - Vital Signs Vital signs: Vital Signs Temp 98.3 F 07/05/21 02:59 Pulse 84 07/05/21 02:59 Resp 17 07/05/21 02:59 BP 92/52 07/05/21 02:59 Pulse Ox 98 07/05/21 02:59 Intake & Output 07/04/21 07/05/21 07/05/21 18:59 06:59 18:59 Intake Total 1080 200 Output Total 2500 Balance -1420 200 Intake: Intake, IV Titration 200 Amount Piperacillin-Tazobactam 3 200 .375 gm In Sodium Chloride 0.9% 100 ml @ 25 mls/hr IVPB Q8H [facility] Rx#: [id number] Oral 1080 Output: Urine 2500 Other: Voiding Method Indwelling Catheter Indwelling Catheter # Bowel Movements 1 - Labs CBC & Chem 7: 07/03/21 07:24 07/04/21 07:01 Assessment and Plan Plan: Assessment: 1. Metabolic acidosis secondary to GI losses. status post bicarb drip. Resolved. 2. Hypokalemia from poor intake and diuretics. Magnesium normal. Replaced. 3. Severe colonic distention status post colectomy and ileostomy. Plan: Encourage oral intake. I will sign off. Please call with any questions or concerns.
[2021-07-05 11:28] LABS: Basophils % (A) 1 %; Eosinophils # (A) 0.2 k/uL (0-0.7); Eosinophils % (A) 5 %; HCT 31.4 % (39.0-53.0); Lymphocytes # (A) 1.1 k/uL (1.0-4.8); Lymphocytes % (A) 32 %; MCH 29.8 pg (25.0-35.0); MCHC 31.9 g/dL (31.0-37.0); MCV 93.3 fL (80.0-100.0); Monocytes # (A) 0.2 k/uL (0-1.0); Monocytes % (A) 6 %; Neutrophils # (A) 1.9 k/uL (1.3-7.7); Neutrophils % (A) 55 %; Platelet Count 231 k/uL (150-450); RBC 3.37 m/uL (4.30-5.90); RDW 14.5 % (11.5-15.5); WBC 3.5 k/uL (3.8-10.6)
--- NOTE | 2021-07-05 11:59 | P.PN ---
Subjective Progress Note Date: 07/05/21 CHIEF COMPLAINT: Abdominal distention HISTORY OF PRESENT ILLNESS: Patient is postop day #5 status post total abdominal colectomy with end ileostomy. Patient is lying in bed comfortably. He reports that his pain is okay. His ostomy is functioning. He is on a dysphagia chopped diet. Denies any nausea or vomiting. Afebrile. WBC is 3.5 hemoglobin is 10 Chest x-ray showing bilateral lower lobe infiltrate with superimposed COPD and cardiomegaly. Findings are suggestive of free intraperitoneal air. PHYSICAL EXAM: VITAL SIGNS: Reviewed GENERAL: Well-developed in no acute distress. HEENT: No sclera icterus. Extraocular movements grossly intact. Moist buccal mucosa. Head is atraumatic, normocephalic. Hears conversational speech. No nasal drainage. NECK: Supple without lymphadenopathy. CHEST: Non-labored respirations and equal bilateral excursions. CARDIOVASCULAR: Palpable 2+ radial pulses. ABDOMEN: Soft. Nondistended. Incision site clean dry and intact. Ostomy with stool and air MUSCULOSKELETAL: No clubbing or cyanosis. NEUROLOGIC: No focal or lateralizing signs. Cranial nerves II through XII grossly intact. PSYCH: Appropriate affect. Alert and oriented to person, place and time. SKIN: Well perfused. Good skin turgor. ASSESSMENT: 1. Large bowel obstruction status post total abdominal colectomy with end ileostomy. 2. Colonic ileus and severe distention status post colonoscopy for decompression on 06/29/2021 3. [place] syndrome 4. Hypokalemia improved 5. Hypomagnesemia improved 6. Free air noted on chest x-ray is expected finding postoperatively. Patient is clinically stable. PLAN: -Continue dysphagia chopped diet -Encourage patient to ambulate -Encourage patient to use incentive spirometer and deep breathing exercises -GI prophylaxis Protonix and DVT prophylaxis subcu heparin Physician Telephoner note has been reviewed by physician. Signing provider agrees with the documented findings, assessment, and plan of care. Objective - Vital Signs Vital signs: Vital Signs Temp 98.6 F 07/05/21 08:00 Pulse 99 07/05/21 08:00 Resp 20 07/05/21 08:00 BP 92/55 07/05/21 08:00 Pulse Ox 96 07/05/21 08:00 Intake & Output 07/04/21 07/05/21 07/05/21 18:59 06:59 18:59 Intake Total 1080 200 Output Total 2500 Balance -1420 200 Intake: Intake, IV Titration 200 Amount Piperacillin-Tazobactam 3 200 .375 gm In Sodium Chloride 0.9% 100 ml @ 25 mls/hr IVPB Q8H [facility] Rx#: [id number] Oral 1080 Output: Urine 2500 Other: Voiding Method Indwelling Catheter Indwelling Catheter Indwelling Catheter # Bowel Movements 1 - Labs CBC & Chem 7: 07/05/21 11:08 07/04/21 07:01 Labs: Abnormal Lab Results - Last 24 Hours (Table) 07/05/21 Range/Units 11:08 WBC 3.5 L (3.8-10.6) k/uL RBC 3.37 L (4.30-5.90) m/uL Hgb 10.0 L (13.0-17.5) gm/dL Hct 31.4 L (39.0-53.0) %
[2021-07-05 12:28] LABS: ALT 14 U/L (4-49); AST 29 U/L (17-59); African American GFR (CKD) >90 (>60 ml/min/1.73 sqM); Albumin 2.3 g/dL (3.5-5.0); Albumin/Globulin Ratio 0.9; Alkaline Phosphatase 106 U/L (38-126); Anion Gap 6 mmol/L; Blood Urea Nitrogen 7 mg/dL (9-20); Calcium 8.1 mg/dL (8.4-10.2); Carbon Dioxide 27 mmol/L (22-30); Chloride 99 mmol/L (98-107); Globulin 2.6 g/dL; Glucose 150 mg/dL (74-99); Non-African American GFR(CKD) >90 (>60 ml/min/1.73 sqM); Potassium 3.7 mmol/L (3.5-5.1); Sodium 132 mmol/L (137-145); Total Bilirubin 0.4 mg/dL (0.2-1.3); Total Protein 4.9 g/dL (6.3-8.2)
[2021-07-06] MEDS: MORPHINE SULFATE 4 MG/ML SYRINGE IV PRN (04:28)
[2021-07-06] MEDS: PIPERACILLIN-TAZOBACTAM 3.375 GM in SODIUM CHLORIDE 0.9% 100 ML IVPB SCH ×3 (04:33→20:08)
[2021-07-06 07:14] LABS: African American GFR (CKD) >90 (>60 ml/min/1.73 sqM); Anion Gap 4 mmol/L; Blood Urea Nitrogen 5 mg/dL (9-20); Calcium 8.4 mg/dL (8.4-10.2); Carbon Dioxide 29 mmol/L (22-30); Chloride 101 mmol/L (98-107); Glucose 104 mg/dL (74-99); Magnesium 1.8 mg/dL (1.6-2.3); Non-African American GFR(CKD) >90 (>60 ml/min/1.73 sqM); Potassium 4.2 mmol/L (3.5-5.1); Sodium 134 mmol/L (137-145)
[2021-07-06] MEDS: HEPARIN SODIUM,PORCINE/PF 5,000 UNIT/0.5 ML SYRINGE SQ SCH ×2 (09:10→20:08)
[2021-07-06] MEDS: SIMETHICONE 40 MG/0.6 ML DROPS 2,000 MG/30 ML BOTTLE PO SCH ×2 (09:11→20:08)
[2021-07-06] MEDS: POTASSIUM CHLORIDE ER 10 MEQ TAB.ER.PRT PO SCH (09:11)
[2021-07-06] MEDS: PANTOPRAZOLE 40 MG/10 ML VIAL IVP SCH ×2 (09:11→20:08)
--- NOTE | 2021-07-06 12:49 | P.PN ---
Subjective Progress Note Date: 07/06/21 CHIEF COMPLAINT: Abdominal distention HISTORY OF PRESENT ILLNESS: Patient is postop day #6 status post total abdominal colectomy with end ileostomy. Patient is lying in bed comfortably. His pain is controlled. His ostomy is functioning. He is on a dysphagia chopped diet. Denies any nausea or vomiting. Afebrile. His cough has shown improvement. PHYSICAL EXAM: VITAL SIGNS: Reviewed GENERAL: Well-developed in no acute distress. HEENT: No sclera icterus. Extraocular movements grossly intact. Moist buccal mucosa. Head is atraumatic, normocephalic. Hears conversational speech. No nasal draina ge. NECK: Supple without lymphadenopathy. CHEST: Non-labored respirations and equal bilateral excursions. CARDIOVASCULAR: Palpable 2+ radial pulses. ABDOMEN: Soft. Nondistended. Incision site clean dry and intact. Ostomy with stool and air MUSCULOSKELETAL: No clubbing or cyanosis. NEUROLOGIC: No focal or lateralizing signs. Cranial nerves II through XII grossly intact. PSYCH: Appropriate affect. Alert and oriented to person, place and time. SKIN: Well perfused. Good skin turgor. ASSESSMENT: 1. Large bowel obstruction status post total abdominal colectomy with end ileostomy. 2. Colonic ileus and severe distention status post colonoscopy for decompression on 06/29/2021 3. [place] syndrome 4. Hypokalemia improved 5. Hypomagnesemia improved 6. Free air noted on chest x-ray is expected finding postoperatively. Patient is clinically stable. PLAN: -Patient can be discharged from surgical standpoint -Add Tylenol oral as needed for pain -Continue dysphagia chopped diet -Encourage patient to ambulate -Encourage patient to use incentive spirometer and deep breathing exercises -GI prophylaxis Protonix and DVT prophylaxis subcu heparin Physician International Marketing Executive note has been reviewed by physician. Signing provider agrees with the documented findings, assessment, and plan of care. Objective - Vital Signs Vital signs: Vital Signs Temp 98.0 F 07/06/21 08:00 Pulse 92 07/06/21 09:19 Resp 18 07/06/21 09:19 BP 90/55 07/06/21 09:19 Pulse Ox 97 07/06/21 09:19 Intake & Output 07/05/21 07/06/21 07/06/21 18:59 06:59 18:59 Intake Total 236 200 Output Total 1250 2000 950 Balance -1014 -1800 -950 Weight 88.5 kg Intake: Oral 236 200 Output: Urine 1200 2000 400 Uretheral (Leung) 1000 Stool 50 550 Other: Voiding Method Indwelling Catheter Urinal Urinal # Voids 1 1 1 - Labs CBC & Chem 7: 07/05/21 11:08 07/06/21 05:47 Labs: Abnormal Lab Results - Last 24 Hours (Table) 07/06/21 Range/Units 05:47 Sodium 134 L (137-145) mmol/L BUN 5 L (9-20) mg/dL Glucose 104 H (74-99) mg/dL
[2021-07-06] MEDS: ACETAMINOPHEN TAB 500 MG TAB PO PRN ×2 (13:30→20:19)
--- NOTE | 2021-07-06 14:31 | XR ---
EXAMINATION TYPE: XR Hip Complete RT DATE OF EXAM: 07/06/2021 COMPARISON: NONE HISTORY: Pain TECHNIQUE: 2 views submitted FINDINGS: Postsurgical change involving the right pelvic bones. The right femoral head is accident and may have been surgically removed. Subluxation of the neck of the femur noted. No definite acute fracture. Vas cular calcifications noted. Chronic appearing deformity of the lateral acetabulum. Visualized SI join t patent. IMPRESSION: 1. Postsurgical change extensively involving the right hemipelvis is similar to the exam of 03/18/2021 with some subluxation of the remaining portion of the femoral neck relative to the joint space.
[2021-07-07] MEDS: PIPERACILLIN-TAZOBACTAM 3.375 GM in SODIUM CHLORIDE 0.9% 100 ML IVPB SCH ×3 (04:35→21:21)
[2021-07-07] MEDS: PANTOPRAZOLE 40 MG/10 ML VIAL IVP SCH ×2 (07:21→21:21)
[2021-07-07] MEDS: POTASSIUM CHLORIDE ER 10 MEQ TAB.ER.PRT PO SCH (07:22)
[2021-07-07] MEDS: ACETAMINOPHEN TAB 500 MG TAB PO PRN ×2 (07:22→18:06)
[2021-07-07] MEDS: HEPARIN SODIUM,PORCINE/PF 5,000 UNIT/0.5 ML SYRINGE SQ SCH ×2 (07:22→21:21)
[2021-07-07] MEDS: SIMETHICONE 40 MG/0.6 ML DROPS 2,000 MG/30 ML BOTTLE PO SCH ×2 (07:22→21:21)
[2021-07-07 08:46] LABS: Basophils % (A) 1 %; Eosinophils # (A) 0.3 k/uL (0-0.7); Eosinophils % (A) 8 %; HCT 33.3 % (39.0-53.0); HGB 10.6 gm/dL (13.0-17.5); Lymphocytes # (A) 1.5 k/uL (1.0-4.8); Lymphocytes % (A) 37 %; MCH 29.3 pg (25.0-35.0); MCHC 31.9 g/dL (31.0-37.0); MCV 91.6 fL (80.0-100.0); Mean Platelet Volume 8.4; Monocytes # (A) 0.2 k/uL (0-1.0); Monocytes % (A) 4 %; Neutrophils % (A) 48 %; Platelet Count 320 k/uL (150-450); RBC 3.64 m/uL (4.30-5.90); RDW 14.9 % (11.5-15.5); WBC 4.1 k/uL (3.8-10.6)
[2021-07-07 09:05] LABS: ALT 16 U/L (4-49); AST 27 U/L (17-59); African American GFR (CKD) >90 (>60 ml/min/1.73 sqM); Albumin 2.6 g/dL (3.5-5.0); Albumin/Globulin Ratio 0.9; Alkaline Phosphatase 117 U/L (38-126); Anion Gap 5 mmol/L; Blood Urea Nitrogen 6 mg/dL (9-20); Calcium 9.2 mg/dL (8.4-10.2); Carbon Dioxide 28 mmol/L (22-30); Chloride 106 mmol/L (98-107); Glucose 155 mg/dL (74-99); Non-African American GFR(CKD) 89 (>60 ml/min/1.73 sqM); Sodium 139 mmol/L (137-145); Total Bilirubin 0.3 mg/dL (0.2-1.3); Total Protein 5.6 g/dL (6.3-8.2)
--- NOTE | 2021-07-07 13:00 | P.PN ---
Subjective Progress Note Date: 07/07/21 CHIEF COMPLAINT: Abdominal distention HISTORY OF PRESENT ILLNESS: Patient is postop day #7 status post total abdominal colectomy with end ileostomy. His incisional dressing and ostomy appliance was changed yesterday by ostomy care nurse. Patient sitting in bed comfortably. Denies any pain. His ostomy is functioning. Denies any nausea vomiting. Afebrile. WBC 4.1 He is tolerating diet. PHYSICAL EXAM: VITAL SIGNS: Reviewed GENERAL: Well-developed in no acute distress. HEENT: No sclera icterus. Extraocular movements grossly intact. Moist buccal mucosa. Head is atraumatic, normocephalic. Hears conversational speech. No nasal drainage. NECK: Supple without lymphadenopathy. CHEST: Non-labored respirations and equal bilateral excursions. CARDIOVASCULAR: Palpable 2+ radial pulses. ABDOMEN: Soft. Nondistended. Incision site clean dry and intact. Ostomy with stool and air MUSCULOSKELETAL: No clubbing or cyanosis. NEUROLOGIC: No focal or lateralizing signs. Cranial nerves II through XII grossly intact. PSYCH: Appropriate affect. Alert and oriented to person, place and time. SKIN: Well perfused. Good skin turgor. ASSESSMENT: 1. Large bowel obstruction status post total abdominal colectomy with end ileostomy. 2. Colonic ileus and severe distention status post colonoscopy for decompression on 06/29/2021 3. [place] syndrome 4. Hypokalemia improved 5. Hypomagnesemia improved 6. Free air noted on chest x-ray is expected finding postoperatively. Patient is clinically stable. PLAN: -Patient can be discharged from surgical standpoint -Continue Tylenol oral as needed for pain -Continue dysphagia chopped diet -Encourage patient to ambulate -Encourage patient to use incentive spirometer -GI prophylaxis Protonix and DVT prophylaxis subcu heparin Physician Segment Producer note has been reviewed by physician. Signing provider agrees with the documented findings, assessment, and plan of care. Objective - Vital Signs Vital signs: Vital Signs Temp 98.2 F 07/07/21 07:28 Pulse 79 07/07/21 07:28 Resp 18 07/07/21 07:28 BP 99/62 07/07/21 07:28 Pulse Ox 99 07/07/21 07:28 Intake & Output 07/06/21 07/07/21 07/07/21 18:59 06:59 18:59 Output Total 1600 100 Balance -1600 -100 Output: Urine 750 Stool 850 100 Other: Voiding Method Urinal Urinal Diaper Incontinent # Voids 1 1 - Labs CBC & Chem 7: 07/07/21 08:27 07/07/21 08:27 Labs: Abnormal Lab Results - Last 24 Hours (Table) 07/07/21 07/07/21 Range/Units 08:27 08:27 RBC 3.64 L (4.30-5.90) m/uL Hgb 10.6 L (13.0-17.5) gm/dL Hct 33.3 L (39.0-53.0) % BUN 6 L (9-20) mg/dL Glucose 155 H (74-99) mg/dL Total Protein 5.6 L (6.3-8.2) g/dL Albumin 2.6 L (3.5-5.0) g/dL
[2021-07-08] MEDS: HEPARIN SODIUM,PORCINE/PF 5,000 UNIT/0.5 ML SYRINGE SQ SCH ×2 (08:26→20:18)
--- NOTE | 2021-07-08 10:04 | P.PN ---
Subjective Progress Note Date: 07/05/21 Principal diagnosis: Bowel obstruction status post total colectomy with end ileostomy This is a pleasant 71 years old male from jail/rehab with past medical history of hepatic encephalopathy, dysphasia, anasarca, ascites due to liver cirrhosis Patient is fully awake and oriented and appropriate. He knows he is in the hospital but he thought it is a [place]. He thought his 2020 and could not remember the name of the president. His abdomen is significantly distended. No abdominal pain or tenderness. No nausea vomiting. Bowel movement was yesterday 10:00 AM. Did not pass bowel movement or gas since then. Vitals are stable. Blood pressure borderline 98/63, repeated 170/72 CBC is unremarkable, INR is 1.1. Sodium 133, potassium 3.3, creatinine 1.3. Lactic acid is elevated at 3.1. Liver enzymes are normal with AST 35 and ALT 22 and total bilirubin 0.7 CT of the abdomen and pelvis with contrast showing large amount of stool in the rectosigmoid colon which may be resulting in fecal impaction. Rotation of the small and large bowel without transition zone. Right basilar atelectasis or infiltrate Patient is status post decompression colonoscopy with about 1000 L of gas and stool were evacuated On 06/23, Yesterday he had big bowel movement and passing gas. However today his abdomen is still significantly distended. UB showing persistent abdominal distention and possible bowel obstruction. The tube and patient is on liquid diet. No abdominal pain. Patient did not pass gas or stool today. He is hemodynamically stable. Low potassium of 3.2 his been replaced, we will at 10 mEq daily from tomorrow. Surgical team on the case Discussed with staff 06/29/2021 Abdomen is even more distended today although it is painless, he still on liquid diet, he had small bowel movement today but not passing gas. Other than that he looks awake and alert with no other complaints. Vitals are stable CBC and BMP are unremarkable and potassium 4.2 today. However carbon dioxide to his laws 8, pH is low at 7.2. Nephrology consult is appreciated and patient was started on bicarb drip Surgery team are planning for another colonic decompression today 06/30/2021February awake and alert, not in distress. NG tube is in place with few millimeter of dark aspirate the tubercle to the back. Is a status post anoscopy with control on decompression with 3500 mL of fluid has been aspirated out. Surgical team are considering now subtotal colectomy with colostomy. Other than that he is hemodynamically stable. Labs from today pending. He remains on bicarbonate drip for his acidosis. And abdomen looks soft on examination He is kept nothing by mouth for surgery team recommendation 07/01/2021 Patient is a status post total abdominal colectomy with end ileostomy in the right lower abdomen. Patient tolerated the procedure well. This morning his awake and alert, no distress. NG tube is in place and also was started on TPN. Also patient was started on Zosyn this is to be continued on bicarbonate drip Vitals are stable. He has mild leukocytosis and anemia from surgery which is expected. No kidney injury. Low potassium and magnesium are replaced per protocol. Carbon dioxide is improved to 20 L which is still on the low side, remains on bicarb drip per nephrology team 07/02/2021 Patient is awake and alert, NG tube still in place with few bowel discharge around 100 mL in the bag. Right ileostomy is working and brown stone was evacuated this morning. No abdominal pain with some tenderness expected from surgery. Patient looks Satisfied he is hemodynamically stable. WBC is back to normal however hemoglobin down to 9.5 probably from surgery Bicarbonate drip stopped, 1 dose of Lasix. He is on TPN with the plan to dis continue it upon discharge Possible discharge in 24-48 hours once medically stable and cleared by surgical team 07/03/2021 Patient comfortable lying in bed. NG tube was removed and started on regular diet. No abdominal pain and his right lower abdomen ileostomy back still empty with no stool. TPN was stopped. Low potassium this morning 2.7 and magnesium 1.8 last night. It are being replaced per protocol. Monitor potassium and magnesium. 07/04/2021 Patient tolerates diet well, his ileus him into is filled with gas but no bowel movement yet. Patient is very comfortable and smiling. He had some crepitation on both sides of the lung with chest x-ray showing possible bilateral infiltrate versus edema. He is already on Zosyn for several days. We are going to give him 1 dose of Lasix and repeat chest x-ray tomorrow. Patient is improving steadily and expected to be discharged back to [facility] when his more stable 07/05/2021 Patient is currently resting in the bed. She is lethargic and weak. No complaints of chest pain. Bilateral diffuse coarse sounds on lung exam. Patient is being on Zosyn. Otherwise patient is tolerating oral diet. TPN has been discontinued on 07/02/2021 X-rays are being replaced. No episodes of nausea or vomiting. Gen. surgery and nephrology is on board. Metabolic acidosis is resolved. Current medications reviewed. Objective - Vital Signs Vital signs: Vital Signs Temp 99.6 F 07/05/21 14:00 Pulse 101 H 07/05/21 14:00 Resp 16 07/05/21 14:00 BP 90/50 07/05/21 14:00 Pulse Ox 94 L 07/05/21 14:00 Intake & Output 07/04/21 07/05/21 07/05/21 18:59 06:59 18:59 Intake Total 1080 200 236 Output Total 2500 1250 Balance -1420 200 -1014 Weight 88.5 kg Intake: Intake, IV Titration 200 Amount Piperacillin-Tazobactam 3 200 .375 gm In Sodium Chloride 0.9% 100 ml @ 25 mls/hr IVPB Q8H [facility] Rx#: [id number] Oral 1080 236 Output: Urine 2500 1200 Uretheral (Le[place]) 1000 Stool 50 Other: Voiding Method Indwelling Catheter Indwelling Catheter Indwelling Catheter # Voids 1 # Bowel Movements 1 - Exam - Exam GENERAL: The patient is alert and oriented x3, not in any acute distress. Well developed, well nourished. HEENT: Pupils are round and equally reacting to light. EOMI. No scleral icterus. No conjunctival pallor. Normocephalic, atraumatic. No pharyngeal erythema. No thyromegaly. CARDIOVASCULAR: S1 and S2 present. No murmurs, rubs, or gallops. PULMONARY: Chest is clear to auscultation, no wheezing or crackles. -ABDOMEN: Soft, nontender, distended, normoactive bowel sounds. No palpable or ganomegaly. MUSCULOSKELETAL: No joint swelling or deformity. EXTREMITIES: No cyanosis, clubbing, or pedal edema. NEUROLOGICAL: Gross neurological examination did not reveal any focal deficits. SKIN: No rashes. no petechiae. - Labs CBC & Chem 7: 07/07/21 08:27 07/07/21 08:27 Labs: Abnormal Lab Results - Last 24 Hours (Table) 07/05/21 07/05/21 Range/Units 11:08 11:08 WBC 3.5 L (3.8-10.6) k/uL RBC 3.37 L (4.30-5.90) m/uL Hgb 10.0 L (13.0-17.5) gm/dL Hct 31.4 L (39.0-53.0) % Sodium 132 L (137-145) mmol/L BUN 7 L (9-20) mg/dL Glucose 150 H (74-99) mg/dL Calcium 8.1 L (8.4-10.2) mg/dL Total Protein 4.9 L (6.3-8.2) g/dL Albumin 2.3 L (3.5-5.0) g/dL Assessment and Plan Assessment: Bowel obstruction status post total colectomy with end ileostomy Hypokalemia, improving Bilateral infiltrates on the chest x-ray, most likely fluid overload rather than infiltrate. Acute kidney injury, improved Metabolic acidosis. Improved History of alcoholic liver cirrhosis with frequent paracentesis History of hepatic encephalopathy History of anasarca and ascites History of alcohol use Cognitive impairment and mild dementia Plan: This is a pleasant 71 years old male who presents with abdominal distention suspicious for bowel obstruction Continue with oral diet Continue with Zosyn by surgery team [place] 1 Surgery and nephrology team on the case Replaced electrolytes per protocol Labs and medication were reviewed.. Continue same treatment. Continue with symptomatic treatment. Resume home medication. Monitor lytes and vitals. DVT and GI prophylaxis. Further recommendations depends on the clinical course of the patient DVT prophylaxis: Subcutaneous heparin GI Prophylaxis: Pepcid Prognosis is guarded Time with Patient: Greater than 30
--- NOTE | 2021-07-08 10:11 | P.PN ---
Subjective Progress Note Date: 07/06/21 Principal diagnosis: Bowel obstruction status post total colectomy with end ileostomy This is a pleasant 71 years old male from prison/rehab with past medical history of hepatic encephalopathy, dysphasia, anasarca, ascites due to liver cirrhosis Patient is fully awake and oriented and appropriate. He knows he is in the hospital but he thought it is a [place]. He thought his 2020 and could not remember the name of the president. His abdomen is significantly distended. No abdominal pain or tenderness. No nausea vomiting. Bowel movement was yesterday 10:00 AM. Did not pass bowel movement or gas since then. Vitals are stable. Blood pressure borderline 98/63, repeated 170/72 CBC is unremarkable, INR is 1.1. Sodium 133, potassium 3.3, creatinine 1.3. Lactic acid is elevated at 3.1. Liver enzymes are normal with AST 35 and ALT 22 and total bilirubin 0.7 CT of the abdomen and pelvis with contrast showing large amount of stool in the rectosigmoid colon which may be resulting in fecal impaction. Rotation of the small and large bowel without transition zone. Right basilar atelectasis or infiltrate Patient is status post decompression colonoscopy with about 1000 L of gas and stool were evacuated On 06/23, Yesterday he had big bowel movement and passing gas. However today his abdomen is still significantly distended. UB showing persistent abdominal distention and possible bowel obstruction. The tube and patient is on liquid diet. No abdominal pain. Patient did not pass gas or stool today. He is hemodynamically stable. Low potassium of 3.2 his been replaced, we will at 10 mEq daily from tomorrow. Surgical team on the case Discussed with staff 06/29/2021 Abdomen is even more distended today although it is painless, he still on liquid diet, he had small bowel movement today but not passing gas. Other than that he looks awake and alert with no other complaints. Vitals are stable CBC and BMP are unremarkable and potassium 4.2 today. However carbon dioxide to his laws 8, pH is low at 7.2. Nephrology consult is appreciated and patient was started on bicarb drip Surgery team are planning for another colonic decompression today 06/30/2021February awake and alert, not in distress. NG tube is in place with few millimeter of dark aspirate the tubercle to the back. Is a status post anoscopy with control on decompression with 3500 mL of fluid has been aspirated out. Surgical team are considering now subtotal colectomy with colostomy. Other than that he is hemodynamically stable. Labs from today pending. He remains on bicarbonate drip for his acidosis. And abdomen looks soft on examination He is kept nothing by mouth for surgery team recommendation 07/01/2021 Patient is a status post total abdominal colectomy with end ileostomy in the right lower abdomen. Patient tolerated the procedure well. This morning his awake and alert, no distress. NG tube is in place and also was started on TPN. Also patient was started on Zosyn this is to be continued on bicarbonate drip Vitals are stable. He has mild leukocytosis and anemia from surgery which is expected. No kidney injury. Low potassium and magnesium are replaced per protocol. Carbon dioxide is improved to 20 L which is still on the low side, remains on bicarb drip per nephrology team 07/02/2021 Patient is awake and alert, NG tube still in place with few bowel discharge around 100 mL in the bag. Right ileostomy is working and brown stone was evacuated this morning. No abdominal pain with some tenderness expected from surgery. Patient looks Satisfied he is hemodynamically stable. WBC is back to normal however hemoglobin down to 9.5 probably from surgery Bicarbonate drip stopped, 1 dose of Lasix. He is on TPN with the plan to dis continue it upon discharge Possible discharge in 24-48 hours once medically stable and cleared by surgical team 07/03/2021 Patient comfortable lying in bed. NG tube was removed and started on regular diet. No abdominal pain and his right lower abdomen ileostomy back still empty with no stool. TPN was stopped. Low potassium this morning 2.7 and magnesium 1.8 last night. It are being replaced per protocol. Monitor potassium and magnesium. 07/04/2021 Patient tolerates diet well, his ileus him into is filled with gas but no bowel movement yet. Patient is very comfortable and smiling. He had some crepitation on both sides of the lung with chest x-ray showing possible bilateral infiltrate versus edema. He is already on Zosyn for several days. We are going to give him 1 dose of Lasix and repeat chest x-ray tomorrow. Patient is improving steadily and expected to be discharged back to [facility] when his more stable 07/05/2021 Patient is currently resting in the bed. She is lethargic and weak. No complaints of chest pain. Bilateral diffuse coarse sounds on lung exam. Patient is being on Zosyn. Otherwise patient is tolerating oral diet. TPN has been discontinued on 07/02/2021 X-rays are being replaced. No episodes of nausea or vomiting. Gen. surgery and nephrology is on board. Metabolic acidosis is resolved. 07/06/2021 Patient is postoperative day 6 status post total abdominal colectomy with end ileostomy. Ostomy is functioning. Patient is tolerating oral diet. No nausea vomiting or diarrhea. Patient is lying in the bed comfortably. Plans of right hip pain. Not able to participating in physical therapy again over the bed. Patient is afebrile. Currently on antibiotics in the form of Zosyn. PTOT follow-up and possible discharge to rehab. Current medications reviewed. Objective - Vital Signs Vital signs: Vital Signs Temp 98.3 F 07/06/21 20:00 Pulse 86 07/06/21 20:00 Resp 17 07/06/21 20:00 BP 95/57 07/06/21 20:00 Pulse Ox 99 07/06/21 20:00 Intake & Output 07/06/21 07/06/21 07/07/21 06:59 18:59 06:59 Intake Total 200 Output Total 2000 1600 Balance -1800 -1600 Intake: Oral 200 Output: Urine 2000 750 Stool 850 Other: Voiding Method Urinal Urinal # Voids 1 1 - Exam - Exam GENERAL: The patient is alert and oriented x3, not in any acute distress. Well d eveloped, well nourished. HEENT: Pupils are round and equally reacting to light. EOMI. No scleral icterus. No conjunctival pallor. Normocephalic, atraumatic. No pharyngeal erythema. No thyromegaly. CARDIOVASCULAR: S1 and S2 present. No murmurs, rubs, or gallops. PULMONARY: Chest is clear to auscultation, no wheezing or crackles. Bilateral scattered coarse sounds. -ABDOMEN: Soft, nontender, distended, normoactive bowel sounds. No palpable organomegaly. MUSCULOSKELETAL: No joint swelling or deformity. EXTREMITIES: No cyanosis, clubbing, or pedal edema. NEUROLOGICAL: Gross neurological examination did not reveal any focal deficits. SKIN: No rashes. no petechiae. - Labs CBC & Chem 7: 07/07/21 08:27 07/07/21 08:27 Labs: Abnormal Lab Results - Last 24 Hours (Table) 07/06/21 Range/Units 05:47 Sodium 134 L (137-145) mmol/L BUN 5 L (9-20) mg/dL Glucose 104 H (74-99) mg/dL Assessment and Plan Assessment: Large Bowel obstruction status post total colectomy with end ileostomy Colonic ileus and severe abdominal distention status post colonoscopy for decompression on 06/29/2021 Was initially syndrome Hypokalemia and hypomagnesemia. Replaced Bilateral infiltrates on the chest x-ray, most likely fluid overload rather than infiltrate. Acute kidney injury, improved Metabolic acidosis. Improved History of alcoholic liver cirrhosis with frequent paracentesis History of hepatic encephalopathy History of anasarca and ascites History of alcohol use Cognitive impairment and mild dementia DVT prophylaxis with heparin subcu Plan: This is a pleasant 71 years old male who presents with abdominal distention suspicious for bowel obstruction. Continue with oral diet Zosyn has been discontinued. Surgery and nephrology team on the case Replaced electrolytes per protocol Labs and medication were reviewed, Monitor lytes and vitals. DVT and GI prophylaxis. Further recommendations depends on the clinical course of the patient . patient is tolerating oral diet. DVT prophylaxis: Subcutaneous heparin GI Prophylaxis: Pepcid Prognosis is guarded Time with Patient: Greater than 30
--- NOTE | 2021-07-08 10:13 | P.PN ---
Subjective Progress Note Date: 07/07/21 Principal diagnosis: Bowel obstruction status post total colectomy with end ileostomy This is a pleasant 71 years old male from long term/rehab with past medical history of hepatic encephalopathy, dysphasia, anasarca, ascites due to liver cirrhosis Patient is fully awake and oriented and appropriate. He knows he is in the hospital but he thought it is a [place]. He thought his 2020 and could not remember the name of the president. His abdomen is significantly distended. No abdominal pain or tenderness. No nausea vomiting. Bowel movement was yesterday 10:00 AM. Did not pass bowel movement or gas since then. Vitals are stable. Blood pressure borderline 98/63, repeated 170/72 CBC is unremarkable, INR is 1.1. Sodium 133, potassium 3.3, creatinine 1.3. Lactic acid is elevated at 3.1. Liver enzymes are normal with AST 35 and ALT 22 and total bilirubin 0.7 CT of the abdomen and pelvis with contrast showing large amount of stool in the rectosigmoid colon which may be resulting in fecal impaction. Rotation of the small and large bowel without transition zone. Right basilar atelectasis or infiltrate Patient is status post decompression colonoscopy with about 1000 L of gas and stool were evacuated On 06/23, Yesterday he had big bowel movement and passing gas. However today his abdomen is still significantly distended. UB showing persistent abdominal distention and possible bowel obstruction. The tube and patient is on liquid diet. No abdominal pain. Patient did not pass gas or stool today. He is hemodynamically stable. Low potassium of 3.2 his been replaced, we will at 10 mEq daily from tomorrow. Surgical team on the case Discussed with staff 06/29/2021 Abdomen is even more distended today although it is painless, he still on liquid diet, he had small bowel movement today but not passing gas. Other than that he looks awake and alert with no other complaints. Vitals are stable CBC and BMP are unremarkable and potassium 4.2 today. However carbon dioxide to his laws 8, pH is low at 7.2. Nephrology consult is appreciated and patient was started on bicarb drip Surgery team are planning for another colonic decompression today 06/30/2021February awake and alert, not in distress. NG tube is in place with few millimeter of dark aspirate the tubercle to the back. Is a status post anoscopy with control on decompression with 3500 mL of fluid has been aspirated out. Surgical team are considering now subtotal colectomy with colostomy. Other than that he is hemodynamically stable. Labs from today pending. He remains on bicarbonate drip for his acidosis. And abdomen looks soft on examination He is kept nothing by mouth for surgery team recommendation 07/01/2021 Patient is a status post total abdominal colectomy with end ileostomy in the right lower abdomen. Patient tolerated the procedure well. This morning his awake and alert, no distress. NG tube is in place and also was started on TPN. Also patient was started on Zosyn this is to be continued on bicarbonate drip Vitals are stable. He has mild leukocytosis and anemia from surgery which is expected. No kidney injury. Low potassium and magnesium are replaced per protocol. Carbon dioxide is improved to 20 L which is still on the low side, remains on bicarb drip per nephrology team 07/02/2021 Patient is awake and alert, NG tube still in place with few bowel discharge around 100 mL in the bag. Right ileostomy is working and brown stone was evacuated this morning. No abdominal pain with some tenderness expected from surgery. Patient looks Satisfied he is hemodynamically stable. WBC is back to normal however hemoglobin down to 9.5 probably from surgery Bicarbonate drip stopped, 1 dose of Lasix. He is on TPN with the plan to dis continue it upon discharge Possible discharge in 24-48 hours once medically stable and cleared by surgical team 07/03/2021 Patient comfortable lying in bed. NG tube was removed and started on regular diet. No abdominal pain and his right lower abdomen ileostomy back still empty with no stool. TPN was stopped. Low potassium this morning 2.7 and magnesium 1.8 last night. It are being replaced per protocol. Monitor potassium and magnesium. 07/04/2021 Patient tolerates diet well, his ileus him into is filled with gas but no bowel movement yet. Patient is very comfortable and smiling. He had some crepitation on both sides of the lung with chest x-ray showing possible bilateral infiltrate versus edema. He is already on Zosyn for several days. We are going to give him 1 dose of Lasix and repeat chest x-ray tomorrow. Patient is improving steadily and expected to be discharged back to [facility] when his more stable 07/05/2021 Patient is currently resting in the bed. She is lethargic and weak. No complaints of chest pain. Bilateral diffuse coarse sounds on lung exam. Patient is being on Zosyn. Otherwise patient is tolerating oral diet. TPN has been discontinued on 07/02/2021 X-rays are being replaced. No episodes of nausea or vomiting. Gen. surgery and nephrology is on board. Metabolic acidosis is resolved. 07/06/2021 Patient is postoperative day 6 status post total abdominal colectomy with end ileostomy. Ostomy is functioning. Patient is tolerating oral diet. No nausea vomiting or diarrhea. Patient is lying in the bed comfortably. Plans of right hip pain. Not able to participating in physical therapy again over the bed. Patient is afebrile. Currently on antibiotics in the form of Zosyn. PTOT follow-up and possible discharge to rehab. 07/07/2021 Patient is currently lying in bed. Able to tolerate overnight. Patient is able to sit up in the bed. PTOT follow-up and possible discharge to rehab. Right hip x-ray showed postsurgical change extensively involving the right hemipelvis is similar to exam of 03/18/2021 with some subluxation of the remaining portion of the femoral neck related to the joint space. Continue with pain management. Blood pressure is 89/52 and pulse ox 97% on room air. Antibodies have been discontinued. Limit narcotic pain medication use. Anticipate discharged to rehab. Current medications reviewed. Objective - Vital Signs Vital signs: Vital Signs Temp 98.1 F 07/08/21 07:48 Pulse 83 07/08/21 07:48 Resp 18 07/08/21 07:48 BP 103/66 07/08/21 07:48 Pulse Ox 98 07/08/21 09:11 Intake & Output 07/07/21 07/08/21 07/08/21 18:59 06:59 18:59 Intake Total 236 Output Total 750 350 Balance -514 -350 Intake: Oral 236 Output: Urine 300 200 Stool 450 150 Other: Voiding Method Diaper Diaper Urinal Incontinent Incontinent Diaper Incontinent - Exam - Exam GENERAL: The patient is alert and oriented x3, not in any acute distress. Well developed, well nourished. HEENT: Pupils are round and equally reacting to light. EOMI. No scleral icterus. No conjunctival pallor. Normocephalic, atraumatic. No pharyngeal erythema. No thyromegaly. CARDIOVASCULAR: S1 and S2 present. No murmurs, rubs, or gallops. PULMONARY: Chest is clear to auscultation, no wheezing or crackles. Bilateral scattered coarse sounds. -ABDOMEN: Soft, nontender, distended, normoactive bowel sounds. No palpable organomegaly. MUSCULOSKELETAL: No joint swelling or deformity. EXTREMITIES: No cyanosis, clubbing, or pedal edema. NEUROLOGICAL: Gross neurological examination did not reveal any focal deficits. SKIN: No rashes. no petechiae. - Labs CBC & Chem 7: 07/07/21 08:27 07/07/21 08:27 Assessment and Plan Assessment: Large Bowel obstruction status post total colectomy with end ileostomy Colonic ileus and severe abdominal distention status post colonoscopy for decom pression on 06/29/2021 Was initially syndrome Hypokalemia and hypomagnesemia. Replaced Bilateral infiltrates on the chest x-ray, most likely fluid overload rather than infiltrate. Acute kidney injury, improved Metabolic acidosis. Improved History of alcoholic liver cirrhosis with frequent paracentesis History of hepatic encephalopathy History of anasarca and ascites History of alcohol use Cognitive impairment and mild dementia DVT prophylaxis with heparin subcu Plan: This is a pleasant 71 years old male who presents with abdominal distention suspicious for bowel obstruction. Continue with oral diet Zosyn has been discontinued. Surgery and nephrology team on the case Replaced electrolytes per protocol Labs and medication were reviewed, Monitor lytes and vitals. DVT and GI prophylaxis. Further recommendations depends on the clinical course of the patient . patient is tolerating oral diet. DVT prophylaxis: Subcutaneous heparin GI Prophylaxis: Pepcid Prognosis is guarded
--- NOTE | 2021-07-08 10:45 | P.PN ---
Subjective Progress Note Date: 07/08/21 CHIEF COMPLAINT: Large bowel obstruction HISTORY OF PRESENT ILLNESS: The patient is a 71 year old male status post total colectomy with end ileostomy, 06/30/21. He is POD 8. He is tolerating diet. Colostomy care and education were performed. Patient feels well. No reports of abdominal pain. No reports of fevers or chills. REVIEW OF ORGAN SYSTEMS: No fevers or chills. No nausea and vomiting.No acute cardiac event. PHYSICAL EXAM: VITALS: Reviewed CONSTITUTIONAL: Well developed and in no acute distress. EYES: Conjuctivae without sclera icterus. Extraocular movements grossly intact. HEAD, EARS, NOSE, THROAT: Moist buccal mucosa. Head is atraumatic, normocephalic. RESPIRATORY: nonlabored respirations. CARDIOVASCULAR: Regular rate and rhythm. Palpable 2+ radial pulses. ABDOMEN: Ileostomy pink patent and with stool and Coloplast. Midline dressing intact using Optifoam. Abdomen soft nondistended. No peritonitis. Nontender. MUSCULOSKELETAL: No clubbing cyanosis or edema. SKIN: Warm and well perfused with good skin turgor. NEUROLOGIC: Cranial nerves II through XII grossly intact. No focal or lateralizing signs. PSYCH: Appropriate affect. alert to self. CLINCAL LABS: Reviewed. Potassium normal 5.0. White blood cell count normal less than 5.0. Creatinine normal less than 1.0. Hemoglobin less than 13.0 with anemia. CHEST XRAY: Independently reviewed with resolving atelectasis. Evidence of postsurgical free air present. This is my independent interpretation. PATHOLOGY: Reviewed for colectomy demonstrating no malignant neoplasm. ASSESSMENT: 1. Large bowel obstruction 2. Status post colectomy with end ileostomy 3. Pulmonary congestion resolved 4. Hypokalemia resolved 5. Anemia PLAN: 1. Clinically patient is stable for discharge from a surgical standpoint. 2. Discontinue sam in 2-3 weeks in the office. 3. Additional blood work for follow-up potassium levels pending. 4. Antibiotics discontinued. 5. Patient is edentulous on a ground diet however may advance diet as tolerated. Objective - Vital Signs Vital signs: Vital Signs Temp 98.1 F 07/08/21 07:48 Pulse 83 07/08/21 07:48 Resp 18 07/08/21 07:48 BP 103/66 07/08/21 07:48 Pulse Ox 98 07/08/21 09:11 Intake & Output 07/07/21 07/08/21 07/08/21 18:59 06:59 18:59 Intake Total 236 Output Total 750 350 Balance -514 -350 Intake: Oral 236 Output: Urine 300 200 Stool 450 150 Other: Voiding Method Diaper Diaper Urinal Incontinent Incontinent Diaper Incontinent - Labs CBC & Chem 7: 07/07/21 08:27 07/07/21 08:27 Assessment and Plan (1) Ileus Current Visit: Yes Status: Acute Code(s): K56.7 - ILEUS, UNSPECIFIED SNOMED Code(s): 045532270 (2) Dementia Current Visit: Yes Status: Acute Code(s): F03.90 - UNSPECIFIED DEMENTIA WITHOUT BEHAVIORAL DISTURBANCE SNOMED Code(s): 31721222 (3) Closed right hip fracture Current Visit: Yes Status: Acute Code(s): S72.001A - FRACTURE OF UNSP PART OF NECK OF RIGHT FEMUR, INIT SNOMED Code(s): 336323758 (4) Abdominal distention Current Visit: Yes Status: Acute Code(s): R14.0 - ABDOMINAL DISTENSION (GASEOUS) SNOMED Code(s): 12397602 (5) Chronic constipation Current Visit: No Status: Acute Code(s): K59.09 - OTHER CONSTIPATION SNOM ED Code(s): 831377192 (6) Large bowel obstruction Current Visit: Yes Status: Acute Code(s): K56.609 - UNSP INTESTNL OBST, UNSP TO PARTIAL VERSUS COMPLETE OBST SNOMED Code(s): 044248187 (7) Ileostomy in place Current Visit: Yes Status: Acute Code(s): Z93.2 - ILEOSTOMY STATUS SNOMED Code(s): 493155401 (8) S/P colectomy Current Visit: Yes Status: Acute Code(s): Z90.49 - ACQUIRED ABSENCE OF OTHER SPECIFIED PARTS OF DIGESTIVE TRACT SNOMED Code(s): 090634324
[2021-07-08 11:25] LABS: HCT 30.6 % (39.6-50.0); HGB 9.3 g/dL (13.0-17.0); MCH 28.1 pg (27.0-32.0); MCHC 30.4 g/dL (32.0-37.0); MCV 92.4 fL (80.0-97.0); Platelet Count 338 X 10*3/uL (140-440); RBC 3.31 X 10*6/uL (4.40-5.60); RDW 15.9 % (11.5-14.5); WBC 4.45 X 10*3/uL (4.50-10.00)
[2021-07-08 11:56] LABS: African American GFR (CKD) 101.9 (60.0-200.0); Anion Gap 10.9 mmol/L (4.00-12.00); BUN/Creat Ratio 8.54 Ratio (12.00-20.00); Blood Urea Nitrogen 7.1 mg/dL (9.0-27.0); Calcium 8.8 mg/dL (8.7-10.3); Carbon Dioxide 22.8 mmol/L (21.6-31.8); Non-African American GFR(CKD) 87.9 (60.0-200.0); Potassium 4.9 mmol/L (3.5-5.5)
[2021-07-08 14:30] LABS: Basophils # (A) 0.04 X 10*3/uL (0.00-0.10); Basophils % (A) 0.9 %; Eosinophils # (A) 0.37 X 10*3/uL (0.04-0.35); Eosinophils % (A) 8.3 %; Lymphocytes % (A) 42.7 %; Monocytes # (A) 0.34 X 10*3/uL (0.20-1.00); Monocytes % (A) 7.6 %; Neutrophils # (A) 1.73 X 10*3/uL (1.80-7.70); Neutrophils % (A) 38.9 %
[2021-07-09] MEDS: HEPARIN SODIUM,PORCINE/PF 5,000 UNIT/0.5 ML SYRINGE SQ SCH (08:12)
[2021-07-09 08:33] VITALS: RESP 16
--- NOTE | 2021-07-09 12:30 | P.DS ---
Providers Date of admission: 06/23/21 12:05 Expected date of discharge: 07/09/21 Attending physician: Timoteo Spence MD Consults: 06/22/21 16:59 Consult Physician Urgent Consulting Provider: Holly Toro Consult Reason/Comments: Abdominal distention, possible obstruction Do you want consulting provider notified?: Yes 06/29/21 07:44 Consult Physician Urgent Consulting Provider: Narinder Potts Consult Reason/Comments: metabolic acidosis Do you want consulting provider notified?: Yes Primary care physician: [facility] Course: 71 years old male from care home/rehab with past medical history of hepatic encephalopathy, dysphasia, anasarca, ascites due to liver cirrhosis Patient is fully awake and oriented and appropriate. He knows he is in the hospital but he thought it is a [place]. He thought his 2020 and could not remember the name of the president. His abdomen is significantly distended. No abdominal pain or tenderness. No nausea vomiting. Bowel movement was yesterday 10:00 AM. Did not pass bowel movement or gas since then. Vitals are stable. Blood pressure borderline 98/63, repeated 170/72 CBC is unremarkable, INR is 1.1. Sodium 133, potassium 3.3, creatinine 1.3. Lactic acid is elevated at 3.1. Liver enzymes are normal with AST 35 and ALT 22 and total bilirubin 0.7 CT of the abdomen and pelvis with contrast showing large amount of stool in the rectosigmoid colon which may be resulting in fecal impaction. Rotation of the small and large bowel without transition zone. Right basilar atelectasis or infiltrate Patient is status post decompression colonoscopy with about 1000 L of gas and stool were evacuated On 06/23, Yesterday he had big bowel movement and passing gas. However today his abdomen is still significantly distended. UB showing persistent abdominal distention and possible bowel obstruction. The tube and patient is on liquid diet. No abdominal pain. Patient did not pass gas or stool today. He is hemodynamically stable. Low potassium of 3.2 his been replaced, we will at 10 mEq daily from tomorrow. Surgical team on the case Discussed with staff 06/29/2021 Abdomen is even more distended today although it is painless, he still on liquid diet, he had small bowel movement today but not passing gas. Other than that he looks awake and alert with no other complaints. Vitals are stable CBC and BMP are unremarkable and potassium 4.2 today. However carbon dioxide to his laws 8, pH is low at 7.2. Nephrology consult is appreciated and patient was started on bicarb drip Surgery team are planning for another colonic decompression today 06/30/2021February awake and alert, not in distress. NG tube is in place with few millimeter of dark aspirate the tubercle to the back. Is a status post anoscopy with control on decompression with 3500 mL of fluid has been aspirated out. Surgical team are considering now subtotal colectomy with colostomy. Other than that he is hemodynamically stable. Labs from today pending. He remains on bicarbonate drip for his acidosis. And abdomen looks soft on examination He is kept nothing by mouth for surgery team recommendation 07/01/2021 Patient is a status post total abdominal colectomy with end ileostomy in the right lower abdomen. Patient tolerated the procedure well. This morning his awake and alert, no distress. NG tube is in place and also was started on TPN. Also patient was started on Zosyn this is to be continued on bicarbonate drip Vitals are stable. He has mild leukocytosis and anemia from surgery which is expected. No kidney injury. Low potassium and magnesium are replaced per protocol. Carbon dioxide is improved to 20 L which is still on the low side, remains on bicarb drip per nephrology team 07/02/2021 Patient is awake and alert, NG tube still in place with few bowel discharge around 100 mL in the bag. Right ileostomy is working and brown stone was evacuated this morning. No abdominal pain with some tenderness expected from surgery. Patient looks Satisfied he is hemodynamically stable. WBC is back to normal however hemoglobin down to 9.5 probably from surgery Bicarbonate drip stopped, 1 dose of Lasix. He is on TPN with the plan to discontinue it upon discharge Possible discharge in 24-48 hours once medically stable and cleared by surgical team 07/03/2021 Patient comfortable lying in bed. NG tube was removed and started on regular diet. No abdominal pain and his right lower abdomen ileostomy back still empty with no stool. TPN was stopped. Low potassium this morning 2.7 and magnesium 1.8 last night. It are being replaced per protocol. Monitor potassium and magnesium. 07/04/2021 Patient tolerates diet well, his ileus him into is filled with gas but no bowel movement yet. Patient is very comfortable and smiling. He had some crepitation on both sides of the lung with chest x-ray showing possible bilateral infiltrate versus edema. He is already on Zosyn for several days. We are going to give him 1 dose of Lasix and repeat chest x-ray tomorrow. Patient is improving steadily and expected to be discharged back to [facility] when his more stable 07/05/2021 Patient is currently resting in the bed. She is lethargic and weak. No complaints of chest pain. Bilateral diffuse coarse sounds on lung exam. Patient is being on Zosyn. Otherwise patient is tolerating oral diet. TPN has been discontinued on 07/02/2021 X-rays are being replaced. No episodes of nausea or vomiting. Gen. surgery and nephrology is on board. Metabolic acidosis is resolved. 07/06/2021 Patient is postoperative day 6 status post total abdominal colectomy with end ileostomy. Ostomy is functioning. Patient is tolerating oral diet. No nausea vomiting or diarrhea. Patient is lying in the bed comfortably. Plans of right hip pain. Not able to participating in physical therapy again over the bed. Patient is afebrile. Currently on antibiotics in the form of Zosyn. PTOT follow-up and possible discharge to rehab. 07/07/2021 Patient is currently lying in bed. Able to tolerate overnight. Patient is able to sit up in the bed. PTOT follow-up and possible discharge to rehab. Right hip x-ray showed postsurgical change extensively involving the right hemipelvis is similar to exam of 03/18/2021 with some subluxation of the remaining portion of the femoral neck related to the joint space. Continue with pain management. Blood pressure is 89/52 and pulse ox 97% on room air. Antibodies have been discontinued. Limit narcotic pain medication use. Anticipate discharged to rehab. 07/09/2021; patient cleared for dc by Sx; will dc to SNF Patient Condition at Discharge: Stable Plan - Discharge Summary Discharge Rx Participant: No New Discharge Prescriptions: Continue Spironolactone 100 mg PO DAILY Acetaminophen Tab [Tylenol] 1,000 mg PO Q8H PRN PRN Reason: Pain Phenyleph/Mineral Oil/Petrolat [Preparation H Ointment] 1 applic RECTAL Q12H PRN PRN Reason: Hemorrhoids Acetaminophen [Tylenol Extra Strength] 500 mg PO Q6H PRN PRN Reason: Pain Spironolactone 50 mg PO DAILY Melatonin 3 mg PO HS Furosemide [Lasix] 80 mg PO DAILY Pantoprazole Sodium [Protonix] 40 mg PO DAILY #30 tablet. Magnesium Hydroxide [Milk of Magnesia] 2,400 mg PO ONCE Multivit-Min/FA/Lycopen/Lutein [Centrum Silver Tablet] 1 tab PO HS Sennosides [Senna] 17.2 mg PO HS Lactulose 10 gm PO TID@0700,1300,1900 Discharge Medication List Acetaminophen Tab [Tylenol] 1,000 mg PO Q8H PRN 04/20/18 [History] Spironolactone 100 mg PO DAILY 04/20/18 [History] Acetaminophen [Tylenol Extra Strength] 500 mg PO Q6H PRN 03/10/21 [History] Furosemide [Lasix] 80 mg PO DAILY 03/10/21 [History] Melatonin 3 mg PO HS 03/10/21 [History] Phenyleph/Mineral Oil/Petrolat [Preparation H Ointment] 1 applic RECTAL Q12H PRN 03/10/21 [History] Sennosides [Senna] 17.2 mg PO HS 03/10/21 [History] Spironolactone 50 mg PO DAILY 03/10/21 [History] Pantoprazole Sodium [Protonix] 40 mg PO DAILY #30 tablet. 03/24/21 [Rx] Lactulose 10 gm PO TID@0700,1300,1900 06/22/21 [History] Magnesium Hydroxide [Milk of Magnesia] 2,400 mg PO ONCE 06/22/21 [History] Multivit-Min/FA/Lycopen/Lutein [Centrum Silver Tablet] 1 tab PO HS 06/22/21 [History] Follow up Appointment(s)/Referral(s): Ed Reddy MD [Primary Care Provider] - 1-2 days Holly Toro MD [STAFF PHYSICIAN] - 07/13/21 Patient Instructions/Handouts: Ileostomy Care (GEN) Activity/Diet/Wound Care/Special Instructions: Mr Storey will have the following Ileostomy Supplies for transition to [facility] on discharge from [facility] as follows: Last pouchign system change: 07.09.2021 Convatec flanges #[id number] (3) Convatec pouches w filter #[id number] (3) No sting preps (10) Ostomy powder (1) Discharge Disposition: TRANSFER TO SNF/ECF
--- NOTE | 2021-07-09 14:10 | P.PN ---
Subjective Progress Note Date: 07/09/21 CHIEF COMPLAINT: Abdominal distention HISTORY OF PRESENT ILLNESS: Patient is postop day #9 status post total abdominal colectomy with end ileostomy. Patient sitting up bedside chair comfortably. Denies any pain. Ostomy is functioning. Denies any nausea or vomiting. Tolerating diet. Afebrile no new labs for today. Potassium from yesterday 4.9 PHYSICAL EXAM: VITAL SIGNS: Reviewed GENERAL: Well-developed in no acute distress. HEENT: No sclera icterus. Extraocular movements grossly intact. Moist buccal mucosa. Head is atraumatic, normocephalic. Hears conversational speech. No nasal drainag e. NECK: Supple without lymphadenopathy. CHEST: Non-labored respirations and equal bilateral excursions. CARDIOVASCULAR: Palpable 2+ radial pulses. ABDOMEN: Soft. Nondistended. Incision site clean dry and intact. Ostomy with stool and air MUSCULOSKELETAL: No clubbing or cyanosis. NEUROLOGIC: No focal or lateralizing signs. Cranial nerves II through XII grossly intact. PSYCH: Appropriate affect. Alert and oriented to person, place and time. SKIN: Well perfused. Good skin turgor. ASSESSMENT: 1. Large bowel obstruction status post total abdominal colectomy with end ileostomy. 2. Colonic ileus and severe distention status post colonoscopy for decompression on 06/29/2021 3. Clio syndrome 4. Hypokalemia improved 5. Hypomagnesemia improved 6. Free air noted on chest x-ray is expected finding postoperatively. Patient is clinically stable. PLAN: -Patient can be discharged from surgical standpoint -Discontinue sam in 2-3 weeks in the office. Physician Clinical Specialist Medical Device note has been reviewed by physician. Signing provider agrees with the documented findings, assessment, and plan of care. Objective - Vital Signs Vital signs: Vital Signs Temp 97.8 F 07/09/21 06:53 Pulse 80 07/09/21 06:53 Resp 16 07/09/21 08:00 BP 103/66 07/09/21 06:53 Pulse Ox 96 07/09/21 06:53 Intake & Output 07/08/21 07/09/21 07/09/21 18:59 06:59 18:59 Intake Total 480 Output Total 175 1100 225 Balance -175 -1100 255 Weight 88.5 kg Intake: Oral 480 Output: Urine 175 580 225 Stool 520 Other: Voiding Method Urinal Urinal Urinal Diaper Diaper Diaper Incontinent Incontinent # Voids 1 4 1 # Bowel Movements 100 - Labs CBC & Chem 7: 07/08/21 07:06 07/08/21 07:06 Labs: Abnormal Lab Results - Last 24 Hours (Table) 07/08/21 Range/Units 07:06 Immature Gran # 0.07 H (0.00-0.04) X 10*3/uL Neutrophils # 1.73 L (1.80-7.70) X 10*3/uL Eosinophils # 0.37 H (0.04-0.35) X 10*3/uL
[2021-07-09 14:59] VITALS: BP 95/59; PULSE 107; TEMP 97.9
== END 2021-07-09 15:38 | DRG 329 ==
LOC: EC 13:26 → 6NMEDSUR 16:58 → OBSVTOIN 06-23 12:05 → 4SSUR 06-30 15:20
PROVIDERS: ADMIT Internal Medicine; ATTEND Internal Medicine
PROC: 0DTE0ZZ Resection of Large Intestine, Open Approach (ICD-10-PCS; principal; 2021-06-22)
PROC: 0D1B0Z4 Bypass Ileum to Cutaneous, Open Approach (ICD-10-PCS; 2021-06-22)
PROC: 0D9P8ZZ Drainage of Rectum, Via Natural or Artificial Opening Endoscopic (ICD-10-PCS; 2021-06-24)
PROC: 0D9P8ZZ Drainage of Rectum, Via Natural or Artificial Opening Endoscopic (ICD-10-PCS; 2021-06-29)
PROC: 02HV33Z Insertion of Infusion Device into Superior Vena Cava, Percutaneous Approach (ICD-10-PCS; 2021-06-30)
PROC: B5181ZA Fluoroscopy of Superior Vena Cava using Low Osmolar Contrast, Guidance (ICD-10-PCS; 2021-06-30)
PROC: B548ZZA Ultrasonography of Superior Vena Cava, Guidance (ICD-10-PCS; 2021-06-30)
PROC: 3E0336Z Introduction of Nutritional Substance into Peripheral Vein, Percutaneous Approach (ICD-10-PCS; 2021-07-01)
DX: K59.81 Ogilvie syndrome (principal); S72.001A Fracture of unspecified part of neck of right femur, initial encounter for closed fracture; N17.9 Acute kidney failure, unspecified; R18.8 Other ascites; J98.11 Atelectasis; K56.7 Ileus, unspecified; N39.0 Urinary tract infection, site not specified; E87.2 Acidosis; Z20.822 Contact with and (suspected) exposure to COVID-19; K92.2 Gastrointestinal hemorrhage, unspecified; F03.91 Unspecified dementia, unspecified severity, with behavioral disturbance; D62 Acute posthemorrhagic anemia; K56.41 Fecal impaction; K70.30 Alcoholic cirrhosis of liver without ascites; K72.90 Hepatic failure, unspecified without coma; R47.02 Dysphasia; R60.1 Generalized edema; J44.9 Chronic obstructive pulmonary disease, unspecified; D64.9 Anemia, unspecified; E83.42 Hypomagnesemia; E86.9 Volume depletion, unspecified; E87.5 Hyperkalemia; E87.6 Hypokalemia; E87.70 Fluid overload, unspecified; F32.9 Major depressive disorder, single episode, unspecified; F17.210 Nicotine dependence, cigarettes, uncomplicated; K64.8 Other hemorrhoids; R41.89 Other symptoms and signs involving cognitive functions and awareness; Z79.899 Other long term (current) drug therapy; Z93.3 Colostomy status; Z79.2 Long term (current) use of antibiotics; Z88.5 Allergy status to narcotic agent
CPT/HCPCS: 36415; 36573; 36600; 45378; 45380; 71045; 73502; 74018; 74177; 80048; 80053; 80076; 81001; 82150; 82248; 82330; 82550; 82805; 83605; 83690; 83735; 84100; 84132; 84478; 85025; 85610; 85730; 86850; 86900; 86901; 87086; 87635; 88305; 88307; 88309; 93005; 94760; 96360; 96361; 99285

== ENCOUNTER 2022-01-12 00:11 | Inpatient (IN) | payer MEDICARE, OTHER ==
[2022-01-12] MEDS ORDERED: SODIUM CHLORIDE 0.9% 500 ML 500 ML IV STA (00:29)
[2022-01-12] MEDS ORDERED: ONDANSETRON 4 MG/2 ML VIAL IVP STA (00:29)
--- NOTE | 2022-01-12 00:40 | ED ---
General Adult HPI - General Chief complaint: Abdominal Pain Stated complaint: Abd Pain Time Seen by Provider: 01/12/22 00:30 Source: patient, RN/MD, EMS, RN notes reviewed, old records reviewed Mode of arrival: EMS - History of Present Illness Initial comments: This is a pleasant 71-year-old male patient presents from nursing facility with complaints of abdomen distention and no output from his ileostomy. Patient has a history of bowel obstruction and ileostomy was placed 06/30/21. Patient is unable to tell me when he last had stool in his ostomy. He denies any fevers. He is complaining of abdominal pain with palpation and nausea but no vomiting. Patient has a history of depression, alcohol abuse, and cirrhosis with ascites. Location: abdomen Severity scale (1-10): 0 Associated Symptoms: nausea/vomiting (no vomiting) - Related Data Home Medications Medication Instructions Recorded Confirmed Acetaminophen Tab [Tylenol] 1,000 mg PO Q8H PRN 04/20/18 06/22/21 Acetaminophen [Tylenol Extra 500 mg PO Q6H PRN 03/10/21 06/22/21 Strength] Melatonin 3 mg PO HS 03/10/21 06/22/21 Phenyleph/Mineral Oil/Petrolat 1 applic RECTAL Q12H PRN 03/10/21 06/22/21 [Preparation H Ointment] Sennosides [Senna] 17.2 mg PO HS 03/10/21 06/22/21 Magnesium Hydroxide [Milk of 2,400 mg PO ONCE 06/22/21 06/22/21 Magnesia] Multivit-Min/FA/Lycopen/Lutein 1 tab PO HS 06/22/21 06/22/21 [Centrum Silver Tablet] Previous Rx's Medication Instructions Recorded Pantoprazole Sodium [Protonix] 40 mg PO DAILY #30 tablet. 03/24/21 Allergies Allergy/AdvReac Type Severity Reaction Status Date / Time naproxen Allergy Unknown Verified 01/12/22 00:24 tramadol [From Ultram] Allergy Unknown Verified 01/12/22 00:24 Review of Systems ROS Statement: Those systems with pertinent positive or pertinent negative responses have been documented in the HPI. ROS Other: All systems not noted in ROS Statement are negative. Past Medical History Past Medical History: Dementia, Liver Disease Additional Past Medical History / Comment(s): hepatic encephalopathy, dysphasia, anasarca, ascites due to liver cirrhosis History of Any Multi-Drug Resistant Organisms: Unobtainable Past Surgical History: Orthopedic Surgery Additional Past Surgical History / Comment(s): previous paracentesis at [facility] 2017, broken hip with rods placed, abdominal surgery in 03/15 Past Psychological History: Depression Smoking Status: Current every day smoker - Past Family History Mother Family Medical History: Dementia General Exam Limitations: altered mental status (History of dementia) General appearance: alert Head exam: Present: atraumatic Eye exam: Present: normal appearance, EOMI. Absent: scleral icterus, conjunctival injection, nystagmus, periorbital swelling, periorbital tenderness ENT exam: Present: mucous membranes dry Neck exam: Present: full ROM. Absent: tenderness, meningismus, lymphadenopathy Respiratory exam: Present: normal lung sounds bilaterally. Absent: respiratory distress, chest wall tenderness, accessory muscle use Cardiovascular Exam: Present: regular rate, normal rhythm. Absent: JVD GI/Abdominal exam: Present: soft, distended, tenderness, hypoactive bowel sounds, other (Distended bowel loops palpable, no stool in ileostomy). Absent: guarding, rebound, rigid, normal bowel sounds Extremities exam: Present: normal capillary refill. Absent: pedal edema Back exam: Absent: tenderness, CVA tenderness (R), CVA tenderness (L), rash noted Neurological exam: Present: alert Expanded Patient oriented to: Present: person, place Speech: Present: fluid speech Cranial nerves: EOM's Intact: Normal, Gag Reflex: Normal, Tongue Deviation: Normal Motor strength exam: RUE: 5, LUE: 5, RLE: 4, LLE: 4 Eye Response: (4) open spontaneously Motor Response: (6) obeys commands Verbal Response: (5) oriented Laura Total: 15 Psychiatric exam: Present: normal affect, normal mood Skin exam: Present: warm, dry, normal color. Absent: cyanosis, diaphoretic, petechiae, pallor Course Vital Signs 01/12/22 01/12/22 00:13 02:00 Temperature 97.7 F Pulse Rate 100 94 Respiratory 18 16 Rate Blood Pressure 138/71 132/80 O2 Sat by Pulse 95 93 L Oximetry EKG Findings - EKG Results: EKG: sinus rhythm (Ventricular rate of 95, CT interval 0.152, QRS 0.93, QTC 0.387) Medical Decision Making - Medical Decision Making Patient presents alert and oriented [facility] with no output from his ileostomy and abdominal distention and visible bowel loops. It is unclear how long patient has had no output. He has a history of a small bowel obstruction, June 302020 ileostomy was placed by Dr. Toro. X-ray shows mechanical small bowel obstruction. NG tube was placed. Dr. Obrien was notified 0130 and will see patient in AM. White blood cell count is 13.2, patient was started on Zosyn. Patient is hypon atremic at 128, potassium of 5.7 with evidence of RICHARD. Patient was given IV fluid bolus and maintenance fluids of normal saline. EKG shows sinus rhythm with ventricular rate of 90, with no acute changes. Case discussed with Dr. Young, patient will be admitted. - Lab Data Result diagrams: 01/12/22 00:32 01/12/22 00:32 Lab Results 01/12/22 01/12/22 01/12/22 Range/Units 00:32 00:32 00:32 WBC 13.2 H (3.8-10.6) k/uL RBC 5.73 (4.30-5.90) m/uL Hgb 14.9 (13.0-17.5) gm/dL Hct 44.9 (39.0-53.0) % MCV 78.3 L (80.0-100.0) fL MCH 26.0 (25.0-35.0) pg MCHC 33.2 (31.0-37.0) g/dL RDW 16.0 H (11.5-15.5) % Plt Count 457 H (150-450) k/uL MPV 7.1 Neutrophils % 69 % Lymphocytes % 25 % Monocytes % 5 % Eosinophils % 0 % Basophils % 1 % Neutrophils # 9.0 H (1.3-7.7) k/uL Lymphocytes # 3.2 (1.0-4.8) k/uL Monocytes # 0.6 (0-1.0) k/uL Eosinophils # 0.0 (0-0.7) k/uL Basophils # 0.1 (0-0.2) k/uL Microcytosis Slight PT 11.0 (9.0-12.0) sec INR 1.0 (<1.2) APTT 30.6 H (22.0-30.0) sec Sodium 128 L (137-145) mmol/L Potassium 5.7 H (3.5-5.1) mmol/L Chloride 93 L (98-107) mmol/L Carbon Dioxide 18 L (22-30) mmol/L Anion Gap 17 mmol/L BUN 77 H (9-20) mg/dL Creatinine 1.57 H (0.66-1.25) mg/dL Est GFR (CKD-EPI)AfAm 50 (>60 ml/min/1.73 sqM) Est GFR (CKD-EPI)NonAf 44 (>60 ml/min/1.73 sqM) Glucose 107 H (74-99) mg/dL Plasma Lactic Acid Jose (0.7-2.0) mmol/L Calcium 9.5 (8.4-10.2) mg/dL Total Bilirubin 0.9 (0.2-1.3) mg/dL AST 24 (17-59) U/L ALT 19 (4-49) U/L Alkaline Phosphatase 230 H (38-126) U/L Total Protein 9.1 H (6.3-8.2) g/dL Albumin 4.5 (3.5-5.0) g/dL Amylase 88 (30-110) U/L Lipase 93 (23-300) U/L 01/12/22 Range/Units 00:32 WBC (3.8-10.6) k/uL RBC (4.30-5.90) m/uL Hgb (13.0-17.5) gm/dL Hct (39.0-53.0) % MCV (80.0-100.0) fL MCH (25.0-35.0) pg MCHC (31.0-37.0) g/dL RDW (11.5-15.5) % Plt Count (150-450) k/uL MPV Neutrophils % % Lymphocytes % % Monocytes % % Eosinophils % % Basophils % % Neutrophils # (1.3-7.7) k/uL Lymphocytes # (1.0-4.8) k/uL Monocytes # (0-1.0) k/uL Eosinophils # (0-0.7) k/uL Basophils # (0-0.2) k/uL Microcytosis PT (9.0-12.0) sec INR (<1.2) APTT (22.0-30.0) sec Sodium (137-145) mmol/L Potassium (3.5-5.1) mmol/L Chloride (98-107) mmol/L Carbon Dioxide (22-30) mmol/L Anion Gap mmol/L BUN (9-20) mg/dL Creatinine (0.66-1.25) mg/dL Est GFR (CKD-EPI)AfAm (>60 ml/min/1.73 sqM) Est GFR (CKD-EPI)NonAf (>60 ml/min/1.73 sqM) Glucose (74-99) mg/dL Plasma Lactic Acid Jose 1.9 (0.7-2.0) mmol/L Calcium (8.4-10.2) mg/dL Total Bilirubin (0.2-1.3) mg/dL AST (17-59) U/L ALT (4-49) U/L Alkaline Phosphatase (38-126) U/L Total Protein (6.3-8.2) g/dL Albumin (3.5-5.0) g/dL Amylase (30-110) U/L Lipase (23-300) U/L Disposition Clinical Impression: Small bowel obstruction, Hyperkalemia, Hyponatremia, Ileostomy in place, RICHARD (acute kidney injury) Disposition: [facility]MITT[facility] Condition: Fair Decision Date: 01/12/22 Decision Time: 01:29
[2022-01-12 01:01] LABS: Albumin 4.5 g/dL (3.5-5.0); Calcium 9.5 mg/dL (8.4-10.2); Partial Thromboplastin Time 30.6 sec (22.0-30.0); Potassium 5.7 mmol/L (3.5-5.1); Total Bilirubin 0.9 mg/dL (0.2-1.3); Total Protein 9.1 g/dL (6.3-8.2)
--- NOTE | 2022-01-12 01:03 | XR ---
EXAMINATION TYPE: XR abdomen 2V DATE OF EXAM: 01/12/2022 COMPARISON: NONE HISTORY: Pain TECHNIQUE: 4 views FINDINGS: There are multiple dilated fluid-filled and air-filled small bowel loops in the midabdomen. No evidence of free air. There is plate with screws fixing the right acetabulum. No calcification se en over the kidneys. The lung bases are clear of consolidation. IMPRESSION: Dilated small bowel suggestive of small bowel mechanical obstruction or severe ileus. No free air.
[2022-01-12 01:04] LABS: Basophils # (A) 0.1 k/uL (0-0.2); Basophils % (A) 1 %; Eosinophils % (A) 0 %; HCT 44.9 % (39.0-53.0); HGB 14.9 gm/dL (13.0-17.5); Lymphocytes # (A) 3.2 k/uL (1.0-4.8); Lymphocytes % (A) 25 %; MCHC 33.2 g/dL (31.0-37.0); MCV 78.3 fL (80.0-100.0); Mean Platelet Volume 7.1; Microcytosis Slight; Monocytes # (A) 0.6 k/uL (0-1.0); Monocytes % (A) 5 %; Neutrophils % (A) 69 %; Platelet Count 457 k/uL (150-450); RBC 5.73 m/uL (4.30-5.90); WBC 13.2 k/uL (3.8-10.6)
[2022-01-12] MEDS ORDERED: ONDANSETRON 4 MG/2 ML VIAL IVP PRN (01:29)
[2022-01-12] MEDS ORDERED: NALOXONE 0.4 MG/ML 1 ML VIAL IV PRN (01:29)
[2022-01-12] MEDS ORDERED: PIPERACILLIN-TAZOBACTAM 3.375 GM in SODIUM CHLORIDE 0.9% 100 ML IVPB STA (01:33)
[2022-01-12] MEDS ORDERED: SODIUM CHLORIDE 0.9% 500 ML 500 ML IV ONE (02:15)
--- NOTE | 2022-01-12 02:17 | XR ---
EXAMINATION TYPE: XR chest 1V portable DATE OF EXAM: 01/12/2022 COMPARISON: 07/05/2021 HISTORY: Tube placement TECHNIQUE: Single view FINDINGS: There is some mild linear density at the left lung base. No heart failure. Heart size is no rmal. There is nasogastric tube with the tip at the gastroesophageal junction. IMPRESSION: There is mild subsegmental atelectasis at the left lung base. NG tube is in the distal es ophagus or the gastroesophageal junction.
[2022-01-12] MEDS ORDERED: fentaNYL (PF) 50 MCG/ML 2 ML AMP IVP STA (02:25)
[2022-01-12] MEDS ORDERED: PANTOPRAZOLE 40 MG/10 ML VIAL IVP STA (02:26)
[2022-01-12] MEDS: SODIUM CHLORIDE 0.9% 1,000 ML IV SCH ×3 (02:33→18:16)
[2022-01-12] MEDS: HEPARIN SODIUM,PORCINE/PF 5,000 UNIT/0.5 ML SYRINGE SQ SCH ×2 (08:18→21:06)
[2022-01-12] MEDS: PIPERACILLIN-TAZOBACTAM 3.375 GM in SODIUM CHLORIDE 0.9% 100 ML IVPB SCH ×3 (08:22→23:43)
[2022-01-12] MEDS: FAMOTIDINE 20 MG/2 ML VIAL IV SCH (08:23)
--- NOTE | 2022-01-12 08:48 | P.HPIM ---
History of Present Illness This is a pleasant 69 years old male with past medical history of Dementia, Liver Disease, hepatic encephalopathy, dysphasia, anasarca, ascites due to liver cirrhosis, current every day smoker currently at [facility] . Patient is somewhat poor historian, most likely related to his history of dementia, however he reports falling about 2 months ago although we don't know how accurate that is this. Currently patient denies headache or weakness in extremities. He thinks this is P her and he knows that his medical center but he cannot name it as a hospital. Continue the month January 15 while its January 14 but he thought it is 1999. And he could not remember the name of the president, he thinks it was Venu Ledbetter. Patient is been complaining of from upper abdominal pain, patient could not specify for how long. It is 60/10 in severity. Nonspecific, nonradiating per patient. With no nausea or vomiting. He says his last bowel movement was 2 days ago and he is not passing gas. Also sometimes he give different answers. NG tube in a Place and abdomen is not distended. Vitals are stable Labs showing mild leukocytosis of 13.2, recent CBCs unremarkable, INR 1.1, BMP showing low sodium 128, high potassium 5.7 and elevated creatinine 1.57, compared to baseline of 0.7-0.8 Liver enzymes not elevated. Lipase normal. Chest x-ray: Mild atelectasis, NG tube in the distal esophagus EKG showing normal sinus rhythm at [address]-T changes and QTC 387. Abdominal x-ray:. Dilated small bowel suggestive of small bowel mechanical obstruction or severe ileus No free air In the ED patient was given pain medication, normal saline and Zosyn. Surgery team were already consulted Review of Systems CONSTITUTIONAL: No fever, no malaise, no fatigue. HEENT: No recent visual problems or hearing problems. Denied any sore throat. CARDIOVASCULAR: No orthopnea, PND, no palpitations, no syncope. PULMONARY: No shortness of breath, no cough, no hemoptysis. GASTROINTESTINAL: No diarrhea, no nausea, no vomiting. Normoactive bowel sounds. NEUROLOGICAL: No headaches, no weakness, no numbness. HEMATOLOGICAL: Denies any bleeding or petechiae. GENITOURINARY: Denies any burning micturition, frequency, or urgency. MUSCULOSKELETAL/RHEUMATOLOGICAL: Denies any joint pain, swelling, or any muscle pain. ENDOCRINE: Denies any polyuria or polydipsia. Past Medical History Past Medical History: Dementia, Liver Disease Additional Past Medical History / Comment(s): hepatic encephalopathy, dysphasia, anasarca, ascites due to liver cirrhosis History of Any Multi-Drug Resistant Organisms: Unobtainable Past Surgical History: Orthopedic Surgery Additional Past Surgical History / Comment(s): previous paracentesis at [facility] 2017, broken hip 2016 with rods placed, abdominal surgery in 03/15 Past Anesthesia/Blood Transfusion Reactions: No Reported Reaction Past Psychological History: Depression Additional Psychological History / Comment(s): Mentioned to daughter at [facility] Smoking Status: Current every day smoker Past Alcohol Use History: Occasional Additional Past Alcohol Use History / Comment(s): currently at [facility] smokes 4 cigarettes per day, currently does not drink Past Drug Use History: None Reported - Past Family History Mother Family Medical History: Dementia Medications and Allergies Home Medications Medication Instructions Recorded Confirmed Type Melatonin 3 mg PO HS@199903/10/21 01/12/22 History Sennosides [Senna] 17.2 mg PO HS 03/10/21 01/12/22 History Pantoprazole Sodium [Protonix] 40 mg PO DAILY #30 tablet. 03/24/21 01/12/22 Rx Multivit-Min/FA/Lycopen/Lutein 1 tab PO HS@199906/22/21 01/12/22 History [Centrum Silver Tablet] Allergies Allergy/AdvReac Type Severity Reaction Status Date / Time naproxen Allergy Unknown Verified 01/12/22 07:06 tramadol [From Ultram] Allergy Unknown Verified 01/12/22 07:06 Physical Exam Vitals: Vital Signs Temp Pulse Pulse Resp BP BP Pulse Ox 01/12/22 05:18 98.4 F 81 17 138/52 95 01/12/22 02:00 94 16 132/80 93 L 01/12/22 00:13 97.7 F 100 18 138/71 95 Intake and Output 01/11/22 01/12/22 01/12/22 22:59 06:59 14:59 Output Total 200 Balance -200 Output: Urine 200 Other: Voiding Method Urinal Diaper # Voids 1 Weight 113.398 kg -GENERAL: The patient is alert and oriented x1- partially could be related to his history of dementia, not in any acute distress. Well developed, well nourished. HEENT: Pupils are round and equally reacting to light. EOMI. No scleral icterus. No conjunctival pallor. Normocephalic, atraumatic. No pharyngeal erythema. No th yromegaly. CARDIOVASCULAR: S1 and S2 present. No murmurs, rubs, or gallops. PULMONARY: Chest is clear to auscultation, no wheezing or crackles. -ABDOMEN: Soft, nontender, nondistended, normoactive bowel sounds. No palpable organomegaly. NG tube is in place MUSCULOSKELETAL: No joint swelling or deformity. EXTREMITIES: No cyanosis, clubbing, or pedal edema. NEUROLOGICAL: Gross neurological examination did not reveal any focal deficits. SKIN: No rashes. No petechiae Results CBC & Chem 7: 01/12/22 00:32 01/12/22 00:32 Labs: Abnormal Lab Results - Last 24 Hours (Table) 01/12/22 01/12/22 01/12/22 Range/Units 00:32 00:32 00:32 WBC 13.2 H (3.8-10.6) k/uL MCV 78.3 L (80.0-100.0) fL RDW 16.0 H (11.5-15.5) % Plt Count 457 H (150-450) k/uL Neutrophils # 9.0 H (1.3-7.7) k/uL APTT 30.6 H (22.0-30.0) sec Sodium 128 L (137-145) mmol/L Potassium 5.7 H (3.5-5.1) mmol/L Chloride 93 L (98-107) mmol/L Carbon Dioxide 18 L (22-30) mmol/L BUN 77 H (9-20) mg/dL Creatinine 1.57 H (0.66-1.25) mg/dL Glucose 107 H (74-99) mg/dL Alkaline Phosphatase 230 H (38-126) U/L Total Protein 9.1 H (6.3-8.2) g/dL Thrombosis Risk Factor Assmnt - Choose All That Apply Each Factor Represents 1 point: Obesity (BMI >25) Each Risk Factor Represents 2 Points: Age 61-74 years Thrombosis Risk Factor Assessment Total Risk Factor Score: 3 Thrombosis Risk Factor Assessment Level: Moderate Risk Assessment and Plan Assessment: Small bowel obstruction Hypovolemic hyponatremia Acute kidney injury possible recent fall as per patient Altered mental status, most likely secondary to his dementia. Rule out intracranial acute lesion History of dementia History of liver cirrhosis with history of ascites and start nicotine dependence Plan: This is a pleasant 71 years old male who presents with a fall, bowel obstruction and RICHARD check CT of the brain Continue with normal saline hydration and empiric antibiotic. Follow-up blood culture. Send pro-calcitonin Surgery team consult Repeat creatinine and electrolytes and monitor Labs and medication were reviewed.. Continue same treatment. Continue with symptomatic treatment. Resume home medication. Monitor lytes and vitals. DVT and GI prophylaxis. Further recommendations depends on the clinical course of the patient DVT prophylaxis: Subcutaneous heparin GI Prophylaxis: Pepcid PT/OT Deferred Prognosis is guarded
--- NOTE | 2022-01-12 09:58 | CT ---
EXAMINATION TYPE: CT brain wo con DATE OF EXAM: 01/12/2022 COMPARISON: None available HISTORY: Recent Fall, RICHARD, Hyponatremia CT DLP: 1173.4 mGycm Automated exposure control for dose reduction was used. TECHNIQUE: CT scan of the brain is performed without IV contrast administration. FINDINGS: Brain volume loss changes, slightly more than expected for the patient's age and mainly involving the frontal lobes more on the right side. Bilateral cerebral white matter hypodensities, possibly repres enting chronic microvascular ischemic changes. Left mcpherson radiata hypodensity, possibly ischemic. Scattered arterial atherosclerotic calcifications. No acute intracranial hemorrhage. No gross acute c ortical infarct. No midline shift, herniation or ventriculomegaly. Unremarkable beckham-white matter differentiation, basal cisterns, sella and CP angles. No gross space-o ccupying lesion, vasogenic edema or mass effect. Unremarkable orbits. NG tube. Mild mucosal thickening of the left maxillary sinus. Clear mastoid air cells. Unremarkable calvarial bones. IMPRESSION: Brain volume loss changes and suspected chronic microvascular ischemic changes as described above. No intracranial hemorrhage or gross acute cortical infarct. Other findings as described above. Further MRI assessment can be considered if clinically required.
--- NOTE | 2022-01-12 11:27 | P.GSCN ---
History of Present Illness Consult date: 01/12/22 History of present illness: CHIEF COMPLAINT: Abdominal distention and no output through the ostomy HISTORY OF PRESENT ILLNESS: This is a 71-year-old male with prior history of large bowel obstruction and sigmoid volvulus with chronic constipation. Patient initially had robotic-assisted sigmoid colectomy and lower anterior resection in February 2021 for sigmoid volvulus with large bowel obstruction. He then had exploratory laparotomy with total abdominal colectomy with end ileostomy in June [address] Toro for large bowel obstruction. [facility] He presents back to the hospital with complaints of abdominal distention and no output through his ostomy for about 3 days. He denies any nausea or vomiting. He does report abdominal pain. He also has a known history of dementia and a liver cirrhosis. Patient had abdominal x-ray completed showing evidence of a small bowel obstruction. Patient had NG tube placed in ER with minimal output. PAST MEDICAL HISTORY: Dementia, liver disease, ascites secondary to liver cirrhosis, has required paracentesis in 2016 PAST SURGICAL HISTORY: previous paracentesis at [facility] 2016, broken hip with rods placed MEDICATIONS: See list. ALLERGIES: See list. SOCIAL HISTORY: No illicit drug use. REVIEW OF SYSTEMS: CONSTITUTIONAL: Denies fever or chills. HEENT: Denies blurred vision, vision changes, or eye pain. Denies hemoptysis CARDIOVASCULAR: Denies chest pain or pressure. RESPIRATORY: No shortness of breath. GASTROINTESTINAL: See HPI for pertinent findings HEMATOLOGIC: Denies bleeding disorders. GENITOURINARY: Denies any blood in urine or increased urinary frequency. SKIN: Denies pruitis. Denies rash. PHYSICAL EXAM: VITAL SIGNS: Reviewed GENERAL: Well-developed in no acute distress. HEENT: No sclera icterus. Extraocular movements grossly intact. Moist buccal mucosa. Head is atraumatic, normocephalic. No nasal drainage. ABDOMEN: Distended. Diffuse tenderness. Ostomy with no output NEUROLOGIC: Awake and alert and is able to answer questions. With some confusion LABORATORY DATA: WBC is 13.2 hemoglobin 14.9 platelets 457 Sodium 128 potassium 5.7 creatinine 1.57 IMAGING: Abdominal x-ray dilated small bowel suggestive of small bowel mechanical obstruction or severe ileus. No free air. ASSESSMENT: 1. Small bowel obstruction 2. History of large bowel obstruction status post exploratory laparotomy with total abdominal colectomy with end ileostomy in June 2021 3. Hyperkalemia 4. Hyponatremia 5. Acute kidney injury PLAN: -Patient scheduled for exploratory laparotomy today with Dr. Obrien -Continue NG tube for decompression -Keep patient nothing by mouth -Continue IV fluids -Hyperkalemia and hyponatremia management per medicine service -Repeat CMP level Thank you for this consultation Physician Medical Territory Manager note has been reviewed by physician. Signing provider agrees with the documented findings, assessment, and plan of care. Past Medical History Past Medical History: Dementia, Liver Disease Additional Past Medical History / Comment(s): hepatic encephalopathy, dysphasia, anasarca, ascites due to liver cirrhosis History of Any Multi-Drug Resistant Organisms: Unobtainable Past Surgical History: Orthopedic Surgery Additional Past Surgical History / Comment(s): previous paracentesis at [facility] 2016, broken hip 2015 with rods placed, abdominal surgery in 03/15 Past Anesthesia/Blood Transfusion Reactions: No Reported Reaction Past Psychological History: Depression Additional Psychological History / Comment(s): Mentioned to daughter at [facility] Smoking Status: Current every day smoker Past Alcohol Use History: Occasional Additional Past Alcohol Use History / Comment(s): currently at [facility] smokes 4 cigarettes per day, currently does not drink Past Drug Use History: None Reported - Past Family History Mother Family Medical History: Dementia Medications and Allergies Home Medications Medication Instructions Recorded Confirmed Type Melatonin 3 mg PO HS@199903/10/21 01/12/22 History Sennosides [Senna] 17.2 mg PO 03/10/21 01/12/22 History Pantoprazole Sodium [Protonix] 40 mg PO DAILY #30 tablet. 03/24/21 01/12/22 Rx Multivit-Min/FA/Lycopen/Lutein 1 tab PO HS@199906/22/21 01/12/22 History [Centrum Silver Tablet] Allergies Allergy/AdvReac Type Severity Reaction Status Date / Time naproxen Allergy Unknown Verified 01/12/22 07:06 tramadol [From Ultram] Allergy Unknown Verified 01/12/22 07:06 Surgical - Exam Vital Signs Temp Pulse Resp BP Pulse Ox 97.7 F 100 18 138/71 95 01/12/22 00:13 01/12/22 00:13 01/12/22 00:13 01/12/22 00:13 01/12/22 00:13 Results - Labs 01/12/22 00:32 01/12/22 00:32 Abnormal Lab Results - Last 24 Hours (Table) 01/12/22 01/12/22 01/12/22 Range/Units 00:32 00:32 00:32 WBC 13.2 H (3.8-10.6) k/uL MCV 78.3 L (80.0-100.0) fL RDW 16.0 H (11.5-15.5) % Plt Count 457 H (150-450) k/uL Neutrophils # 9.0 H (1.3-7.7) k/uL APTT 30.6 H (22.0-30.0) sec Sodium 128 L (137-145) mmol/L Potassium 5.7 H (3.5-5.1) mmol/L Chloride 93 L (98-107) mmol/L Carbon Dioxide 18 L (22-30) mmol/L BUN 77 H (9-20) mg/dL Creatinine 1.57 H (0.66-1.25) mg/dL Glucose 107 H (74-99) mg/dL Alkaline Phosphatase 230 H (38-126) U/L Total Protein 9.1 H (6.3-8.2) g/dL Diabetes panel 01/12/22 Range/Units 00:32 Sodium 128 L (137-145) mmol/L Potassium 5.7 H (3.5-5.1) mmol/L Chloride 93 L (98-107) mmol/L Carbon Dioxide 18 L (22-30) mmol/L BUN 77 H (9-20) mg/dL Creatinine 1.57 H (0.66-1.25) mg/dL Glucose 107 H (74-99) mg/dL Calcium 9.5 (8.4-10.2) mg/dL AST 24 (17-59) U/L ALT 19 (4-49) U/L Alkaline Phosphatase 230 H (38-126) U/L Total Protein 9.1 H (6.3-8.2) g/dL Albumin 4.5 (3.5-5.0) g/dL Calcium panel 01/12/22 Range/Units 00:32 Calcium 9.5 (8.4-10.2) mg/dL Albumin 4.5 (3.5-5.0) g/dL Pituitary panel 01/12/22 Range/Units 00:32 Sodium 128 L (137-145) mmol/L Potassium 5.7 H (3.5-5.1) mmol/L Chloride 93 L (98-107) mmol/L Carbon Dioxide 18 L (22-30) mmol/L BUN 77 H (9-20) mg/dL Creatinine 1.57 H (0.66-1.25) mg/dL Glucose 107 H (74-99) mg/dL Calcium 9.5 (8.4-10.2) mg/dL Adrenal panel 01/12/22 Range/Units 00:32 Sodium 128 L (137-145) mmol/L Potassium 5.7 H (3.5-5.1) mmol/L Chloride 93 L (98-107) mmol/L Carbon Dioxide 18 L (22-30) mmol/L BUN 77 H (9-20) mg/dL Creatinine 1.57 H (0.66-1.25) mg/dL Glucose 107 H (74-99) mg/dL Calcium 9.5 (8.4-10.2) mg/dL Total Bilirubin 0.9 (0.2-1.3) mg/dL AST 24 (17-59) U/L ALT 19 (4-49) U/L Alkaline Phosphatase 230 H (38-126) U/L Total Protein 9.1 H (6.3-8.2) g/dL Albumin 4.5 (3.5-5.0) g/dL
[2022-01-12 12:45] LABS: ALT 16 U/L (4-49); AST 23 U/L (17-59); African American GFR (CKD) 74 (>60 ml/min/1.73 sqM); Albumin 3.7 g/dL (3.5-5.0); Albumin/Globulin Ratio 0.9; Alkaline Phosphatase 203 U/L (38-126); Anion Gap 14 mmol/L; Blood Urea Nitrogen 61 mg/dL (9-20); Calcium 8.4 mg/dL (8.4-10.2); Carbon Dioxide 18 mmol/L (22-30); Chloride 100 mmol/L (98-107); Glucose 100 mg/dL (74-99); Non-African American GFR(CKD) 64 (>60 ml/min/1.73 sqM); Potassium 4.9 mmol/L (3.5-5.1); Sodium 132 mmol/L (137-145); Total Bilirubin 1.2 mg/dL (0.2-1.3); Total Protein 7.7 g/dL (6.3-8.2)
[2022-01-12] MEDS ORDERED: IV FLUID CONTINUATION 1,000 ML IV ONE (14:14)
[2022-01-12 14:37] LABS: Glucose,Whole Blood 94 mg/dL (75-99)
[2022-01-12] MEDS ORDERED: SODIUM CHLORIDE 0.9% 1,000 ML IV ONE ×2 (14:50)
[2022-01-12] MEDS ORDERED: HEPARIN SODIUM,PORCINE 5,000 UNIT/ML 1 ML VIAL SQ ONE (15:04)
[2022-01-12] MEDS ORDERED: ONDANSETRON 4 MG/2 ML VIAL IVP ONE (15:05)
[2022-01-12] MEDS ORDERED: LIDOCAINE 2% INJ 20 MG/ML (2 ML VIAL) ONE (15:30)
[2022-01-12] MEDS ORDERED: ROCURONIUM 10 MG/ML (5 ML VIAL) IV ONE (15:30)
[2022-01-12] MEDS ORDERED: PROPOFOL 10 MG/ML 20 ML VIAL IV ONE (15:30)
[2022-01-12] MEDS ORDERED: fentaNYL (PF) 50 MCG/ML 2 ML AMP ONE (15:30)
[2022-01-12] MEDS ORDERED: SUCCINYLCHOLINE CHLORIDE 100 MG/5 ML SYR IV ONE (15:30)
[2022-01-12] MEDS ORDERED: SUGAMMADEX SODIUM 200 MG/2 ML SDV IV ONE (15:30)
[2022-01-12] MEDS ORDERED: ACETAMINOPHEN IV (For NPO) 1,000 MG in SALINE 1 100ML.BAG IVPB STA (16:47)
--- NOTE | 2022-01-12 16:47 | P.OP ---
Date of Procedure: 01/12/22 Preoperative Diagnosis: Small bowel obstruction Postoperative Diagnosis: Small bowel obstruction Procedure(s) Performed: Exploratory laparotomy small bowel resection Repair of incisional hernia Anesthesia: KEISHA Surgeon: Bismark Obrien Estimated Blood Loss (ml): 50 Pathology: other (Ileum) Condition: critical Disposition: PACU Operative Findings: Stricture of ileostomy Description of Procedure: The patient's placed on the operating table in the supine position. He received general endotracheal tube in series abdomen was prepped and draped usual sterile fashion. The skin was incised in the midline. Cautery the fascia was divided. There is incisional hernia noted. After the fascia was divided. Abdominal wall retractors placed a wound. The small bowel was grossly dilated. The small bowel was run in the level of the ileostomy there was an obvious stricture. This point the small bowel was transected the fascial level using the EKATERINA stapler. The ileostomy was then dissected free using left cautery and sent to pathology. The ileum was brought up in through the abdominal wall. The abdomen was irrigated and then the fascia is closed loop #1 PDS suture. Skin was closed sam. Several Telfa rox were placed in the wound. Next the ileostomy was matured using 3-0 Vicryl suture. There was a large amount liquid stool that was spontaneously released while performing the ileostomy. The ileostomy was secured with 3-0 Vicryl suture. An appliance applied. Sterile dressings applied. Patient top procedure well. He was sent to recovery room in stable condition.
[2022-01-12] MEDS ORDERED: HYDROmorphone 0.5 MG/0.5 ML SYRINGE IVP ONE ×3 (17:14→17:38)
[2022-01-12] MEDS: HYDROmorphone 1 MG/ML 1 ML SYRINGE IVP PRN (21:06)
[2022-01-13] MEDS: HYDROmorphone 1 MG/ML 1 ML SYRINGE IVP PRN ×5 (00:47→22:52)
[2022-01-13 04:49] LABS: Appearance,Urine Clear (Clear); Bilirubin,Urine 1+ (Negative); Blood,Urine Negative (Negative); Color,Urine Yellow; Glucose,Urine (UA) Negative (Negative); Ketones,Urine Negative (Negative); Leukocyte Esterase,Urine Trace (Negative); Mucus,Urine Rare /hpf; Nitrite,Urine Negative (Negative); PH, Urine 5.5 (5.0-8.0); Protein,Urine Trace (Negative); RBC,Urine 1 /hpf (0-5); Specific Gravity,Urine 1.029 (1.001-1.035); Squamous Epithelial Cell,Urine <1 /hpf (0-4); WBC,Urine 2 /hpf (0-5)
[2022-01-13] MEDS: SODIUM CHLORIDE 0.9% 1,000 ML IV SCH ×2 (04:59→10:48)
[2022-01-13] MEDS: FAMOTIDINE 20 MG/2 ML VIAL IV SCH (07:54)
[2022-01-13] MEDS: HEPARIN SODIUM,PORCINE/PF 5,000 UNIT/0.5 ML SYRINGE SQ SCH ×2 (07:54→22:53)
[2022-01-13] MEDS: PIPERACILLIN-TAZOBACTAM 3.375 GM in SODIUM CHLORIDE 0.9% 100 ML IVPB SCH ×3 (07:54→22:53)
[2022-01-13] MEDS ORDERED: ENOXAPARIN 40 MG/0.4 ML SYRINGE SQ SCH (09:00)
[2022-01-13 09:45] LABS: African American GFR (CKD) 69.6 (60.0-200.0); Albumin 3.3 g/dL (3.8-4.9); Albumin/Globulin Ratio 1.03 (1.60-3.17); Anion Gap 14.7 mmol/L (10.00-18.00); BUN/Creat Ratio 36.67 Ratio (12.00-20.00); Calcium 8.2 mg/dL (8.7-10.3); Carbon Dioxide 17.3 mmol/L (20.0-27.5); Globulin 3.2 g/dL (1.6-3.3); Magnesium 3.2 mg/dL (1.5-2.4); Non-African American GFR(CKD) 60.1 (60.0-200.0); Potassium 4.9 mmol/L (3.5-5.5); Total Bilirubin 1.2 mg/dL (0.30-1.20); Total Protein 6.5 g/dL (6.2-8.2)
[2022-01-13 10:19] LABS: Acanthocytes 2+; Basophils # (A) 0.01 X 10*3/uL (0.00-0.10); Basophils % (A) 0.1 %; Eosinophils # (A) 0.01 X 10*3/uL (0.04-0.35); Eosinophils % (A) 0.1 %; HCT 41.7 % (39.6-50.0); HGB 12.6 g/dL (13.0-17.0); Immature Grans, Automated 1.9 %; Lymphocytes # (A) 1.72 X 10*3/uL (0.90-5.00); Lymphocytes % (A) 14.6 %; MCH 23.5 pg (27.0-32.0); MCHC 30.2 g/dL (32.0-37.0); MCV 77.8 fL (80.0-97.0); Mean Platelet Volume 9.7 fL (9.5-12.2); Monocytes % (A) 4.2 %; NRBC Per 100 WBC 0 /100 WBCS (0.0-0.0); Neutrophils # (A) 9.34 X 10*3/uL (1.80-7.70); Neutrophils % (A) 79.1 %; Platelet Count 346 X 10*3/uL (140-440); RBC 5.36 X 10*6/uL (4.40-5.60); RDW 17.8 % (11.5-14.5)
[2022-01-13] MEDS ORDERED: SODIUM CHLORIDE 0.9% 1,000 ML IV ONE (10:47)
--- NOTE | 2022-01-13 11:18 | P.PN ---
Subjective This is a pleasant 69 years old male with past medical history of Dementia, Liver Disease, hepatic encephalopathy, dysphasia, anasarca, ascites due to liver cirrhosis, current every day smoker currently at [facility] . Patient is somewhat poor historian, most likely related to his history of dementia, however he reports falling about 2 months ago although we don't know how accurate that is this. Currently patient denies headache or weakness in extremities. He thinks this is P her and he knows that his medical center but he cannot name it as a hospital. Continue the month January 15 while its January 14 but he thought it is 1999. And he could not remember the name of the president, he thinks it was Venu Ledbetter. Patient is been complaining of from upper abdominal pain, patient could not specify for how long. It is 60/10 in severity. Nonspecific, nonradiating per patient. With no nausea or vomiting. He says his last bowel movement was 2 days ago and he is not passing gas. Also sometimes he give different answers. NG tube in a Place and abdomen is not distended. Vitals are stable Labs showing mild leukocytosis of 13.2, recent CBCs unremarkable, INR 1.1, BMP showing low sodium 128, high potassium 5.7 and elevated creatinine 1.57, compared to baseline of 0.7-0.8 Liver enzymes not elevated. Lipase normal. Chest x-ray: Mild atelectasis, NG tube in the distal esophagus EKG showing normal sinus rhythm at [address]-T changes and QTC 387. Abdominal x-ray:. Dilated small bowel suggestive of small bowel mechanical obstruction or severe ileus No free air In the ED patient was given pain medication, normal saline and Zosyn. Surgery team were already consulted 01/13/2022 Patient is status post exploratory laparotomy and small bowel resection with right lower quadrant colostomy. Patient was a little bit anxious because of his dehydration however he still on IV fluids normal saline 100 mL per hour. Also he is on Zosyn. With elevated pro-calcitonin at 10.10. Is slightly tachycardic and blood pressure stable 107/56. He has low-grade temperature yesterday 99.9. Also received 1 L today. Patient still in by mouth which is expected. His partially confused which is his baseline related to his dementia Objective - Vital Signs Vital signs: Vital Signs Temp 98.2 F 01/13/22 08:00 Pulse 102 H 01/13/22 08:00 Resp 17 01/13/22 02:00 BP 107/56 01/13/22 08:00 Pulse Ox 97 01/13/22 08:00 Intake & Output 01/12/22 01/13/22 01/13/22 18:59 06:59 18:59 Intake Total 550 Output Total 1100 800 Balance -550 -800 Weight 113.398 kg Intake: IV 550 Output: Gastric Drainage 500 Urine 550 800 Estimated Blood Loss 50 Other: Voiding Method Urinal Indwelling Catheter Diaper # Voids 1 - Exam -GENERAL: The patient is alert and oriented x1- partially could be related to his history of dementia, not in any acute distress. Well developed, well nourished. HEENT: Pupils are round and equally reacting to light. EOMI. No scleral icterus. No conjunctival pallor. Normocephalic, atraumatic. No pharyngeal erythema. No thyromegaly. CARDIOVASCULAR: S1 and S2 present. No murmurs, rubs, or gallops. PULMONARY: Chest is clear to auscultation, no wheezing or crackles. -ABDOMEN: Soft, nontender, nondistended, normoactive bowel sounds. No palpable organomegaly. NG tube is in place. Right lower quadrant colostomy MUSCULOSKELETAL: No joint swelling or deformity. EXTREMITIES: No cyanosis, clubbing, or pedal edema. NEUROLOGICAL: Gross neurological examination did not reveal any focal deficits. SKIN: No rashes. No petechiae - Labs CBC & Chem 7: 01/13/22 05:43 01/13/22 05:43 Labs: Abnormal Lab Results - Last 24 Hours (Table) 01/12/22 01/13/22 01/13/22 Range/Units 11:44 04:00 05:43 WBC (4.50-10.00) X 10*3/uL Hgb (13.0-17.0) g/dL MCV (80.0-97.0) fL MCH (27.0-32.0) pg MCHC (32.0-37.0) g/dL RDW (11.5-14.5) % Immature Gran # (0.00-0.04) X 10*3/uL Neutrophils # (1.80-7.70) X 10*3/uL Eosinophils # (0.04-0.35) X 10*3/uL Sodium 132 L (137-145) mmol/L Carbon Dioxide 18 L (22-30) mmol/L BUN 61 H (9-20) mg/dL BUN/Creatinine Ratio (12.00-20.00) Ratio Glucose 100 H (74-99) mg/dL Calcium (8.7-10.3) mg/dL Magnesium (1.5-2.4) mg/dL Alkaline Phosphatase 203 H (38-126) U/L Albumin (3.8-4.9) g/dL Albumin/Globulin Ratio (1.60-3.17) g/dL Procalcitonin 10.10 H (0.02-0.09) ng/mL Urine Protein Trace H (Negative) Urine Bilirubin 1+ H (Negative) Ur Leukocyte Esterase Trace H (Negative) Urine Mucus Rare H (None) /hpf 01/13/22 01/13/22 Range/Units 05:43 05:43 WBC 11.80 H (4.50-10.00) X 10*3/uL Hgb 12.6 L (13.0-17.0) g/dL MCV 77.8 L (80.0-97.0) fL MCH 23.5 L (27.0-32.0) pg MCHC 30.2 L (32.0-37.0) g/dL RDW 17.8 H (11.5-14.5) % Immature Gran # 0.22 H (0.00-0.04) X 10*3/uL Neutrophils # 9.34 H (1.80-7.70) X 10*3/uL Eosinophils # 0.01 L (0.04-0.35) X 10*3/uL Sodium (137-145) mmol/L Carbon Dioxide 17.3 L (22-30) mmol/L BUN 44.0 H (9-20) mg/dL BUN/Creatinine Ratio 36.67 H (12.00-20.00) Ratio Glucose (74-99) mg/dL Calcium 8.2 L (8.7-10.3) mg/dL Magnesium 3.2 H (1.5-2.4) mg/dL Alkaline Phosphatase 160 H (38-126) U/L Albumin 3.3 L (3.8-4.9) g/dL Albumin/Globulin Ratio 1.03 L (1.60-3.17) g/dL Procalcitonin (0.02-0.09) ng/mL Urine Protein (Negative) Urine Bilirubin (Negative) Ur Leukocyte Esterase (Negative) Urine Mucus (None) /hpf Microbiology - Last 24 Hours (Table) 01/12/22 01:30 Blood Culture - Preliminary Blood No Growth after 24 hours 01/12/22 01:15 Blood Culture - Preliminary Blood No Growth after 24 hours Assessment and Plan Assessment: Small bowel obstruction. Status post exploratory laparotomy and bowel resection. Status post colostomy Hypovolemic hyponatremia. Improved and resolved Acute kidney injury . Result possible recent fall as per patient Altered mental status, most likely secondary to his dementia. Rule out intracranial acute lesion History of dementia History of liver cirrhosis with history of ascites and start nicotine dependence Plan: This is a pleasant 71 years old male who presents with a fall, bowel obstruction and RICHARD Continue with Zosyn and normal saline Surgery team consult Keep the patient nothing by mouth now Labs and medication were reviewed.. Continue same treatment. Continue with symptomatic treatment. Resume home medication. Monitor lytes and vitals. DVT and GI prophylaxis. Further recommendations depends on the clinical course of the patient DVT prophylaxis: Subcutaneous heparin GI Prophylaxis: Pepcid PT/OT Deferred Prognosis is guarded
--- NOTE | 2022-01-13 14:42 | P.PN ---
Subjective Progress Note Date: 01/13/22 CHIEF COMPLAINT: Small bowel obstruction HISTORY OF PRESENT ILLNESS: Patient is status post exploratory laparotomy, with small bowel resection and repair of incisional hernia for small bowel obstruction. Postop day #1. Patient reports feeling very dry and thirsty. Urine output is on the lower side. He also was tachycardic with a heart rate 119 temperature 99.9. He received IV fluid bolus this morning. Patient reports his pain is controlled. Denies any nausea. Afebrile. WBC is 13.2 hemoglobin 11.8 hemoglobin 12.6 platelets 346 sodium is 138 potassium 4.9 creatinine 1.2. NG tube output 500 to the night. Patient seen and examined with Dr. bolivar PHYSICAL EXAM: VITAL SIGNS: Reviewed. GENERAL: Well-developed in no acute distress. HEENT: No sclera icterus. Extraocular movements grossly intact. Moist buccal mucosa. Head is atraumatic, normocephalic. ABDOMEN: Soft. Nondistended. Diffuse tenderness. Incision site clean dry and intact with Telfa rox. Ileostomy bag with stool and air present NEUROLOGIC: Awake and alert. Confused. ASSESSMENT: 1. Small bowel obstruction status post exploratory laparotomy, with small bowel resection and repair of incisional hernia PLAN: -Continue NG tube for decompression -Keep patient nothing by mouth -Continue pain medication as needed -Continue IV fluids -Continue to monitor urine output. -Continue antibiotics -Encouraged patient to use incentive spirometer -Chair prophylaxis Pepcid and DVT prophylaxis subcu heparin Physician Utility [employer] note has been reviewed by physician. Signing provider agrees with the documented findings, assessment, and plan of care. Objective - Vital Signs Vital signs: Vital Signs Temp 97.6 F 01/13/22 14:00 Pulse 111 H 01/13/22 14:00 Resp 17 01/13/22 02:00 BP 96/56 01/13/22 14:00 Pulse Ox 97 01/13/22 14:00 Intake & Output 01/12/22 01/13/22 01/13/22 18:59 06:59 18:59 Intake Total 550 Output Total 1100 800 Balance -550 -800 Weight 113.398 kg Intake: IV 550 Output: Gastric Drainage 500 Urine 550 800 Estimated Blood Loss 50 Other: Voiding Method Urinal Indwelling Catheter Indwelling Catheter Diaper # Voids 1 - Labs CBC & Chem 7: 01/13/22 05:43 01/13/22 05:43 Labs: Abnormal Lab Results - Last 24 Hours (Table) 01/13/22 01/13/22 01/13/22 Range/Units 04:00 05:43 05:43 WBC 11.80 H (4.50-10.00) X 10*3/uL Hgb 12.6 L (13.0-17.0) g/dL MCV 77.8 L (80.0-97.0) fL MCH 23.5 L (27.0-32.0) pg MCHC 30.2 L (32.0-37.0) g/dL RDW 17.8 H (11.5-14.5) % Immature Gran # 0.22 H (0.00-0.04) X 10*3/uL Neutrophils # 9.34 H (1.80-7.70) X 10*3/uL Eosinophils # 0.01 L (0.04-0.35) X 10*3/uL Carbon Dioxide (20.0-27.5) mmol/L BUN (9.0-27.0) mg/dL BUN/Creatinine Ratio (12.00-20.00) Ratio Calcium (8.7-10.3) mg/dL Magnesium (1.5-2.4) mg/dL Alkaline Phosphatase (41-126) U/L Albumin (3.8-4.9) g/dL Albumin/Globulin Ratio (1.60-3.17) g/dL Procalcitonin 10.10 H (0.02-0.09) ng/mL Urine Protein Trace H (Negative) Urine Bilirubin 1+ H (Negative) Ur Leukocyte Esterase Trace H (Negative) Urine Mucus Rare H (None) /hpf 01/13/22 Range/Units 05:43 WBC (4.50-10.00) X 10*3/uL Hgb (13.0-17.0) g/dL MCV (80.0-97.0) fL MCH (27.0-32.0) pg MCHC (32.0-37.0) g/dL RDW (11.5-14.5) % Immature Gran # (0.00-0.04) X 10*3/uL Neutrophils # (1.80-7.70) X 10*3/uL Eosinophils # (0.04-0.35) X 10*3/uL Carbon Dioxide 17.3 L (20.0-27.5) mmol/L BUN 44.0 H (9.0-27.0) mg/dL BUN/Creatinine Ratio 36.67 H (12.00-20.00) Ratio Calcium 8.2 L (8.7-10.3) mg/dL Magnesium 3.2 H (1.5-2.4) mg/dL Alkaline Phosphatase 160 H (41-126) U/L Albumin 3.3 L (3.8-4.9) g/dL Albumin/Globulin Ratio 1.03 L (1.60-3.17) g/dL Procalcitonin (0.02-0.09) ng/mL Urine Protein (Negative) Urine Bilirubin (Negative) Ur Leukocyte Esterase (Negative) Urine Mucus (None) /hpf Microbiology - Last 24 Hours (Table) 01/12/22 01:30 Blood Culture - Preliminary Blood No Growth after 24 hours 01/12/22 01:15 Blood Culture - Preliminary Blood No Growth after 24 hours
[2022-01-14] MEDS: HEPARIN SODIUM,PORCINE/PF 5,000 UNIT/0.5 ML SYRINGE SQ SCH ×2 (07:34→21:02)
[2022-01-14] MEDS: PIPERACILLIN-TAZOBACTAM 3.375 GM in SODIUM CHLORIDE 0.9% 100 ML IVPB SCH ×2 (07:34→15:51)
[2022-01-14] MEDS: SODIUM CHLORIDE 0.9% 1,000 ML IV SCH ×2 (07:58→10:32)
[2022-01-14] MEDS: FAMOTIDINE 20 MG/2 ML VIAL IV SCH (07:59)
[2022-01-14] MEDS: HYDROmorphone 1 MG/ML 1 ML SYRINGE IVP PRN ×4 (08:11→22:27)
[2022-01-14 10:23] LABS: Basophils # (A) 0.07 X 10*3/uL (0.00-0.10); Basophils % (A) 0.7 %; Eosinophils # (A) 0.01 X 10*3/uL (0.04-0.35); Eosinophils % (A) 0.1 %; HCT 35.6 % (39.6-50.0); HGB 10.9 g/dL (13.0-17.0); Immature Grans, Automated 2.5 %; Lymphocytes # (A) 1.97 X 10*3/uL (0.90-5.00); Lymphocytes % (A) 19.9 %; MCHC 30.6 g/dL (32.0-37.0); MCV 78.2 fL (80.0-97.0); Mean Platelet Volume 10.1 fL (9.5-12.2); Monocytes # (A) 0.38 X 10*3/uL (0.20-1.00); Monocytes % (A) 3.8 %; NRBC Per 100 WBC 0 /100 WBCS (0.0-0.0); Platelet Count 268 X 10*3/uL (140-440); RBC 4.55 X 10*6/uL (4.40-5.60); RDW 18.3 % (11.5-14.5); WBC 9.88 X 10*3/uL (4.50-10.00)
[2022-01-14 10:39] LABS: African American GFR (CKD) 86.8 (60.0-200.0); Anion Gap 11.9 mmol/L (10.00-18.00); BUN/Creat Ratio 23.9 Ratio (12.00-20.00); Blood Urea Nitrogen 23.9 mg/dL (9.0-27.0); Calcium 8.5 mg/dL (8.7-10.3); Carbon Dioxide 18.1 mmol/L (20.0-27.5); Magnesium 2.7 mg/dL (1.5-2.4); Non-African American GFR(CKD) 74.9 (60.0-200.0); Potassium 4.9 mmol/L (3.5-5.5)
[2022-01-14] MEDS: IPRATROPIUM-ALBUTEROL 3 ML NEB INHALATION SCH ×2 (10:40→20:52)
--- NOTE | 2022-01-14 13:40 | XR ---
EXAMINATION TYPE: XR chest 1V portable DATE OF EXAM: 01/14/2022 COMPARISON: 01/12/2022 HISTORY: Shortness of breath TECHNIQUE: Single frontal view of the chest is obtained. FINDINGS: Bilateral lower lobe infiltrate and small effusion. Surgical sam in the upper abdomen. Heart size normal. No pneumothorax. Arthropathy of the shoulders. No overt failure. IMPRESSION: Bilateral lower lobe infiltrate and small effusion.
--- NOTE | 2022-01-14 14:40 | P.PN ---
Subjective Progress Note Date: 01/14/22 CHIEF COMPLAINT: Small bowel obstruction HISTORY OF PRESENT ILLNESS: Patient is status post exploratory laparotomy, with small bowel resection and repair of incisional hernia for small bowel obstruction. Postop day #2. Patient's ostomy is functioning. He denies any nausea. He denies any shortness of breath. Nurse had noted some coarse breath sounds. Patient is not using his incentive spirometer. He does feel still very dry and thirsty. Urine output is adequate. Tachycardia has improved. Afebrile he is on 4 L satting at 98%. WBC has normalized from 11.8-9.8 hemoglobin is 10.9 and platelets 268 sodium 144 potassium 4.9 creatinine 1.0 magnesium 2.7 medicine service has decreased IV fluids Patient seen and examined with Dr. bolivar PHYSICAL EXAM: VITAL SIGNS: Reviewed. GENERAL: Well-developed in no acute distress. HEENT: No sclera icterus. Extraocular movements grossly intact. Moist buccal mucosa. Head is atraumatic, normocephalic. ABDOMEN: Soft. Nondistended. Diffuse tenderness. Incision site clean dry and intact with Telfa rox. Ileostomy bag with stool and air present NEUROLOGIC: Awake and alert. Confused. ASSESSMENT: 1. Small bowel obstruction status post exploratory laparotomy, with small bowel resection and repair of incisional hernia PLAN: -Discontinue NG tube -Start sips of clear liquids -Continue local wound care -Start DuoNeb updrafts. Medicine service has decreased IV fluids and ordered chest x-ray -Continue pain medication as needed -Continue antibiotics -Encouraged patient to use incentive spirometer -Chair prophylaxis Pepcid and DVT prophylaxis subcu heparin Physician Delinquent Tax Collection Assistant note has been reviewed by physician. Signing provider agrees with the documented findings, assessment, and plan of care. Objective - Vital Signs Vital signs: Vital Signs Temp 98.0 F 01/14/22 07:50 Pulse 89 01/14/22 10:55 Resp 16 01/14/22 02:45 BP 103/56 01/14/22 07:50 Pulse Ox 98 01/14/22 07:50 Intake & Output 01/13/22 01/14/22 01/14/22 18:59 06:59 18:59 Output Total 600 950 Balance -600 -950 Output: Urine 600 Stool 950 Other: Voiding Method Indwelling Catheter Indwelling Catheter Indwelling Catheter - Labs CBC & Chem 7: 01/14/22 07:09 01/14/22 07:16 Labs: Abnormal Lab Results - Last 24 Hours (Table) 01/14/22 01/14/22 Range/Units 07:09 07:16 Hgb 10.9 L (13.0-17.0) g/dL Hct 35.6 L (39.6-50.0) % MCV 78.2 L (80.0-97.0) fL MCH 24.0 L (27.0-32.0) pg MCHC 30.6 L (32.0-37.0) g/dL RDW 18.3 H (11.5-14.5) % Immature Gran # 0.25 H (0.00-0.04) X 10*3/uL Eosinophils # 0.01 L (0.04-0.35) X 10*3/uL Chloride 114 H (96-109) mmol/L Carbon Dioxide 18.1 L (20.0-27.5) mmol/L BUN/Creatinine Ratio 23.90 H (12.00-20.00) Ratio Glucose 66 L (70-110) mg/dL Calcium 8.5 L (8.7-10.3) mg/dL Magnesium 2.7 H (1.5-2.4) mg/dL Microbiology - Last 24 Hours (Table) 01/12/22 01:15 Blood Culture - Preliminary Blood No Growth after 48 hours 01/12/22 01:30 Blood Culture - Preliminary Blood No Growth after 48 hours
--- NOTE | 2022-01-14 16:48 | P.PN ---
Subjective This is a pleasant 69 years old male with past medical history of Dementia, Liver Disease, hepatic encephalopathy, dysphasia, anasarca, ascites due to liver cirrhosis, current every day smoker currently at [facility] . Patient is somewhat poor historian, most likely related to his history of dementia, however he reports falling about 2 months ago although we don't know how accurate that is this. Currently patient denies headache or weakness in extremities. He thinks this is P her and he knows that his medical center but he cannot name it as a hospital. Continue the month January 15 while its January 14 but he thought it is 1999. And he could not remember the name of the president, he thinks it was Venu Ledbetter. Patient is been complaining of from upper abdominal pain, patient could not specify for how long. It is 60/10 in severity. Nonspecific, nonradiating per patient. With no nausea or vomiting. He says his last bowel movement was 2 days ago and he is not passing gas. Also sometimes he give different answers. NG tube in a Place and abdomen is not distended. Vitals are stable Labs showing mild leukocytosis of 13.2, recent CBCs unremarkable, INR 1.1, BMP showing low sodium 128, high potassium 5.7 and elevated creatinine 1.57, compared to baseline of 0.7-0.8 Liver enzymes not elevated. Lipase normal. Chest x-ray: Mild atelectasis, NG tube in the distal esophagus EKG showing normal sinus rhythm at [address]-T changes and QTC 387. Abdominal x-ray:. Dilated small bowel suggestive of small bowel mechanical obstruction or severe ileus No free air In the ED patient was given pain medication, normal saline and Zosyn. Surgery team were already consulted 01/13/2022 Patient is status post exploratory laparotomy and small bowel resection with right lower quadrant colostomy. Patient was a little bit anxious because of his dehydration however he still on IV fluids normal saline 100 mL per hour. Also he is on Zosyn. With elevated pro-calcitonin at 10.10. Is slightly tachycardic and blood pressure stable 107/56. He has low-grade temperature yesterday 99.9. Also received 1 L today. Patient still in by mouth which is expected. His partially confused which is his baseline related to his dementia 01/14/2022 Patient mentation looks his stable since admission, with baseline dementia. He was little tachypneic this morning after NG tube was discontinued. Chest x- ray showing evidence of bilateral infiltrate and pleural effusion. Aspiration pneumonia is suspected. Patient to continue on Zosyn which is a started on admission. However we will order a swallow evaluation by speech therapy team. Patient was slightly hypoglycemic and we change his fluids to D5 normal saline at 75 mL/h Also we will add midodrine 5 mg twice daily to support his blood pressure Objective - Vital Signs Vital signs: Vital Signs Temp 97.3 F L 01/14/22 14:00 Pulse 86 01/14/22 14:00 Resp 16 01/14/22 02:45 BP 92/56 01/14/22 14:00 Pulse Ox 97 01/14/22 14:00 Intake & Output 01/13/22 01/14/22 01/14/22 18:59 06:59 18:59 Output Total 600 950 Balance -600 -950 Output: Urine 600 Stool 950 Other: Voiding Method Indwelling Catheter Indwelling Catheter Indwelling Catheter - Exam -GENERAL: The patient is alert and oriented x1- partially could be related to his history of dementia, not in any acute distress. Well developed, well nourished. HEENT: Pupils are round and equally reacting to light. EOMI. No scleral icterus. No conjunctival pallor. Normocephalic, atraumatic. No pharyngeal erythema. No thyromegaly. CARDIOVASCULAR: S1 and S2 present. No murmurs, rubs, or gallops. PULMONARY: Chest is clear to auscultation, no wheezing or crackles. -ABDOMEN: Soft, nontender, nondistended, normoactive bowel sounds. No palpable organomegaly. NG tube is in place. Right lower quadrant colostomy MUSCULOSKELETAL: No joint swelling or deformity. EXTREMITIES: No cyanosis, clubbing, or pedal edema. NEUROLOGICAL: Gross neurological examination did not reveal any focal deficits. SKIN: No rashes. No petechiae - Labs CBC & Chem 7: 01/14/22 07:09 01/14/22 07:16 Labs: Abnormal Lab Results - Last 24 Hours (Table) 01/14/22 01/14/22 Range/Units 07:09 07:16 Hgb 10.9 L (13.0-17.0) g/dL Hct 35.6 L (39.6-50.0) % MCV 78.2 L (80.0-97.0) fL MCH 24.0 L (27.0-32.0) pg MCHC 30.6 L (32.0-37.0) g/dL RDW 18.3 H (11.5-14.5) % Immature Gran # 0.25 H (0.00-0.04) X 10*3/uL Eosinophils # 0.01 L (0.04-0.35) X 10*3/uL Chloride 114 H (96-109) mmol/L Carbon Dioxide 18.1 L (20.0-27.5) mmol/L BUN/Creatinine Ratio 23.90 H (12.00-20.00) Ratio Glucose 66 L (70-110) mg/dL Calcium 8.5 L (8.7-10.3) mg/dL Magnesium 2.7 H (1.5-2.4) mg/dL Microbiology - Last 24 Hours (Table) 01/12/22 01:15 Blood Culture - Preliminary Blood No Growth after 48 hours 01/12/22 01:30 Blood Culture - Preliminary Blood No Growth after 48 hours Assessment and Plan Assessment: Small bowel obstruction. Status post exploratory laparotomy and bowel resection. Status post colostomy Bilateral aspiration pneumonia Hypovolemic hyponatremia. Improved and resolved Acute kidney injury . Result possible recent fall as per patient Altered mental status, most likely secondary to his dementia. Rule out intracranial acute lesion History of dementia History of liver cirrhosis with history of ascites and start nicotine dependence Plan: This is a pleasant 71 years old male who presents with a fall, bowel obstruction and RICHARD Continue with Zosyn and D5 normal saline at 75 Surgery team consult Diet advanced to sips of liquid by surgery team We will ask for swallow evaluation Labs and medication were reviewed.. Continue same treatment. Continue with symptomatic treatment. Resume home medication. Monitor lytes and vitals. DVT and GI prophylaxis. Further recommendations depends on the clinical course of the patient DVT prophylaxis: Subcutaneous heparin GI Prophylaxis: Pepcid PT/OT ordered Prognosis is guarded
[2022-01-14] MEDS: MIDODRINE 5 MG TAB PO SCH ×2 (17:35→17:40)
[2022-01-14] MEDS: DEXTROSE 5%-0.9% NACL 1,000 ML IV SCH (17:37)
[2022-01-14] MEDS ORDERED: SODIUM CHLORIDE 0.9% 500 ML 500 ML IV ONE (20:48)
[2022-01-15] MEDS: PIPERACILLIN-TAZOBACTAM 3.375 GM in SODIUM CHLORIDE 0.9% 100 ML IVPB SCH ×3 (00:41→18:18)
[2022-01-15] MEDS: HYDROmorphone 1 MG/ML 1 ML SYRINGE IVP PRN (04:44)
[2022-01-15] MEDS: DEXTROSE 5%-0.9% NACL 1,000 ML IV SCH ×2 (05:45→18:18)
[2022-01-15] MEDS: IPRATROPIUM-ALBUTEROL 3 ML NEB INHALATION SCH ×3 (07:29→19:45)
[2022-01-15] MEDS: MIDODRINE 5 MG TAB PO SCH ×2 (07:52→19:12)
[2022-01-15] MEDS: FAMOTIDINE 20 MG/2 ML VIAL IV SCH (07:52)
[2022-01-15] MEDS: HEPARIN SODIUM,PORCINE/PF 5,000 UNIT/0.5 ML SYRINGE SQ SCH ×2 (07:52→22:22)
[2022-01-15 08:58] LABS: Basophils # (A) 0.02 X 10*3/uL (0.00-0.10); Basophils % (A) 0.4 %; Eosinophils # (A) 0.09 X 10*3/uL (0.04-0.35); Eosinophils % (A) 1.6 %; HCT 29.3 % (39.6-50.0); HGB 9.2 g/dL (13.0-17.0); Immature Grans, Automated 2.1 %; Lymphocytes # (A) 1.35 X 10*3/uL (0.90-5.00); Lymphocytes % (A) 23.8 %; MCH 23.9 pg (27.0-32.0); MCHC 31.4 g/dL (32.0-37.0); MCV 76.1 fL (80.0-97.0); Mean Platelet Volume 9.7 fL (9.5-12.2); Monocytes # (A) 0.29 X 10*3/uL (0.20-1.00); Monocytes % (A) 5.1 %; NRBC Per 100 WBC 0 /100 WBCS (0.0-0.0); Neutrophils # (A) 3.81 X 10*3/uL (1.80-7.70); Platelet Count 242 X 10*3/uL (140-440); RBC 3.85 X 10*6/uL (4.40-5.60); RDW 18.3 % (11.5-14.5); WBC 5.68 X 10*3/uL (4.50-10.00)
[2022-01-15 09:12] LABS: Magnesium 2.1 mg/dL (1.5-2.4)
[2022-01-15 09:25] LABS: African American GFR (CKD) 109.3 (60.0-200.0); Anion Gap 8.3 mmol/L (10.00-18.00); BUN/Creat Ratio 14.57 Ratio (12.00-20.00); Blood Urea Nitrogen 10.2 mg/dL (9.0-27.0); Calcium 8.2 mg/dL (8.7-10.3); Carbon Dioxide 20.7 mmol/L (20.0-27.5); Non-African American GFR(CKD) 94.3 (60.0-200.0); Potassium 3.9 mmol/L (3.5-5.5)
--- NOTE | 2022-01-15 10:16 | P.PN ---
Progress Note - Text Progress Note Date: 01/15/22 Patient has significant output through his ileostomy. He denies any significant pain. On exam vital signs are stable. Abdomen soft. Ileostomy is pink and clean. It. Patient will have his diet advanced. His Leung catheter will remain. His urinary output is adequate but the urine is quite dark.
[2022-01-15] MEDS: HYDROcodone/APAP 5-325MG 1 EACH TAB PO PRN ×2 (12:29→18:22)
--- NOTE | 2022-01-15 19:27 | PN ---
PROGRESS NOTE DATE OF SERVICE: 01/15/2022 This 71-year-old gentleman who was admitted after small-bowel obstruction had exploratory laparotomy and bowel resection. Diet is being advanced. There is no chest pain. No palpitations. No fever. PHYSICAL EXAMINATION: Pulse is 88, blood pressure 140/69, respiration 20, temperature 98.8. HEENT: Conjunctivae normal. NECK: No jugular venous distention. CARDIOVASCULAR: S1, S2 muffled. RESPIRATION: Breath sounds diminished at the bases. ABDOMEN: Soft. Status post surgery. LEGS: No edema. No swelling. NERVOUS SYSTEM: No focal deficit. LABS: Reviewed. Hemoglobin 9.8. ASSESSMENT: 1. Acute small-bowel obstruction, status post exploratory laparotomy and bowel resection and colostomy. 2. Bilateral aspiration pneumonia. 4. Acute kidney injury. RECOMMENDATIONS AND DISCUSSION: I recommend to continue current medications, continue with the monitoring, symptomatic treatment. Continue with the antibiotics. Repeat labs. PT/OT evaluation. Guarded prognosis. Further recommendations to follow. MMODL / IJN: [id number] / FAUSTINO
[2022-01-16] MEDS: PIPERACILLIN-TAZOBACTAM 3.375 GM in SODIUM CHLORIDE 0.9% 100 ML IVPB SCH ×4 (00:36→23:44)
[2022-01-16] MEDS: DEXTROSE 5%-0.9% NACL 1,000 ML IV SCH ×2 (05:39→17:04)
[2022-01-16] MEDS: FAMOTIDINE 20 MG/2 ML VIAL IV SCH ×2 (09:18→09:19)
[2022-01-16] MEDS: HEPARIN SODIUM,PORCINE/PF 5,000 UNIT/0.5 ML SYRINGE SQ SCH ×2 (09:19→19:39)
[2022-01-16] MEDS: MIDODRINE 5 MG TAB PO SCH ×2 (09:19→17:05)
[2022-01-16] MEDS: IPRATROPIUM-ALBUTEROL 3 ML NEB INHALATION SCH ×3 (09:19→20:03)
[2022-01-16] MEDS: HYDROcodone/APAP 5-325MG 1 EACH TAB PO PRN ×3 (10:47→23:44)
[2022-01-16 11:39] LABS: Basophils # (A) 0.02 X 10*3/uL (0.00-0.10); Basophils % (A) 0.4 %; Eosinophils # (A) 0.12 X 10*3/uL (0.04-0.35); Eosinophils % (A) 2.1 %; HCT 30.6 % (39.6-50.0); HGB 9.4 g/dL (13.0-17.0); Lymphocytes # (A) 1.47 X 10*3/uL (0.90-5.00); Lymphocytes % (A) 26.2 %; MCH 23.4 pg (27.0-32.0); MCHC 30.7 g/dL (32.0-37.0); MCV 76.1 fL (80.0-97.0); Mean Platelet Volume 9.6 fL (9.5-12.2); Monocytes # (A) 0.31 X 10*3/uL (0.20-1.00); Monocytes % (A) 5.5 %; NRBC Per 100 WBC 0 /100 WBCS (0.0-0.0); Neutrophils # (A) 3.59 X 10*3/uL (1.80-7.70); Neutrophils % (A) 63.8 %; Platelet Count 240 X 10*3/uL (140-440); RBC 4.02 X 10*6/uL (4.40-5.60); RDW 18.1 % (11.5-14.5); WBC 5.62 X 10*3/uL (4.50-10.00)
--- NOTE | 2022-01-16 11:41 | P.PN ---
Progress Note - Text Progress Note Date: 01/16/22 The patient is doing better. He has had significant output through his ileostomy. His urine still looks a little cloudy. On exam vital signs are stable. Abdomen soft. Patient will start increasing his diet. We will send a UA for analysis.
[2022-01-16 12:02] LABS: African American GFR (CKD) 116.4 (60.0-200.0); Albumin 2.4 g/dL (3.8-4.9); Albumin/Globulin Ratio 0.92 (1.60-3.17); BUN/Creat Ratio 8.83 Ratio (12.00-20.00); Blood Urea Nitrogen 5.3 mg/dL (9.0-27.0); Calcium 8.2 mg/dL (8.7-10.3); Globulin 2.6 g/dL (1.6-3.3); Non-African American GFR(CKD) 100.4 (60.0-200.0); Potassium 3.5 mmol/L (3.5-5.5); Total Bilirubin 0.8 mg/dL (0.30-1.20)
[2022-01-16] MEDS ORDERED: TAMSULOSIN 0.4 MG CAP.ER.24H PO STA (12:14)
[2022-01-16 14:09] LABS: Appearance,Urine Cloudy (Clear); Bacteria,Urine Rare /hpf; Bilirubin,Urine Negative (Negative); Blood,Urine Negative (Negative); Budding Yeast,Urine Occasional /hpf; Calcium Oxalate Crystals,Urine Occasional /hpf; Color,Urine Yellow; Glucose,Urine (UA) Negative (Negative); Ketones,Urine Negative (Negative); Leukocyte Esterase,Urine Large (Negative); Mucus,Urine Rare /hpf; Nitrite,Urine Negative (Negative); Protein,Urine Trace (Negative); RBC,Urine 6 /hpf (0-5); Specific Gravity,Urine 1.019 (1.001-1.035); Urobilinogen,Urine <2.0 mg/dL (<2.0); WBC,Urine 38 /hpf (0-5)
[2022-01-16] MEDS: HYDROmorphone 1 MG/ML 1 ML SYRINGE IVP PRN (19:38)
--- NOTE | 2022-01-16 19:56 | PN ---
PROGRESS NOTE DATE OF SERVICE: 01/16/2022 This 71-year-old gentleman who was admitted with acute small-bowel obstruction had exploratory laparotomy. No chest pain. No palpitations. No fever. PHYSICAL EXAMINATION: Pulse 92, blood pressure 155/85, respiration 20, temperature 98.1. HEENT: Conjunctivae normal. Neck: No JVD. Cardiovascular: S1, S2 muffled. Respiration: Breath sounds diminished in the bases. No fever. Abdomen: Soft. Status post surgery. LABS: Hemoglobin 9.5. Other labs are noted. ASSESSMENT: 1. Acute small-bowel obstruction status post exploratory laparotomy, bowel resection, and colostomy. 2. Bilateral aspiration pneumonia. 3. Acute kidney injury. RECOMMENDATIONS AND DISCUSSION: Continue current medications, management and symptomatic treatment. Closely follow with incentive spirometry. Continue the antibiotics. Closely follow with surgery. Further recommendations to follow. MMBINTAL / GONZALON: [id number] /
[2022-01-17 02:01] VITALS: RESP 18
[2022-01-17] MEDS: DEXTROSE 5%-0.9% NACL 1,000 ML IV SCH (02:36)
[2022-01-17] MEDS ORDERED: TAMSULOSIN 0.4 MG CAP.ER.24H PO SCH (08:30)
[2022-01-17] MEDS ORDERED: TAMSULOSIN 0.4 MG CAP.ER.24H PO ONE (09:00)
[2022-01-17] MEDS ORDERED: MIDODRINE 5 MG TAB ONE (09:00)
[2022-01-17] MEDS ORDERED: HEPARIN SODIUM,PORCINE 5,000 UNIT/ML 1 ML VIAL ONE (09:00)
[2022-01-17] MEDS ORDERED: FAMOTIDINE 20 MG/2 ML VIAL ONE (09:00)
[2022-01-17] MEDS ORDERED: HYDROcodone/APAP 5-325MG 1 EACH TAB ONE (09:00)
[2022-01-17] MEDS: PIPERACILLIN-TAZOBACTAM 3.375 GM in SODIUM CHLORIDE 0.9% 100 ML IVPB SCH (11:05)
[2022-01-17] MEDS: MIDODRINE 5 MG TAB PO SCH (11:05)
[2022-01-17] MEDS: IPRATROPIUM-ALBUTEROL 3 ML NEB INHALATION SCH ×2 (11:05→13:21)
[2022-01-17] MEDS: HEPARIN SODIUM,PORCINE/PF 5,000 UNIT/0.5 ML SYRINGE SQ SCH (11:06)
--- NOTE | 2022-01-17 12:13 | P.DS ---
Providers Date of admission: 01/12/22 02:10 Expected date of discharge: 01/17/22 Attending physician: Santhosh Wallis Consults: 01/12/22 01:29 Consult Physician Urgent Consulting Provider: Bismark Obrien Consult Reason/Comments: SBO Do you want consulting provider notified?: Already Contacted Primary care physician: Physician Nonstaff Hospital Course: Final diagnosis acute small bowel obstruction status post exploratory laparotomy, bowel resection, and colostomy bilateral aspiration pneumonia acute kidney injury full code Discharge disposition Patient is being discharged in stable condition with guarded prognosis to [facility] as he is a resident. Patient will follow up with Dr. Reddy in the outpatient setting. Patient will continue with oral ceftin 500 mg twice daily for the next 4 days to complete the course. Total time taken is greater than 35 minutes. Hospital course This is a 71 year old male who was admitted with acute small bowel obsruction and underwent exploratory laparotomy with surgery and was being closely monitored. Patient has ileostomy. Patient also with some acute kidney injury and was hydrated and kidney functions improved. Patient had some cloudy urine and was sent and has been started on IV antibiotics. Patient will continue on oral ceftin 500mg twice daily for the next 4 days to complete the course. Recommend continue patient on DuoNeb treatments 3 times a day and as needed and continue to encourage incentive spirometer at least 10 times every hour while awake. patient will need follow up with Dr. Obrien in one week. Patient denies any chest pain, palpitations, or shortness of breath. Patient is afebrile. Patient denies nausea and vomiting and tolerating diet. Patient will be discharged to [facility] today. Guarded prognosis On exam, vital signs are stable. Cardio S1, S2 muffled, respiratory shows diminished breath sounds bilaterally with no wheezing noted. Some scattered rhonchi noted. Abdomen is soft and non-tender, nervous system shows diffuse weakness. Please refer to medication reconciliation sheet for current medications The impression and plan of care has been dictated by Kavita Marquis, Nurse Practitioner as directed. Dr. Bimal MD I have performed a history and examination and MDM of this patient, discussed the same with the dictator, and agree with the dictator's assessment and plan as written ,documented as a scribe. Based on total visit time, I have performed more than 50% of the visit. Patient Condition at Discharge: Fair Plan - Discharge Summary Discharge Rx Participant: Yes New Discharge Prescriptions: New Ipratropium-Albuterol Nebulize [Duoneb 0.5 mg-3 mg/3 ml Soln] 3 ml INHALATION RT-TID ml Cefuroxime Axetil [Ceftin] 500 mg PO BID 4 Days #8 tab Tamsulosin [Flomax] 0.4 mg PO PC-BRKFST HYDROcodone/APAP 5-325MG [[place] 5-325] 1 each PO Q6HR PRN #4 tab PRN Reason: Pain Midodrine [ProAmatine] 5 mg PO AC-BID tab Ipratropium-Albuterol Nebulize [Duoneb 0.5 mg-3 mg/3 ml Soln] 3 ml INHALATION TID PRN #90 ml PRN Reason: Shortness Of Breath Continue Melatonin 3 mg PO HS@1999 Pantoprazole Sodium [Protonix] 40 mg PO DAILY #30 tablet. Multivit-Min/FA/Lycopen/Lutein [Centrum Silver Tablet] 1 tab PO HS@1999 Sennosides [Senna] 17.2 mg PO HS Discharge Medication List Melatonin 3 mg PO HS@199903/10/21 [History] Sennosides [Senna] 17.2 mg PO HS 03/10/21 [History] Pantoprazole Sodium [Protonix] 40 mg PO DAILY #30 tablet. 03/24/21 [Rx] Multivit-Min/FA/Lycopen/Lutein [Centrum Silver Tablet] 1 tab PO HS@199906/22/21 [History] Cefuroxime Axetil [Ceftin] 500 mg PO BID 4 Days #8 tab 01/17/22 [Rx] HYDROcodone/APAP 5-325MG [[place] 5-325] 1 each PO Q6HR PRN #4 tab 01/17/22 [Rx] Ipratropium-Albuterol Nebulize [Duoneb 0.5 mg-3 mg/3 ml Soln] 3 ml INHALATION RT-TID ml 01/17/22 [Rx] Ipratropium-Albuterol Nebulize [Duoneb 0.5 mg-3 mg/3 ml Soln] 3 ml INHALATION TID PRN #90 ml 01/17/22 [Rx] Midodrine [ProAmatine] 5 mg PO AC-BID tab 01/17/22 [Rx] Tamsulosin [Flomax] 0.4 mg PO PC-BRKFST 01/17/22 [Rx] Follow up Appointment(s)/Referral(s): Nonstaff,Physician [Primary Care Provider] - 1-2 days Activity/Diet/Wound Care/Special Instructions: Patient is going to [facility] activity as tolerated continue current diet recommend CBC and BMP in 2-3 days continue dysphagia 3 chopped diet and advance to low fiber slowly continue incentive spirometer at least 10 times per hour Discharge Disposition: TRANSFER TO SNF/ECF
--- NOTE | 2022-01-17 13:36 | P.PN ---
Subjective Progress Note Date: 01/17/22 CHIEF COMPLAINT: Small bowel obstruction HISTORY OF PRESENT ILLNESS: Patient is status post exploratory laparotomy, with small bowel resection and repair of incisional hernia for small bowel obstruction. Postop day #5. Patient's ostomy is functioning. Patient is tolerating diet. His pain is controlled. He is afebrile. Urine output is adequate. Urinalysis shows evidence of infection. Medicine service has placed patient on Ceftin for discharge. Patient to be discharged back to [facility] today. Patient seen and examined with Dr. bolivar PHYSICAL EXAM: VITAL SIGNS: Reviewed. GENERAL: Well-developed in no acute distress. HEENT: No sclera icterus. Extraocular movements grossly intact. Moist buccal mucosa. Head is atraumatic, normocephalic. ABDOMEN: Soft. Nondistended. nontender Incision site clean dry and intact with Telfa rox. Ileostomy bag with stool and air present NEUROLOGIC: Awake and alert. Confused. ASSESSMENT: 1. Small bowel obstruction status post exploratory laparotomy, with small bowel resection and repair of incisional hernia PLAN: -Patient can be discharged from surgical standpoint -Continue a chopped diet -Continue local wound care -Antibiotics per medicine service -Continue pain medication as needed -Chair prophylaxis Pepcid and DVT prophylaxis subcu heparin Physician Licensed Veterinary Technician note has been reviewed by physician. Signing provider agrees with the documented findings, assessment, and plan of care. Objective - Vital Signs Vital signs: Vital Signs Temp 97.8 F 01/17/22 01:28 Pulse 96 01/17/22 13:32 Resp 18 01/17/22 01:28 BP 110/59 01/17/22 01:28 Pulse Ox 95 01/17/22 13:24 Intake & Output 01/16/22 01/17/22 01/17/22 18:59 06:59 18:59 Output Total 1450 Balance -1450 Output: Urine 300 Stool 1150 Other: Voiding Method Indwelling Catheter - Labs CBC & Chem 7: 01/16/22 06:41 01/16/22 06:41 Labs: Abnormal Lab Results - Last 24 Hours (Table) 01/16/22 Range/Units 12:15 Urine Protein Trace H (Negative) Ur Leukocyte Esterase Large H (Negative) Urine RBC 6 H (0-5) /hpf Urine WBC 38 H (0-5) /hpf Calcium Oxalate Crystal Occasional H (None) /hpf Urine Bacteria Rare H (None) /hpf Urine Mucus Rare H (None) /hpf Urine Yeast (Budding) Occasional H (None) /hpf Microbiology - Last 24 Hours (Table) 01/12/22 01:30 Blood Culture - Preliminary Blood No Growth after 120 hours 01/12/22 01:15 Blood Culture - Preliminary Blood No Growth after 120 hours 01/16/22 12:15 Urine Culture - Preliminary Urine,Clean Catch
--- NOTE | 2022-01-17 14:40 | XR ---
EXAMINATION TYPE: XR chest 1V portable DATE OF EXAM: 01/17/2022 COMPARISON: 01/14/2022 HISTORY: Shortness of breath TECHNIQUE: Single frontal view of the chest is obtained. FINDINGS: Hyperinflation with bilateral lower lobe infiltrate and small effusion. No overt failure. Heart size stable. Atherosclerotic change aorta. Arthropathy of the shoulders. Hypertrophic changes o f the spine. IMPRESSION: 1. COPD with bilateral lower lobe infiltrate and small effusion correlate for pneumonia.
[2022-01-17 14:43] VITALS: BP 111/58; PULSE 81; TEMP 98.2
== END 2022-01-17 16:15 | DRG 326 ==
LOC: EC 00:11 → 4SSUR 02:10
PROVIDERS: ADMIT Hospitalist; ATTEND Hospitalist
PROC: 0WQF0ZZ Repair Abdominal Wall, Open Approach (ICD-10-PCS; 2022-01-12)
PROC: 0D9600Z Drainage of Stomach with Drainage Device, Open Approach (ICD-10-PCS; 2022-01-12)
PROC: 0DBB0ZZ Excision of Ileum, Open Approach (ICD-10-PCS; principal; 2022-01-12 08:30)
DX: K94.19 Other complications of enterostomy (principal); J69.0 Pneumonitis due to inhalation of food and vomit; K43.0 Incisional hernia with obstruction, without gangrene; E87.1 Hypo-osmolality and hyponatremia; J90 Pleural effusion, not elsewhere classified; J98.11 Atelectasis; N17.9 Acute kidney failure, unspecified; F17.210 Nicotine dependence, cigarettes, uncomplicated; E16.2 Hypoglycemia, unspecified; E86.0 Dehydration; E86.1 Hypovolemia; E87.5 Hyperkalemia; F03.90 Unspecified dementia, unspecified severity, without behavioral disturbance, psychotic disturbance, mood disturbance, and anxiety; F32.A Depression, unspecified; K74.60 Unspecified cirrhosis of liver; Z79.899 Other long term (current) drug therapy; Y83.8 Other surgical procedures as the cause of abnormal reaction of the patient, or of later complication, without mention of misadventure at the time of the procedure
CPT/HCPCS: 36415; 70450; 71045; 74019; 80048; 80053; 81001; 82150; 83605; 83690; 83735; 84145; 85025; 85610; 85730; 87040; 87086; 88307; 93005; 94640; 94760; 96361; 96365; 96375; 99285

== ENCOUNTER 2022-01-24 13:45 | Inpatient (IN) | payer MEDICARE, OTHER ==
[2022-01-24] MEDS ORDERED: IBUPROFEN 600 MG TAB PO STA (13:54)
[2022-01-24] MEDS ORDERED: ACETAMINOPHEN TAB 500 MG TAB PO STA (13:54)
--- NOTE | 2022-01-24 13:58 | ED ---
General Adult HPI - General Stated complaint: Altered mental status Time Seen by Provider: 01/24/22 13:45 Source: patient, RN notes reviewed, old records reviewed - History of Present Illness Initial comments: This is a 71-year-old male who comes [facility] us from a [facility]. They stated he was altered today so they called EMS. When EMS arrived they noted his oxygenation to be at 86%. Patient was given a treatment and put on oxygen and was alert and oriented 3 shortly thereafter. On arrival he is alert and oriented 2 and he does have a temperature of 101. Patient's oxygenation is 94% on 2 L. Patient denies any chest pain or difficulty breathing. Patient denies any cough. Patient is a fever chills. Patient denies any abdominal pain patient denies nausea vomiting diarrhea. Patient states he had surgery recently but does not know by home or for walked. Patient denies abdominal pain however. Patient denies any dysuria hematuria - Related Data Home Medications Medication Instructions Recorded Confirmed Melatonin 3 mg PO HS@199903/10/21 01/24/22 Sennosides [Senna] 17.2 mg PO HS 03/10/21 01/24/22 Multivit-Min/FA/Lycopen/Lutein 1 tab PO HS@199906/22/21 01/24/22 [Centrum Silver Tablet] HYDROcodone/APAP 5-325MG [[place] 1 tab PO Q6HR PRN 01/24/22 01/24/22 5-325] Ipratropium-Albuterol Nebulize 3 ml INHALATION RT-Q8H PRN 01/24/22 01/24/22 [Duoneb 0.5 mg-3 mg/3 ml Soln] Omeprazole 20 mg PO DAILY 01/24/22 01/24/22 Tamsulosin [Flomax] 0.4 mg PO DAILY 01/24/22 01/24/22 Previous Rx's Medication Instructions Recorded Ipratropium-Albuterol Nebulize 3 ml INHALATION TID PRN #90 ml 01/17/22 [Duoneb 0.5 mg-3 mg/3 ml Soln] Midodrine [ProAmatine] 5 mg PO AC-BID tab 01/17/22 Allergies Allergy/AdvReac Type Severity Reaction Status Date / Time naproxen Allergy Unknown Verified 01/24/22 15:06 tramadol [From Ultram] Allergy Unknown Verified 01/24/22 15:06 Review of Systems ROS Statement: Those systems with pertinent positive or pertinent negative responses have been documented in the HPI. ROS Other: All systems not noted in ROS Statement are negative. Past Medical History Past Medical History: Dementia, Liver Disease Additional Past Medical History / Comment(s): hepatic encephalopathy, dysphasia, anasarca, ascites due to liver cirrhosis History of Any Multi-Drug Resistant Organisms: Unobtainable Past Surgical History: Orthopedic Surgery Additional Past Surgical History / Comment(s): previous paracentesis at [facility] 2017, broken hip 2016 with rods placed, abdominal surgery in 03/15 Past Anesthesia/Blood Transfusion Reactions: No Reported Reaction Past Psychological History: Depression Additional Psychological History / Comment(s): Mentioned to daughter at [facility] Smoking Status: Current every day smoker Past Alcohol Use History: Occasional Additional Past Alcohol Use History / Comment(s): currently at [facility] smokes 4 cigarettes per day, currently does not drink Past Drug Use History: None Reported - Past Family History Mother Family Medical History: Dementia General Exam - General Exam Comments Initial Comments: GENERAL: Patient is well-developed and well-nourished. Patient is nontoxic and well- hydrated and is in no acute distress. ENT: Neck is soft and supple. No significant lymphadenopathy is noted. Oropharynx is clear. Moist mucous membranes. Neck has full range of motion without eliciting any pain. EYES: The sclera were anicteric and conjunctiva were pink and moist. Extraocular movements were intact and pupils were equal round and reactive to light. Eyelids were unremarkable. PULMONARY: Unlabored respirations. Good breath sounds bilaterally. No audible rales rhonchi or wheezing was noted. CARDIOVASCULAR: There is a regular rate and rhythm without any murmurs gallops or rubs. ABDOMEN: Soft and nontender with normal bowel sounds. Patient has an ileostomy and has an incision site that does not appear to all affected SKIN: Skin is clear with no lesions or rashes and otherwise unremarkable. NEUROLOGIC: Patient is alert and oriented 2. Cranial nerves II through XII are grossly intact. Motor and sensory are also intact. Normal speech, volume and content. Symmetrical smile. MUSCULOSKELETAL: Normal extremities with adequate strength and full range of motion. No lower extremity swelling or edema. No calf tenderness. LYMPHATICS: No significant lymphadenopathy is noted PSYCHIATRIC: Normal psychiatric evaluation. Course Vital Signs 01/24/22 01/24/22 01/24/22 13:51 14:10 16:27 Temperature 101.0 F H 99.1 F Pulse Rate 115 H 104 H Respiratory 20 20 Rate Blood Pressure 103/60 97/72 O2 Sat by Pulse 94 L 95 Oximetry Medical Decision Making - Medical Decision Making EKG shows sinus tachycardia with occasional PAC at a rate of 110 bpm SD interval is on a 51 QRSs 80 QT interval is 297 QTC is 362. Patient's EKG shows no ST segment elevation or depression. Patient remains altered at this time. I spoke with [facility] hospitalist and a agreed to admit the patient I admitted the patient and I wrote admitting orders - Lab Data Result diagrams: 01/24/22 13:54 01/24/22 13:54 Lab Results 01/24/22 01/24/22 01/24/22 Range/Units 13:54 13:54 13:54 WBC 10.8 H (3.8-10.6) k/uL RBC 4.25 L (4.30-5.90) m/uL Hgb 10.1 L D (13.0-17.5) gm/dL Hct 33.5 L (39.0-53.0) % MCV 78.7 L (80.0-100.0) fL MCH 23.7 L (25.0-35.0) pg MCHC 30.1 L (31.0-37.0) g/dL RDW 16.7 H (11.5-15.5) % Plt Count 594 H (150-450) k/uL MPV 7.5 Neutrophils % 68 % Lymphocytes % 26 % Monocytes % 3 % Eosinophils % 1 % Basophils % 1 % Neutrophils # 7.3 (1.3-7.7) k/uL Lymphocytes # 2.8 (1.0-4.8) k/uL Monocytes # 0.4 (0-1.0) k/uL Eosinophils # 0.1 (0-0.7) k/uL Basophils # 0.1 (0-0.2) k/uL Anisocytosis Slight Microcytosis Slight PT 11.8 (9.0-12.0) sec INR 1.1 (<1.2) APTT 28.8 (22.0-30.0) sec Sodium 136 L (137-145) mmol/L Potassium 4.8 (3.5-5.1) mmol/L Chloride 103 (98-107) mmol/L Carbon Dioxide 19 L (22-30) mmol/L Anion Gap 14 mmol/L BUN 22 H (9-20) mg/dL Creatinine 0.97 (0.66-1.25) mg/dL Est GFR (CKD-EPI)AfAm >90 (>60 ml/min/1.73 sqM) Est GFR (CKD-EPI)NonAf 78 (>60 ml/min/1.73 sqM) Glucose 124 H (74-99) mg/dL Lactic Ac Sepsis Rflx Plasma Lactic Acid Jose (0.7-2.0) mmol/L Calcium 9.0 (8.4-10.2) mg/dL Total Bilirubin 1.0 (0.2-1.3) mg/dL AST 57 (17-59) U/L ALT 41 (4-49) U/L Alkaline Phosphatase 415 H (38-126) U/L Total Protein 7.7 (6.3-8.2) g/dL Albumin 3.3 L (3.5-5.0) g/dL Urine Color Urine Appearance (Clear) Urine pH (5.0-8.0) Ur Specific [place] (1.001-1.035) Urine Protein (Negative) Urine Glucose (UA) (Negative) Urine Ketones (Negative) Urine Blood (Negative) Urine Nitrite (Negative) Urine Bilirubin (Negative) Urine Urobilinogen (<2.0) mg/dL Ur Leukocyte Esterase (Negative) Urine RBC (0-5) /hpf Urine WBC (0-5) /hpf Ur Squamous Epith Cells (0-4) /hpf Urine Bacteria (None) /hpf Urine Mucus (None) /hpf Coronavirus (PCR) (Not Detectd) Influenza Type A RNA (Not Detectd) Influenza Type B (PCR) (Not Detectd) 01/24/22 01/24/22 01/24/22 Range/Units 13:54 13:54 13:54 WBC (3.8-10.6) k/uL RBC (4.30-5.90) m/uL Hgb (13.0-17.5) gm/dL Hct (39.0-53.0) % MCV (80.0-100.0) fL MCH (25.0-35.0) pg MCHC (31.0-37.0) g/dL RDW (11.5-15.5) % Plt Count (150-450) k/uL MPV Neutrophils % % Lymphocytes % % Monocytes % % Eosinophils % % Basophils % % Neutrophils # (1.3-7.7) k/uL Lymphocytes # (1.0-4.8) k/uL Monocytes # (0-1.0) k/uL Eosinophils # (0-0.7) k/uL Basophils # (0-0.2) k/uL Anisocytosis Microcytosis PT (9.0-12.0) sec INR (<1.2) APTT (22.0-30.0) sec Sodium (137-145) mmol/L Potassium (3.5-5.1) mmol/L Chloride (98-107) mmol/L Carbon Dioxide (22-30) mmol/L Anion Gap mmol/L BUN (9-20) mg/dL Creatinine (0.66-1.25) mg/dL Est GFR (CKD-EPI)AfAm (>60 ml/min/1.73 sqM) Est GFR (CKD-EPI)NonAf (>60 ml/min/1.73 sqM) Glucose (74-99) mg/dL Lactic Ac Sepsis Rflx Plasma Lactic Acid Jose 2.8 H* (0.7-2.0) mmol/L Calcium (8.4-10.2) mg/dL Total Bilirubin (0.2-1.3) mg/dL AST (17-59) U/L ALT (4-49) U/L Alkaline Phosphatase (38-126) U/L Total Protein (6.3-8.2) g/dL Albumin (3.5-5.0) g/dL Urine Color Urine Appearance (Clear) Urine pH (5.0-8.0) Ur Specific [place] (1.001-1.035) Urine Protein (Negative) Urine Glucose (UA) (Negative) Urine Ketones (Negative) Urine Blood (Negative) Urine Nitrite (Negative) Urine Bilirubin (Negative) Urine Urobilinogen (<2.0) mg/dL Ur Leukocyte Esterase (Negative) Urine RBC (0-5) /hpf Urine WBC (0-5) /hpf Ur Squamous Epith Cells (0-4) /hpf Urine Bacteria (None) /hpf Urine Mucus (None) /hpf Coronavirus (PCR) Not Detected (Not Detectd) Influenza Type A RNA Not Detected (Not Detectd) Influenza Type B (PCR) Not Detected (Not Detectd) 01/24/22 01/24/22 Range/Units 14:59 17:00 WBC (3.8-10.6) k/uL RBC (4.30-5.90) m/uL Hgb (13.0-17.5) gm/dL Hct (39.0-53.0) % MCV (80.0-100.0) fL MCH (25.0-35.0) pg MCHC (31.0-37.0) g/dL RDW (11.5-15.5) % Plt Count (150-450) k/uL MPV Neutrophils % % Lymphocytes % % Monocytes % % Eosinophils % % Basophils % % Neutrophils # (1.3-7.7) k/uL Lymphocytes # (1.0-4.8) k/uL Monocytes # (0-1.0) k/uL Eosinophils # (0-0.7) k/uL Basophils # (0-0.2) k/uL Anisocytosis Microcytosis PT (9.0-12.0) sec INR (<1.2) APTT (22.0-30.0) sec Sodium (137-145) mmol/L Potassium (3.5-5.1) mmol/L Chloride (98-107) mmol/L Carbon Dioxide (22-30) mmol/L Anion Gap mmol/L BUN (9-20) mg/dL Creatinine (0.66-1.25) mg/dL Est GFR (CKD-EPI)AfAm (>60 ml/min/1.73 sqM) Est GFR (CKD-EPI)NonAf (>60 ml/min/1.73 sqM) Glucose (74-99) mg/dL Lactic Ac Sepsis Rflx Y Plasma Lactic Acid Jose (0.7-2.0) mmol/L Calcium (8.4-10.2) mg/dL Total Bilirubin (0.2-1.3) mg/dL AST (17-59) U/L ALT (4-49) U/L Alkaline Phosphatase (38-126) U/L Total Protein (6.3-8.2) g/dL Albumin (3.5-5.0) g/dL Urine Color Yellow Urine Appearance Clear (Clear) Urine pH 5.5 (5.0-8.0) Ur Specific [place] 1.024 (1.001-1.035) Urine Protein Trace H (Negative) Urine Glucose (UA) Negative (Negative) Urine Ketones Negative (Negative) Urine Blood Negative (Negative) Urine Nitrite Negative (Negative) Urine Bilirubin Negative (Negative) Urine Urobilinogen <2.0 (<2.0) mg/dL Ur Leukocyte Esterase Large H (Negative) Urine RBC 2 (0-5) /hpf Urine WBC 78 H (0-5) /hpf Ur Squamous Epith Cells <1 (0-4) /hpf Urine Bacteria Rare H (None) /hpf Urine Mucus Rare H (None) /hpf Coronavirus (PCR) (Not Detectd) Influenza Type A RNA (Not Detectd) Influenza Type B (PCR) (Not Detectd) Disposition Clinical Impression: Altered mental status, Urinary tract infection, Sepsis Disposition: ADMITTED IP TO THIS [facility] Referrals: Nonstaff,Physician [Primary Care Provider] - 1-2 days Time of Disposition: 17:56
[2022-01-24] MEDS: SODIUM CHLORIDE 0.9% 500 ML 500 ML IV SCH ×4 (14:32→17:08)
[2022-01-24 14:38] LABS: INR 1.1 (<1.2); Partial Thromboplastin Time 28.8 sec (22.0-30.0); Prothrombin Time 11.8 sec (9.0-12.0)
[2022-01-24 14:39] LABS: Anisocytosis Slight; Basophils # (A) 0.1 k/uL (0-0.2); Basophils % (A) 1 %; Eosinophils # (A) 0.1 k/uL (0-0.7); Eosinophils % (A) 1 %; HCT 33.5 % (39.0-53.0); Lymphocytes # (A) 2.8 k/uL (1.0-4.8); Lymphocytes % (A) 26 %; MCH 23.7 pg (25.0-35.0); MCHC 30.1 g/dL (31.0-37.0); MCV 78.7 fL (80.0-100.0); Mean Platelet Volume 7.5; Microcytosis Slight; Monocytes # (A) 0.4 k/uL (0-1.0); Monocytes % (A) 3 %; Neutrophils # (A) 7.3 k/uL (1.3-7.7); Neutrophils % (A) 68 %; Platelet Count 594 k/uL (150-450); RBC 4.25 m/uL (4.30-5.90); RDW 16.7 % (11.5-15.5); WBC 10.8 k/uL (3.8-10.6)
[2022-01-24 14:40] LABS: ALT 41 U/L (4-49); AST 57 U/L (17-59); African American GFR (CKD) >90 (>60 ml/min/1.73 sqM); Albumin 3.3 g/dL (3.5-5.0); Alkaline Phosphatase 415 U/L (38-126); Anion Gap 14 mmol/L; Blood Urea Nitrogen 22 mg/dL (9-20); Carbon Dioxide 19 mmol/L (22-30); Chloride 103 mmol/L (98-107); Glucose 124 mg/dL (74-99); Non-African American GFR(CKD) 78 (>60 ml/min/1.73 sqM); Potassium 4.8 mmol/L (3.5-5.1); Sodium 136 mmol/L (137-145); Total Protein 7.7 g/dL (6.3-8.2)
[2022-01-24 14:43] LABS: HGB 10.1 gm/dL (13.0-17.5)
--- NOTE | 2022-01-24 14:58 | XR ---
EXAMINATION TYPE: XR chest 2V DATE OF EXAM: 01/24/2022 COMPARISON: 01/17/2022 HISTORY: Shortness of breath TECHNIQUE: Frontal and lateral views of the chest are obtained. FINDINGS: Scattered senescent parenchymal changes noted. Hyperinflation compatible with COPD. No evidence for infiltrate. No evidence for atelectasis. Heart size is stable. Mediastinal structures are stable and grossly unremarkable. No evidence for hilar prominence. Degenerative changes dorsal spine. IMPRESSION: 1. No evidence for acute pulmonary disease.
[2022-01-24 17:29] LABS: Appearance,Urine Clear (Clear); Bacteria,Urine Rare /hpf; Bilirubin,Urine Negative (Negative); Blood,Urine Negative (Negative); Color,Urine Yellow; Glucose,Urine (UA) Negative (Negative); Ketones,Urine Negative (Negative); Leukocyte Esterase,Urine Large (Negative); Mucus,Urine Rare /hpf; Nitrite,Urine Negative (Negative); PH, Urine 5.5 (5.0-8.0); Protein,Urine Trace (Negative); RBC,Urine 2 /hpf (0-5); Specific Gravity,Urine 1.024 (1.001-1.035); Squamous Epithelial Cell,Urine <1 /hpf (0-4); Urobilinogen,Urine <2.0 mg/dL (<2.0); WBC,Urine 78 /hpf (0-5)
[2022-01-24] MEDS ORDERED: cefTRIAXone IN SWFI 1,000 MG/10 ML SYRINGE IVP STA (17:36)
[2022-01-24] MEDS ORDERED: SODIUM CHLORIDE 0.9% 1,000 ML IV ONE (17:57)
[2022-01-25] MEDS ORDERED: IPRATROPIUM-ALBUTEROL 3 ML NEB INHALATION PRN (13:31)
[2022-01-25 13:50] LABS: Anisocytosis Slight; Basophils # (A) 0.1 k/uL (0-0.2); Basophils % (A) 1 %; Eosinophils # (A) 0.1 k/uL (0-0.7); Eosinophils % (A) 1 %; HCT 32.7 % (39.0-53.0); HGB 9.6 gm/dL (13.0-17.5); Hypochromasia Moderate; Lymphocytes % (A) 30 %; MCH 24.1 pg (25.0-35.0); MCHC 29.4 g/dL (31.0-37.0); MCV 81.8 fL (80.0-100.0); Mean Platelet Volume 7.4; Monocytes # (A) 0.4 k/uL (0-1.0); Monocytes % (A) 3 %; Neutrophils # (A) 6.6 k/uL (1.3-7.7); Neutrophils % (A) 64 %; Platelet Count 516 k/uL (150-450); RBC 3.99 m/uL (4.30-5.90); RDW 16.5 % (11.5-15.5); WBC 10.3 k/uL (3.8-10.6)
[2022-01-25 13:58] LABS: African American GFR (CKD) >90 (>60 ml/min/1.73 sqM); Anion Gap 9 mmol/L; Blood Urea Nitrogen 12 mg/dL (9-20); Calcium 8.2 mg/dL (8.4-10.2); Carbon Dioxide 22 mmol/L (22-30); Chloride 105 mmol/L (98-107); Glucose 91 mg/dL (74-99); Non-African American GFR(CKD) >90 (>60 ml/min/1.73 sqM); Potassium 3.9 mmol/L (3.5-5.1); Sodium 136 mmol/L (137-145)
--- NOTE | 2022-01-25 14:25 | P.HPIM ---
History of Present Illness H&P Date: 01/25/22 This is a pleasant 71-year-old male who was recently at [facility] as a resident thereand was brought to the emergency department via EMS for altered mental status with some hypoxia and also found to have a temperature of 101. Patient is a past medical history of dementia, chronic hepatic encephalopathy, dysphagia, anasarca, ascites due to liver cirrhosis with liver disease, depression, current every day smoker. Patient was admitted for altered mental status along with urinary tract infection and sepsis, present on admission. Labs on admission showWBC mildly elevated at 10.8, hemoglobin is 10.1, sodium 136, potassium 4.8, BUN 22, creatinine 0.97, initialacid 2.8, urinalysis done showing large leukocyte esterase elevated WBC and a sample was sent for culture. Coronavirus along with influenza A and B are negative. Chest x-ray on admission shows no evidence for acute pulmonary disease and some hyperinflation compatible with COPD. Patient was started on empiric antibiotics and urinalysis was sent for culture which is pending at this time. Will consult infectious disease and appreciate input and recommendations for UTI/sepsis. Per EMS report patient was placed on oxygen 2 L via nasal cannula and given a treatment with some improvement in shortness of breath. Review Of Systems: Constitutional: Reports of fever, and chills, no night sweats. No weight change. Reports of weakness, fatigue and lethargy. No daytime sleepiness. EENT: No headache. No blurred vision or double vision, no loss of vision. No loss of Hearing, no ringing in the ears, no dizziness. No nasal drainage or congestion. No epistaxis. No sore throat. Lungs: Reports shortness of breath and dry cough, no sputum production. No wheezing. Cardiovascular: No chest pain, no lower extremity edema. No palpitations. No paroxysmal nocturnal dyspnea. No orthopnea. No lightheadedness or dizziness. No syncopal episodes. Abdominal: No abdominal pain. No nausea, vomiting. No diarrhea. No constipation. No bloody or tarry stools.. No loss of appetite. Genitourinary: No dysuria, increased frequency, urgency. No urinary retention. Musculoskeletal: No myalgias. No muscle weakness, no gait dysfunction, no frequent falls. No back pain. No neck pain. Integumentary: No wounds, no lesions. No rash or pruritus. No unusual bruising. No change in hair or nails. Neurologic: No aphasia. No facial droop. No change in mentation. No head injury. No headache. No paralysis. No paresthesia. Psychiatric: No depression. No anxiety. No mood swings. Endocrine: No abnormal blood sugars. No weight change. No excessive sweating or thirst. No cold intolerance. PHYSICAL EXAMINATION: GENERAL: The patient is alert and oriented x3, Well developed, well nourished. HEENT: Pupils are round and equally reacting to light. EOMI. no scleral icterus. No conjunctival pallor. Normocephalic, atraumatic. No pharyngeal erythema. No thyromegaly. CARDIOVASCULAR: S1 and S2 muffled PULMONARY: diminished breath sounds bilaterally with some scattered rhonchi noted. ABDOMEN: soft. Nontender on exam. obese. non-distended, normoactive bowel sounds. No palpable organomegaly. MUSCULOSKELETAL: No joint swelling or deformity. EXTREMITIES: No cyanosis, clubbing, or pedal edema. NEUROLOGICAL: Gross neurological examination did not reveal any focal deficits. Diffuse weakness SKIN: No rashes. Assessment: Altered mental status, possibly metabolic encephalopathy secondary to urinary tract infection with sepsis, present on admission Possible Acute urinary tract infection, present on admission although suspicion is low will start empiric antibiotic and consult ID and await urine culture Leukocytosis possibly secondary to above Lactic acidosis, improved reflex is 0.8 Recent hospitalization status post small bowel obstruction with exploratory laparotomy bowel resection and ileostomy GI prophylaxis DVT prophylaxis Full code Plan: Sepsis protocol initiated and patient was hydrated as patient had elevated lactic acidosis of 2.8 which is improved at 0.8. Urine culture was sent which is currently pending patient is on ceftriaxone and will continue. Will consult infectious disease and appreciate input and recommendations Resume appropriate home medications Follow-up with repeat labs Consult case management social work as patient is a resident at [facility] and will be returning there on discharge Due to multiple complex medical issues, prognosis is guarded. The impression and plan of care has been dictated by Kavita Marquis, nurse practitioner as directed. Dr. Jessica MD I have performed a history and examination and MDM of this patient, discussed the same with the dictator, and agree with the dictator's assessment and plan as written ,documented as a scribe. Based on total visit time, I have performed more than 50% of the visit. Any additional findings or plans will be noted. Past Medical History Past Medical History: Dementia, Liver Disease Additional Past Medical History / Comment(s): hepatic encephalopathy, dysphasia, anasarca, ascites due to liver cirrhosis History of Any Multi-Drug Resistant Organisms: Unobtainable Past Surgical History: Orthopedic Surgery Additional Past Surgical History / Comment(s): previous paracentesis at [facility] 2016, broken hip 2016 with rods placed, abdominal surgery in 03/15 Past Anesthesia/Blood Transfusion Reactions: No Reported Reaction Past Psychological History: Depression Additional Psychological History / Comment(s): Mentioned to daughter at [facility] Smoking Status: Current every day smoker Past Alcohol Use History: Occasional Additional Past Alcohol Use History / Comment(s): currently at [facility] smokes 4 cigarettes per day, currently does not drink Past Drug Use History: None Reported - Past Family History Mother Family Medical History: Dementia Medications and Allergies Home Medications Medication Instructions Recorded Confirmed Type Melatonin 3 mg PO HS@199903/10/21 01/24/22 History Sennosides [Senna] 17.2 mg PO HS 03/10/21 01/24/22 History Multivit-Min/FA/Lycopen/Lutein 1 tab PO HS@199906/22/21 01/24/22 History [Centrum Silver Tablet] Ipratropium-Albuterol Nebulize 3 ml INHALATION TID PRN #90 ml 01/17/22 01/24/22 Rx [Duoneb 0.5 mg-3 mg/3 ml Soln] Midodrine [ProAmatine] 5 mg PO AC-BID tab 01/17/22 01/24/22 Rx HYDROcodone/APAP 5-325MG [[place] 1 tab PO Q6HR PRN 01/24/22 01/24/22 History 5-325] Ipratropium-Albuterol Nebulize 3 ml INHALATION RT-Q8H PRN 01/24/22 01/24/22 History [Duoneb 0.5 mg-3 mg/3 ml Soln] Omeprazole 20 mg PO DAILY 01/24/22 01/24/22 History Tamsulosin [Flomax] 0.4 mg PO DAILY 01/24/22 01/24/22 History Allergies Allergy/AdvReac Type Severity Reaction Status Date / Time naproxen Allergy Unknown Verified 01/24/22 15:06 tramadol [From Ultram] Allergy Unknown Verified 01/24/22 15:06 Physical Exam Vitals: Vital Signs Temp Pulse Resp BP Pulse Ox 01/25/22 08:50 98.6 F 102 H 20 122/69 99 01/25/22 06:16 98.2 F 102 H 18 132/62 100 01/24/22 22:51 94 18 121/62 96 01/24/22 21:14 100 18 95/63 95 01/24/22 18:30 96 01/24/22 18:20 98.3 F 90 L 01/24/22 18:18 93 20 105/56 96 01/24/22 16:27 99.1 F 104 H 97/72 95 01/24/22 14:10 20 01/24/22 13:51 101.0 F H 115 H 20 103/60 94 L Results CBC & Chem 7: 01/25/22 13:31 01/25/22 13:31 Labs: Abnormal Lab Results - Last 24 Hours (Table) 01/24/22 01/24/22 01/24/22 Range/Units 13:54 13:54 13:54 WBC 10.8 H (3.8-10.6) k/uL RBC 4.25 L (4.30-5.90) m/uL Hgb 10.1 L D (13.0-17.5) gm/dL Hct 33.5 L (39.0-53.0) % MCV 78.7 L (80.0-100.0) fL MCH 23.7 L (25.0-35.0) pg MCHC 30.1 L (31.0-37.0) g/dL RDW 16.7 H (11.5-15.5) % Plt Count 594 H (150-450) k/uL Sodium 136 L (137-145) mmol/L Carbon Dioxide 19 L (22-30) mmol/L BUN 22 H (9-20) mg/dL Glucose 124 H (74-99) mg/dL Plasma Lactic Acid Jose 2.8 H* (0.7-2.0) mmol/L Alkaline Phosphatase 415 H (38-126) U/L Albumin 3.3 L (3.5-5.0) g/dL Urine Protein (Negative) Ur Leukocyte Esterase (Negative) Urine WBC (0-5) /hpf Urine Bacteria (None) /hpf Urine Mucus (None) /hpf 01/24/22 Range/Units 17:00 WBC (3.8-10.6) k/uL RBC (4.30-5.90) m/uL Hgb (13.0-17.5) gm/dL Hct (39.0-53.0) % MCV (80.0-100.0) fL MCH (25.0-35.0) pg MCHC (31.0-37.0) g/dL RDW (11.5-15.5) % Plt Count (150-450) k/uL Sodium (137-145) mmol/L Carbon Dioxide (22-30) mmol/L BUN (9-20) mg/dL Glucose (74-99) mg/dL Plasma Lactic Acid Jose (0.7-2.0) mmol/L Alkaline Phosphatase (38-126) U/L Albumin (3.5-5.0) g/dL Urine Protein Trace H (Negative) Ur Leukocyte Esterase Large H (Negative) Urine WBC 78 H (0-5) /hpf Urine Bacteria Rare H (None) /hpf Urine Mucus Rare H (None) /hpf Microbiology - Last 24 Hours (Table) 01/24/22 17:00 Urine Culture - Preliminary Urine,Voided
[2022-01-25] MEDS: TAMSULOSIN 0.4 MG CAP.ER.24H PO SCH (15:02)
[2022-01-25] MEDS: MIDODRINE 5 MG TAB PO SCH (17:42)
[2022-01-25] MEDS: IPRATROPIUM-ALBUTEROL 3 ML NEB INHALATION SCH (19:14)
[2022-01-25] MEDS: MULTIVITAMINS, THERA 1 EACH TAB PO SCH (19:29)
[2022-01-25] MEDS: MELATONIN 3 MG TABLET PO SCH (19:29)
[2022-01-25] MEDS: HYDROcodone/APAP 5-325MG 1 EACH TAB PO PRN (19:29)
[2022-01-25] MEDS: SENNOSIDES 8.6 MG TAB PO SCH (19:30)
--- NOTE | 2022-01-25 23:21 | P.CONS ---
History of Present Illness - Reason for Consult Consult date: 01/25/22 - History of Present Illness Patient is a 71-year-old male presenting to the hospital yesterday afternoon for evaluation of mental status changes from a local [facility], on arrival to the emergency patient was noticed to be hypoxic with O2 sats of 86% patient was given some oxygen and apparently the patient mentation seem to have improved as per documentation from the ER patient did have a temperature of 101 degree for right forehead the patient was brought into the ER on arrival to the ER patient was somewhat hypoxic with need for supplemental oxygen patient did have white count of 10.8 with a left shift creatinine has been normal did have elevated lactic acid though enzymes are normal patient did have positive UA with large leukocyte esterase and 78 WBC influenza and mcpherson PCR was negative urine culture obtained which are currently pending blood culture has been pending so far the patient did have a chest x-ray negative for acute cardiopulmonary disease patient is currently being treated with Rocephin infectious disease was consulted for further management of antibiotic therapy Past Medical History Past Medical History: Dementia, Liver Disease Additional Past Medical History / Comment(s): hepatic encephalopathy, dysphasia, anasarca, ascites due to liver cirrhosis History of Any Multi-Drug Resistant Organisms: Unobtainable Past Surgical History: Orthopedic Surgery Additional Past Surgical History / Comment(s): previous paracentesis at [facility] 2016, broken hip 2015 with rods placed, abdominal surgery in 03/15 Past Anesthesia/Blood Transfusion Reactions: No Reported Reaction Past Psychological History: Depression Additional Psychological History / Comment(s): Mentioned to daughter at [facility] Smoking Status: Current every day smoker Past Alcohol Use History: Occasional Additional Past Alcohol Use History / Comment(s): currently at [facility] smokes 4 cigarettes per day, currently does not drink Past Drug Use History: None Reported - Past Family History Mother Family Medical History: Dementia Medications and Allergies Home Medications Medication Instructions Recorded Confirmed Type Melatonin 3 mg PO HS@199903/10/21 01/24/22 History Sennosides [Senna] 17.2 mg PO HS 03/10/21 01/24/22 History Multivit-Min/FA/Lycopen/Lutein 1 tab PO HS@199906/22/21 01/24/22 History [Centrum Silver Tablet] Ipratropium-Albuterol Nebulize 3 ml INHALATION TID PRN #90 ml 01/17/22 01/24/22 Rx [Duoneb 0.5 mg-3 mg/3 ml Soln] Midodrine [ProAmatine] 5 mg PO AC-BID tab 01/17/22 01/24/22 Rx HYDROcodone/APAP 5-325MG [[place] 1 tab PO Q6HR PRN 01/24/22 01/24/22 History 5-325] Ipratropium-Albuterol Nebulize 3 ml INHALATION RT-Q8H PRN 01/24/22 01/24/22 History [Duoneb 0.5 mg-3 mg/3 ml Soln] Omeprazole 20 mg PO DAILY 01/24/22 01/24/22 History Tamsulosin [Flomax] 0.4 mg PO DAILY 01/24/22 01/24/22 History Allergies Allergy/AdvReac Type Severity Reaction Status Date / Time naproxen Allergy Unknown Verified 01/24/22 15:06 tramadol [From Ultram] Allergy Unknown Verified 01/24/22 15:06 Physical Exam Vitals: Vital Signs Temp Pulse Resp BP Pulse Ox 01/25/22 14:16 98.3 F 86 20 101/54 98 01/25/22 13:07 98.2 F 77 18 112/53 98 01/25/22 08:50 98.6 F 102 H 20 122/69 99 01/25/22 06:16 98.2 F 102 H 18 132/62 100 01/24/22 22:51 94 18 121/62 96 01/24/22 21:14 100 18 95/63 95 01/24/22 18:30 96 01/24/22 18:20 98.3 F 90 L 01/24/22 18:18 93 20 105/56 96 01/24/22 16:27 99.1 F 104 H 97/72 95 Intake and Output 01/24/22 01/25/22 01/25/22 22:59 06:59 14:59 Other: Weight 81.647 kg Results CBC & Chem 7: 01/25/22 13:31 01/25/22 13:31 Labs: Abnormal Lab Results - Last 24 Hours (Table) 01/24/22 01/24/22 01/24/22 Range/Units 13:54 13:54 13:54 WBC 10.8 H (3.8-10.6) k/uL RBC 4.25 L (4.30-5.90) m/uL Hgb 10.1 L D (13.0-17.5) gm/dL Hct 33.5 L (39.0-53.0) % MCV 78.7 L (80.0-100.0) fL MCH 23.7 L (25.0-35.0) pg MCHC 30.1 L (31.0-37.0) g/dL RDW 16.7 H (11.5-15.5) % Plt Count 594 H (150-450) k/uL Sodium 136 L (137-145) mmol/L Carbon Dioxide 19 L (22-30) mmol/L BUN 22 H (9-20) mg/dL Glucose 124 H (74-99) mg/dL Plasma Lactic Acid Jose 2.8 H* (0.7-2.0) mmol/L Calcium (8.4-10.2) mg/dL Alkaline Phosphatase 415 H (38-126) U/L Albumin 3.3 L (3.5-5.0) g/dL Urine Protein (Negative) Ur Leukocyte Esterase (Negative) Urine WBC (0-5) /hpf Urine Bacteria (None) /hpf Urine Mucus (None) /hpf 01/24/22 01/25/22 01/25/22 Range/Units 17:00 13:31 13:31 WBC (3.8-10.6) k/uL RBC 3.99 L (4.30-5.90) m/uL Hgb 9.6 L (13.0-17.5) gm/dL Hct 32.7 L (39.0-53.0) % MCV (80.0-100.0) fL MCH 24.1 L (25.0-35.0) pg MCHC 29.4 L (31.0-37.0) g/dL RDW 16.5 H (11.5-15.5) % Plt Count 516 H (150-450) k/uL Sodium 136 L (137-145) mmol/L Carbon Dioxide (22-30) mmol/L BUN (9-20) mg/dL Glucose (74-99) mg/dL Plasma Lactic Acid Jose (0.7-2.0) mmol/L Calcium 8.2 L (8.4-10.2) mg/dL Alkaline Phosphatase (38-126) U/L Albumin (3.5-5.0) g/dL Urine Protein Trace H (Negative) Ur Leukocyte Esterase Large H (Negative) Urine WBC 78 H (0-5) /hpf Urine Bacteria Rare H (None) /hpf Urine Mucus Rare H (None) /hpf Microbiology - Last 24 Hours (Table) 01/24/22 17:00 Urine Culture - Preliminary Urine,Voided Assessment and Plan Plan: 1patient presented to hospital mental status changes in this we did have a f ever patient did have a positive UA likely the source of his fever and mental status changes as currently no other obvious focus of infection and likely from intra-abdominal pathogen in view of the patient resolution of the fever with the Rocephin. 2Rocephin 2 g daily to continue. 3gentle IV fluid We will follow on clinical condition and cultures to further adjust medication if needed Thank you for this consultation will follow this patient along with you Time with Patient: Greater than 30
[2022-01-26] MEDS: HYDROcodone/APAP 5-325MG 1 EACH TAB PO PRN ×3 (04:38→23:45)
[2022-01-26 07:06] LABS: Anisocytosis Slight; Basophils % (A) 1 %; Eosinophils # (A) 0.1 k/uL (0-0.7); Eosinophils % (A) 1 %; HCT 30.4 % (39.0-53.0); HGB 9.3 gm/dL (13.0-17.5); Hypochromasia Moderate; Lymphocytes # (A) 2.7 k/uL (1.0-4.8); Lymphocytes % (A) 35 %; MCH 24.5 pg (25.0-35.0); MCHC 30.5 g/dL (31.0-37.0); MCV 80.4 fL (80.0-100.0); Mean Platelet Volume 6.8; Monocytes # (A) 0.3 k/uL (0-1.0); Monocytes % (A) 3 %; Neutrophils # (A) 4.4 k/uL (1.3-7.7); Neutrophils % (A) 57 %; Platelet Count 557 k/uL (150-450); RBC 3.78 m/uL (4.30-5.90); RDW 16.9 % (11.5-15.5); WBC 7.6 k/uL (3.8-10.6)
[2022-01-26 07:12] LABS: African American GFR (CKD) >90 (>60 ml/min/1.73 sqM); Anion Gap 8 mmol/L; Blood Urea Nitrogen 10 mg/dL (9-20); Calcium 8.2 mg/dL (8.4-10.2); Carbon Dioxide 22 mmol/L (22-30); Chloride 105 mmol/L (98-107); Glucose 95 mg/dL (74-99); Non-African American GFR(CKD) >90 (>60 ml/min/1.73 sqM); Potassium 3.7 mmol/L (3.5-5.1); Sodium 135 mmol/L (137-145)
[2022-01-26] MEDS: IPRATROPIUM-ALBUTEROL 3 ML NEB INHALATION SCH ×3 (07:52→20:24)
[2022-01-26] MEDS: TAMSULOSIN 0.4 MG CAP.ER.24H PO SCH (10:22)
[2022-01-26] MEDS: PANTOPRAZOLE 40 MG TABLET PO SCH (10:22)
[2022-01-26] MEDS: MIDODRINE 5 MG TAB PO SCH ×2 (10:22→17:33)
--- NOTE | 2022-01-26 13:23 | P.PN ---
Subjective Progress Note Date: 01/26/22 This is a pleasant 71-year-old male who was recently at [facility] as a resident there and was brought to the emergency department via EMS for altered mental status with some hypoxia and also found to have a temperature of 101. Patient is a past medical history of dementia, chronic hepatic encephalopathy, dysphagia, anasarca, ascites due to liver cirrhosis with liver disease, depression, current every day smoker. Patient was admitted for altered mental status along with urinary tract infection and sepsis, present on admission. Labs on admission showWBC mildly elevated at 10.8, hemoglobin is 10.1, sodium 136, potassium 4.8, BUN 22, creatinine 0.97, initialacid 2.8, urinalysis done showing large leukocyte esterase elevated WBC and a sample was sent for culture. Coronavirus along with influenza A and B are negative. Chest x-ray on admission shows no evidence for acute pulmonary disease and some hyperinflation compatible with COPD. Patient was started on empiric antibiotics and urinalysis was sent for culture which is pending at this time. Will consult infectious disease and appreciate input and recommendations for UTI/sepsis. Per EMS report patient was placed on oxygen 2 L via nasal cannula and given a treatment with some improvement in shortness of breath. 01/26/2022 Patient is seen in follow-up this morning and is maintained on IV ceftriaxone with infectious disease following. Patient was admitted for altered mental status with fevers and possible sepsis related to UTI and awaiting cultures. Preliminary culture showing gram-negative bacilli and awaiting finalized culture to determine discharge antibiotics. Blood cultures remain negative. Patient is now afebrile. Patient denies any chest pain or shortness of breath. Patient is tolerating diet with no reports of nausea or vomiting noted. Ileostomy functioning and liquid stool is noted in the ostomy. Review of systems: Constitutional: No reports of fatigue, fever, or chills Cardiovascular: No reports of chest pain or palpitations Respiratory: No reports of shortness of breath or cough GI: No reports of nausea, vomiting, or diarrhea : No reports of dysuria or retention Neurovascular: Reports generalized weakness All medications have been reviewed Active Medications Hydrocodone Bitart/Acetaminophen (Hydrocodone/Apap 5-325mg 1 Each Tab) 1 each PO Q6HR PRN PRN Reason: Pain Last Admin: 01/26/22 04:38 Dose: 1 each Documented by: Albuterol/Ipratropium (Ipratropium-Albuterol 3 Ml Neb) 3 ml INHALATION RT-TID [facility] Last Admin: 01/26/22 11:32 Dose: 3 ml Documented by: Albuterol/Ipratropium (Ipratropium-Albuterol 3 Ml Neb) 3 ml INHALATION RT-Q8H PRN PRN Reason: Shortness Of Breath Ceftriaxone Sodium 2 gm/ (Sodium Chloride) 50 mls @ 100 mls/hr IVPB Q24HR [facility]; Protocol Last Admin: 01/26/22 10:22 Dose: 100 mls/hr Documented by: Melatonin (Melatonin 3 Mg Tablet) 3 mg PO HS@1999 [facility] Last Admin: 01/25/22 19:29 Dose: 3 mg Documented by: Midodrine (Midodrine 5 Mg Tab) 5 mg PO AC-BID [facility] Last Admin: 01/26/22 10:22 Dose: 5 mg Documented by: Multivitamins (Multivitamins, Thera 1 Each Tab) 1 each PO @1999 [facility] Last Admin: 01/25/22 19:29 Dose: 1 each Documented by: Pantoprazole Sodium (Pantoprazole 40 Mg Tablet) 40 mg PO AC-BRKFST [facility] Last Admin: 01/26/22 10:22 Dose: 40 mg Documented by: Senna (Sennosides 8.6 Mg Tab) 17.2 mg PO [facility] Last Admin: 01/25/22 19:30 Dose: 17.2 mg Documented by: Tamsulosin HCl (Tamsulosin 0.4 Mg Cap.Er.24h) 0.4 mg PO DAILY [facility] Last Admin: 01/26/22 10:22 Dose: 0.4 mg Documented by: PHYSICAL EXAMINATION: GENERAL: The patient is alert and oriented x3, Well developed, well nourished. HEENT: Pupils are round and equally reacting to light. EOMI. no scleral icterus. No conjunctival pallor. Normocephalic, atraumatic. No pharyngeal erythema. No thyromegaly. CARDIOVASCULAR: S1 and S2 muffled PULMONARY: diminished breath sounds bilaterally with some scattered rhonchi noted. ABDOMEN: soft. Nontender on exam. obese. non-distended, normoactive bowel sounds. No palpable organomegaly. Ileostomy noted with liquid stool MUSCULOSKELETAL: No joint swelling or deformity. EXTREMITIES: No cyanosis, clubbing, or pedal edema. NEUROLOGICAL: Gross neurological examination did not reveal any focal deficits. Diffuse weakness SKIN: No rashes. Assessment: Altered mental status, possibly metabolic encephalopathy secondary to urinary tract infection with sepsis, present on admission Possible Acute urinary tract infection, present on admission Leukocytosis possibly secondary to above, improved Lactic acidosis, improved reflex is 0.8 Recent hospitalization status post small bowel obstruction with exploratory laparotomy bowel resection and ileostomy GI prophylaxis DVT prophylaxis Full code Plan: Recommend to continue with IV antibiotics in the form of ceftriaxone with infectious disease following closely. Preliminary culture showing gram-negative and awaiting for finalized cultures to determine discharge antibiotics. Patient is responding well to ceftriaxone and is afebrile. Patient is tolerating diet and encouraged oral intake. Case management and social work following an patient is a resident at [facility] and will be returning there once stabilized. Patient with some chronic back pain and appropriate home medications have been resumed. Encouraged oral intake and increased activity as tolerated. Awaiting finalized cultures with infectious disease following and will discuss further about discharge antibiotics once cultures show sensitivities Due to multiple complex medical issues, prognosis is guarded Possible discharge in 24-48 hours. The impression and plan of care has been dictated by Kavita Marquis, nurse practitioner as directed. Dr. Bimal MD I have performed a history and examination and MDM of this patient, discussed t he same with the dictator, and agree with the dictator's assessment and plan as written ,documented as a scribe. Based on total visit time, I have performed more than 50% of the visit. Any additional findings or plans will be noted. Objective - Vital Signs Vital signs: Vital Signs Temp 98.5 F 01/26/22 05:00 Pulse 91 01/26/22 08:02 Resp 20 01/26/22 05:00 BP 94/61 01/26/22 05:00 Pulse Ox 96 01/26/22 07:54 Intake & Output 01/25/22 01/26/22 01/26/22 18:59 06:59 18:59 Intake Total 300 710 Output Total 400 Balance 300 310 Weight 81.647 kg Intake: Intake, IV Titration 300 Amount Sodium Chloride 0.9% 1, 300 000 ml @ 75 mls/hr IV . [id number] ONE Rx#:[id number] Oral 710 Output: Urine 400 - Labs CBC & Chem 7: 01/26/22 06:38 01/26/22 06:38 Labs: Abnormal Lab Results - Last 24 Hours (Table) 01/25/22 01/25/22 01/26/22 Range/Units 13:31 13:31 06:38 RBC 3.99 L 3.78 L (4.30-5.90) m/uL Hgb 9.6 L 9.3 L (13.0-17.5) gm/dL Hct 32.7 L 30.4 L (39.0-53.0) % MCH 24.1 L 24.5 L (25.0-35.0) pg MCHC 29.4 L 30.5 L (31.0-37.0) g/dL RDW 16.5 H 16.9 H (11.5-15.5) % Plt Count 516 H 557 H (150-450) k/uL Sodium 136 L (137-145) mmol/L Calcium 8.2 L (8.4-10.2) mg/dL 01/26/22 Range/Units 06:38 RBC (4.30-5.90) m/uL Hgb (13.0-17.5) gm/dL Hct (39.0-53.0) % MCH (25.0-35.0) pg MCHC (31.0-37.0) g/dL RDW (11.5-15.5) % Plt Count (150-450) k/uL Sodium 135 L (137-145) mmol/L Calcium 8.2 L (8.4-10.2) mg/dL Microbiology - Last 24 Hours (Table) 01/24/22 17:00 Urine Culture - Preliminary Urine,Voided Gram Neg Bacilli 01/24/22 14:09 Blood Culture - Preliminary Blood No Growth after 24 hours 01/24/22 13:54 Blood Culture - Preliminary Blood No Growth after 24 hours
--- NOTE | 2022-01-26 20:51 | P.PN ---
Subjective Progress Note Date: 01/26/22 Principal diagnosis: Urinary tract infection Patient is a 71-year-old male presenting to the hospital in mental status changes from a local [facility] in this patient who did have a fever positive UA concerning for symptomatic urinary tract infection. On today's evaluation that is 01/26/2022, the patient is afebrile the patient is slightly more awake and alert today he is breathing comfortably on room air denies any chest pain shortness of breath or cough no abdominal pain no diarrhea Objective - Vital Signs Vital signs: Vital Signs Temp 98.1 F 01/26/22 11:48 Pulse 98 01/26/22 11:48 Resp 20 01/26/22 11:48 BP 92/59 01/26/22 11:48 Pulse Ox 98 01/26/22 11:48 Intake & Output 01/25/22 01/26/22 01/26/22 18:59 06:59 18:59 Intake Total 300 710 50 Output Total 400 400 Balance 300 310 -350 Weight 81.647 kg Intake: Intake, IV Titration 300 50 Amount Sodium Chloride 0.9% 1, 300 000 ml @ 75 mls/hr IV . [id number] Rx#:[id number] cefTRIAXone 2 gm In 50 Sodium Chloride 0.9% 50 ml @ 100 mls/hr IVPB Q24HR [facility] Rx#:[id number] Oral 710 Output: Urine 400 300 Stool 100 - Exam GENERAL DESCRIPTION: An elderly male lying in bed in no distress RESPIRATORY SYSTEM: Unlabored breathing , decreased breath sounds at bases HEART: S1 S2 regular rate and rhythm , ABDOMEN: Soft , no tenderness EXTREMITIES: No edema feet - Labs CBC & Chem 7: 01/26/22 06:38 01/26/22 06:38 Labs: Abnormal Lab Results - Last 24 Hours (Table) 01/25/22 01/25/22 01/26/22 Range/Units 13:31 13:31 06:38 RBC 3.99 L 3.78 L (4.30-5.90) m/uL Hgb 9.6 L 9.3 L (13.0-17.5) gm/dL Hct 32.7 L 30.4 L (39.0-53.0) % MCH 24.1 L 24.5 L (25.0-35.0) pg MCHC 29.4 L 30.5 L (31.0-37.0) g/dL RDW 16.5 H 16.9 H (11.5-15.5) % Plt Count 516 H 557 H (150-450) k/uL Sodium 136 L (137-145) mmol/L Calcium 8.2 L (8.4-10.2) mg/dL 01/26/22 Range/Units 06:38 RBC (4.30-5.90) m/uL Hgb (13.0-17.5) gm/dL Hct (39.0-53.0) % MCH (25.0-35.0) pg MCHC (31.0-37.0) g/dL RDW (11.5-15.5) % Plt Count (150-450) k/uL Sodium 135 L (137-145) mmol/L Calcium 8.2 L (8.4-10.2) mg/dL Microbiology - Last 24 Hours (Table) 01/24/22 17:00 Urine Culture - Preliminary Urine,Voided Gram Neg Bacilli 01/24/22 14:09 Blood Culture - Preliminary Blood No Growth after 24 hours 01/24/22 13:54 Blood Culture - Preliminary Blood No Growth after 24 hours Assessment and Plan (1) Urinary tract infection Current Visit: Yes Status: Acute Code(s): N39.0 - URINARY TRACT INFECTION, SITE NOT SPECIFIED SNOMED Code(s): 18907232 Plan: 1patient presented to hospital mental status changes in this we did have a feve r patient did have a positive UA likely the source of his fever and mental status changes as currently no other obvious focus of infection and likely from enteric gram-negative pathogen 2urine culture finalized with E. coli with a multidrug resistant pathogen, discontinue Rocephin and start the patient on meropenem UA and culture will be repeated Time with Patient: Less than 30
[2022-01-26] MEDS: SENNOSIDES 8.6 MG TAB PO SCH (21:33)
[2022-01-26] MEDS: MELATONIN 3 MG TABLET PO SCH (22:18)
[2022-01-26] MEDS: MEROPENEM 1 GM in SODIUM CHLORIDE 0.9% 100 ML IVPB SCH (23:27)
[2022-01-27 00:02] LABS: Appearance,Urine Clear (Clear); Bacteria,Urine Rare /hpf; Bilirubin,Urine Negative (Negative); Blood,Urine Negative (Negative); Color,Urine Yellow; Glucose,Urine (UA) Negative (Negative); Ketones,Urine Negative (Negative); Leukocyte Esterase,Urine Large (Negative); Mucus,Urine Rare /hpf; Nitrite,Urine Negative (Negative); PH, Urine 5.5 (5.0-8.0); Protein,Urine Negative (Negative); RBC,Urine 2 /hpf (0-5); Specific Gravity,Urine 1.007 (1.001-1.035); Squamous Epithelial Cell,Urine <1 /hpf (0-4); Urobilinogen,Urine <2.0 mg/dL (<2.0); WBC,Urine 58 /hpf (0-5)
[2022-01-27] MEDS: IPRATROPIUM-ALBUTEROL 3 ML NEB INHALATION SCH ×3 (08:48→19:17)
[2022-01-27] MEDS: TAMSULOSIN 0.4 MG CAP.ER.24H PO SCH (09:07)
[2022-01-27] MEDS: MIDODRINE 5 MG TAB PO SCH ×2 (09:07→17:32)
[2022-01-27] MEDS: MEROPENEM 1 GM in SODIUM CHLORIDE 0.9% 100 ML IVPB SCH ×3 (09:07→23:06)
[2022-01-27] MEDS: PANTOPRAZOLE 40 MG TABLET PO SCH (09:07)
--- NOTE | 2022-01-27 10:01 | US ---
EXAMINATION TYPE: US kidneys/renal and bladder DATE OF EXAM: 01/27/2022 COMPARISON: NONE CLINICAL HISTORY: uti and bacteremia. UTI EXAM MEASUREMENTS: Right Kidney: 8.8 x 4.7 x 5.0 cm Left Kidney: 11.4 x 4.7 x 4.9 cm Right Kidney: Hypoechoic area upper pole 1.3 x 1.1 x 1.4 cm. No hydronephrosis or nephrolithiasis. Left Kidney: Hypoechoic area seen upper pole 1.5 x 1.0 x 1.1 cm. No hydronephrosis or nephrolithias is. Bladder: anechoic Bilateral Jets seen: no IMPRESSION: Indeterminate hypoechoic nodules involving both kidneys. No hydronephrosis or nephrolithiasis.
[2022-01-27] MEDS: SENNOSIDES 8.6 MG TAB PO SCH (20:16)
[2022-01-27] MEDS: MULTIVITAMINS, THERA 1 EACH TAB PO SCH (20:16)
[2022-01-27] MEDS: MELATONIN 3 MG TABLET PO SCH (20:17)
[2022-01-27] MEDS: HYDROcodone/APAP 5-325MG 1 EACH TAB PO PRN (20:19)
--- NOTE | 2022-01-27 22:10 | P.PN ---
Subjective Progress Note Date: 01/27/22 Principal diagnosis: Urinary tract infection Patient is a 71-year-old male presenting to the hospital in mental status changes from a local [facility] care in this patient who did have a fever positive UA concerning for symptomatic urinary tract infection. On today's evaluation that is 01/27/2022, the patient remains to be afebrile the patient is breathing comfortably on room air , the patient denies any chest pain shortness of breath or cough no abdominal pain no diarrhea Objective - Vital Signs Vital signs: Vital Signs Temp 98.1 F 01/27/22 05:00 Pulse 101 H 01/27/22 08:57 Resp 16 01/27/22 05:00 BP 103/58 01/27/22 05:00 Pulse Ox 97 01/27/22 05:00 Intake & Output 01/26/22 01/27/22 01/27/22 18:59 06:59 18:59 Intake Total 50 1060 Output Total 400 1100 200 Balance -350 -40 -200 Intake: Intake, IV Titration 50 100 Amount Meropenem 1 gm In Sodium 100 Chloride 0.9% 100 ml @ 33 .3 mls/hr IVPB Q8HR [facility] Rx#:[id number] cefTRIAXone 2 gm In 50 Sodium Chloride 0.9% 50 ml @ 100 mls/hr IVPB Q24HR [facility] Rx#:[id number] Oral 960 Output: Urine 300 600 Stool 100 500 200 Other: Voiding Method Urinal # Voids 2 - Exam GENERAL DESCRIPTION: An elderly male lying in bed in no distress RESPIRATORY SYSTEM: Unlabored breathing , decreased breath sounds at bases HEART: S1 S2 regular rate and rhythm , ABDOMEN: Soft , no tenderness EXTREMITIES: No edema feet - Labs CBC & Chem 7: 01/26/22 06:38 01/26/22 06:38 Labs: Abnormal Lab Results - Last 24 Hours (Table) 01/26/22 Range/Units 23:50 Ur Leukocyte Esterase Large H (Negative) Urine WBC 58 H (0-5) /hpf Urine Bacteria Rare H (None) /hpf Urine Mucus Rare H (None) /hpf Microbiology - Last 24 Hours (Table) 01/24/22 17:00 Urine Culture - Final Urine,Voided Escherichia coli 01/24/22 14:09 Blood Culture - Preliminary Blood No Growth after 48 hours 01/24/22 13:54 Blood Culture - Preliminary Blood No Growth after 48 hours Assessment and Plan (1) Urinary tract infection Current Visit: Yes Status: Acute Code(s): N39.0 - URINARY TRACT INFECTION, SITE NOT SPECIFIED SNOMED Code(s): 87400009 Plan: 1patient presented to hospital mental status changes in this we did have a fever patient did have a positive UA likely the source of his fever and mental status changes as currently no other obvious focus of infection and likely from enteric gram-negative pathogen 2urine culture finalized with E. coli with a multidrug resistant pathogen, patient has been started on meropenem. Repeat UA is still positive , we'll see what the culture shows tomorrow however the patient continued to improve May finish therapy with short course of oral Cipro Time with Patient: Less than 30
[2022-01-28] MEDS: HYDROcodone/APAP 5-325MG 1 EACH TAB PO PRN ×3 (03:13→16:52)
--- NOTE | 2022-01-28 04:14 | P.PN ---
Subjective Progress Note Date: 01/27/22 This is a pleasant 71-year-old male who was recently at [facility] as a resident there and was brought to the emergency department via EMS for altered mental status with some hypoxia and also found to have a temperature of 101. Patient is a past medical history of dementia, chronic hepatic encephalopathy, dysphagia, anasarca, ascites due to liver cirrhosis with liver disease, depression, current every day smoker. Patient was admitted for altered mental status along with urinary tract infection and sepsis, present on admission. Labs on admission showWBC mildly elevated at 10.8, hemoglobin is 10.1, sodium 136, potassium 4.8, BUN 22, creatinine 0.97, initialacid 2.8, urinalysis done showing large leukocyte esterase elevated WBC and a sample was sent for culture. Coronavirus along with influenza A and B are negative. Chest x-ray on admission shows no evidence for acute pulmonary disease and some hyperinflation compatible with COPD. Patient was started on empiric antibiotics and urinalysis was sent for culture which is pending at this time. Will consult infectious disease and appreciate input and recommendations for UTI/sepsis. Per EMS report patient was placed on oxygen 2 L via nasal cannula and given a treatment with some improvement in shortness of breath. 01/26/2022 Patient is seen in follow-up this morning and is maintained on IV ceftriaxone with infectious disease following. Patient was admitted for altered mental status with fevers and possible sepsis related to UTI and awaiting cultures. Preliminary culture showing gram-negative bacilli and awaiting finalized culture to determine discharge antibiotics. Blood cultures remain negative. Patient is now afebrile. Patient denies any chest pain or shortness of breath. Patient is tolerating diet with no reports of nausea or vomiting noted. Ileostomy functioning and liquid stool is noted in the ostomy. 01/27/2022 Patient evaluated today and remains afebrile. Patient was maintained on IV ceftriaxone although urine culture finalized with mac with multi-resistance and ID following. Repeat urine ordered and IV antibiotics transitioned to Meropenem and awaiting repeat cultures. Patient reports to eating and denies any nausea or vomiting at this time. Patient is afebrile and denies chest pain or palpitations. Patient denies shortness of breath. Patient is continued on breathing inhalational treatments as well. Case management following as patient will return to [facility] on discharge. Review of systems: Constitutional: No reports of fatigue, fever, or chills Cardiovascular: No reports of chest pain or palpitations Respiratory: No reports of shortness of breath or cough GI: No reports of nausea, vomiting, or diarrhea : No reports of dysuria or retention Neurovascular: Reports generalized weakness All medications have been reviewed Active Medications Hydrocodone Bitart/Acetaminophen (Hydrocodone/Apap 5-325mg 1 Each Tab) 1 each PO Q6HR PRN PRN Reason: Pain Last Admin: 01/28/22 03:13 Dose: 1 each Documented by: Albuterol/Ipratropium (Ipratropium-Albuterol 3 Ml Neb) 3 ml INHALATION RT-TID [facility] Last Admin: 01/27/22 19:17 Dose: 3 ml Documented by: Albuterol/Ipratropium (Ipratropium-Albuterol 3 Ml Neb) 3 ml INHALATION RT-Q8H PRN PRN Reason: Shortness Of Breath Meropenem 1 gm/ Sodium (Chloride) 100 mls @ 33.3 mls/hr IVPB Q8HR [facility]; Protocol Last Admin: 01/27/22 23:06 Dose: 33.3 mls/hr Documented by: Melatonin (Melatonin 3 Mg Tablet) 3 mg PO HS@1999 [facility] Last Admin: 01/27/22 20:17 Dose: 3 mg Documented by: Midodrine (Midodrine 5 Mg Tab) 5 mg PO AC-BID [facility] Last Admin: 01/27/22 17:32 Dose: 5 mg Documented by: Multivitamins (Multivitamins, Thera 1 Each Tab) 1 each PO @1999 [facility] Last Admin: 01/27/22 20:16 Dose: 1 each Documented by: Pantoprazole Sodium (Pantoprazole 40 Mg Tablet) 40 mg PO AC-BRKFST [facility] Last Admin: 01/27/22 09:07 Dose: 40 mg Documented by: Senna (Sennosides 8.6 Mg Tab) 17.2 mg PO [facility] Last Admin: 01/27/22 20:16 Dose: 17.2 mg Documented by: Tamsulosin HCl (Tamsulosin 0.4 Mg Cap.Er.24h) 0.4 mg PO DAILY [facility] Last Admin: 01/27/22 09:07 Dose: 0.4 mg Documented by: PHYSICAL EXAMINATION: GENERAL: The patient is alert and oriented x3, Well developed, well nourished. HEENT: Pupils are round and equally reacting to light. EOMI. no scleral icterus. No conjunctival pallor. Normocephalic, atraumatic. No pharyngeal erythema. No thyromegaly. CARDIOVASCULAR: S1 and S2 muffled PULMONARY: diminished breath sounds bilaterally with some scattered rhonchi noted. ABDOMEN: soft. Nontender on exam. obese. non-distended, normoactive bowel sounds. No palpable organomegaly. Ileostomy noted with liquid brown stool MUSCULOSKELETAL: No joint swelling or deformity. EXTREMITIES: No cyanosis, clubbing, or pedal edema. NEUROLOGICAL: Gross neurological examination did not reveal any focal deficits. Diffuse weakness SKIN: No rashes. Assessment: Altered mental status, possibly metabolic encephalopathy secondary to urinary tract infection with sepsis, present on admission Acute urinary tract infection, present on admission, growing some multi- resistance ecoli Leukocytosis possibly secondary to above, improved Lactic acidosis, improved reflex is 0.8 Recent hospitalization status post small bowel obstruction with exploratory laparotomy bowel resection and ileostomy GI prophylaxis DVT prophylaxis Full code Plan: Recommend to continue with IV antibiotics with infectious disease following closely. ABX transitioned from ceftriaxone to Meropenem for multi-drug resista nce ecoli and repeat urinalysis remains positive. Patient is afebrile. Patient is tolerating diet and encouraged oral intake. Case management and social work following an patient is a resident at [facility] and will be returning there once stabilized. Patient with some chronic back pain and appropriate home medications have been resumed. Encouraged oral intake and increased activity as tolerated. Awaiting repeat cultures with infectious disease following and may possibly discharge on oral antibiotics in the form of cipro Due to multiple complex medical issues, prognosis is guarded Possible discharge in 24-48 hours. The impression and plan of care has been dictated by Kavita Marquis nurse practitioner as directed. Dr. Bimal MD I have performed a history and examination and MDM of this patient, discussed the same with the dictator, and agree with the dictator's assessment and plan as written ,documented as a scribe. Based on total visit time, I have performed more than 50% of the visit. Any additional findings or plans will be noted. Objective - Vital Signs Vital signs: Vital Signs Temp 98.1 F 01/27/22 05:00 Pulse 101 H 01/27/22 08:57 Resp 16 01/27/22 05:00 BP 103/58 01/27/22 05:00 Pulse Ox 97 01/27/22 05:00 Intake & Output 01/26/22 01/27/22 01/27/22 18:59 06:59 18:59 Intake Total 50 1060 Output Total 400 1100 Balance -350 -40 Intake: Intake, IV Titration 50 100 Amount Meropenem 1 gm In Sodium 100 Chloride 0.9% 100 ml @ 33 .3 mls/hr IVPB Q8HR [facility] Rx#:[id number] cefTRIAXone 2 gm In 50 Sodium Chloride 0.9% 50 ml @ 100 mls/hr IVPB Q24HR [facility] Rx#:[id number] Oral 960 Output: Urine 300 600 Stool 100 500 Other: Voiding Method Urinal # Voids 2 - Labs CBC & Chem 7: 01/26/22 06:38 01/26/22 06:38 Labs: Abnormal Lab Results - Last 24 Hours (Table) 01/26/22 Range/Units 23:50 Ur Leukocyte Esterase Large H (Negative) Urine WBC 58 H (0-5) /hpf Urine Bacteria Rare H (None) /hpf Urine Mucus Rare H (None) /hpf Microbiology - Last 24 Hours (Table) 01/24/22 17:00 Urine Culture - Final Urine,Voided Escherichia coli 01/24/22 14:09 Blood Culture - Preliminary Blood No Growth after 48 hours 01/24/22 13:54 Blood Culture - Preliminary Blood No Growth after 48 hours
[2022-01-28] MEDS: IPRATROPIUM-ALBUTEROL 3 ML NEB INHALATION SCH ×2 (07:28→11:21)
[2022-01-28] MEDS: TAMSULOSIN 0.4 MG CAP.ER.24H PO SCH (08:03)
[2022-01-28] MEDS: PANTOPRAZOLE 40 MG TABLET PO SCH (08:03)
[2022-01-28] MEDS: MIDODRINE 5 MG TAB PO SCH (08:04)
[2022-01-28] MEDS: MEROPENEM 1 GM in SODIUM CHLORIDE 0.9% 100 ML IVPB SCH ×2 (08:04→16:54)
[2022-01-28 12:16] VITALS: BP 95/60; PULSE 83; RESP 20; TEMP 98
--- NOTE | 2022-01-28 13:27 | P.DS ---
Providers Date of admission: 01/24/22 17:59 Expected date of discharge: 01/28/22 Attending physician: Santhosh Wallis Consults: 01/25/22 13:18 Consult Physician Urgent Consulting Provider: Lester Diaz Consult Reason/Comments: UTI, sepsis Do you want consulting provider notified?: Yes Primary care physician: Physician Nonstaff Hospital Course: Final diagnosis Altered mental status, possibly metabolic encephalopathy secondary to urinary tract infection with sepsis, present on admission Acute urinary tract infection, present on admission, growing some multi- resistance ecoli Leukocytosis possibly secondary to above, improved Lactic acidosis, improved reflex is 0.8 Recent hospitalization status post small bowel obstruction with exploratory laparotomy bowel resection and ileostomy GI prophylaxis DVT prophylaxis Full code Discharge disposition Patient is being discharged in a stable condition with guarded prognosis to [facility] as he is a resident there. Patient will follow-up with Dr. Reddy in the outpatient setting upon discharge. Patient is to continue with oral antibiotics in the form of Cipro 500 mg twice daily for the next 10 days and then may discontinue. Total time taken is greater than 35 minutes. Hospital course This is a 71-year-old male who was recently admitted with altered mental status, UTI with sepsis and was being closely monitored. [facility]. Patient also was having fevers and some hypoxia which has resolved and patient responded well to antibiotics. Infectious disease is following and urine culture initially finalized with E. coli with multidrug resistance and repeat urinalysis was done and there is some sensitivities to Cipro and patient will continue on Cipro 500 mg twice daily for the next 10 days. Blood pressures are 95 systolic and recommend to continue with midodrine 5 mg twice daily. Also recommend that the patient continue with DuoNeb treatments 3 times daily and as needed. Currently no reports of chest pain, shortness of breath, or palpitations. Patient is afebrile. No reports of nausea or vomiting and patient is tolerating diet. Patient will be going to [facility] today. Guarded prognosis. On exam vital signs are stable. Cardio S1, S2 are muffled. Respiratory system shows diminished breath sounds at the bases with some scattered rhonchi noted. Abdomen is soft and obese, and nontender. Nervous system shows diffuse weakness. Please refer to medication reconciliation sheet for a list of medications. The impression and plan of care has been dictated by Kavita Marquis, Nurse Practitioner as directed. Dr. Bimal MD I have performed a history and examination and MDM of this patient, discussed th with the dictator, and agree with the dictator's assessment and plan as written ,documented as a scribe. Based on total visit time, I have performed more than 50% of the visit. Patient Condition at Discharge: Stable Plan - Discharge Summary Discharge Rx Participant: No New Discharge Prescriptions: New Ciprofloxacin HCl [Cipro] 500 mg PO BID 10 Days #20 tab Continue Melatonin 3 mg PO HS@1999 Multivit-Min/FA/Lycopen/Lutein [Centrum Silver Tablet] 1 tab PO HS@1999 Omeprazole 20 mg PO DAILY Tamsulosin [Flomax] 0.4 mg PO DAILY Ipratropium-Albuterol Nebulize [Duoneb 0.5 mg-3 mg/3 ml Soln] 3 ml INHALATION RT-Q8H PRN PRN Reason: Shortness Of Breath Sennosides [Senna] 17.2 mg PO HS Midodrine [ProAmatine] 5 mg PO AC-BID tab Ipratropium-Albuterol Nebulize [Duoneb 0.5 mg-3 mg/3 ml Soln] 3 ml INHALATION TID PRN #90 ml PRN Reason: Shortness Of Breath Changed HYDROcodone/APAP 5-325MG [Pelsor 5-325] 1 tab PO Q6HR PRN #4 tab PRN Reason: Pain Discharge Medication List Melatonin 3 mg PO HS@199903/10/21 [History] Sennosides [Senna] 17.2 mg PO HS 03/10/21 [History] Multivit-Min/FA/Lycopen/Lutein [Centrum Silver Tablet] 1 tab PO HS@199906/22/21 [History] Ipratropium-Albuterol Nebulize [Duoneb 0.5 mg-3 mg/3 ml Soln] 3 ml INHALATION TID PRN #90 ml 01/17/22 [Rx] Midodrine [ProAmatine] 5 mg PO AC-BID tab 01/17/22 [Rx] Ipratropium-Albuterol Nebulize [Duoneb 0.5 mg-3 mg/3 ml Soln] 3 ml INHALATION RT-Q8H PRN 01/24/22 [History] Omeprazole 20 mg PO DAILY 01/24/22 [History] Tamsulosin [Flomax] 0.4 mg PO DAILY 01/24/22 [History] Ciprofloxacin HCl [Cipro] 500 mg PO BID 10 Days #20 tab 01/28/22 [Rx] HYDROcodone/APAP 5-325MG [Pelsor 5-325] 1 tab PO Q6HR PRN #4 tab 01/28/22 [Rx] Follow up Appointment(s)/Referral(s): Nonstaff,Physician [Primary Care Provider] - 1-2 days Activity/Diet/Wound Care/Special Instructions: Patient is returning to [facility] Activity as tolerated Continue taking antibiotics Cipro 500 mg twice daily for the next 10 days and then may discontinue Continue regular diet Follow-up with primary care provider on discharge Discharge Disposition: TRANSFER TO SNF/ECF
--- NOTE | 2022-01-28 16:17 | P.PN ---
Subjective Progress Note Date: 01/28/22 Principal diagnosis: Urinary tract infection Patient is a 71-year-old male presenting to the hospital in mental status changes from a local assisted in this patient who did have a fever positive UA concerning for symptomatic urinary tract infection. On today's evaluation that is 01/28/2022, the patient denies any fever or any chills the patient is breathing comfortably on room air , the patient chest pain shortness of breath or cough no abdominal pain no diarrhea Objective - Vital Signs Vital signs: Vital Signs Temp 98 F 01/28/22 12:15 Pulse 83 01/28/22 12:15 Resp 20 01/28/22 12:15 BP 95/60 01/28/22 12:15 Pulse Ox 100 01/28/22 12:15 Intake & Output 01/27/22 01/28/22 01/28/22 18:59 06:59 18:59 Intake Total 200 240 Output Total 775 1200 550 Balance -357 -598 -550 Intake: Intake, IV Titration 200 Amount Meropenem 1 gm In Sodium 200 Chloride 0.9% 100 ml @ 33 .3 mls/hr IVPB Q8HR [facility] Rx#:[id number] Oral 240 Output: Urine 375 900 400 Stool 400 300 150 Other: Voiding Method Urinal Urinal Urinal # Voids 1 # Bowel Movements 1 - Exam GENERAL DESCRIPTION: An elderly male lying in bed in no distress RESPIRATORY SYSTEM: Unlabored breathing , decreased breath sounds at bases HEART: S1 S2 regular rate and rhythm , ABDOMEN: Soft , no tenderness EXTREMITIES: No edema feet - Labs CBC & Chem 7: 01/26/22 06:38 01/26/22 06:38 Labs: Microbiology - Last 24 Hours (Table) 01/24/22 13:54 Blood Culture - Preliminary Blood No Growth after 72 hours 01/24/22 14:09 Blood Culture - Preliminary Blood No Growth after 72 hours 01/26/22 23:50 Urine Culture - Preliminary Urine,Voided Assessment and Plan (1) Urinary tract infection Current Visit: Yes Status: Acute Code(s): N39.0 - URINARY TRACT INFECTION, SITE NOT SPECIFIED SNOMED Code(s): 88428742 Plan: 1patient presented to hospital mental status changes in this we did have a fever patient did have a positive UA likely the source of his fever and mental status changes as currently no other obvious focus of infection and likely from enteric gram-negative pathogen 2urine culture finalized with E. coli with a multidrug resistant pathogen, patient has been started on meropenem. Repeat UA is still positive , however the culture now showing enterococcus antibiotic usage to be short course of oral Augmentin and discharge and close outpatient follow-up Time with Patient: Less than 30
== END 2022-01-28 17:15 | DRG 871 ==
LOC: EC 13:45 → 5NMEDONC 17:59
PROVIDERS: ADMIT Hospitalist; ATTEND Hospitalist
DX: A41.51 Sepsis due to Escherichia coli [E. coli] (principal); G93.41 Metabolic encephalopathy; E87.2 Acidosis; N39.0 Urinary tract infection, site not specified; Z16.24 Resistance to multiple antibiotics; F03.90 Unspecified dementia, unspecified severity, without behavioral disturbance, psychotic disturbance, mood disturbance, and anxiety; F17.210 Nicotine dependence, cigarettes, uncomplicated; F32.A Depression, unspecified; K72.10 Chronic hepatic failure without coma; K74.60 Unspecified cirrhosis of liver; R09.02 Hypoxemia; Z79.899 Other long term (current) drug therapy; R13.10 Dysphagia, unspecified; Z98.890 Other specified postprocedural states; Z20.822 Contact with and (suspected) exposure to COVID-19; Z28.311 Partially vaccinated for COVID-19; Z88.6 Allergy status to analgesic agent; Z88.5 Allergy status to narcotic agent; Z93.2 Ileostomy status
CPT/HCPCS: 36415; 71046; 76770; 80048; 80053; 81001; 83605; 85025; 85610; 85730; 87040; 87077; 87086; 87186; 87502; 87635; 93005; 94640; 94760; 96361; 96365; 96366; 96375; 99285

== ENCOUNTER 2022-01-30 03:41 | Emergency (ER) | payer MEDICARE, OTHER ==
[2022-01-30 03:53] VITALS: RESP 18; TEMP 97.8
--- NOTE | 2022-01-30 04:47 | ED ---
Recheck HPI - General Chief Complaint: Recheck/Abnormal Lab/Rx Stated Complaint: Ileostomy bag complications Time Seen by Provider: 01/30/22 03:50 Source: patient, EMS, RN notes reviewed, old records reviewed Mode of arrival: EMS - History of Present Illness Initial Comments: This is a 72-year-old male who was transferred to our facility from [facility] for evaluation regards to recheck of ostomy site. Patient does have ostomy recently placed while changing ostomy [facility] did notice there was some dehiscence of the ostomy site. Patient sent in for evaluation regards to this. Patient has severe dementia unable provide history and has no complaints MD Complaint: wound re-check -: unknown Initial Visit For: laceration Returns Today for: staple/Stitch removal, persistent/worsening pain related to initial visit Symptoms Since Prior Visit: worsening pain Context: planned re-check Associated Symptoms: none Treatments Prior to Arrival: dressings, home treatments - Related Data Home Medications Medication Instructions Recorded Confirmed Melatonin 3 mg PO HS@199903/10/21 01/24/22 Sennosides [Senna] 17.2 mg PO HS 03/10/21 01/24/22 Multivit-Min/FA/Lycopen/Lutein 1 tab PO HS@199906/22/21 01/24/22 [Centrum Silver Tablet] Ipratropium-Albuterol Nebulize 3 ml INHALATION RT-Q8H PRN 01/24/22 01/24/22 [Duoneb 0.5 mg-3 mg/3 ml Soln] Omeprazole 20 mg PO DAILY 01/24/22 01/24/22 Tamsulosin [Flomax] 0.4 mg PO DAILY 01/24/22 01/24/22 Previous Rx's Medication Instructions Recorded Ipratropium-Albuterol Nebulize 3 ml INHALATION TID PRN #90 ml 01/17/22 [Duoneb 0.5 mg-3 mg/3 ml Soln] Midodrine [ProAmatine] 5 mg PO AC-BID tab 01/17/22 Amoxic-Pot Clav 875-125Mg 1 tab PO Q12HR 7 Days #14 tab 01/28/22 [Augmentin 875-125] HYDROcodone/APAP 5-325MG [[place] 1 tab PO Q6HR PRN #4 tab 01/28/22 5-325] Allergies Allergy/AdvReac Type Severity Reaction Status Date / Time naproxen Allergy Unknown Verified 01/24/22 15:06 tramadol [From Ultram] Allergy Unknown Verified 01/24/22 15:06 Review of Systems ROS Statement: Those systems with pertinent positive or pertinent negative responses have been documented in the HPI. ROS Other: All systems not noted in ROS Statement are negative. Past Medical History Past Medical History: Dementia, Liver Disease Additional Past Medical History / Comment(s): hepatic encephalopathy, dysphasia, anasarca, ascites due to liver cirrhosis History of Any Multi-Drug Resistant Organisms: Unobtainable Past Surgical History: Orthopedic Surgery Additional Past Surgical History / Comment(s): previous paracentesis at [facility] 2017, broken hip 2016 with rods placed, abdominal surgery in 03/15 Past Anesthesia/Blood Transfusion Reactions: No Reported Reaction Past Psychological History: Depression Smoking Status: Current every day smoker Past Alcohol Use History: Occasional, Rare Past Drug Use History: None Reported - Past Family History Mother Family Medical History: Dementia General Exam General appearance: alert, in no apparent distress Head exam: Present: atraumatic, normocephalic, normal inspection Eye exam: Present: normal appearance, PERRL, EOMI. Absent: scleral icterus, conjunctival injection, periorbital swelling ENT exam: Present: normal exam, mucous membranes moist Neck exam: Present: normal inspection. Absent: tenderness, meningismus, lymphadenopathy Respiratory exam: Present: normal lung sounds bilaterally. Absent: respiratory distress, wheezes, rales, rhonchi, stridor Cardiovascular Exam: Present: regular rate, normal rhythm, normal heart sounds. Absent: systolic murmur, diastolic murmur, rubs, gallop, clicks GI/Abdominal exam: Present: soft, normal bowel sounds. Absent: distended, tenderness, guarding, rebound, rigid Extremities exam: Present: normal inspection, full ROM, normal capillary refill. Absent: tenderness, pedal edema, joint swelling, calf tenderness Back exam: Present: normal inspection Neurological exam: Present: alert, oriented X3, CN II-XII intact Psychiatric exam: Present: normal affect, normal mood Skin exam: Present: warm, dry, intact, normal color. Absent: rash Course Vital Signs 01/30/22 01/30/22 01/30/22 03:43 04:52 06:03 Temperature 97.8 F Pulse Rate 82 94 81 Respiratory 18 18 18 Rate Blood Pressure 103/61 121/67 93/62 O2 Sat by Pulse 95 98 99 Oximetry - Reevaluation(s) Reevaluation #1: 01/30/22 Medical record is reviewed Reevaluation #2: 01/30/22 Spoke with [facility] regarding findings here in the ER, they understand patient will need to just follow up with surgeon Reevaluation #3: 01/30/22 Patient remains without complaint - Consultations Consultation #1: Spoke with Dr. Goodwin for Dr. Obrien in regards to findings here in the ER, patient can follow-up in the office Medical Decision Making - Medical Decision Making 72 male to the emergency department for evaluation of recheck for ostomy site. There is a one does to stitch dehiscence we did speak with Dr. Goodwin who is on- call for general surgery for discharge of eyes he states is nothing to do about this just continue to place yesterday bag on the site ileostomy does appear to be functioning is normal. Patient will follow-up with general surgery Disposition Clinical Impression: Normal exam, Ileostomy in place, Postoperative wound dehiscence Disposition: HOME SELF-CARE Condition: Good Instructions (If sedation given, give patient instructions): Acute Wound Care (ED) Is patient prescribed a controlled substance at d/c from ED?: No Referrals: Nonstaff,Physician [Primary Care Provider] - 1-2 days
--- NOTE | 2022-01-30 05:10 | XR ---
EXAMINATION TYPE: XR KUB DATE OF EXAM: 01/30/2022 COMPARISON: 01/12/2022 HISTORY: Ostomy problems. TECHNIQUE: 2 views supine FINDINGS: There are skin sam over the midline abdomen. There is some gas filled distended small b owel in the left mid abdomen. There is ostomy on the right mid abdomen. No free air. No definite gricelda l obstruction. IMPRESSION: Distended small bowel is improved compared to old exam and consistent with ileus. No free air.
[2022-01-30 06:04] VITALS: BP 93/62; PULSE 81
== END 2022-01-30 06:20 | disposition home or self-care (01) ==
LOC: EC 03:41
DX: T81.31XA Disruption of external operation (surgical) wound, not elsewhere classified, initial encounter (principal); F03.90 Unspecified dementia, unspecified severity, without behavioral disturbance, psychotic disturbance, mood disturbance, and anxiety; F17.200 Nicotine dependence, unspecified, uncomplicated; F32.A Depression, unspecified; Z79.899 Other long term (current) drug therapy; Z93.2 Ileostomy status
CPT/HCPCS: 74018; 99283

== ENCOUNTER 2022-03-28 12:28 | Emergency (ER) | payer MEDICARE, OTHER ==
[2022-03-28 12:38] VITALS: TEMP 97
--- NOTE | 2022-03-28 13:03 | ED ---
General Adult HPI - General Chief complaint: Recheck/Abnormal Lab/Rx Stated complaint: Prolapsed Stoma, Blood in Stool Time Seen by Provider: 03/28/22 12:29 Source: patient, EMS Mode of arrival: EMS Limitations: no limitations - History of Present Illness Initial comments: Dictation was produced using PerSay dictation software. please excuse any gr ammatical, word or spelling errors. Chief Complaint: 72 yo male presents emergency department for prolapsed stoma History of Present Illness: Chin is a 72-year-old male with multiple co morbidities. 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 Patient is here today for evaluation of prolapsed stoma. Patient has a stoma to the right lower quadrant. Staff allegedly went to go change his stoma bag when they noticed that his stoma was prolapsed. They attempted to try to reduce it with gentle pressure however they were unsuccessful. EMS was called patient was brought to the ER. Patient is back complaining of any abdominal symptoms. States that he has chronic hip pain from a fall that he suffered several weeks ago. No nausea vomiting. No diarrhea. The ROS documented in this emergency department record has been reviewed and confirmed by me. Those systems with pertinent positive or negative responses have been documented in the HPI. All other systems are other negative and/or noncontributory. PHYSICAL EXAM: General Impression: Alert and oriented x3, not in acute distress HEENT: Normocephalic atraumatic, extra-ocular movements intact, pupils equal and reactive to light bilaterally, mucous membranes moist. Cardiovascular: Heart regular rate and rhythm Chest: Able to complete full sentences, no retractions, no tachypnea Abdomen: abdomen soft, non-tender, non-distended, no organomegaly, mildly prolapsed stoma without any signs of infarction. Stoma is well-perfused and nonnecrotic Musculoskeletal: Pulses present and equal in all extremities, no peripheral edema Motor: no focal deficits noted Neurological: CN II-XII grossly intact, no focal motor or sensory deficits noted Skin: Intact with no visualized rashes Psych: Normal affect and mood ED course: 72-year-old now presents to emergency department for prolapsed right lower quadrant abdominal stoma signs upon arrival are within acceptable limits. Patient's well-appearing and physical examination. Patient was observed in the emergency department and reevaluated at 1:15 PM. Stomal prolapse reduced. Patient has no complaints. Patient stable for discharge. Will be sent back to [facility]. - Related Data Home Medications Medication Instructions Recorded Confirmed Melatonin 3 mg PO HS@199903/10/21 01/24/22 Sennosides [Senna] 17.2 mg PO HS 03/10/21 01/24/22 Multivit-Min/FA/Lycopen/Lutein 1 tab PO HS@199906/22/21 01/24/22 [Centrum Silver Tablet] Ipratropium-Albuterol Nebulize 3 ml INHALATION RT-Q8H PRN 01/24/22 01/24/22 [Duoneb 0.5 mg-3 mg/3 ml Soln] Omeprazole 20 mg PO DAILY 01/24/22 01/24/22 Tamsulosin [Flomax] 0.4 mg PO DAILY 01/24/22 01/24/22 Previous Rx's Medication Instructions Recorded Ipratropium-Albuterol Nebulize 3 ml INHALATION TID PRN #90 ml 01/17/22 [Duoneb 0.5 mg-3 mg/3 ml Soln] Midodrine [ProAmatine] 5 mg PO AC-BID tab 01/17/22 Amoxic-Pot Clav 875-125Mg 1 tab PO Q12HR 7 Days #14 tab 01/28/22 [Augmentin 875-125] HYDROcodone/APAP 5-325MG [[place] 1 tab PO Q6HR PRN #4 tab 01/28/22 5-325] Allergies Allergy/AdvReac Type Severity Reaction Status Date / Time naproxen Allergy Unknown Verified 01/24/22 15:06 tramadol [From Ultram] Allergy Unknown Verified 01/24/22 15:06 Review of Systems ROS Statement: Those systems with pertinent positive or pertinent negative responses have been documented in the HPI. ROS Other: All systems not noted in ROS Statement are negative. Past Medical History Past Medical History: Dementia, Liver Disease Additional Past Medical History / Comment(s): hepatic encephalopathy, dysphasia, anasarca, ascites due to liver cirrhosis History of Any Multi-Drug Resistant Organisms: None Reported Date of last positivie culture/infection: 01/27/22 MDRO Source:: Urine Past Surgical History: Orthopedic Surgery Additional Past Surgical History / Comment(s): previous paracentesis at [facility] 2016, broken hip 2015 with rods placed, abdominal surgery in 03/15 Past Anesthesia/Blood Transfusion Reactions: No Reported Reaction Past Psychological History: Depression Smoking Status: Current every day smoker Past Alcohol Use History: Occasional, Rare Past Drug Use History: None Reported - Past Family History Mother Family Medical History: Dementia General Exam Limitations: no limitations Course Vital Signs 03/28/22 12:29 Temperature 97.0 F L Respiratory 118 H Rate Blood Pressure 121/70 O2 Sat by Pulse 97 Oximetry Disposition Clinical Impression: Stomal prolapse Disposition: HOME SELF-CARE Condition: Good Is patient prescribed a controlled substance at d/c from ED?: No Referrals: None,Stated [Primary Care Provider] - 1-2 days Time of Disposition: 13:18
[2022-03-28 14:34] VITALS: RESP 18
[2022-03-28 14:35] VITALS: BP 124/72; PULSE 72
== END 2022-03-28 14:30 | disposition home or self-care (01) ==
LOC: EC 12:28
DX: K94.09 Other complications of colostomy (principal); F03.90 Unspecified dementia, unspecified severity, without behavioral disturbance, psychotic disturbance, mood disturbance, and anxiety; F32.A Depression, unspecified; F17.200 Nicotine dependence, unspecified, uncomplicated; Z79.899 Other long term (current) drug therapy
CPT/HCPCS: 99283

== ENCOUNTER 2022-04-06 22:08 | Emergency (ER) | payer MEDICARE, OTHER ==
[2022-04-06 22:15] VITALS: RESP 18
[2022-04-06] MEDS ORDERED: ONDANSETRON 4 MG/2 ML VIAL IVP STA (22:31)
[2022-04-06] MEDS ORDERED: LACTULOSE 20 GM/30 ML CUP PO ONE (22:31)
[2022-04-07 00:16] LABS: ALT 25 U/L (4-49); AST 38 U/L (17-59); African American GFR (CKD) >90 (>60 ml/min/1.73 sqM); Albumin 4.8 g/dL (3.5-5.0); Alkaline Phosphatase 149 U/L (38-126); Amylase 109 U/L (30-110); Anion Gap 14 mmol/L; Blood Urea Nitrogen 22 mg/dL (9-20); Calcium 10.2 mg/dL (8.4-10.2); Carbon Dioxide 20 mmol/L (22-30); Chloride 101 mmol/L (98-107); Glucose 120 mg/dL (74-99); Lipase 150 U/L (23-300); Non-African American GFR(CKD) >90 (>60 ml/min/1.73 sqM); Potassium 4.6 mmol/L (3.5-5.1); Sodium 135 mmol/L (137-145); Total Bilirubin 0.6 mg/dL (0.2-1.3)
[2022-04-07 00:20] LABS: Anisocytosis Slight; Basophils % (A) 0 %; Eosinophils # (A) 0.2 k/uL (0-0.7); Eosinophils % (A) 1 %; HCT 41.7 % (39.0-53.0); HGB 13.1 gm/dL (13.0-17.5); Hypochromasia Slight; Lymphocytes # (A) 2.5 k/uL (1.0-4.8); Lymphocytes % (A) 21 %; MCH 24.7 pg (25.0-35.0); MCHC 31.5 g/dL (31.0-37.0); MCV 78.3 fL (80.0-100.0); Mean Platelet Volume 7.3; Microcytosis Slight; Monocytes # (A) 0.5 k/uL (0-1.0); Monocytes % (A) 4 %; Neutrophils # (A) 8.4 k/uL (1.3-7.7); Neutrophils % (A) 72 %; Platelet Count 345 k/uL (150-450); RBC 5.33 m/uL (4.30-5.90); RDW 16.1 % (11.5-15.5); WBC 11.7 k/uL (3.8-10.6)
[2022-04-07] MEDS ORDERED: DICYCLOMINE 10 MG/ML 2 ML AMP IM STA (02:56)
[2022-04-07] MEDS ORDERED: PEG 3350 (236 GM/BTL) + LYTES 4,000 ML BOTTLE PO ONE (04:22)
--- NOTE | 2022-04-07 04:22 | ED ---
General Adult HPI - General Chief complaint: Recheck/Abnormal Lab/Rx Stated complaint: Abdominal Pain Time Seen by Provider: 04/06/22 22:10 Source: patient, EMS Mode of arrival: EMS Limitations: no limitations - History of Present Illness Initial comments: This patient is a 72-year-old man [facility] to have evaluation for prolapse of ileostomy. In addition patient states he is having some bilateral lower abdominal discomfort. He believes is related to not passing much stool. He states there is been barely any output from the ostomy. Patient is denying noting any blood. Denies vomiting. No fevers noted. Onset/Timin -: days(s) Location: abdomen Radiation: non-radiation Quality: other (Cramping) Consistency: colicky Improves with: none Worsens with: none Associated Symptoms: denies other symptoms Treatments Prior to Arrival: none - Related Data Home Medications Medication Instructions Recorded Confirmed Melatonin 3 mg PO HS@199903/10/21 01/24/22 Sennosides [Senna] 17.2 mg PO HS 03/10/21 01/24/22 Multivit-Min/FA/Lycopen/Lutein 1 tab PO HS@199906/22/21 01/24/22 [Centrum Silver Tablet] Ipratropium-Albuterol Nebulize 3 ml INHALATION RT-Q8H PRN 01/24/22 01/24/22 [Duoneb 0.5 mg-3 mg/3 ml Soln] Omeprazole 20 mg PO DAILY 01/24/22 01/24/22 Tamsulosin [Flomax] 0.4 mg PO DAILY 01/24/22 01/24/22 Previous Rx's Medication Instructions Recorded Ipratropium-Albuterol Nebulize 3 ml INHALATION TID PRN #90 ml 01/17/22 [Duoneb 0.5 mg-3 mg/3 ml Soln] Midodrine [ProAmatine] 5 mg PO AC-BID tab 01/17/22 Amoxic-Pot Clav 875-125Mg 1 tab PO Q12HR 7 Days #14 tab 01/28/22 [Augmentin 875-125] HYDROcodone/APAP 5-325MG [[place] 1 tab PO Q6HR PRN #4 tab 01/28/22 5-325] Allergies Allergy/AdvReac Type Severity Reaction Status Date / Time naproxen Allergy Unknown Verified 04/06/22 22:15 tramadol [From Ultram] Allergy Unknown Verified 04/06/22 22:15 Review of Systems ROS Statement: Those systems with pertinent positive or pertinent negative responses have been documented in the HPI. ROS Other: All systems not noted in ROS Statement are negative. Constitutional: Denies: fever, chills Respiratory: Denies: cough, dyspnea Cardiovascular: Denies: chest pain, palpitations Gastrointestinal: Reports: abdominal pain, constipation. Denies: vomiting, diarrhea, melena, hematochezia Genitourinary: Denies: dysuria, hematuria, testicular pain Musculoskeletal: Denies: back pain Skin: Denies: rash Neurological: Denies: headache, weakness Past Medical History Past Medical History: Dementia, Liver Disease Additional Past Medical History / Comment(s): hepatic encephalopathy, dysphasia, anasarca, ascites due to liver cirrhosis History of Any Multi-Drug Resistant Organisms: None Reported Date of last positivie culture/infection: 01/27/22 MDRO Source:: Urine Past Surgical History: Orthopedic Surgery Additional Past Surgical History / Comment(s): previous paracentesis at [facility] 2017, broken hip 2016 with rods placed, abdominal surgery in 03/15 Past Anesthesia/Blood Transfusion Reactions: No Reported Reaction Past Psychological History: Depression Smoking Status: Current every day smoker Past Alcohol Use History: Occasional, Rare Past Drug Use History: None Reported - Past Family History Mother Family Medical History: Dementia General Exam Limitations: no limitations General appearance: alert, in no apparent distress Head exam: Present: atraumatic, normocephalic Eye exam: Present: normal appearance. Absent: scleral icterus, conjunctival injection ENT exam: Present: normal oropharynx Respiratory exam: Present: normal lung sounds bilaterally. Absent: respiratory distress, wheezes, rales, rhonchi, stridor Cardiovascular Exam: Present: regular rate, normal rhythm, normal heart sounds. Absent: systolic murmur, diastolic murmur, rubs, gallop GI/Abdominal exam: Present: soft, other (There is a right-sided ostomy which has about 5-6 inches of prolapse. The mucosa is pink and there is no duskiness. There is no tenderness. The prolapse is easily reduced.). Absent: distended, tenderness, guarding, rebound, rigid, mass Extremities exam: Present: normal inspection, normal capillary refill. Absent: pedal edema, calf tenderness Back exam: Present: normal inspection. Absent: CVA tenderness (R), CVA tenderness (L) Neurological exam: Present: alert Skin exam: Present: warm, dry, intact, normal color. Absent: rash Course Vital Signs 04/06/22 04/07/22 04/07/22 22:09 02:48 04:59 Temperature 98 F 98.1 F Pulse Rate 99 101 H 105 H Respiratory 18 18 18 Rate Blood Pressure 136/81 138/81 128/80 O2 Sat by Pulse 96 94 L 96 Oximetry Medical Decision Making - Medical Decision Making Patient is 72-year-old man here with prolapse of ileostomy. There is accompanying [facility] from the [facility] that does show presence of fecal stasis but no obstruction. No evidence of obstruction here there is small amount of very firm stool in the ostomy bag. No blood. The stoma was easily reduced however it did recur. Sugar was then applied and the prolapse did resolve itself that way. The patient denying abdominal pain here in emergency department and labs are stable. To aid in resolving the constipation, patient will the given colon Prep to use. - Lab Data Result diagrams: 04/06/22 23:17 04/06/22 23:17 Lab Results 04/06/22 04/06/22 04/06/22 Range/Units 23:17 23:17 23:17 WBC 11.7 H (3.8-10.6) k/uL RBC 5.33 (4.30-5.90) m/uL Hgb 13.1 (13.0-17.5) gm/dL Hct 41.7 (39.0-53.0) % MCV 78.3 L (80.0-100.0) fL MCH 24.7 L (25.0-35.0) pg MCHC 31.5 (31.0-37.0) g/dL RDW 16.1 H (11.5-15.5) % Plt Count 345 (150-450) k/uL MPV 7.3 Neutrophils % 72 % Lymphocytes % 21 % Monocytes % 4 % Eosinophils % 1 % Basophils % 0 % Neutrophils # 8.4 H (1.3-7.7) k/uL Lymphocytes # 2.5 (1.0-4.8) k/uL Monocytes # 0.5 (0-1.0) k/uL Eosinophils # 0.2 (0-0.7) k/uL Basophils # 0.0 (0-0.2) k/uL Hypochromasia Slight Anisocytosis Slight Microcytosis Slight Sodium 135 L (137-145) mmol/L Potassium 4.6 (3.5-5.1) mmol/L Chloride 101 (98-107) mmol/L Carbon Dioxide 20 L (22-30) mmol/L Anion Gap 14 mmol/L BUN 22 H (9-20) mg/dL Creatinine 0.71 (0.66-1.25) mg/dL Est GFR (CKD-EPI)AfAm >90 (>60 ml/min/1.73 sqM) Est GFR (CKD-EPI)NonAf >90 (>60 ml/min/1.73 sqM) Glucose 120 H (74-99) mg/dL Calcium 10.2 (8.4-10.2) mg/dL Total Bilirubin 0.6 (0.2-1.3) mg/dL AST 38 (17-59) U/L ALT 25 (4-49) U/L Alkaline Phosphatase 149 H (38-126) U/L Ammonia <9 (<30) umol/L Total Protein 9.0 H (6.3-8.2) g/dL Albumin 4.8 (3.5-5.0) g/dL Amylase 109 (30-110) U/L Lipase 150 (23-300) U/L Disposition Clinical Impression: Chronic constipation, Stomal prolapse Disposition: HOME SELF-CARE Condition: Good Instructions (If sedation given, give patient instructions): Constipation (DC) Is patient prescribed a controlled substance at d/c from ED?: No Referrals: None,Stated [Primary Care Provider] - 1-2 days
[2022-04-07 05:01] VITALS: BP 128/80; PULSE 105; TEMP 98.1
== END 2022-04-07 05:49 | disposition home or self-care (01) ==
LOC: EC 22:08
DX: K94.09 Other complications of colostomy (principal); K59.00 Constipation, unspecified; F17.200 Nicotine dependence, unspecified, uncomplicated; Z88.6 Allergy status to analgesic agent
CPT/HCPCS: 36415; 80053; 82140; 82150; 83690; 85025; 99284; 96374; 96372; J0500; J2405

== ENCOUNTER 2022-04-07 16:30 | Emergency (ER) | payer MEDICARE, OTHER ==
[2022-04-07 16:43] VITALS: PULSE 0; RESP 0
--- NOTE | 2022-04-07 16:43 | ED ---
General Adult HPI - General Chief complaint: Cardiac Arrest/CPR Stated complaint: cardiac arrest Time Seen by Provider: 04/07/22 16:34 Source: EMS, RN notes reviewed, old records reviewed Mode of arrival: EMS Limitations: altered mental status - History of Present Illness Initial comments: 72-year-old male presents in cardiac arrest. Patient had a witnessed arrest by paramedics which was initially PEA followed by by some episodes of ventricular rhythm and asystole. He received a Daron airway by paramedics with significant vomiting and difficulty obtaining a definitive airway. Patient received multiple doses of epinephrine as well as additional drugs according to ACLS protocol. CPR been continued during transport without return of spontaneous circulation. Upon arrival the patient is in asystole with no signs of life, pupils are fixed and dilated. No spontaneous respirations. Patient had multiple chronic medical conditions according to paramedics. - Related Data Home Medications Medication Instructions Recorded Confirmed Melatonin 3 mg PO HS@199903/10/21 01/24/22 Sennosides [Senna] 17.2 mg PO HS 03/10/21 01/24/22 Multivit-Min/FA/Lycopen/Lutein 1 tab PO HS@199906/22/21 01/24/22 [Centrum Silver Tablet] Ipratropium-Albuterol Nebulize 3 ml INHALATION RT-Q8H PRN 01/24/22 01/24/22 [Duoneb 0.5 mg-3 mg/3 ml Soln] Omeprazole 20 mg PO DAILY 01/24/22 01/24/22 Tamsulosin [Flomax] 0.4 mg PO DAILY 01/24/22 01/24/22 Previous Rx's Medication Instructions Recorded Ipratropium-Albuterol Nebulize 3 ml INHALATION TID PRN #90 ml 01/17/22 [Duoneb 0.5 mg-3 mg/3 ml Soln] Midodrine [ProAmatine] 5 mg PO AC-BID tab 01/17/22 Amoxic-Pot Clav 875-125Mg 1 tab PO Q12HR 7 Days #14 tab 01/28/22 [Augmentin 875-125] HYDROcodone/APAP 5-325MG [[place] 1 tab PO Q6HR PRN #4 tab 01/28/22 5-325] Allergies Allergy/AdvReac Type Severity Reaction Status Date / Time naproxen Allergy Unknown Verified 04/06/22 22:15 tramadol [From Ultram] Allergy Unknown Verified 04/06/22 22:15 Review of Systems ROS Statement: Those systems with pertinent positive or pertinent negative responses have been documented in the HPI. ROS Other: All systems not noted in ROS Statement are negative. Past Medical History Past Medical History: Dementia, Liver Disease Additional Past Medical History / Comment(s): hepatic encephalopathy, dysphasia, anasarca, ascites due to liver cirrhosis History of Any Multi-Drug Resistant Organisms: None Reported Date of last positivie culture/infection: 01/27/22 MDRO Source:: Urine Past Surgical History: Orthopedic Surgery Additional Past Surgical History / Comment(s): previous paracentesis at [facility] 2017, broken hip 2016 with rods placed, abdominal surgery in 03/15 Past Anesthesia/Blood Transfusion Reactions: No Reported Reaction Past Psychological History: Depression Smoking Status: Current every day smoker Past Alcohol Use History: Occasional, Rare Past Drug Use History: None Reported - Past Family History Mother Family Medical History: Dementia General Exam General appearance: other (Cyanotic apneic covered in vomit) Head exam: Present: atraumatic Eye exam: Present: other (Pupils fixed and dilated.) Respiratory exam: Present: other (No spontaneous breath sounds receiving ventilation with BVM) Cardiovascular Exam: Present: other (CPR in progress with Dominic device) GI/Abdominal exam: Present: distended, other Extremities exam: Present: other (Cyanotic) Skin exam: Present: cyanosis, other (Teran) Course Vital Signs 04/07/22 16:32 Pulse Rate 0 L Respiratory 0 L Rate Medical Decision Making - Medical Decision Making 72-year-old male presents in asystole, no signs of life CPR and ACLS protocol had been performed throughout transport without return of spontaneous circulation, ultimately time of 1632. I did discuss this with the medical apparatus model maker. Disposition Clinical Impression: Cardiac arrest Disposition: Condition: Undetermined Is patient prescribed a controlled substance at d/c from ED?: No Referrals: None,Stated [Primary Care Provider] - 1-2 days Time of Disposition: 16:32 Preliminary Cause of : Cardiopulmonary arrest
== END 2022-04-07 22:58 | disposition expired ==
LOC: EC 16:30
DX: I46.9 Cardiac arrest, cause unspecified (principal); F17.200 Nicotine dependence, unspecified, uncomplicated; E11.9 Type 2 diabetes mellitus without complications; Z88.6 Allergy status to analgesic agent; Z88.5 Allergy status to narcotic agent
CPT/HCPCS: 99284